=== PATIENT | female | born 1945 | race Caucasian/White ===

== ENCOUNTER 2020-06-09 00:17 | Emergency (ER) | payer MEDICARE, OTHER, SELFPAY ==
[2020-06-09 00:28] VITALS: BP 152/80; PULSE 68; RESP 18; TEMP 36.7; O2SAT 88; BMI 27.4
[2020-06-09 00:35] VITALS: BP 133/78; PULSE 74; RESP 18; O2SAT 99
--- NOTE | 2020-06-09 00:36 | XR_ITS ---
WS: [id number] XR shoulder LT min 2V* [id number] REASON FOR EXAM: fall with shoulder pain FINDINGS: Anterior dislocation of the left glenohumeral joint. No definite clinical labral fracture or humeral fracture. No Hill-Sachs deformity. XR/XR shoulder LT min 2V* [id number] IMPRESSION: Anterior dislocation of left shoulder as above.
--- NOTE | 2020-06-09 00:36 | W.ED.FALL ---
Documented by User: JAMES Ross 06/09/20 02:23 HPI - Fall General: Chief Complaint: Fall Stated Complaint: SHOULDER PAIN Time Seen by Provider: 06/09/20 00:35 History of Present Illness: HPI Narrative: Patient is a 74-year-old female comes to the ED via EMS after fall at home. Patient's says she was standing and fell landing on left shoulder. EMS came to the house and got patient up. She is complaining of having left shoulder pain. Denies any loss of consciousness or head trauma. EMS gave patient Zofran, 50 MCG's fentanyl and placed in shoulder immobilizer. Patient says pain after getting on all his currently 6 out of 10. Associated symptoms-after fall: Denies abdominal pain, chest pain, headache(s), hematuria or neck pain Review of Systems Const: Denies: fever(s), chills or fatigue Eyes: Denies: change in vision or eye discomfort ENMT: Denies: throat pain, odynophagia, nasal discharge or nasal congestion Card: Denies: chest pain, palpitations, edema, swelling of feet/ankles, dyspnea on exertion or orthopnea Resp: Denies: dyspnea, productive cough or non-productive cough GI: Denies: abdominal pain, nausea, vomiting, diarrhea, constipation or hematochezia : Denies: flank pain, dysuria or hematuria Musc: Reports: joint pain (left shoulder); Denies: neck pain, back pain or extremity swelling Skin/Breast: Denies: rash or new lesions Neuro: Denies: headache(s), numbness in extremities or weakness in extremities Physical Exam Const: COMMON NORMALS: no acute distress, patient oriented x3, healthy appearing and alert GENERAL APPEARANCE: cooperative and comfortable HENMT: COMMON NORMALS: normocephalic HEAD & SCALP: normocephalic MOUTH: Normal oral and palatal mucosa present THROAT: posterior oropharynx normal and uvula midline Neck/C-Spine: COMMON NORMALS: supple GENERAL: Yes normal visual inspection Resp: COMMON NORMALS: normal respiratory effort, No retractions, No use of accessory muscles and clear to auscultation bilaterally AUSCULTATION: clear to auscultation bilaterally Cardio: COMMON NORMALS: regular rate, regular rhythm, S1 normal heart sound present, S2 normal heart sound present, No gallops present (Cardio), No clicks present (Cardio), No murmurs present (Cardio) and Peripheral pulses 2+ throughout RATE: regular rate RHYTHM: regular rhythm HEART SOUNDS: S1 normal heart sound present and S2 normal heart sound present PERIPHERAL PULSES: Peripheral pulses 2+ throughout GI: COMMON NORMALS: Normal to inspection, nondistended, normoactive bowel sounds present, Soft to palpation, non-tender and no masses PALPATION: Yes Soft to palpation : COMMON NORMALS: Yes no CVA tenderness BLADDER/KIDNEY EXAM: Yes no CVA tenderness Back/Pelvis: COMMON NORMALS: no CVA tenderness Extremity: NARRATIVE EXTREMITY EXAM: Left arm?patient's left shoulder is currently in sling and swath. Radial pulse 2+, sensation intact. Left shoulder nontender to palpation. Neuro: COMMON NORMALS: patient oriented x3 and moves all extremities SENSORIUM/ORIENTATION: Yes alert Skin: GENERAL SKIN EXAM: dry skin Course ED course: Dr. Adams was informed about shoulder. He will be performing the reduction of the left shoulder and I will be assisting. Vital Signs: Vital signs: Vital Signs Temperature 98.1 F 06/09/20 00:28 Pulse Rate 65 06/09/20 02:18 Respiratory Rate 19 H 06/09/20 02:18 Blood Pressure 116/75 06/09/20 02:18 Pulse Oximetry 99 06/09/20 02:18 MDM - Fall MDM Narrative: Medical decision making narrative: Patient is a 74-year-old female comes to the ED with left shoulder injury after fall. X-ray showed dislocation of the left shoulder. Dr. Adams performed the reduction and I assisted. He will be heading to the no the reduction procedure details. Post reduction x-ray was performed and showed reduction was successful on shoulder was back in alignment. Patient's left arm put in a sling and I placed an order with case management to refer patient to Ortho. Patient discharged with hydrocodone prescription for pain and told to leave arm in sling and case management will be contacting them to set up an appoint with Ortho.Return to ED precautions given. Patient understood and agreed with plan. Imaging Data^: Xray Ortho: Attestation: I personally reviewed and interpreted this imaging study as follows: My impression: Left shoulder x-ray shows dislocation. Post reduction left shoulder Xray--shoulder was reduced and back in normal alignment. Discharge Plan Discharge Patient Disposition: Home Clinical Impression: Dislocated shoulder Qualifiers: Encounter type: initial encounter Laterality: left Qualified Code(s): S43.005A - Unspecified dislocation of left shoulder joint, initial encounter Condition: Stable Prescriptions: No Action aspirin 81 mg Tablet,Chewable 81 mg PO DAILY RF: 0 Discharge Orders: Discharge Order (Routine); Ordered 06/09/20 Ordered By: George Neville Discharge Diet: Regular Discharge Activity: Limit activity as instructed Patient Instructions: Shoulder Dislocation Exercises (GEN), Shoulder Dislocation (ED) Activity Restrictions/Additional Instructions: Follow-up with medical provider as directed. Case management should be contacting you in the next several days to set up an appointment with orthopedic doctor. Take medications as prescribed. Keep left arm in sling until cleared by Dr. Return to the ER or your medical provider if condition worsens. Please read and understand discharge instructions. If any questions, please ask. Coding Level of Care Code ED Director Of Patient Safety for Chg Fwd Exam Comprehensive Documented by User: Apolinar Adams DO 06/09/20 02:40 HPI - Fall General: Chief Complaint: Fall Stated Complaint: SHOULDER PAIN Time Seen by Provider: 06/09/20 00:35 Procedures Orthopedic Joint Reduction Joint #1: Time Out Performed: Yes Side: left Joint Reduction Location: shoulder Analgesia: procedural sedation Shoulder Technique Used (if applicable): scapula manipulation Post-reduction neuro exam: intact Post-reduction vascular: intact Post Reduction X-Ray Obtained: Yes Post Reduction X-Ray Results: reduced Splint Applied: Yes Patient Tolerated Procedure: well and no complications Procedural Sedation Indication: fracture/dislocation reduction ASA Class: I Preparation: recruiting consultant applied, pulse oximeter, supplemental O2 applied, suction/airway equipment at bedside and IV secured Midazolam: IV Midazolam dose (mg): 2 IV Etomidate dose (mg): 10 Patient Tolerated Procedure: well and no complications Complications: none Course Vital Signs: Vital signs: Vital Signs Temperature 98.1 F 06/09/20 00:28 Pulse Rate 65 06/09/20 02:18 Respiratory Rate 19 H 11/09/20 02:18 Blood Pressure 116/75 11/09/20 02:18 Pulse Oximetry 99 06/09/20 02:18 MDM - Fall MDM Narrative: Medical decision making narrative: This patient was originally seen by Mr. Kelin PA-C. I agree with his history, evaluation, and work-up. This patient has a left anterior shoulder dislocation. It was reduced by me under procedural sedation. She tolerated the procedure well, with no complication whatsoever. She is placed in a sling for Ortho follow-up as above. Discharge Plan Discharge Patient Disposition: Home Clinical Impression: Dislocated shoulder Qualifiers: Encounter type: initial encounter Laterality: left Qualified Code(s): S43.005A - Unspecified dislocation of left shoulder joint, initial encounter Condition: Stable Prescriptions: No Action aspirin 81 mg Tablet,Chewable 81 mg PO DAILY RF: 0 Discharge Orders: Discharge Order (Routine); Ordered 06/09/20 Ordered By: George Neville Discharge Diet: Regular Discharge Activity: Limit activity as instructed Patient Instructions: Shoulder Dislocation Exercises (GEN), Shoulder Dislocation (ED) Activity Restrictions/Additional Instructions: Follow-up with medical provider as directed. Case management should be contacting you in the next several days to set up an appointment with orthopedic doctor. Take medications as prescribed. Keep left arm in sling until cleared by Dr. Return to the ER or your medical provider if condition worsens. Please read and understand discharge instructions. If any questions, please ask. Coding Level of Care Code ED Director Of Patient Safety for Jean Fwd Exam Comprehensive
[2020-06-09 01:03] VITALS: BP 145/89; PULSE 88; RESP 18; O2SAT 97
--- NOTE | 2020-06-09 01:27 | XR_ITS ---
WS: [id number] XR shoulder LT min 2V* [id number] REASON FOR EXAM: post-red FINDINGS: The previously dislocated left glenohumeral joint has been restored to normal anatomic alignment. No fracture fragments are identified. There is slight deformity of the posterior lateral cortex of the h umeral head which may represent a minimal Hill-Sachs deformity. XR/XR shoulder LT min 2V* [id number] IMPRESSION: Anatomic relocation of previously identified left anterior glenohumeral disloca tion. Questionable Hill-Sachs deformity as above.
[2020-06-09] MEDS: ondansetron 2 mg/ML SDV 2 mL 4 MG IVP (01:42)
--- NOTE | 2020-06-09 01:45 | PC.NURSE ---
ambulated to BR with assistance then to room 11 for concsoius sedation and reduction of shoulder placed on monitor
[2020-06-09] MEDS: midazolam 1 mg/mL INJ 2 mL 2 MG IVP (01:46)
[2020-06-09 01:50] VITALS: BP 149/91; PULSE 80; RESP 21; O2SAT 97
[2020-06-09 02:18] VITALS: BP 116/75; PULSE 65; RESP 19; O2SAT 99
[2020-06-09] MEDS: HYDROcodone-acetaminophen 5-325 mg Tablet 2 TAB PO (02:31)
[2020-06-09 02:44] VITALS: BP 124/89; PULSE 83; RESP 17; O2SAT 98
--- NOTE | 2020-06-09 09:41 | DCPLANNER ---
assistant nurse manager had message to schedule a followup appointment for patient with ortho. assistant nurse manager called the ortho clinic, spoke with Pat, gave clinic patients information. assistant nurse manager was told that patients information would be printed and reviewed. Clinic will call patient with appointment information.
--- NOTE | 2020-06-12 15:43 | DCPLANNER ---
Patient has a follow up appointment scheduled for Tuesday, June 18, 2020 at 10:[address] Whaley. Clinic will call patient with appointment information.
--- NOTE | 2020-07-03 14:48 | DCPLANNER ---
Patient had a follow up appointment for patient with ortho on 06.18.20 - appointment was cancelled.
== END 2020-06-09 02:45 | disposition home or self-care (01) ==
PROVIDERS: Emergency Provider Physician Assistant
DX: S43.005A Unspecified dislocation of left shoulder joint, initial encounter (principal); Z79.82 Long term (current) use of aspirin; W19.XXXA Unspecified fall, initial encounter
CPT/HCPCS: 12345; 23650; 73030; 96374; 99283; J2250; J2405; J3490

== ENCOUNTER 2022-05-31 19:38 | Inpatient (IN) | payer MEDICARE, OTHER, SELFPAY ==
--- NOTE | 2022-05-31 19:39 | XRR_ITS ---
PROCEDURE INFORMATION: Exam: XR Left Hip Exam date and time: 05/31/2022 8:00 PM Age: 76 years old Clinical indication: Hip pain; Left hip; Additional info: Injury TECHNIQUE: Imaging protocol: Radiologic exam of the Left hip. Views: 2 or 3 views hip with pelvis when performed. COMPARISON: No relevant prior studies available. FINDINGS: Bones/joints: Severe left hip osteoarthritis. Soft tissues: Unremarkable. XR/XR hip LT 2-3V wo/w pel* [id number] IMPRESSION: 1. Severe left hip osteoarthritis. 2. Negative for fracture or dislocation seen, decreased bone mineral density and overlapping soft tissue densities somewhat limits evaluation, if concern for fracture remains clinically consider further evaluation with a CT scan.
[2022-05-31 19:41] VITALS: BP 130/70; PULSE 88; RESP 17; TEMP 36.4; O2SAT 95; BMI 30.2
--- NOTE | 2022-05-31 19:43 | XRR_ITS ---
PROCEDURE INFORMATION: Exam: XR Right Wrist Exam date and time: 05/31/2022 8:00 PM Age: 76 years old Clinical indication: Pain; Wrist; Right; Additional info: Injury TECHNIQUE: Imaging protocol: Radiologic exam of the Right wrist. Views: 3 or more views. COMPARISON: No relevant prior studies available. FINDINGS: Bones/joints: [id number] 1st carpometacarpal joint and STT joint osteoarthritis. Soft tissues: Normal. XR/XR wrist RT min 3V* [id number] IMPRESSION: [id number] 1st carpometacarpal joint and STT joint osteoarthritis.
--- NOTE | 2022-05-31 19:43 | W.ED.FALL ---
HPI - Fall General: Chief Complaint: Fall Stated Complaint: left hip pain/injury Time Seen by Provider: 05/31/22 19:41 Source: patient and EMS Mode of arrival: EMS Limitations: no limitations History of Present Illness: 76-year-old female who states that she had a fall on Tuesday. States she fell and injured her left hip and right wrist states she has not been able to walk since then she states her son and daughter in bed she has been laying in bed she states she decided she had to be seen today. Denies any new injuries denies any her head denies any loss conscious does have hip pain she rates a 6 out of 10 much worse with movement improved with rest. Associated symptoms-after fall: Denies abdominal pain, chest pain or headache(s) Review of Systems Const: Denies: fever(s), chills, body aches or change in appetite Eyes: Denies: blurry vision or eye discomfort ENMT: Denies: throat pain or dental pain Card: Denies: chest pain Resp: Denies: dyspnea GI: Denies: abdominal pain, nausea, vomiting or diarrhea : Denies: dysuria Musc: Reports: extremity pain Skin/Breast: Denies: rash Neuro: Denies: headache(s) Psych: Denies: depression Azael/Lymph: Denies: easy bruising All/Imm: Denies: urticaria PFSH ED PFSH: Medical History (Updated 05/31/22 @ 23:58 by Maria Fernanda Cabrera MD) No pertinent past medical history Social History (Updated 05/31/22 @ 19:45 by Maria Fernanda Cabrera MD) Substance/Drug Use: never Physical Exam Const: COMMON NORMALS: no acute distress, patient oriented x3 and healthy appearing HENMT: COMMON NORMALS: normocephalic and atraumatic HEAD & SCALP: normocephalic and atraumatic Eye: COMMON NORMALS: Equal, round and reactive pupils present and EOMs intact bilaterally PUPIL: Yes Equal, round and reactive pupils present Neck/C-Spine: COMMON NORMALS: full ROM and supple Chest: COMMONS NORMALS: normal inspection of the chest and normal palpation of entire chest wall Resp: COMMON NORMALS: normal respiratory effort, No retractions, No use of accessory muscles and clear to auscultation bilaterally AUSCULTATION: clear to auscultation bilaterally Cardio: COMMON NORMALS: regular rate, regular rhythm and No murmurs present (Cardio) RATE: regular rate RHYTHM: regular rhythm GI: COMMON NORMALS: Normal to inspection, nondistended, normoactive bowel sounds present, Soft to palpation, non-tender and no masses PALPATION: Yes Soft to palpation Extremity: NARRATIVE EXTREMITY EXAM: Slight tenderness to right wrist some tenderness over the left hip with pain with range of motion Neuro: COMMON NORMALS: patient oriented x3, moves all extremities and no focal motor deficits Psych: COMMON NORMALS: mental status grossly normal, Normal thought process present and cooperative THOUGHT PROCESS: Normal thought process present Skin: COMMON NORMALS: no rashes or lesions noted and no wounds GENERAL SKIN EXAM: no rashes or lesions noted Course Vital Signs: Vital signs: Vital Signs Temperature 97.6 F 05/31/22 19:41 Pulse Rate 83 05/31/22 22:00 Respiratory Rate 29 H 05/31/22 22:00 Blood Pressure 119/72 05/31/22 22:00 Pulse Oximetry 94 05/31/22 22:00 Oxygen Delivery Me thod 05/31/22 19:41 MDM - Fall Medical Decision Making Patient presents with left hip pain after a fall Tuesday. Patient CT shows a possible osteomyelitis she does not have much pain here no fever she also has acute kidney injury with elevated creatinine likely from dehydration patient is also hyponatremic her blood pressure here has been normal we will start on IV antibiotics along with IV fluids spoke to hospitalist will admit also spoke to Dr. Neville of orthopedics who is consulted. Lab Data : 05/31/22 22:07 05/31/22 22:36 Radiology Impressions Hip/Pelvis X-Ray 05/31/22 19:39 IMPRESSION: 1. Severe left hip osteoarthritis. 2. Negative for fracture or dislocation seen, decreased bone mineral density and overlapping soft tissue densities somewhat limits evaluation, if concern for fracture remains clinically consider further evaluation with a CT scan. Wrist X-Ray 05/31/22 19:43 IMPRESSION: [id number] 1st carpometacarpal joint and STT joint osteoarthritis. Hip CT 05/31/22 20:14 IMPRESSION: 1. Negative for fracture or dislocation. 2. Severe left hip osteoarthritis with bony remodeling of the femur and acetabulum. 3. Several pockets of air density seen in the left proximal femur medullary space measuring up to 13.8 mm with some poorly defined overlying edematous soft tissue with some punctate pockets of air and an apparent fluid collection in the soft tissue measuring up to 3.7 cm over the anterior aspect of the intertrochanteric region, concerning for an infectious process involving the soft tissues along with osteomyelitis. Laboratory Results WBC 19.4 10^3/uL (4.0-10.0) H 05/31/22 22:07 RBC 3.58 10^6/uL (4.1-5.3) L 05/31/22 22:07 Hgb 11.4 g/dL (11.5-15.3) L 05/31/22 22:07 Hct 31.7 % (37.0-47.0) L 05/31/22:07 MCV 88.5 fl (81-99) 05/31/22: MCH 31.8 pg (28.0-34.0) 05/31/22: MCHC 36.0 g/dL (30.0-36.0) 05/31/22: RDW 15.0 % (12.1-15.1) 05/31/22: Plt Count 134 10^3/cmm (130-400) 05/31/22 22:07 MPV 12.6 fL (7.4-10.4) H 05/31/22 22:07 Neut % (Auto) 89.5 % 05/31/22: Lymph % (Auto) 2.2 % 05/31/22: [place] % (Auto) 3.6 % 05/31/22: Eos % (Auto) 0.1 % 05/31/22: Baso % (Auto) 0.9 % 05/31/22: Neut # (Auto) 17.40 10^3/uL (1.8-7.7) H 05/31/22:07 Lymph # (Auto) 0.4 10^3/uL (0.8-4.8) L 05/31/22:07 [place] # (Auto) 0.7 10^3/uL (0.2-0.9) 05/31/22 22:07 Eos # (Auto) 0.0 10^3/uL (0.0-0.8) 05/31/22:07 Baso # (Auto) 0.2 10^3/uL (0.0-0.1) H 05/31/22 22:07 Nucleated RBC % (auto) 0 % 05/31/22 22:07 Nucleated RBCs # 0.0 /100WBC 05/31/22 22:07 ESR 92 mm/hr (0-15) H 05/31/22 22:07 Sodium 120 mmol/L (136-145) L 05/31/22 22:36 Potassium 5.2 mmol/L (3.5-5.1) H 05/31/22 22:36 Chloride 86 mmol/L (98-107) L 05/31/22 22:36 Carbon Dioxide 13 mmol/L (22-29) L 05/31/22 22:36 Anion Gap 26.2 (5-19) H 05/31/22 22:36 BUN 145 mg/dL (8-23) H* 05/31/22 22:36 Creatinine 5.1 mg/dL (0.5-0.9) H 05/31/22 22:36 GFR Calculation Not Reportable 05/31/22 22:36 Glucose 77 mg/dL (65-115) 05/31/22 22:36 Calculated Osmolality 296 mOsm/kg (285-295) H 05/31/22 22:36 Calcium 8.9 mg/dL (8.5-10.5) 05/31/22 22:36 Total Bilirubin 0.8 mg/dL (0.15-1.2) 05/31/22 22:36 AST 15 U/L (0-32) 05/31/22 22:36 ALT 13 U/L (0-33) 05/31/22 22:36 Alkaline Phosphatase 143 U/L (35-105) H 05/31/22 22:36 C-Reactive Protein 120.1 mg/L (0.0-4.9) H 05/31/22 22:36 Total Protein 5.5 g/dL (6.6-8.7) L 05/31/22 22:36 Albumin 2.1 g/dL (3.5-5.2) L 05/31/22 22:36 Globulin 3.4 g/dL (1.3-4.6) 05/31/22 22:36 Critical Care Time Critical Care Time: Critical Care Time: Yes Total Critical Care Time: 45 Attestation: The high probability of a clinically significant, sudden or life threatening deterioration of the patient's msk system(s) required my full and direct attention, intervention and personal management. The critical care time is as shown. This time is in addition to time spent performing any reported procedures but includes the following: [x] Data and vital sign review and interpretation [x] Patient assessment, examination and intervention [x] Documentation [x] Medication orders and management Discharge Plan Discharge Patient Disposition: Admitted As Inpatient Admit Provider: Ruth Orosco Clinical Impression: Fall, Hip pain, left, Acute kidney injury, Hyponatremia Condition: Stable Coding Level of Care Code ED Chemical Research Worker for Chg Fwd Exam Comprehensive
--- NOTE | 2022-05-31 20:14 | CTR_ITS ---
PROCEDURE INFORMATION: Exam: CT Left Lower Extremity Without Contrast, Hip Exam date and time: 05/31/2022 8:42 PM Age: 76 years old Clinical indication: Pain and injury or trauma; Fall; Blunt trauma; Hip; Left TECHNIQUE: Imaging protocol: CT of the Left lower extremity without contrast was performed. Exam focused on the hip. Radiation optimization: All CT scans at this facility use at least one of these dose optimization techniques: automated exposure control; mA and/or kV adjustment per patient size (includes targeted exams where dose is matched to clinical indication); or iterative reconstruction. COMPARISON: CR (PELVIS, ) 05/31/2022 8:00 PM RADIATION DOSE METRICS: Total DLP (mGy-cm): 418.38 FINDINGS: Bones/joints: Negative for fracture or dislocation. Severe left hip osteoarthritis with bony remodeling of the femur and acetabulum. Soft tissues: Several pockets of air density seen in the left proximal femur medullary space measuring up to 13.8 mm with some poorly defined overlying edematous soft tissue with some punctate pockets of air and an apparent fluid collection in the soft tissue measuring up to 3.7 cm over the anterior aspect of the intertrochanteric region, concerning for an infectious process involving the soft tissues along with osteomyelitis. CT/CT hip LT wo con* [id number] IMPRESSION: 1. Negative for fracture or dislocation. 2. Severe left hip osteoarthritis with bony remodeling of the femur and acetabulum. 3. Several pockets of air density seen in the left proximal femur medullary space measuring up to 13.8 mm with some poorly defined overlying edematous soft tissue with some punctate pockets of air and an apparent fluid collection in the soft tissue measuring up to 3.7 cm over the anterior aspect of the intertrochanteric region, concerning for an infectious process involving the soft tissues along with osteomyelitis.
[2022-05-31 20:32] VITALS: BP 125/88
[2022-05-31 22:00] VITALS: BP 119/72; PULSE 83; RESP 29; O2SAT 94
[2022-05-31 22:20] LABS: Basophils # 0.2 10^3/uL (0.0-0.1); Basophils % 0.9 %; Eosinophils % 0.1 %; Hematocrit 31.7 % (37.0-47.0); Hemoglobin 11.4 g/dL (11.5-15.3); Lymphocytes # 0.4 10^3/uL (0.8-4.8); Lymphocytes % 2.2 %; Mean Corpuscular Hemoglobin 31.8 pg (28.0-34.0); Mean Corpuscular Volume 88.5 fl (81-99); Mean Platelet Volume 12.6 fL (7.4-10.4); Monocytes # 0.7 10^3/uL (0.2-0.9); Monocytes % 3.6 %; Neutrophils % 89.5 %; Nucleated Red Blood Cells % 0 %; Platelet Count 134 10^3/cmm (130-400); Red Blood Count 3.58 10^6/uL (4.1-5.3); White Blood Count 19.4 10^3/uL (4.0-10.0)
[2022-05-31 22:25] LABS: Erythrocyte Sedimentation Rate 92 mm/hr (0-15)
[2022-05-31] MEDS: vancomycin 1,000 MG in sodium chloride 0.9% 250 ML 250 MG IV (22:58)
[2022-05-31 23:00] LABS: Alanine Aminotransferase 13 U/L (0-33); Albumin Level 2.1 g/dL (3.5-5.2); Alkaline Phosphatase 143 U/L (35-105); Anion Gap 26.2 (5-19); Aspartate Amino Transferase 15 U/L (0-32); C Reactive Protein 120.1 mg/L (0.0-4.9); Calcium 8.9 mg/dL (8.5-10.5); Carbon Dioxide 13 mmol/L (22-29); Chloride 86 mmol/L (98-107); Globulin 3.4 g/dL (1.3-4.6); Glucose 77 mg/dL (65-115); Potassium 5.2 mmol/L (3.5-5.1); Sodium 120 mmol/L (136-145); Total Bilirubin 0.8 mg/dL (0.15-1.2); Total Protein 5.5 g/dL (6.6-8.7)
[2022-05-31 23:05] LABS: Slide Review Slide Review Perform
[2022-05-31 23:10] LABS: Osmolality Calculated 296 mOsm/kg (285-295)
[2022-05-31 23:12] LABS: Blood Urea Nitrogen 145 mg/dL (8-23)
--- NOTE | 2022-05-31 23:21 | ECG_ITS ---
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 Measurements Intervals [place] Rate: 83 P: 4 AL: 159 QRS: 102 QRSD: 111 T: 7 QT: 365 QTc: 431 Interpretive Statements SINUS RHYTHM RIGHT AXIS DEVIATION [QRS AXIS > 100] Nonspecific T wave changes LOW QRS VOLTAGE IN PRECORDIAL LEADS [QRS DEFLECTION < 1.0 mV IN CHEST LEADS] POSSIBLE ANTERIOR MYOCARDIAL INFARCTION , OF INDETERMINATE AGE [30 ms Q WAVE IN V3/V4, OR R < 0.2 mV IN V4] No previous ECG available for comparison Electronically Signed On 06-01-2022 21:42:42 CDT by Pascual Murphy M.D. [email or web address]
[2022-05-31] MEDS: sodium chloride 0.9% 1,000 ML 999 ML IV (23:54)
[2022-06-01] VITALS (177 sets, daily range): BP systolic 83–149; BP diastolic 51–90; PULSE 73–133; RESP 5–28; TEMP 36.6; O2SAT 77–97; BMI 27.8
[2022-06-01 00:07] LABS: Creatine Phosphokinase 41 U/L (26-192)
--- NOTE | 2022-06-01 00:14 | P.HP_ITS ---
Providers/Chief Complaint Admitting Physician: Ruth Orosco MD Chief Complaint: left hip pain/injury History of Present Illness Limited history is available from the patient. At this time, she is lethargic, moaning in pain, answers few simple questions but does not describe any of her presenting symptoms. History is mainly by what was obtained by talking to the ER physician. Unable to reach family at this time. Breanna Andrew is a 76 year old female without known past medical comorbidities who reportedly sustained a mechanical fall at home on Tuesday following which she has been unable to get out of bed. She is unable to tell me how she came into the emergency room today, however reportedly neighbors called EMS which brought her to the emergency room. She had denied any specific complaints upon presentation to the ER except for left hip pain.. X-ray of her hip was performed due to concern for possible hip fracture, was ne gative for the same but showed severe left hip osteoarthritis. Negative for any fracture or dislocation. Follow-up hip CT was additionally negative for any fracture or dislocation, however showed several pockets of air density in the left proximal femur medullary space measuring up to 13.8 mm with poorly defined overlying edematous soft tissue and punctate pockets of air. There was also a soft tissue collection measuring 3.7 cm over the anterior aspect of the intertrochanteric region concerning for an infectious process involving the soft tissues along with osteomyelitis. Further lab evaluation has revealed acute kidney injury with creatinine of 5.1, patient unable to tell me her baseline or if she has a past history of CKD. She has had poor urine output, refused Martinez placement in the emergency room. Also noted to have elevated ESR CRP. Review of Systems General: Reports: ROS unobtainable due to medical condition Eyes: Denies: change in vision, blurry vision or photophobia ENMT: Reports: hoarseness; Denies: throat pain, enlarged tonsils, odynophagia or nasal congestion Card: Denies: chest pain, palpitations, irregular heart rhythm, edema, swelling of feet/ankles, lightheadedness, pre-syncope, dyspnea on exertion or orthopnea Resp: Denies: dyspnea, productive cough, non-productive cough, wheezing, stridor, pain on inspiration, change in phlegm color, hemoptysis or chest congestion GI: Denies: abdominal pain, nausea, vomiting, hematemesis, coffee ground emesis, dysphagia, heartburn, diarrhea, constipation, GI cramping, change in stool character, hematochezia or melena : Denies: flank pain, difficulty voiding, dysuria, urinary frequency, urinary urgency, urinary hesitancy or hematuria Musc: Denies: neck pain, back pain, extremity pain, joint swelling, joint warmth or deformity Neuro: Denies: headache(s), numbness in extremities, weakness in extremities, sensory changes, difficulty walking, frequent falls, dizziness, vertigo, behavioral changes, Slurred speech present or seizure-like activity Psych: Denies: anxiety, depression, suicidal ideation or homicidal ideation Endo: Denies: polyuria, polydipsia, tired all the time, cold intolerance or hot flashes Azael/Lymph: Denies: easy bruising or easy bleeding Medications/Allergies Home Medications Medication Instructions Recorded Confirmed Last Taken Type aspirin 81 mg chewable tablet 81 mg PO DAILY 06/09/20 05/31/22 06/08/20 10:00 History Allergies Allergy/AdvReac Type Severity Reaction Status Date / Time No Known Allergies Allergy Verified 05/31/22 19:47 PFSH Acute PFSH: Medical History No pertinent past medical history Social History Substance/Drug Use: never Vitals/I&O/Wt Last Vital Signs Temp 97.6 F 05/31/22 19:41 Pulse 83 05/31/22 22:00 Resp 29 H 05/31/22 22:00 BP 119/72 05/31/22 22:00 Pulse Ox 94 05/31/22 22:00 O2 Del Method 05/31/22 19:41 05/31/22 05/31/22 06/01/22 14:59 22:59 06:59 Intake Total 250 / 250 Balance 250 / 250 Weight last 48 hrs Weight 74.843 kg Physical Exam Narrative: General: Elderly Flarin appearing woman lying in bed, moans and groans, answers yes or no to directed questions but otherwise does not participate in prolonged conversation. HEENT: PERRLA, pupils bilaterally equal and reactive, pallors not present Chest: Normal vesicular breath sounds, no added sounds, equal good air entry bilaterally CVS: S1-S2 regular, no murmurs, no tachycardia, no gallops, no rubs Abdomen: Nondistended, no gross tenderness. Neuro : Moving all extremities in bed, no gross focal deficits, Data : 05/31/22 22:07 05/31/22 22:36 Other Labs: Radiology Impressions Hip/Pelvis X-Ray 05/31/22 19:39 IMPRESSION: 1. Severe left hip osteoarthritis. 2. Negative for fracture or dislocation seen, decreased bone mineral density and overlapping soft tissue densities somewhat limits evaluation, if concern for fracture remains clinically consider further evaluation with a CT scan. Wrist X-Ray 05/31/22 19:43 IMPRESSION: [id number] 1st carpometacarpal joint and STT joint osteoarthritis. Hip CT 05/31/22 20:14 IMPRESSION: 1. Negative for fracture or dislocation. 2. Severe left hip osteoarthritis with bony remodeling of the femur and acetabulum. 3. Several pockets of air density seen in the left proximal femur medullary space measuring up to 13.8 mm with some poorly defined overlying edematous soft tissue with some punctate pockets of air and an apparent fluid collection in the soft tissue measuring up to 3.7 cm over the anterior aspect of the intertrochanteric region, concerning for an infectious process involving the soft tissues along with osteomyelitis. Laboratory Results WBC 19.4 10^3/uL (4.0-10.0) H 05/31/22 22:07 RBC 3.58 10^6/uL (4.1-5.3) L 05/31/22 22:07 Hgb 11.4 g/dL (11.5-15.3) L 05/31/22 22:07 Hct 31.7 % (37.0-47.0) L 05/31/22 22:07 MCV 88.5 fl (81-99) 05/31/22 22:07 MCH 31.8 pg (28.0-34.0) 05/31/22 22:07 MCHC 36.0 g/dL (30.0-36.0) 05/31/22 22:07 RDW 15.0 % (12.1-15.1) 05/31/22 22:07 Plt Count 134 10^3/cmm (130-400) 05/31/22 22:07 MPV 12.6 fL (7.4-10.4) H 10/31/22 22:07 Neut % (Auto) 89.5 % 05/31/22 22:07 Lymph % (Auto) 2.2 % 05/31/22 22:07 [place] % (Auto) 3.6 % 05/31/22 22:07 Eos % (Auto) 0.1 % 05/31/22 22:07 Baso % (Auto) 0.9 % 05/31/22 22:07 Neut # (Auto) 17.40 10^3/uL (1.8-7.7) H 05/31/22 22:07 Lymph # (Auto) 0.4 10^3/uL (0.8-4.8) L 05/31/22 22:07 [place] # (Auto) 0.7 10^3/uL (0.2-0.9) 05/31/22 22:07 Eos # (Auto) 0.0 10^3/uL (0.0-0.8) 05/31/22 22:07 Baso # (Auto) 0.2 10^3/uL (0.0-0.1) H 05/31/22 22:07 Nucleated RBC % (auto) 0 % 05/31/22 22:07 Nucleated RBCs # 0.0 /100WBC 05/31/22 22:07 ESR 92 mm/hr (0-15) H 05/31/22 22:07 Sodium 120 mmol/L (136-145) L 05/31/22 22:36 Potassium 5.2 mmol/L (3.5-5.1) H 05/31/22 22:36 Chloride 86 mmol/L (98-107) L 05/31/22 22:36 Carbon Dioxide 13 mmol/L (22-29) L 05/31/22 22:36 Anion Gap 26.2 (5-19) H 05/31/22 22:36 BUN 145 mg/dL (8-23) H* 05/31/22 22:36 Creatinine 5.1 mg/dL (0.5-0.9) H 05/31/22 22:36 GFR Calculation Not Reportable 05/31/22 22:36 Glucose 77 mg/dL (65-115) 05/31/22 22:36 Estimat Average Glucose 94 05/31/22 22:07 Hemoglobin A1c 4.9 % (4.0-6.0) 05/31/22 22:07 Calculated Osmolality 296 mOsm/kg (285-295) H 05/31/22 22:36 Calcium 8.9 mg/dL (8.5-10.5) 05/31/22 22:36 Total Bilirubin 0.8 mg/dL (0.15-1.2) 05/31/22 22:36 AST 15 U/L (0-32) 05/31/22 22:36 ALT 13 U/L (0-33) 05/31/22 22:36 Alkaline Phosphatase 143 U/L (35-105) H 05/31/22 22:36 Creatine Kinase 41 U/L (26-192) 05/31/22 23:25 C-Reactive Protein 120.1 mg/L (0.0-4.9) H 05/31/22 22:36 Total Protein 5.5 g/dL (6.6-8.7) L 05/31/22 22:36 Albumin 2.1 g/dL (3.5-5.2) L 05/31/22 22:36 Globulin 3.4 g/dL (1.3-4.6) 05/31/22 22:36 Random Cortisol 22.07 ug/dL (2.47-19.5) H 05/31/22 23:25 Urine Color Yellow (Yellow) 06/01/22 01:58 Urine Appearance Turbid (CLEAR) A 06/01/22 01:58 Urine pH 5 (5-7) 06/01/22 01:58 Ur Specific Malcolm 1.015 (1.005-1.030) 06/01/22 01:58 Urine Protein 3+ (Negative) H 06/01/22 01:58 Urine Glucose (UA) Norm (Normal) 06/01/22 01:58 Urine Ketones Negative (Negative) 06/01/22 01:58 Urine Blood 3+ (Negative) H 06/01/22 01:58 Urine Nitrate Negative (Negative) 06/01/22 01:58 Urine Bilirubin Neg (Negative) 06/01/22 01:58 Urine Urobilinogen Norm mg/dL (Negative) 06/01/22 01:58 Ur Leukocyte Esterase 2+ (Negative) H 06/01/22 01:58 Urine RBC Too numerous to cnt /hpf (0-2) H 06/01/22 01:58 Urine WBC Too numerous to cnt /hpf (0-5) H 06/01/22 01:58 Ur Squamous Epith Cells 0-4 /hpf (0-5) H 06/01/22 01:58 Amorphous Sediment Not Reportable 06/01/22 01:58 Urine Bacteria 4+ /hpf (NONE) H 06/01/22 01:58 Ur Random Sodium 41 mmol/L 06/01/22 01:54 Ur Random Potassium 30 mmol/L 06/01/22 01:54 Ur Random Chloride 30 mmol/L 06/01/22 01:54 Blood Type O Positive 06/01/22 00:21 Rho(D) Type Positive 06/01/22 00:21 Antibody Screen Negative 06/01/22 00:21 Micro: Microbiology 05/31/22 23:49 Blood Culture - Preliminary Blood SPECIMEN COLLECTED 05/31/22 23:44 Blood Culture - Preliminary Blood SPECIMEN COLLECTED A&P Assessment and plan (1) Hip pain, left: (2) Acute kidney injury: (3) Sepsis: (4) Hyponatremia: (5) Dehydration: Plan 76-year-old lady without other known medical comorbidities, presented to the hospital with left hip pain after sustaining a fall on Tuesday. Very limited history is available from the patient, she may have some degree of encephalopathy which may be apparent to make her look like a poor historian. On evaluation she is found to have leukocytosis with predominant neutrophilia, acute kidney injury, hyponatremia, poor urine output, elevated inflammatory markers and CT of the hip showing possible soft tissue abscess and cellulitis. Sepsis is certainly a possibility. She has received sepsis bolus in the ER. Blood culture taken prior to initiation of antibiotics. We will additionally check UA and urine culture. Check lactate Patient is appearing to be grossly dehydrated, will continue IV fluids D5 normal saline at 100 cc an hour. She had refused a Martinez placement in the emergency room, however encouraged highly to consider this as we will need to monitor her urine output accurately while we are monitoring her creatinine. Mild hyperkalemia at 5.2, she is acidotic with bicarb at 13. Elevated anion gap likely secondary to dehydration. JESSICA may alternately be a result of ATN from sepsis. Check CK to evaluate for rhabdomyolysis given recent fall. Will recheck her creatinine and electrolytes after hydration with a.m. labs. Likely will need nephrology consult. Empiric antibiotic coverage with piperacillin tazobactam and vancomycin. Orthopedics has been consulted to a certain for I&D/surgical intervention. Possibly also with metabolic encephalopathy, will obtain CT head to rule out any injuries given her history of recent fall. Attestations Medical Necessity Statement*: Anticipate greater than 2 midnight admission for evaluation of possible sepsis, IV antibiotics, IV fluids, acute kidney injury requiring further interventions. Critical Care Time: The high probability of a clinically significant, sudden or life threatening deterioration of the patient's [ID, renal] system(s) required my full and direct attention, intervention and personal management. The critical care time is as shown. This time is in addition to time spent performing any reported procedures but includes the following: [x] Data and vital sign review and interpretation [x] Patient assessment, examination and intervention [x] Documentation [x] Medication orders and management Critical Care Time (min): 45 Coding Level of Care Code Acute Rn Admission for [facility] Diagnoses Hip pain, left M25.552 Acute kidney injury N17.9 Sepsis A41.9 Hyponatremia E87.1 Dehydration E86.0
[2022-06-01 01:17] LABS: Estmated Average Glucose 94; Hemoglobin A1C 4.9 % (4.0-6.0)
[2022-06-01] MEDS: piperacillin-tazobactam 3.375 GM in sodium chloride 0.9% (plus) 50 ML IV (01:39)
[2022-06-01] MEDS: sodium chloride 0.9% 1,000 ML 999 ML IV (01:51)
[2022-06-01 01:58] LABS: Cortisol Random 22.07 ug/dL (2.47-19.5)
[2022-06-01 02:44] LABS: Potassium, Radom Urine 30 mmol/L; Urine Random Chloride 30 mmol/L; Urine Random Sodium 41 mmol/L
[2022-06-01 02:45] LABS: Specific Gravity, Urine 1.015 (1.005-1.030); Urine Appearance Turbid (CLEAR); Urine Color Yellow (Yellow); pH Urine 5 (5-7)
[2022-06-01 02:46] LABS: Add Urine Culture? Yes; Add Urine Microscopic? YES; Bacteria Urine 4+ /hpf; Bilirubin Urine Neg (Negative); Blood Urine 3+ (Negative); Glucose Urine UA Norm (Normal); Ketones Urine Negative (Negative); Leukocyte Esterase Urine 2+ (Negative); Nitrate Urine Negative (Negative); Protein Urine 3+ (Negative); RBC Urine TOO NUMEROUS TO CNT /hpf (0-2); Squamous Epithelial Cell Urine 0-4 /hpf (0-5); Urobilinogen Urine Norm (Negative); WBC Urine TOO NUMEROUS TO CNT /hpf (0-5)
[2022-06-01] MEDS: dextrose 5%-sod chloride 0.9% 1,000 ML 75 ML IV (03:37)
--- NOTE | 2022-06-01 04:36 | PC.NURSE ---
Patient arrived on unit @0045. AO to person and situation only, unable to name town or year(1942). Martinez placed successfully with key/puss colored urine upon insertion approximately 100ml out on insertion. Patient complained of burning sensation. Patient complains of pain in Left hip and right wrist. Patient has been able to rest, however frequent reorientation has been necessary when awakened. Shift report from ED stated that tarry stool bowel movement tested positive for occult blood. This has not been observed in the ICU. Patient is on room with sinus rhythms and stable BP.
--- NOTE | 2022-06-01 06:45 | XRR_ITS ---
PROCEDURE INFORMATION: Exam: XR Chest Exam date and time: 06/01/2022 7:26 AM Age: 76 years old Clinical indication: Fever; Additional info: Sepsis source evaluation TECHNIQUE: Imaging protocol: Radiologic exam of the chest. Views: 1 view. Total images: 1 COMPARISON: CR XR shoulder LT min 2V* [id number] 06/09/2020 1:38 AM FINDINGS: Lungs: Trace atelectasis or scar noted in the left lung base. Pleural spaces: Unremarkable. No pleural effusion. No pneumothorax. Heart/Mediastinum: Unremarkable. No cardiomegaly. Bones/joints: Unremarkable. XR/XR chest 1V portable [id number] IMPRESSION: Trace atelectasis or scar noted in the left lung base.
--- NOTE | 2022-06-01 06:45 | CT_ITS ---
WS: [id number] CT HEAD TECHNIQUE: Noncontrast CT of the head obtained from the skullbase to the vertex. CLINICAL INFORMATION: h/o fal , evaluate for injuries COMPARISON: None. DLP: 1209.[address] scans at [facility] use at least one of these dose optimization techniques: automated e xposure control; mA and/or kV adjustment per patient size (includes targeted exams where dose is matc hed to clinical indication); or iterative reconstruction. FINDINGS: No evidence of intracranial hemorrhage or mass effect. Ventricular system and basal cisterns are russo nt. Moderate small vessel changes with moderate parenchymal volume loss. Tiny chronic lacunar infarct s in the RIGHT caudate and basal ganglia. Chronic lacunar infarcts RIGHT cerebellum. Intracranial vas cular calcifications. No extra-axial fluid collections. Paranasal sinuses and mastoid air cells are well aerated. .Normal visualized soft tissues. CT/CT head wo con* [id number] IMPRESSION: 1. No evidence of intracranial hemorrhage or mass effect. 2. Moderate small vessel changes. Moderate parenchymal volume loss. 3. Chronic lacunar infarcts in the RIGHT caudate and basal ganglia. Chronic la cunar infarcts in the RIGHT cerebellum. 4. Intracranial vascular calcification. 5. No acute intracranial findings.
--- NOTE | 2022-06-01 06:49 | PM.CONSULT ---
Providers/Reason For Consult Consulting Physician/Specialty*: Nikita Neville DO/orthopedic surgery Reason for Consult*: Left hip pain degenerative changes concerning findings for osteomyelitis and septic hip Requesting Physician: Maria Fernanda Cabrera, Attending Physician: Ruth Orosco MD History of Present Illness History of Present Illness Breanna Andrew is a 76 year old female who was seen and evaluated by myself in the ICU early this morning alongside ICU provider. Patient is a poor historian. States she did have a fall and had pain in her left hip and inability to bear weight since this past Tuesday. She was seen evaluated in the emergency department she was found on x-ray to have severe degenerative joint disease of the left hip no fracture is appreciated CT scan was then ordered to evaluate for any fracture and there was significant findings concerning for possible osteomyelitis as result orthopedic surgery team was consulted. On my evaluation of patient she is rather lethargic but she will arouse to follow some commands. She is complains of pain into her left hip. She states this is just been since Tuesday and denies is having any issues prior however unsure how reliable patient is as a historian. Once again history is limited secondary to patient being lethargic and moaning in pain and she only answers simple questions. Most of my history is from review of patient's chart as well as discussion with emergency department as well as primary team. Patient admitted in the ICU for empiric IV antibiotics. She is severely dehydrated with an acute kidney injury with a creatinine of 5.1. She has evidence of UTI. Patient's vital signs of been stable and afebrile not requiring pressors. History reveals patient is a alcoholic. Patient was able to state that she utilizes a cane or walker at home at baseline. Review of Systems General: Reports: ROS unobtainable due to medical condition Medications/Allergies Home Medications Medication Instructions Recorded Confirmed Last Taken Type aspirin 81 mg chewable tablet 81 mg PO DAILY 06/09/20 05/31/22 06/08/20 10:00 History Allergies Allergy/AdvReac Type Severity Reaction Status Date / Time No Known Allergies Allergy Verified 05/31/22 19:47 Current Medications Generic Name Dose Route Start Last Admin Trade Name Freq PRN Reason Stop Dose Admin Dextrose/Sodium Chloride 1,000 mls @ 75 mls/hr 06/01/22 00:15 06/01/22 03:37 Dextrose 5%-Sod Chloride 0.9% IV 75 mls/hr .[id number] ULYSSES Administration Piperacillin Sod/Tazobactam 50 mls @ 12.5 mls/hr 06/01/22 01:00 06/01/22 06:20 Sod 3.375 gm/ Sodium Chloride IV Infused Q8H ULYSSES Infusion Protocol PFSH Acute PFSH: Medical History (Updated 06/01/22 @ 17:07 by Nikita Neville DO) Hip osteomyelitis, left No pertinent past medical history Social History Substance/Drug Use: never Vitals/I&O/Wt Last Vital Signs Temp 97.9 F 06/01/22 01:00 Pulse 78 06/01/22 06:00 Resp 22 H 06/01/22 04:05 BP 136/63 06/01/22 04:05 Pulse Ox 95 06/01/22 04:05 O2 Del Method 06/01/22 01:00 05/31/22 05/31/22 06/01/22 14:59 22:59 06:59 Intake Total 2300 / 2300 Output Total 175 / 175 Balance 2125 / 2125 Weight last 48 hrs Weight 157 lb 6 oz Weight 165 lb Physical Exam Narrative: Examination is limited due to patient's poor historian and lethargy complaining of pain left hip: Patient rests leg and externally rotated positioning to the left lower extremity. She has positive pain with logroll she is unable to perform [place]inchfield secondary to pain and discomfort. Patient is able to wiggle her toes as well as plantarflex and dorsiflex ankle distal pulses palpable. She does not a sensation intact to light touch distally at the foot however unable to specify each dermatome or peripheral nerve distribution. Negative logroll to the right right hip pain and tenderness palpation of the left hip. No wound noted to the left hip. Patient is able to wiggle toes and plantarflex dorsiflex ankle to the right lower extremity. Patient does have some tenderness to palpation of the right wrist and some discomfort with range of motion mild swelling noted with no noticeable erythema. Urinary Catheter Management: Martinez: Cath Placed During This Visit: yes Reason for Continuing Indwelling Catheter: Accurate Measurement of Urinary Output in Critically Ill Patients Urinary Catheter Date of Insertion: 06/01/22 Urinary Catheter Time of Insertion: 01:15 Data : 06/01/22 06:50 06/01/22 06:50 Micro: Microbiology 05/31/22 23:49 Blood Culture - Preliminary Blood SPECIMEN COLLECTED 05/31/22 23:44 Blood Culture - Preliminary Blood SPECIMEN COLLECTED Xray Ortho: My impression: X-rays reviewed of the left hip demonstrates severe degenerative changes and erosion of the femoral head of the left hip. X-rays of the right wrist demonstrate no acute fracture dislocation normal soft tissue envelope and first CMC joint arthritis with STT arthritis. Radiologist's impression: IMPRESSION: 1. Severe left hip osteoarthritis. 2. Negative for fracture or dislocation seen, decreased bone mineral density and overlapping soft tissue densities somewhat limits evaluation, if concern for fracture remains clinically consider further evaluation with a CT scan. IMPRESSION: [id number] 1st carpometacarpal joint and STT joint osteoarthritis. Other CT: Radiologist's impression: IMPRESSION: 1. Negative for fracture or dislocation. 2. Severe left hip osteoarthritis with bony remodeling of the femur and acetabulum. 3. Several pockets of air density seen in the left proximal femur medullary space measuring up to 13.8 mm with some poorly defined overlying edematous soft tissue with some punctate pockets of air and an apparent fluid collection in the soft tissue measuring up to 3.7 cm over the anterior aspect of the intertrochanteric region, concerning for an infectious process involving the soft tissues along with osteomyelitis. MRI: Radiologist's impression: IMPRESSION: ? 1.? Nearly nondiagnostic evaluation of the LEFT hip. Patient was unable to remain still for this examination. 2.? Cannot exclude fracture or osteomyelitis. 3.? There is severe soft tissue edema and synovial thickening surrounding the LEFT hip and involving the muscles surrounding the LEFT hip. Infectious process likely. A&P Assessment and plan (1) Hip osteomyelitis, left: (2) Hip pain, left: (3) Acute kidney injury: (4) Sepsis: Plan MDM: Breanna is a 76-year-old female with complains of severe pain to the left hip apparently after a fall on Tuesday. She subsequently brought was brought to the emergency department found to have severe degenerative joint disease left hip and a CT scan of the left hip was ordered to rule out fracture and subsequently severe degenerative changes found to the left hip findings concerning for osteomyelitis and infection with multiple air densities throughout the hip as well as within the femoral canal. Orthopedics was consulted. On my evaluation of patient she is a poor historian and lethargic and complaining of pain in the left hip she does have findings concerning for acute process of the left hip with my main concern being of osteomyelitis. These changes do not appear to have been going on for longer than just this past Tuesday. Evaluation of patient's chart she has a white count that is 19.4 hemoglobin 11.4 ESR 92 sodium 120 BUN 145 with a creatinine of 5.1 CRP 120. She is a chronic alcoholic per discussion with internal medicine. I did detailed discussion with internal medicine as far as patient's health status and ability to proceed with anything surgical. At this point time she is being empirically covered on antibiotics and she is severely dehydrated with acute kidney injury. At this point time they feel would not be appropriate for proceeding with surgery as she needs to be better medically optimized to endure a surgical intervention. At this point time they would like to reevaluate to see how patient is responding within the next 24 to 48 hours before proceeding with surgical intervention just to better optimize her body. This point time she is not requiring pressors and she has been afebrile and her vital signs have remained stable. We will continue to monitor at this time. We did talk about further advanced imaging which an MRI was ordered this morning and stat fashion and unfortunately patient was sedated but did have noticeable movement but did show significant soft tissue edema and thickening around the left hip and findings concerning for likely infectious process. At this point time I feel no further work-up is needed I feel we do have a diagnosis of a left hip infection likely osteomyelitis and abscess about the left hip. This does appear to be quite extensive my plan from a surgical standpoint would be once patient stable to get source control. Plan would be for an anterior lateral approach with I&D of the left hip plan for a Girdlestone with antibiotic beads. We will obtain cultures at that time for antibiotics. When talking to patient this morning she is agreeable to what ever would need to be done from a surgical perspective pertaining to her left hip. This point time we will proceed with surgical intervention once patient is medically optimized and stabilized to proceed with surgical intervention. Thank you for allowing me to partake in the care of this patient. Orthopedics will continue to monitor patient. I will keep her n.p.o. at midnight in case she is able to proceed with surgery or decompensates requiring emergent intervention. MRI performed this morning?see results above May have a diet today?n.p.o. 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
[2022-06-01 07:04] LABS: Basophils # 0.2 10^3/uL (0.0-0.1); Basophils % 0.8 %; Eosinophils % 0.1 %; Hematocrit 30.1 % (37.0-47.0); Lymphocytes # 0.4 10^3/uL (0.8-4.8); Lymphocytes % 2.3 %; Mean Corpuscular HGB Conc 36.5 g/dL (30.0-36.0); Mean Corpuscular Volume 87.5 fl (81-99); Mean Platelet Volume 11.5 fL (7.4-10.4); Monocytes # 0.5 10^3/uL (0.2-0.9); Neutrophils # 15.99 10^3/uL (1.8-7.7); Neutrophils % 90.4 %; Nucleated Red Blood Cells % 0 %; Platelet Count 100 10^3/cmm (130-400); Red Blood Count 3.44 10^6/uL (4.1-5.3); White Blood Count 17.7 10^3/uL (4.0-10.0)
[2022-06-01 07:23] LABS: Lactate (Lactic Acid level) 0.9 mmol/L (0.5-2.2)
[2022-06-01 07:32] LABS: Alanine Aminotransferase 11 U/L (0-33); Albumin Level 1.9 g/dL (3.5-5.2); Alkaline Phosphatase 134 U/L (35-105); Anion Gap 23.9 (5-19); Aspartate Amino Transferase 11 U/L (0-32); Calcium 8.3 mg/dL (8.5-10.5); Carbon Dioxide 12 mmol/L (22-29); Chloride 93 mmol/L (98-107); Glucose 89 mg/dL (65-115); Magnesium 2.5 mg/dL (1.7-2.3); Potassium 4.9 mmol/L (3.5-5.1); Sodium 124 mmol/L (136-145); Thyroid Stimulating Hormone 3.41 uIU/mL (0.27-4.20); Total Bilirubin 0.6 mg/dL (0.15-1.2); Total Protein 4.9 g/dL (6.6-8.7)
[2022-06-01 07:43] LABS: Blood Urea Nitrogen 147 mg/dL (8-23); Osmolality Calculated 305 mOsm/kg (285-295)
[2022-06-01 07:50] LABS: Slide Review Slide Review Perform
--- NOTE | 2022-06-01 08:40 | MR_ITS ---
WS: [id number] MRI LEFT HIP without CONTRAST. COMPARISON: CT head 05/31/2022. Multiplanar, multisequence imaging is performed without contrast. Extremely limited, essentially nondiagnostic evaluation of the LEFT hip due to motion. Patient was un able to remain still despite sedatives. This study is not adequate to exclude fractures or osteomyelitis. There is a large amount of T2 incre ased signal surrounding the LEFT hip joint in the muscles surrounding the LEFT hip. There is marked s oft tissue thickening which may be synovial thickening related to a joint infection. Foci of air were noted within the soft tissue thickening on the recent CT. Marked bony hypertrophy with remodeling of the LEFT femoral head. MR/MR hip LT wo con* [id number] IMPRESSION: 1. Nearly nondiagnostic evaluation of the LEFT hip. Patient was unable to yumiko in still for this examination. 2. Cannot exclude fracture or osteomyelitis. 3. There is severe soft tissue edema and synovial thickening surrounding the L EFT hip and involving the muscles surrounding the LEFT hip. Infectious process likely.
[2022-06-01 09:13] LABS: Alcohol Level < 10 mg/dL (0-10)
--- NOTE | 2022-06-01 09:34 | PC.CHAP ---
Pastoral Care Encounter/Spiritual Assessment Type of Contact [] Declined designer writer visit [] Patient/Family/Request visit [] Outpatient visit [] Follow-up visit [] Physician referral [] Code/Alert [x] Routine visit [] Staff referral [] Actively dying [x] Patient sleeping [] Family support [] [] Out of room [] Palliative care [] [] Receiving care in room [] Pre-surgical visit [] Trauma [] Long length of stay [x] ICU visit [] Other: Relational/Emotional Strength [] Patient feels connected with others/family/visitors/staff [] Distress [] Loneliness/isolation [] Abandonment Spirituality of Patient [] Person of [place] [] Attends Sikhism of their [place] [] Believes in Prayer [] Reads Bible or Bahai materials [] There are Spiritual issues to be addressed Capacity Management Specialist Interventions [x] Prayer [] Active listening [] Non-anxious presence [] Spiritual/emotional support [] Crisis/trauma care [] Spiritual counseling [] Bereavement support [] Provided bereavement packet [] Provided Bible/devotional materials [] Provided toy/stuffed animal, coloring book to patient or family member [] Provided Communion [] Anointing/[place] [] Salvation [x] Completed spiritual assessment [] Other: Impact on Illness or Injury [] Angry [] Fearful [] Anxious [] Often cries [] Exhaustion [] Unable to work [] Unable to attend synagogue [] Unable to walk/stand [] Unable to read [] Unable to drive [] Unable to eat/drink [] Unable to sleep [] Unable to be with family [] Patient intubated [] Other: Summary Time spent with patient
[2022-06-01] MEDS: sodium chloride 0.9% 1,000 ML 100 ML IV (09:49)
[2022-06-01] MEDS: aspirin 81 mg Chew Tablet PO (09:50)
[2022-06-01] MEDS: cefepime 1,000 MG in sodium chloride 0.9% (plus) 50 ML 100 MG IV (10:00)
[2022-06-01] MEDS: LORazepam 2 mg/mL INJ 1 mL 0.5 MG IVP (10:12)
--- NOTE | 2022-06-01 10:24 | PM.MISC ---
Miscellaneous Note Note: Patient is stating that she drinks heavily, family member also called to endorse alcohol abuse Patient is endorsing fall and pain in her right hip Dr. Neville has recommended MRI She seems to have abnormal UA with UTI/pyelonephritis Considering JESSICA I have changed antibiotics Patient is awake and alert Clinically very dehydrated Abdomen soft S1, S2 Currently hemodynamically stable Martinez catheter draining turbid yellow urine Tender hip tuberosity bilaterally Lower extremity no signs of swelling or vascular compromise Assessment plan Obtain leg/hip MRI after getting Ativan, continued air around the hip area is concerning for possible osteomyelitis or abscess For alcohol withdrawal I will keep her on phenobarbital as needed usage Add thiamine high-dose Change fluids to normal saline LE today She will be kept n.p.o. after midnight for tomorrow in case she would require surgical intervention She is septic with UTI/pyelonephritis Acute kidney injury related to dehydration I will change her antibiotics to vancomycin cefepime and metronidazole Full code Further plan will be made after her MRI results
[2022-06-01] MEDS: LORazepam 2 mg/mL INJ 1 mL 1 MG IVP (11:32)
--- NOTE | 2022-06-01 11:33 | PC.NURSE ---
DPOA called in and advised patient is an alcoholic and drinks at least a bottle of wine per day. NUrse alerted Dr Cho.
--- NOTE | 2022-06-01 11:34 | PC.NURSE ---
Patient taken for MRI. Despite ativan administration, patient would not stay still. Was frequently yelling unintelligibly. Pulled off pulse ox, and was frequently itchint face and moving legs despite repeated directions to stay still.
--- NOTE | 2022-06-01 11:40 | PC.NURSE ---
nurse attempted to give morning PO meds, but patient is unable to take them. Patient is confused and is unable to understand the need to swallow the medications. Just lets them sit in her mouth and not swallow. Nurse removed pills from mouth.
--- NOTE | 2022-06-01 16:50 | PC.SLP ---
CASING FLUSHER attempted to assess, however, the pt is not able to maintain alertness to participate at this time. CASING FLUSHER will attempt to follow-up with tomorrow.
[2022-06-01 17:52] LABS: Glucose Point of Care 63 mg/dL (70-110)
[2022-06-01 18:00] LABS: ABG PCO2 29.9 mmHg (35-45); Alveolar-Arterial Oxygen Gradi 9.4 mmHg (5-10); Arterial Blood Gas Hematocrit 32.6 % (37-47); Base Excess ABG -15.1 mmol/L (-2.0-2.0); Blood Gas Operator Identificat GD; Blood Gas Sample Site Brachial, left; Blood Gas Sample Type Arterial; Carboxyhemoglobin 1.2 %THgb (0.4-20.1); HCO3 ABG 11.6 mmol/L (22-26); HGB O2 Sat 94.7 % (95-100); Ionized Calcium Level - ABG 1.2 mmol/L (1.1-1.4); Oxygen Device NC; Oxygen Saturation ABG 96.8; PO2 ABG 89.4 mmHg (80.0-100.0); Total Hemoglobin 10.6 g/dL (12-16)
--- NOTE | 2022-06-01 18:01 | PC.NURSE ---
Patient continues to be lethargic since MRI this morning and ativan administration. Nurse alerted Dr brooks and checked BG and had rspiratory check and ABG. BG is 63, abg showing metabilic acidosis. NUrse alerted Dr brooks, d5 and bicarb orders received. See mar.
[2022-06-01] MEDS: dextrose 50% syringe 50 mL 25 ML IVP (18:11)
[2022-06-01 18:17] LABS: Acinetobacter baumannii Not Detected (NOT DETECT); Bacteroides fragilis Not Detected (NOT DETECT); CTX-M Not Detected (NOT DETECT); Citrobacter Not Detected (NOT DETECT); Cronobacter sakazakii Not Detected (NOT DETECT); Enterobacter cloacae complex Not Detected (NOT DETECT); Enterobacter non cloacae Not Detected (NOT DETECT); Fusobacterium necrophorum Not Detected (NOT DETECT); Fusobacterium nucleatum Not Detected (NOT DETECT); Haemophilus influenzae Not Detected (NOT DETECT); IMP Resistance Gene Not Detected (NOT DETECT); KPC Resistance Gene Not Detected (NOT DETECT); Klebsiella pneumoniae group Not Detected (NOT DETECT); Morganella morganii Not Detected (NOT DETECT); NDM Resistance Gene Not Detected (NOT DETECT); Neisseria meningitidis Not Detected (NOT DETECT); OXA Resistance Gene Not Detected (NOT DETECT); Pan Candida Not Detected (NOT DETECT); Pan Gram-Positive Not Detected (NOT DETECT); Proteus mirabilis Not Detected (NOT DETECT); Pseudomonas aeruginosa Not Detected (NOT DETECT); Salmonella Not Detected (NOT DETECT); Serratia Not Detected (NOT DETECT); Serratia marcescens Not Detected (NOT DETECT); Stenotrophomonas maltophilia Not Detected (NOT DETECT); VIM Resistance Gene Not Detected (NOT DETECT)
[2022-06-01] MEDS: sodium bicarbonate 150 MEQ in dextrose 5% 1,000 ML 100 MEQ IV (19:03)
[2022-06-01 23:31] LABS: ABG PCO2 30.6 mmHg (35-45); ABG PH Result 7.26 (7.35-7.45); Arterial Blood Gas Hematocrit 30.9 % (37-47); Base Excess ABG -12.2 mmol/L (-2.0-2.0); Blood Gas Allen Test Pos; Blood Gas Sample Site Radial, left; Blood Gas Sample Type Arterial; HCO3 ABG 13.7 mmol/L (22-26); Oxygen Device ROOM AIR; PO2 ABG 81.8 mmHg (80.0-100.0)
[2022-06-02] VITALS (193 sets, daily range): BP systolic 82–126; BP diastolic 43–90; PULSE 65–90; RESP 11–27; TEMP 36.6; O2SAT 84–98
[2022-06-02 01:31] LABS: Glucose Point of Care 88 mg/dL (70-110)
[2022-06-02 04:06] LABS: Basophils # 0.1 10^3/uL (0.0-0.1); Basophils % 0.7 %; Eosinophils # 0.1 10^3/uL (0.0-0.8); Eosinophils % 0.3 %; Hematocrit 27.2 % (37.0-47.0); Hemoglobin 9.7 g/dL (11.5-15.3); Lymphocytes # 0.5 10^3/uL (0.8-4.8); Lymphocytes % 2.5 %; Mean Corpuscular HGB Conc 35.7 g/dL (30.0-36.0); Mean Corpuscular Hemoglobin 31.4 pg (28.0-34.0); Mean Platelet Volume 11.6 fL (7.4-10.4); Monocytes # 0.5 10^3/uL (0.2-0.9); Monocytes % 2.9 %; Neutrophils # 16.62 10^3/uL (1.8-7.7); Neutrophils % 88.9 %; Nucleated Red Blood Cells % 0 %; Platelet Count 103 10^3/cmm (130-400); Red Blood Count 3.09 10^6/uL (4.1-5.3); Red Cell Distribution Width 15.3 % (12.1-15.1); White Blood Count 18.7 10^3/uL (4.0-10.0)
[2022-06-02 04:33] LABS: Lactic Sepsis W/Reflex 0.9 mmol/L (0.5-2.2)
[2022-06-02 05:20] LABS: Alanine Aminotransferase 8 U/L (0-33); Albumin Level 1.8 g/dL (3.5-5.2); Alkaline Phosphatase 123 U/L (35-105); Anion Gap 24.8 (5-19); Aspartate Amino Transferase 8 U/L (0-32); Calcium 8.2 mg/dL (8.5-10.5); Carbon Dioxide 14 mmol/L (22-29); Chloride 94 mmol/L (98-107); Globulin 2.8 g/dL (1.3-4.6); Glucose 88 mg/dL (65-115); Magnesium 2.5 mg/dL (1.7-2.3); Potassium 4.8 mmol/L (3.5-5.1); Sodium 128 mmol/L (136-145); Thyroid Stimulating Hormone 5.15 uIU/mL (0.27-4.20); Total Bilirubin 0.5 mg/dL (0.15-1.2); Total Protein 4.6 g/dL (6.6-8.7)
[2022-06-02 05:27] LABS: Osmolality Calculated 316 mOsm/kg (285-295)
[2022-06-02 05:30] LABS: Blood Urea Nitrogen 155 mg/dL (8-23)
[2022-06-02 07:44] LABS: Glucose Point of Care 92 mg/dL (70-110)
--- NOTE | 2022-06-02 08:21 | CT_ITS ---
WS: [id number] CT ABDOMEN PELVIS TECHNIQUE: Noncontrast CT of the abdomen and pelvis with coronal and sagittal reformatted images. CLINICAL INFORMATION: Low urine output COMPARISON: None. DLP: 739.[address] scans at [facility] use at least one of these dose optimization techniques: automated e xposure control; mA and/or kV adjustment per patient size (includes targeted exams where dose is matc hed to clinical indication); or iterative reconstruction. FINDINGS: Tiny bilateral pleural effusions. Subsegmental atelectasis in the lung bases. Noncontrast liver is no rmal. Mild fluid distention of the gallbladder. Small esophageal hiatal hernia. Adrenal glands are no rmal. Martinez catheter in place. Small amount of air in the bladder likely due to Martinez catheter placem ent. Bladder is decompressed. No hydronephrosis in either kidney. No obstructing renal or ureteral ca lculi. Somewhat prominent appearing kidneys bilaterally with suggestion of parenchymal edema. Recomme nd correlation with renal function. Enhancement cannot be assessed without contrast. Noncontrast pancreas is normal. Normal caliber abdominal aorta. Mild aortic calcification. Sigmoid di verticulosis. No evidence of acute diverticulitis. No high-grade small or large bowel obstruction. No periaortic or pelvic lymphadenopathy. No inguinal lymphadenopathy. Advanced degenerative or posttr aumatic arthritis LEFT hip with avascular necrosis and flattening of the femoral head with subchondra l cystic change. Soft tissue edema about the LEFT hip with joint effusion. Recommend correlation for infection. CT/CT abdomen pelvis wo con [id number] IMPRESSION: 1. No hydronephrosis in either kidney. Martinez catheter in place. Suggestion of renal parenchymal edema however enhancement cannot be assessed without contrast . 2. No obstructing renal ureteral calculi. 3. Tiny bilateral pleural effusions with subsegmental atelectasis in the lung bases. 4. Small esophageal hiatal hernia. 5. Sigmoid diverticulosis. No evidence of acute diverticulitis. 6. Advanced degenerative or posttraumatic arthritis LEFT hip with avascular ne crosis and flattening of the femoral head and subchondral cystic change.Soft ti ssue edema about the LEFT hip with joint effusion. Recommend correlation for in fection.
[2022-06-02 08:44] LABS: Creatine Phosphokinase 17 U/L (26-192)
[2022-06-02] MEDS: sodium chloride 0.9% 1,000 ML 999 ML IV (09:12)
[2022-06-02] MEDS: folic acid 1 mg Tablet PO (09:13)
[2022-06-02] MEDS: metroNIDAZOLE 500 MG Tablet PO ×3 (09:13→20:09)
[2022-06-02] MEDS: pantoprazole DR 40 mg Tablet PO (09:13)
--- NOTE | 2022-06-02 09:15 | P.PN_ITS ---
Subjective Subjective: Patient was seen and examined this morning. Patient's labs reviewed with minimal improvement. Blood pressures become soft and currently getting a fluid bolus. Patient continues to complain of pain in the left hip once again she can still only answer simple questions and basically will request her hip hurts and she wants it to get better. Talked with the nursing staff in the ICU and they are reaching out to patient's family friends and POA. I had discussion with hospitalist who agrees patient's not improving at this point time agrees that surgical intervention would be the next step. Family was then contacted prior to proceeding with surgical intervention and my assessment and plan see conversation below. Vitals/I&O/Wt Last Vital Signs Temp 97.9 F 06/01/22 12:00 Pulse 74 06/02/22 06:00 Resp 22 H 06/02/22 04:25 BP 85/56 06/02/22 04:25 Pulse Ox 96 06/02/22 04:25 O2 Del Method 06/01/22 12:10 O2 Flow Rate 2 06/01/22 12:10 06/01/22 06/02/22 06/02/22 22:59 06:59 14:59 Intake Total 958.333 / 8041.549 1366 / 1150 Output Total 180 / 180 250 / 430 Balance 778.333 / 1367.083 -250 / 3509.783 3623 / 1150 Weight last 48 hrs Weight 157 lb 6 oz Weight 165 lb Physical Exam Narrative: Examination is limited due to patient's poor historian, lethargy, confused and complaining of pain left hip: Patient rests leg and externally r otated positioning to the left lower extremity.? She has positive pain with logroll she is unable to perform Stinchfield secondary to pain and discomfort.? Patient is able to wiggle her toes as well as plantarflex and dorsiflex ankle distal pulses palpable.? Patient nods yes to sensation to her left lower extremity but unable to specify specific dermatomes or peripheral nerve distributions. Negative logroll to the right right hip pain and tenderness palpation of the left hip.? No wound noted to the left hip.? Urinary Catheter Management: Martinez: Cath Placed During This Visit: yes Reason for Continuing Indwelling Catheter: Accurate Measurement of Urinary Output in Critically Ill Patients Urinary Catheter Date of Insertion: 06/01/22 Urinary Catheter Time of Insertion: 11:51 Data : 06/03/22 03:43 06/03/22 03:43 Micro: Microbiology 05/31/22 23:49 Blood Culture - Preliminary Blood Escherichia coli 05/31/22 23:44 Blood Culture - Preliminary Blood Escherichia coli MRI: My impression: MRI left hip Radiologist's impression: IMPRESSION: ? 1.? Nearly nondiagnostic evaluation of the LEFT hip. Patient was unable to remain still for this examination. 2.? Cannot exclude fracture or osteomyelitis. 3.? There is severe soft tissue edema and synovial thickening surrounding the LEFT hip and involving the muscles surrounding the LEFT hip. Infectious process likely. ? A&P Assessment and plan (1) Hip osteomyelitis, left: (2) Hip pain, left: (3) Acute kidney injury: (4) Sepsis: Plan MDM: Patient's been n.p.o. since midnight. She was seen evaluated by myself this morning she has had minimal to no improvement in her labs and her blood pressure has now been soft requiring a full fluid bolus this morning. She is able to have short small conversation but still generally appears confused and just complaining of left hip pain and wants it to go away. From my perspective neck step for patient would be a surgical intervention of a left hip I&D with Girdlestone procedure and antibiotic cement ball spacers. I contacted the hospitalist to verify that patient from his perspective would be okay to proceed or that no further optimization could occur as at this point time I feel she is not clinically improving. He agreed that surgical intervention would be the next step. On talking to ICU nurse about plan for procedure she had a contact for family as patient is confused and at this point would not be appropriate to proceed with surgical intervention from her signing a consent in a confused mental state. At this point family/friend/POA was contacted by nursing staff and ultimately they wish to speak with me prior to signing anything for surgical intervention. As result I contacted patient's POA Elen and had a long and d ifficult discussion about Breanna's situation. At this point time on my clinical recommendations she has osteomyelitis of the femur as well as the acetabulum. She has an extensive infection with abscess on the anterior aspect of the hip joint. We talked about at this point proceeding with an I&D of the left hip with Girdlestone procedure and antibiotic cement spacers with this not being the final surgery and only being a way for source control to isolate the bacteria and plan for a more definitive cement spacer with a Prostalac prosthesis several days later if patient is stabilizing. We talked about that this would be the most ideal implant for ambulation and unfortunately due to the extensive infection cannot place any metal implants until we have had a cleared of an infection. Ultimately this would require numerous surgeries my suspicion at least 3: 1 for initial source control 1 for a Prostalac implant placement and then 1 hopefully for a final metal implant that patient could have better ambulation or weightbearing on. She is significantly sick with a high creatinine at this point not improving. After sharing with this the family did express that her wishes that she expressed to them was that she wished to be fully functioning on her own and ambulating otherwise she would like to withhold from any interventions. As result we left the conversation that she would discuss with all the family and friends about our discussion as far as my recommendations here moving forward. She understands that this is not a guarantee or homerun of a case as far as knowing how well she will respond however at this point time this would be our only next option in order to help with source control as she does appear to have a pretty extensive infection in her left hip. She was given time to talk with family I then reach back out to Elen and she states her family wanted detailed discussion and ultimately unknowing patient as well as her wishes at this point time they would like to hold off from from any orthopedic surgical procedures and would like to have patient transferred to hospice. At this point time completely understand their wishes they were very appreciative for the assistance of our team here at [facility]. At this point time I will sign off patient and follow peripherally as no further orthopedic surgical intervention will be required thank you for allowing me to partake in the care of this patient. Attestations Medical Necessity Statement*: Patient has extensive infection of osteomyelitis since of the left hip requiring hospitalization Coding Level of Care Code Acute Director Of [facility] for [facility] Diagnoses Hip osteomyelitis, left M86.9 Hip pain, left M25.552 Acute kidney injury N17.9 Sepsis A41.9 Time Spent (min) 60
--- NOTE | 2022-06-02 09:40 | PM.PN ---
Subjective Subjective: He is awake and alert however lethargic She was not put on BiPAP last night Febrile I requested nurse to give her 1 L bolus and request CT abdomen pelvis without contrast It did show avascular necrosis of left hip Plan to take her to the OR for intervention Leukocytosis on most likely related to underlying avascular necrosis Continue antibiotics Urine output is 430 mL for now we will consult nephrology She is developing ATN from sepsis Vitals/I&O/Wt Last Vital Signs Temp 97.9 F 06/01/22 12:00 Pulse 74 06/02/22 06:00 Resp 22 H 06/02/22 04:25 BP 85/56 06/02/22 04:25 Pulse Ox 96 06/02/22 04:25 O2 Del Method 06/01/22 12:10 O2 Flow Rate 2 06/01/22 12:10 06/01/22 06/02/22 06/02/22 22:59 06:59 14:59 Intake Total 958.333 / 8130.989 3406 / 1150 Output Total 180 / 180 250 / 430 Balance 778.333 / 1367.083 -250 / 8394.168 6901 / 1150 Weight last 48 hrs Weight 71.384 kg Weight 74.843 kg Physical Exam Narrative: Patient is clinically looking dehydrated Awake and alert Lethargic Currently on 2 L Abdomen soft Extremity no edema Martinez catheter draining concentrated discolored urine Patient replies very sarcastically S1, S2 Signs of dehydration present Urinary Catheter Management: Martinez: Cath Placed During This Visit: yes Reason for Continuing Indwelling Catheter: Accurate Measurement of Urinary Output in Critically Ill Patients Urinary Catheter Date of Insertion: 06/01/22 Urinary Catheter Time of Insertion: 11:51 Data : 06/02/22 03:30 06/02/22 03:30 Micro: Microbiology 05/31/22 23:49 Blood Culture - Preliminary Blood Escherichia coli 05/31/22 23:44 Blood Culture - Preliminary Blood Escherichia coli A&P Assessment and plan (1) Hip osteomyelitis, left: (2) Avascular necrosis: (3) Dehydration: (4) Sepsis: (5) Hyponatremia: (6) Fall: (7) ATN (acute tubular necrosis): Plan Sepsis related to UTI Continue broad-spectrum antibiotics Her antibiotics were changed to cefepime, Flagyl and vancomycin renally dosed ATN related to sepsis Oliguric Check urine sodium, creatinine, will consult nephro I do not have previous creatinine to compare Metabolic acidosis related to uremia She was started on bicarb drip 06/01 Lactic acid is normal Avascular necrosis of left hip Plan for surgical intervention today Dr. Neville has kept her n.p.o. Alcohol abuse have started on high-dose thiamine along folic acid Would use phenobarbital orally for as needed use No active signs of withdrawal Dehydration continue IV fluids Completing her a bolus today Full code DVT prophylaxis we will start after surgical intervention Thrombocytopenia mostly related to alcohol abuse, SCDs for now Continue ICU management Attestations Medical Necessity Statement*: Continue ICU management Time Spent in Patient Care: 40 Coding Level of Care Code Acute Irrigation Technician for [facility] Fwd Diagnoses Hip osteomyelitis, left M86.9 Avascular necrosis M87.00 Dehydration E86.0 Sepsis A41.9 Hyponatremia E87.1 Fall W19.XXXA ATN (acute tubular necrosis) N17.0
[2022-06-02 10:14] LABS: Phosphorus 5.5 mg/dL (2.5-4.5)
[2022-06-02] MEDS: cefepime 1,000 MG in sodium chloride 0.9% (plus) 50 ML 100 MG IV (10:27)
--- NOTE | 2022-06-02 10:28 | PC.CHAP ---
Pastoral Care Encounter/Spiritual Assessment Type of Contact [] Declined hand cloth examiner visit [] Patient/Family/Request visit [] Outpatient visit [] Follow-up visit [] Physician referral [] Code/Alert [x] Routine visit [] Staff referral [] Actively dying [] Patient sleeping [] Family support [] [] Out of room [] Palliative care [] [x] Receiving care in room [] Pre-surgical visit [] Trauma [] Long length of stay [x] ICU visit [x] Other: PT very uncomfortable... Staff trying to assist Relational/Emotional Strength [] Patient feels connected with others/family/visitors/staff [] Distress [] Loneliness/isolation [] Abandonment Spirituality of Patient [] Person of [place] [] Attends Muslim of their [place] [] Believes in Prayer [] Reads Bible or Baptist materials [] There are Spiritual issues to be addressed Shellfish Manager Interventions [x] Prayer [] Active listening [] Non-anxious presence [] Spiritual/emotional support [] Crisis/trauma care [] Spiritual counseling [] Bereavement support [] Provided bereavement packet [] Provided Bible/devotional materials [] Provided toy/stuffed animal, coloring book to patient or family member [] Provided Communion [] Anointing/[place] [] Salvation [x] Completed spiritual assessment [] Other: Impact on Illness or Injury [] Angry [] Fearful [] Anxious [] Often cries [] Exhaustion [] Unable to work [] Unable to attend presybeterian [] Unable to walk/stand [] Unable to read [] Unable to drive [] Unable to eat/drink [] Unable to sleep [] Unable to be with family [] Patient intubated [] Other: Summary Time spent with patient
[2022-06-02] MEDS: sodium chloride 0.9% 500 ML IV (10:31)
--- NOTE | 2022-06-02 10:42 | PC.NURSE ---
Patient friend and KRISSY Myrick, updated this morning on patient condition and current plan. Dr. Cho spoke with Elen REY, about patients condition and decision for AND reached. At this time Elen would like to speak with Dr. Neville before consenting for surgery on left hip. Dr. Cho notified.
--- NOTE | 2022-06-02 11:08 | P.CONIM_ITS ---
Providers/Reason For Consult Consulting Physician/Specialty*: nabila mcadams nd/ telenephrology Reason for Consult*: hyponatremia, renal failure, and met acidosis Requesting Physician: DR Cho Attending Physician: Patrice Cho MD History of Present Illness History of Present Illness Breanna Andrew is a 76 year old female admitted after being found down and w/ AMS. She was diagnosed w/ left hip Osteomyelitis/ UTI. pt was started on abx and ivf. Pt became more lethargic. was put on bipap, bicarb drip. renal called as cr not improving, she remains acidotic and hyponatremic. She has been taking NSAIDs for hip pain. Her abx includes cefepime, flagyl, and vanco. Review of Systems Narrative: lethargic, weak, confused in bed, hip and arm pains. limited ROS by poor MS Medications/Allergies Home Medications Medication Instructions Recorded Confirmed Last Taken Type aspirin 81 mg chewable tablet 81 mg PO DAILY 06/09/20 05/31/22 06/08/20 10:00 History Allergies Allergy/AdvReac Type Severity Reaction Status Date / Time No Known Allergies Allergy Verified 05/31/22 19:47 Current Medications Generic Name Dose Route Start Last Admin Trade Name Freq PRN Reason Stop Dose Admin Folic Acid 1 mg 06/01/22 09:00 06/02/22 09:13 Folic Acid 1 Mg Tablet PO 1 mg DAILY ULYSSES Administration Cefepime HCl 1,000 mg/ Sodium 50 mls @ 100 mls/hr 06/01/22 10:00 06/02/22 10:27 Chloride IV 100 mls/hr Q24H ULYSSES Administration Protocol Sodium Bicarbonate 150 meq/ 1,150 mls @ 100 mls/hr 06/01/22 18:30 06/02/22 09:08 Dextrose IV Not Given .[id number] ULYSSES Metronidazole 500 mg 06/01/22 15:00 06/02/22 09:13 Metronidazole 500 Mg Tablet PO 500 mg TID ULYSSES Administration Pantoprazole Sodium 40 mg 06/01/22 09:00 06/02/22 09:[address] 40 Mg Tablet PO 40 mg DAILY ULYSSES Administration Thiamine HCl 500 mg 06/01/22 09:00 06/02/22 09:13 Thiamine 100 Mg/Ml Sdv IVP 500 mg DAILY ULYSSES Administration PFSH Acute PFSH: Medical History (Updated 06/02/22 @ 09:46 by Patrice Cho MD) Hip osteomyelitis, left No pertinent past medical history Social History Substance/Drug Use: never Vitals/I&O/Wt Last Vital Signs Temp 97.9 F 06/01/22 12:00 Pulse 79 06/02/22 09:50 Resp 24 H 06/02/22 09:50 BP 92/43 06/02/22 09:50 Pulse Ox 84 L 06/02/22 09:50 O2 Del Method 06/02/22 09:50 O2 Flow Rate 2 06/01/22 12:10 06/01/22 06/02/22 06/02/22 22:59 06:59 14:59 Intake Total 958.333 / 8304.419 1725 / 2150 Output Total 180 / 180 250 / 430 Balance 778.333 / 1367.083 -250 / 1870.382 7744 / 2150 Weight last 48 hrs Weight 71.384 kg Weight 74.843 kg Physical Exam Narrative: elderly in bed in NARD BP low Heent- nc/at, eomi, anicteric neck supple lungs crackles heart reg, +LEORA abd soft, nt, +BS, ND ext hip pain neuro- confused, weak Urinary Catheter Management: Martinez: Cath Placed During This Visit: yes Reason for Continuing Indwelling Catheter: Accurate Measurement of Urinary Output in Critically Ill Patients Urinary Catheter Date of Insertion: 06/01/22 Urinary Catheter Time of Insertion: 11:51 Data : 06/02/22 03:30 06/02/22 03:30 Micro: Microbiology 06/01/22 07:55 Urine Culture - Preliminary Urine Catheterized Gram Negative Rods 06/01/22 01:58 Urine Culture - Preliminary Urine,Clean Catch Gram Negative Rods 05/31/22 23:49 Blood Culture - Preliminary Blood Escherichia coli 05/31/22 23:44 Blood Culture - Preliminary Blood Escherichia coli A&P Assessment and plan (1) Acute kidney injury: 76 yr old female w/ left hip avascular necrosis and Q OM 1. 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 leukocytosis from OM- renal dose abx 3. anemia- check iron studies, b12, folate 4. inc AGmet acidosis- normal lactate -likely from MARCIAL -improving w/ ivf and abx 5. hyponatremia- improving nicely w/ ivf tsh 5.15- not causing hyponatremia -check AM cortisol level. was 23 at 10 pm seen and examined w/ RN -telehealth visit discussed w/ Dr Cho- pt is DNR/ DNI. she would not likely want dialysis. Dr Cho will discuss w/ her family/ friends in more detail. time spent 50 min Plan as above Consult Attestations Medical Necessity Statement: marcial, OM, AMS, met acidosis, hyponatremia Time Spent in Patient Care: Greater than 35 minutes (>than 50% of time spent in counselling and/or direct pt care on unit) . Coding Level of Care Code Acute Medical Biller/Coder for [facility] Diagnoses Acute kidney injury N17.9
[2022-06-02 11:29] LABS: Urine Creatinine 24 mg/dL (28-217); Urine Random Sodium 37 mmol/L
[2022-06-02 11:33] LABS: Creatinine Urine, Random 24 mg/dL (28-217)
[2022-06-02 11:45] LABS: Microalbum Creatinine Ratio Ur 2625 mg/dL (0-20); Microalbumin Random Urine 63 ug/dL (0-20)
[2022-06-02 12:17] LABS: Eosinophil Urine No Eosinophils Seen; Urine Eosinophil Count 0 (0-0)
[2022-06-02] MEDS: PHENobarbital 130 mg/mL SDV 1 mL 120 MG IV (12:18)
[2022-06-02 12:27] LABS: Complement C3 80 mg/dL (90-180)
[2022-06-02 12:44] LABS: Hepatitis C Virus Antibody Non-Reactive (Nonreactive)
[2022-06-02 12:53] LABS: Folate Level 4.6 ng/mL (4.8-37.3)
[2022-06-02 13:01] LABS: Vitamin B12 > 2000 pg/mL (232-1245)
--- NOTE | 2022-06-02 16:33 | PC.NURSE ---
KRISSY Myrick, called and this nurse discussed plan of care. Elen stated she, spoke with Dr. Neville twice today and decided not to continue with planned intervention for osteomelitis. Elen requested a conference call with Dr. Cho and Dr. Neville. Dr. Cho notified of this request via Voalte.
--- NOTE | 2022-06-02 16:52 | PC.NURSE ---
Patient continues to be confused and disoriented. When asked for month, date, and year patient states, December, 1945. When reoriented to date, patient states, what kind of government organization is this? What do you put in the water around here? Don't you get tired of all of this?
[2022-06-02 20:55] LABS: Glucose Point of Care 93 mg/dL (70-110)
--- NOTE | 2022-06-02 21:00 | PC.NURSE ---
Family Update KRISSY Myrick called and wished to speak to patient; mobile phone brought to patient's room for personal conversation. Following patient conversation, Elen posed several questions regarding care to which updates and information were given. Elen then stated no further questions and stated she would personally call Dr. Cho tomorrow to discuss rescheduling surgery.
[2022-06-02] MEDS: vancomycin 1,000 MG in sodium chloride 0.9% 250 ML 250 MG IV (21:24)
[2022-06-02] MEDS: acetaminophen 325 mg Tablet 650 MG PO (21:30)
[2022-06-02] MEDS: acetaminophen 1,000 MG/100 ML PIGGYBACK 400 MG IV (23:00)
--- NOTE | 2022-06-02 23:00 | PC.NURSE ---
Pain Patient complaining of pain in left hip, right arm, and head throughout evening. PRN acetaminophen administered per SEP with minimal effect. Dr. Orosco contacted and orders received for one time dose 1000 mg IV tylenol and 1 mg morphine IVP PRN Q6H for pain. Medications administered per SEP.
[2022-06-03] VITALS (80 sets, daily range): BP systolic 75–157; BP diastolic 43–89; PULSE 64–87; RESP 9–24; TEMP 36.3–36.7; O2SAT 89–98; BMI 28.9
[2022-06-03] MEDS: morphine 4 mg/mL SDV 1 mL 1 MG IVP ×2 (01:06→18:21)
--- NOTE | 2022-06-03 03:25 | PC.NURSE ---
Notified Dr. Orosco of decrease in blood pressure. Maps 54-60. Urine output decreased. Dr. Orosco gave order for Normal Saline bolus 500ml once and Normal Saline 75ml/hr.
[2022-06-03] MEDS: sodium chloride 0.9% 500 ML 999 ML IV (03:46)
[2022-06-03] MEDS: sodium chloride 0.9% 1,000 ML 75 ML IV (04:28)
--- NOTE | 2022-06-03 04:30 | PC.NURSE ---
Addendum entered by Anna Coburn RN 06/03/22 07:16: At 0415, following a fluid bolus and initiating maintenance fluids, patient's pressure remaining low. Order received to start levophed from Dr. Orosco. Original Note: Blood pressure At 0240, patient's blood pressure 77/43, remaining low for the past hour. Additionally, urine output concentrated and low at 100 ml out this shift. Dr. Orosco notified via voalte; no new orders received.
[2022-06-03 04:36] LABS: Basophils # 0.1 10^3/uL (0.0-0.1); Basophils % 0.7 %; Eosinophils # 0.1 10^3/uL (0.0-0.8); Eosinophils % 0.5 %; Hematocrit 27.6 % (37.0-47.0); Hemoglobin 9.2 g/dL (11.5-15.3); Lymphocytes # 0.6 10^3/uL (0.8-4.8); Lymphocytes % 3.4 %; Mean Corpuscular HGB Conc 33.3 g/dL (30.0-36.0); Mean Corpuscular Hemoglobin 30.4 pg (28.0-34.0); Mean Corpuscular Volume 91.1 fl (81-99); Mean Platelet Volume 11.9 fL (7.4-10.4); Monocytes # 0.6 10^3/uL (0.2-0.9); Neutrophils # 15.54 10^3/uL (1.8-7.7); Neutrophils % 85.3 %; Nucleated Red Blood Cells % 0 %; Platelet Count 103 10^3/cmm (130-400); Red Blood Count 3.03 10^6/uL (4.1-5.3); Red Cell Distribution Width 15.9 % (12.1-15.1); White Blood Count 18.2 10^3/uL (4.0-10.0)
[2022-06-03 05:02] LABS: Alanine Aminotransferase 6 U/L (0-33); Albumin Level 1.8 g/dL (3.5-5.2); Alkaline Phosphatase 121 U/L (35-105); Anion Gap 22.2 (5-19); Aspartate Amino Transferase 9 U/L (0-32); Calcium 8.2 mg/dL (8.5-10.5); Carbon Dioxide 12 mmol/L (22-29); Chloride 95 mmol/L (98-107); Globulin 2.9 g/dL (1.3-4.6); Glucose 67 mg/dL (65-115); Iron 46 ug/dL (37-145); Magnesium 2.4 mg/dL (1.7-2.3); Percent Saturation 35.1 % (20-50); Phosphorus 5.7 mg/dL (2.5-4.5); Potassium 5.2 mmol/L (3.5-5.1); Sodium 124 mmol/L (136-145); Total Bilirubin 0.5 mg/dL (0.15-1.2); Total Iron Binding Capacity 131 mcg/dl; Total Protein 4.7 g/dL (6.6-8.7); Unsaturated Iron Binding 85 ug/dL (112-347); Uric Acid 11.9 mg/dL (2.4-5.7)
[2022-06-03 05:03] LABS: Calcium 7.8 mg/dL (8.5-10.5)
[2022-06-03 05:11] LABS: Cortisol Random 13.13 ug/dL (2.47-19.5)
[2022-06-03 05:15] LABS: 25 Hydroxy Vitamin D 44 ng/mL (30-100)
[2022-06-03 06:07] LABS: Blood Urea Nitrogen 150 mg/dL (8-23); Osmolality Calculated 305 mOsm/kg (285-295)
[2022-06-03 06:08] LABS: Ferritin 1192 ng/mL (15-150)
--- NOTE | 2022-06-03 08:03 | P.PN_ITS ---
Subjective Subjective: weak, confused, disoriented Medications: Reviewed: Yes Medication Review Details: Current Medications Acetaminophen (Acetaminophen 325 Mg Tablet) 650 mg PO Q6H PRN PRN Reason: Mild/Mod Pain Or Temp >/= 101 Last Admin: 06/02/22 21:30 Dose: 650 mg Folic Acid (Folic Acid 1 Mg Tablet) 1 mg PO DAILY [facility] Last Admin: 06/02/22 09:13 Dose: 1 mg Vancomycin HCl 1,000 mg/ (Sodium Chloride) 250 mls @ 250 mls/hr IV Q48H [facility]; Protocol Last Infusion: 06/03/22 01:04 Dose: Infused Cefepime HCl 1,000 mg/ Sodium (Chloride) 50 mls @ 100 mls/hr IV Q24H [facility]; Protocol Last Infusion: 06/02/22 12:15 Dose: Infused Sodium Chloride (Sodium Chloride 0.9%) 1,000 mls @ 75 mls/hr IV .[id number] [facility] Last Admin: 06/03/22 04:28 Dose: 75 mls/hr Norepinephrine Bitartrate 4 mg (/ Dextrose) 254 mls @ 0 mls/hr IV .Q0M [facility]; Protocol Last Admin: 06/03/22 05:21 Dose: 4 mcg/min, 15.24 mls/hr Lanolin (Lanolin Oint 7 Gm) 1 applic TOPICAL PRN PRN PRN Reason: DRYNESS Metronidazole (Metronidazole 500 Mg Tablet) 500 mg PO TID [facility] Last Admin: 06/02/22 20:09 Dose: 500 mg Morphine Sulfate (Morphine 4 Mg/Ml Sdv 1 Ml) 1 mg IVP Q6H PRN PRN Reason: SEVERE PAIN Last Admin: 06/03/22 01:06 Dose: 1 mg Ondansetron HCl (Ondansetron 2 Mg/Ml Sdv 2 Ml) 4 mg IVP Q8H PRN PRN Reason: vomiting, or N/V if npo Pantoprazole Sodium (Pantoprazole Dr 40 Mg Tablet) 40 mg PO DAILY [facility] Last Admin: 06/02/22 09:13 Dose: 40 mg Phenobarbital Sodium (Phenobarbital 130 Mg/Ml Sdv 1 Ml) 120 mg IV Q2H PRN PRN Reason: ALCOHOL WITHDRAWAL Last Admin: 06/02/22 12:18 Dose: 120 mg Thiamine HCl (Thiamine 100 Mg/Ml Sdv) 500 mg IVP DAILY [facility] Last Admin: 06/02/22 09:13 Dose: 500 mg Vitals/I&O/Wt Last Vital Signs Temp 97.8 F 06/03/22 04:00 Pulse 65 06/03/22 06:00 Resp 12 06/03/22 04:45 BP 120/69 06/03/22 04:45 Pulse Ox 95 06/03/22 04:45 O2 Del Method 06/03/22 04:00 O2 Flow Rate 2 06/01/22 12:10 06/02/22 06/03/22 06/03/22 22:59 06:59 14:59 Intake Total 1330 / 4030 Output Total 250 / 250 175 / 425 Balance -250 / 2450 1155 / 3605 Weight last 48 hrs Weight 74.106 kg Physical Exam Narrative: elderly in bed in NARD vss-oliguric Heent- nc/at, eomi, anicteric neck supple lungs crackles b/l heart reg, +LEORA abd soft, nt, +BS, ND ext hip pain neuro- confused, weak Urinary Catheter Management: Martinez: Cath Placed During This Visit: yes Reason for Continuing Indwelling Catheter: Accurate Measurement of Urinary Output in Critically Ill Patients Urinary Catheter Date of Insertion: 06/01/22 Urinary Catheter Time of Insertion: 11:51 Data : 06/03/22 03:43 06/03/22 03:43 Micro: Microbiology 06/01/22 07:55 Urine Culture - Preliminary Urine Catheterized Gram Negative Rods 06/01/22 01:58 Urine Culture - Preliminary Urine,Clean Catch Gram Negative Rods 05/31/22 23:49 Blood Culture - Preliminary Blood Escherichia coli 05/31/22 23:44 Blood Culture - Preliminary Blood Escherichia coli A&P Assessment and plan (1) Acute kidney injury: 76 yr old female w/ left hip avascular necrosis and Q OM 1. JESSICA- pt has been on NSAID's for a while -no hydronephrosis on ct scan u/a turbid, 3+ blood, 3+ prot, 2+ leuk est, rbc and wbc too numerous to count- 4+ ur bact -ur na 41 -send serologues -concern for ATN, chronic interstial nephritis from chronic NSAID use -Q infection related GN- check complements -hold ivf -try to get old blood work and an accurate home med list 2. leukocytosis from OM- renal dose abx -for surgery today 3. anemia- check iron studies, b12, folate. high iron sat 4. inc AG met acidosis- normal lactate -likely from JESSICA -bicarb down to 12- will repeat abg -based on abg, and also w/ risk of surgery, she may need dialysis- discussed w/ her friend, Elen - Power of Photographic Specialist- and she and pt state she would want dialysis 5. hyponatremia- na dropped to 124 -likely from jessica tsh 5.15- not causing hyponatremia -check AM cortisol level. was 23 at 10 pm seen and examined w/ RN -telehealth visit time spent 30 min Plan as above Attestations Medical Necessity Statement*: jessica, OM, AMD Time Spent in Patient Care: 16 - 35 minutes (>than 50% of time spent in counselling and/or direct pt care on unit) . Coding Level of Care Code Acute Manager Contract for g [facility]in Diagnoses Acute kidney injury N17.9
--- NOTE | 2022-06-03 08:34 | PC.SOCIAL ---
IMM Update pg 2 of IMM updated and reviewed w/ patient. Copy provided and Copy dated, initialed and placed in chart.
--- NOTE | 2022-06-03 08:35 | PM.PN ---
Subjective Subjective: I had discussion with the patient and her DPOA, decision was made to proceed with surgery patient is stating that if temporary dialysis catheter is needed she will be agreeable and go for dialysis for short-term She also agreeable to go to care home Will touch base with Dr. Neville, I have tried to contact him this morning I will keep patient n.p.o. until I get a response with Dr. Neville Requested Free T4 Appreciate nephro recommendations Patient is making around 400 mL urine Hypokalemia, uremia noted Vitals/I&O/Wt Last Vital Signs Temp 97.8 F 06/03/22 04:00 Pulse 65 06/03/22 06:00 Resp 12 06/03/22 04:45 BP 120/69 06/03/22 04:45 Pulse Ox 95 06/03/22 04:45 O2 Del Method 06/03/22 04:00 O2 Flow Rate 2 06/01/22 12:10 06/02/22 06/03/22 06/03/22 22:59 06:59 14:59 Intake Total 1330 / 4030 Output Total 250 / 250 175 / 425 Balance -250 / 2450 1155 / 3605 Weight last 48 hrs Weight 74.106 kg Physical Exam Narrative: Patient is able to understand my questions and answer appropriately She is awake and alert oriented to time place and person She does have capacity to make decisions Clinically looks dehydrated abdomen soft complaining of pain She is able to lift her arm against gravity on her own however she does seem to have shoulder girdle weakness/frozen shoulder Lower extremity slight edema/trace Urine catheter draining cloudy urine S1, S2 Currently on room air Urinary Catheter Management: Martinez: Cath Placed During This Visit: yes Reason for Continuing Indwelling Catheter: Accurate Measurement of Urinary Output in Critically Ill Patients Urinary Catheter Date of Insertion: 06/01/22 Urinary Catheter Time of Insertion: 11:51 Data : 06/03/22 03:43 06/03/22 03:43 Micro: Microbiology 06/01/22 07:55 Urine Culture - Preliminary Urine Catheterized Gram Negative Rods 06/01/22 01:58 Urine Culture - Preliminary Urine,Clean Catch Gram Negative Rods 05/31/22 23:49 Blood Culture - Preliminary Blood Escherichia coli 05/31/22 23:44 Blood Culture - Preliminary Blood Escherichia coli A&P Assessment and plan (1) ATN (acute tubular necrosis): (2) Avascular necrosis: (3) Hip osteomyelitis, left: (4) Dehydration: (5) Hyponatremia: (6) Sepsis: (7) Fall: Plan Septic shock Afebrile, leukocytosis present Urine culture showing gram-negative julienne, blood culture positive for E. coli bacteremia, will repeat blood cultures today Sepsis related to UTI, possible source of infection left hip area, avascular necrosis on CT evidence of Patient is currently on Levophed After getting morphine her blood pressure dropped Patient is agreeable for surgery ATN with oliguria, appreciate nephro recommendations, patient is agreeable for dialysis catheter placement and temporary dialysis if needed Patient is also agreeable to go to care home Alcohol abuse continue thiamine and folic acid Hyperkalemia, uremia metabolic acidosis related to acute kidney failure Will give her Kayexalate calcium gluconate Thrombocytopenia related to alcohol abuse Will touch base with general surgeon if platelet transfusion is needed it is above 100,000 Her DPOA is in [place] next Tuesday I spoke with her twice yesterday Patient is malnourished albumin is 1.8 Mild malnourishment Secondary hyperparathyroidism Abnormal TSH check free T4 Patient is DNR/DNI Attestations Medical Necessity Statement*: Continue medical management Time Spent in Patient Care: 30 Coding Level of Care Code Acute Coordinator Of Rehabilitation Services for g Fwd Diagnoses ATN (acute tubular necrosis) N17.0 Avascular necrosis M87.00 Hip osteomyelitis, left M86.9 Dehydration E86.0 Hyponatremia E87.1 Sepsis A41.9 Fall W19.XXXA
[2022-06-03] MEDS: folic acid 1 mg Tablet PO (09:02)
[2022-06-03] MEDS: metroNIDAZOLE 500 MG Tablet PO ×3 (09:02→20:07)
[2022-06-03] MEDS: FUROsemide 10 mg/mL SDV 10mL 60 MG IVP (09:02)
[2022-06-03] MEDS: pantoprazole DR 40 mg Tablet PO (09:02)
[2022-06-03] MEDS: cefepime 1,000 MG in sodium chloride 0.9% (plus) 50 ML 100 MG IV (09:10)
[2022-06-03 09:11] LABS: Free T4 Free Thyroxine 0.17 ng/dL (0.82-1.77)
[2022-06-03 09:24] LABS: ABG PCO2 29.5 mmHg (35-45); ABG PH Result 7.25 (7.35-7.45); Alveolar-Arterial Oxygen Gradi 4.1 mmHg (5-10); Arterial Blood Gas Hematocrit 31.8 % (37-47); Blood Gas Allen Test Pos; Blood Gas Operator Identificat GD; Blood Gas Sample Site Radial, left; Blood Gas Sample Type Arterial; Carboxyhemoglobin 1.5 %THgb (0.4-20.1); HCO3 ABG 12.9 mmol/L (22-26); Ionized Calcium Level - ABG 1.1 mmol/L (1.1-1.4); Methemoglobin 0.9 % (0.4-1.5); Oxygen Device ROOM AIR; Oxygen Saturation ABG 96.3; PO2 ABG 81.3 mmHg (80.0-100.0); Potassium Level - ABG 4.6 mmol/L (3.5-5.0); Total Hemoglobin 10.4 g/dL (12-16)
--- NOTE | 2022-06-03 10:07 | PC.NURSE ---
Patient more oriented this shift. Able to hold conversation and is oriented to person, place and situation. Verbalizes wishes to continue with, all care needed to get better. Dr. Cho at bedside for neurological assessment questions and answers.
--- NOTE | 2022-06-03 10:12 | PM.DIACAT ---
Procedure Note: Procedure: Preoperative diagnosis: Acute renal failure requiring emergent dialysis Postoperative diagnosis: Same Procedure: Placement of Mahurkar catheter in the right femoral vein Surgeon: Dr. Omar Tucker, DO Anesthesia: Local Description of procedure: The patient's right groin was prepped and draped in a sterile manner.? The right femoral artery was palpated. 5 mL of 1% lidocaine was infiltrated at the site of planned entry, an introducer needle was used to access the right femoral vein using palpation.? Guidewire was passed through the introducer needle and the introducer needle was removed.? Serial dilators were passed over the guidewire after the skin incision was extended using 11 blade and Mahurkar catheter was then passed over the guidewire and the guidewire was removed.? The catheter was sutured to the skin using 2-0 Ethilon suture.? Sterile dressings were applied. Coding Level of Care Code Acute Motel Front Desk Attendant for Jean Denton
--- NOTE | 2022-06-03 10:13 | PM.CONSULT ---
Providers/Reason For Consult Consulting Physician/Specialty*: Dr. Omar Tucker, DO/General surgery Reason for Consult*: Temporary hemodialysis catheter placement Attending Physician: Patrice Cho MD History of Present Illness History of Present Illness Breanna Andrew is a 76 year old female who is currently in the hospital with osteomyelitis and renal failure. She fell at home 6 days ago and then was unable to get out of bed. She is confused right now and yelling out for water. She has presumed osteomyelitis of the left hip and may undergo surgery later today. Nephrology requested temporary hemodialysis catheter for hemodialysis. HPI and review of systems are limited secondary to patient's confusion. Review of Systems General: Reports: ROS unobtainable due to mental status Medications/Allergies Home Medications Medication Instructions Recorded Confirmed Last Taken Type aspirin 81 mg chewable tablet 81 mg PO DAILY 06/09/20 05/31/22 06/08/20 10:00 History Allergies Allergy/AdvReac Type Severity Reaction Status Date / Time No Known Allergies Allergy Verified 05/31/22 19:47 Current Medications Generic Name Dose Route Start Last Admin Trade Name Freq PRN Reason Stop Dose Admin Acetaminophen 650 mg 06/01/22 00:06 06/02/22 21:30 Acetaminophen 325 Mg Tablet PO 650 mg Q6H PRN Administration Mild/Mod Pain Or Temp >/= 101 Folic Acid 1 mg 06/01/22 09:00 06/03/22 09:02 Folic Acid 1 Mg Tablet PO 1 mg DAILY ULYSSES Administration Vancomycin HCl 1,000 mg/ 250 mls @ 250 mls/hr 06/02/22 22:00 06/03/22 01:04 Sodium Chloride IV Infused Q48H ULYSSES Infusion Protocol Cefepime HCl 1,000 mg/ Sodium 50 mls @ 100 mls/hr 06/01/22 10:00 06/03/22 09:10 Chloride IV 100 mls/hr Q24H ULYSSES Administration Protocol Norepinephrine Bitartrate 4 mg 254 mls @ 0 mls/hr 06/03/22 04:30 06/03/22 05:21 / Dextrose IV 4 mcg/min .Q0M ULYSSES 15.24 mls/hr Administration Protocol Per Protocol Metronidazole 500 mg 06/01/22 15:00 06/03/22 09:02 Metronidazole 500 Mg Tablet PO 500 mg TID ULYSSES Administration Morphine Sulfate 1 mg 06/02/22 22:25 06/03/22 01:06 Morphine 4 Mg/Ml Sdv 1 Ml IVP 1 mg Q6H PRN Administration SEVERE PAIN Pantoprazole Sodium 40 mg 06/01/22 09:00 06/03/22 09:[address] 40 Mg Tablet PO 40 mg DAILY ULYSSES Administration Phenobarbital Sodium 120 mg 06/01/22 08:19 06/02/22 12:18 Phenobarbital 130 Mg/Ml Sdv 1 Ml IV 120 mg Q2H PRN Administration ALCOHOL WITHDRAWAL Thiamine HCl 500 mg 06/01/22 09:00 06/03/22 09:02 Thiamine 100 Mg/Ml Sdv IVP 500 mg DAILY ULYSSES Administration PFSH Acute PFSH: Medical History Hip osteomyelitis, left No pertinent past medical history Social History Substance/Drug Use: never Vitals/I&O/Wt Last Vital Signs Temp 97.8 F 06/03/22 04:00 Pulse 69 06/03/22 08:30 Resp 11 L 06/03/22 08:30 BP 115/59 06/03/22 08:30 Pulse Ox 96 06/03/22 08:30 O2 Del Method 06/03/22 08:30 O2 Flow Rate 2 06/01/22 12:10 06/02/22 06/03/22 06/03/22 22:59 06:59 14:59 Intake Total 1330 / 4030 Output Total 250 / 250 175 / 425 Balance -250 / 2450 1155 / 3605 Weight last 48 hrs Weight 163 lb 6 oz Physical Exam Narrative: General : Patient is well developed Head : Normal cephalic, a-traumatic. Ears : Pinnae and external canal are normal. Hearing is normal. Eyes : PERRLA, Sclera and injection are normal. No conjunctival discharge. Nose : Mucous membranes are without erythema. Throat : buccal mucosa is normal, gums are without significant recession or hypertrophy. Lungs : Equal chest rise bilaterally, no use of accessory muscles, trachea is midline. Cor : Rate and rhythm are normal. Abdomen : Soft, ND, NT, no g/r/m Extremities : No edema, no cyanosis or clubbing, dorsalis pedis pulses are present bilaterally, non-tender to palpation of calves. Upper extremities are normal bilaterally. Neuro : Nonfocal Urinary Catheter Management: Martinez: Cath Placed During This Visit: yes Reason for Continuing Indwelling Catheter: Accurate Measurement of Urinary Output in Critically Ill Patients Urinary Catheter Date of Insertion: 06/01/22 Urinary Catheter Time of Insertion: 11:51 Data : 06/03/22 03:43 06/03/22 03:43 Micro: Microbiology 06/01/22 07:55 Urine Culture - Preliminary Urine Catheterized Gram Negative Rods 06/01/22 01:58 Urine Culture - Preliminary Urine,Clean Catch Gram Negative Rods 05/31/22 23:49 Blood Culture - Preliminary Blood Escherichia coli 05/31/22 23:44 Blood Culture - Preliminary Blood Escherichia coli A&P Assessment and plan (1) Acute kidney injury: Plan Temporary hemodialysis catheter placed in the right femoral vein Coding Level of Care Code Acute Java Golden Gate Developer for Jean Denton Diagnoses Acute kidney injury N17.9
--- NOTE | 2022-06-03 10:13 | PC.NURSE ---
Dr. Tucker at bedside, education provided for hemodilalysis catheter placement. Patient gave verbal consent, but stated she was too weak to sign the paper. Dr. Tucker, Shelley RN, and this nurse, as witness to consent. Paper in chart. Catheter placed with no complications.
--- NOTE | 2022-06-03 10:32 | PC.SLP ---
The patient is currently n.p.o. pending possible surgery. CNC MILLING MACHINE OPERATOR will follow up the patient when she is off n.p.o. status.
[2022-06-03 10:58] LABS: Hepatitis B Surface Antigen Non-Reactive (Nonreactive); Hepatitis C Virus Antibody Non-Reactive (Nonreactive)
[2022-06-03 11:23] LABS: PROTEIN, TOTAL 3.8 g/dL (6.1-8.1)
[2022-06-03 12:53] LABS: Anti-Double Strand DNA AB <1 IU/mL
--- NOTE | 2022-06-03 12:55 | PC.CHAP ---
Pastoral Care Encounter/Spiritual Assessment Type of Contact [] Declined engine specialist visit [] Patient/Family/Request visit [] Outpatient visit [] Follow-up visit [] Physician referral [] Code/Alert [x] Routine visit [] Staff referral [] Actively dying [] Patient sleeping [] Family support [] [] Out of room [] Palliative care [] [] xReceiving care in room [] Pre-surgical visit [] Trauma [] Long length of stay [x] ICU visit [] Other: Relational/Emotional Strength [] Patient feels connected with others/family/visitors/staff [] Distress [] Loneliness/isolation [] Abandonment Spirituality of Patient [] Person of [place] [] Attends Zoroastrianism of their [place] [] Believes in Prayer [] Reads Bible or Quaker materials [] There are Spiritual issues to be addressed Scheduler Interventions [] Prayer [] Active listening [] Non-anxious presence [] Spiritual/emotional support [] Crisis/trauma care [] Spiritual counseling [] Bereavement support [] Provided bereavement packet [] Provided Bible/devotional materials [] Provided toy/stuffed animal, coloring book to patient or family member [] Provided Communion [] Anointing/[place] [] Salvation [] Completed spiritual assessment [] Other: Impact on Illness or Injury [] Angry [] Fearful [] Anxious [] Often cries [] Exhaustion [] Unable to work [] Unable to attend yarsanism [] Unable to walk/stand [] Unable to read [] Unable to drive [] Unable to eat/drink [] Unable to sleep [] Unable to be with family [] Patient intubated [] Other: Summary Time spent with patient
[2022-06-03] MEDS: heparin, porcine 1,000 unit/mL INJ 10 mL HE (13:31)
--- NOTE | 2022-06-03 13:42 | PC.HD ---
Upon treatment initiation, this dialysis nurse was unable to draw from the arterial port of patient's new temporary right femoral HD catheter. Treatment was initiated with lines reversed. Machine AP and PASTE MAKER within normal parameters.
--- NOTE | 2022-06-03 15:22 | PC.NURSE ---
During dialysis levophed requirements increased for blood pressure support. See MAR for titration. This nurse placed patient in trendelenburg position. Dr. Ponce contacted by dialysis nurse, Alexa BOLDEN. Orders received for 500ml fluid bolus and 25 gm albumen followed. Blood pressure improving currently, with levophed at 16mcg/min. Patient alert and verbally responsive at this time.
--- NOTE | 2022-06-03 15:58 | PC.NURSE ---
Update on patient given to Elen approximately 1530. Patient currently receiving dialysis. Elen requests to call back at 1730 and speak with patient via portable telephone. Will attempt to accommodate at that time. Patient has no complaints at this time.
[2022-06-03 16:08] LABS: ALBUMIN 1.6 g/dL (3.8-4.8); ALPHA 1 GLOBULIN 0.6 g/dL (0.2-0.3); ALPHA 2 GLOBULIN 0.6 g/dL (0.5-0.9); BETA 1 GLOBULIN 0.3 g/dL (0.4-0.6); BETA 2 GLOBULIN 0.2 g/dL (0.2-0.5); GAMMA GLOBULIN 0.5 g/dL (0.8-1.7)
[2022-06-03 16:17] LABS: Anti-Nuclear Antibody Screen NEGATIVE (NEGATIVE)
--- NOTE | 2022-06-03 17:56 | PM.PN ---
Subjective Subjective: Orthopedics was contacted by ICU nurse that patient as well as family have agreed to proceed with all interventions in the way of dialysis as well as surgery. At this point I was asked to be reinvolved in patient's care. Patient was subsequently seen and evaluated this afternoon prior to her getting dialysis. She still lethargic but is able to respond and states she would like something done for her left hip. She understands this would be a big surgery at this point time she would like what ever can be done to be done. Vitals/I&O/Wt Last Vital Signs Temp 97.6 F 06/03/22 14:00 Pulse 82 06/03/22 16:00 Resp 17 06/03/22 16:00 BP 101/70 06/03/22 16:00 Pulse Ox 97 06/03/22 16:00 O2 Del Method 06/03/22 16:00 O2 Flow Rate 2 06/01/22 12:10 06/03/22 06/03/22 06/03/22 06:59 14:59 22:59 Intake Total 1330 / 4030 208.496 / 208.496 211.887 / 420.383 Output Total 175 / 425 Balance 1155 / 3605 208.496 / 208.496 211.887 / 420.383 Weight last 48 hrs Weight 163 lb 6 oz Physical Exam Narrative: Persistent left hip pain and tenderness to palpation. Positive logroll. Patient can wiggle toes plantarflex and dorsiflex ankle to the left lower extremity. Nods sensation intact light touch distally. Distal pulses are palpable. Brisk capillary refill less than 2 seconds. Urinary Catheter Management: Martinez: Cath Placed During This Visit: yes Reason for Continuing Indwelling Catheter: Accurate Measurement of Urinary Output in Critically Ill Patients Urinary Catheter Date of Insertion: 06/01/22 Urinary Catheter Time of Insertion: 11:51 Data : 06/03/22 03:43 06/03/22 03:43 Micro: Microbiology 05/31/22 23:44 Blood Culture - Preliminary Blood Escherichia coli 06/01/22 01:58 Urine Culture - Final Urine,Clean Catch Escherichia coli 06/03/22 10:15 Blood Culture - Preliminary Blood SPECIMEN COLLECTED 06/03/22 10:10 Blood Culture - Preliminary Blood SPECIMEN COLLECTED A&P Assessment and plan (1) Hip osteomyelitis, left: (2) ATN (acute tubular necrosis): (3) Sepsis: (4) Hip pain, left: (5) Acute kidney injury: Plan MDM: I was contacted today that patient as well as family have decided to pursue surgical intervention as well as dialysis. Patient was then subsequently seen evaluated today and she confirms she would like surgery to be done. I then did contact Elen who is patient's POA and family friend at this point time she states she had a good discussion with her last night and they ultimately are deciding to pursue surgical intervention. As result we talked with anesthesia as well as hospitalist. Patient will be optimized today while she is getting her dialysis catheter and will undergo dialysis. Spoke with anesthesia and to better optimize would like her to have dialysis and then plan for surgery tomorrow just to better optimize her medically for surgical intervention. Reviewing her labs she does have a slightly low starting hemoglobin at 9 and we will plan to have couple units of PRBC on hold for surgery. Her platelet count is 103 and as result we will make sure we have some platelets available as well. Patient may have a diet today and plan for n.p.o. at midnight with plan for surgical intervention tomorrow of the left hip irrigation and debridement with Girdlestone and antibiotic cement spacer placement. Suspect we will likely need to do a deep drain incorporated to an incisional VAC to help with any abscess reaccumulation as well as to close down some space. They understand that this will definitely not be hard last surgery however we talked with patient and family and at this point time would like to take it 1 surgery at a time and see how she is responding and will verify each time prior to each procedure that their wishes are to proceed. They understand and agree with current plan. All questions been answered at this time very appreciative we will plan to proceed with surgical intervention tomorrow. Patient will continue empiric antibiotics and undergo dialysis today. Attestations Medical Necessity Statement*: Patient has left hip osteomyelitis and sepsis requiring hospitalization IV antibiotics and surgical intervention Coding Level of Care Code Acute Door Tender for [facility] Diagnoses Hip osteomyelitis, left M86.9 ATN (acute tubular necrosis) N17.0 Sepsis A41.9 Hip pain, left M25.552 Acute kidney injury N17.9 Time Spent (min) 50
--- NOTE | 2022-06-03 19:19 | PC.NURSE ---
Code status: At approximately 1820, this nurse spoke with Elen at patient bedside via portable telephone. At that time patient verbalized desire to keep AND as code status during surgery.
[2022-06-03 23:57] LABS: Glucose Point of Care 67 mg/dL (70-110)
[2022-06-04] VITALS (86 sets, daily range): BP systolic 80–144; BP diastolic 39–88; PULSE 69–87; RESP 10–23; TEMP 35.8–36.8; O2SAT 88–100
[2022-06-04 03:21] LABS: Glucose Point of Care 148 mg/dL (70-110)
[2022-06-04 04:33] LABS: Alanine Aminotransferase < 5 U/L (0-33); Albumin Level 2.1 g/dL (3.5-5.2); Alkaline Phosphatase 128 U/L (35-105); Anion Gap 17.2 (5-19); Aspartate Amino Transferase 9 U/L (0-32); Carbon Dioxide 20 mmol/L (22-29); Chloride 97 mmol/L (98-107); Globulin 2.5 g/dL (1.3-4.6); Glucose 147 mg/dL (65-115); Magnesium 2.1 mg/dL (1.7-2.3); Osmolality Calculated 301 mOsm/kg (285-295); Potassium 4.2 mmol/L (3.5-5.1); Sodium 130 mmol/L (136-145); Total Bilirubin 0.5 mg/dL (0.15-1.2); Total Protein 4.6 g/dL (6.6-8.7)
[2022-06-04 05:19] LABS: Blood Urea Nitrogen 91 mg/dL (8-23)
--- NOTE | 2022-06-04 07:34 | P.PN_ITS ---
Subjective Subjective: Patient and examined this morning. She received dialysis yesterday stable overnight and weaning down on pressor support per nursing staff. Patient is with it this morning and able to discuss surgery in detail. She asked what the plans were for surgery. I expressed for surgery would be for I&D with Girdlestone procedure and antibiotic cement spacer. At this point time she understands the risks the complications and the benefits to surgical treatment as far as continued nonoperative intervention. Risks include make it better make it worse, blood loss, heart attack, stroke, on the table, worsening infection. Understanding these risks she agrees to proceed with surgical intervention. We will proceed with surgery today. Vitals/I&O/Wt Last Vital Signs Temp 98.0 F 06/04/22 05:45 Pulse 76 06/04/22 05:45 Resp 11 L 06/04/22 05:45 BP 112/62 06/04/22 05:45 Pulse Ox 94 06/04/22 05:45 O2 Del Method 06/03/22 16:00 O2 Flow Rate 2 06/01/22 12:10 06/03/22 06/04/22 06/04/22 22:59 06:59 14:59 Intake Total 2304.150 / 2512.646 329.964 / 2842.610 Output Total 1558 / 1558 225 / 1783 Balance 746.150 / 954.646 104.964 / 1059.610 Weight last 48 hrs Weight 171 lb 14.4 oz Weight 163 lb 6 oz Physical Exam Narrative: Patient more awake, this a.m, positive Logroll. Persistent tenderness to palpation anterior aspect of hip, left lower extremity resting in a flexed and externally rotated posture, able to wiggle toes plantarflex and dorsiflex ankle sensation tact light touch distally distal pulses palpable left lower extremity is warm and well-perfused. Urinary Catheter Management: Martinez: Cath Placed During This Visit: yes Reason for Continuing Indwelling Catheter: Accurate Measurement of Urinary Output in Critically Ill Patients Urinary Catheter Date of Insertion: 06/01/22 Urinary Catheter Time of Insertion: 11:51 Data : 06/04/22 07:38 06/04/22 03:40 Micro: Microbiology 05/31/22 23:44 Blood Culture - Preliminary Blood Escherichia coli 06/01/22 01:58 Urine Culture - Final Urine,Clean Catch Escherichia coli 06/03/22 10:15 Blood Culture - Preliminary Blood SPECIMEN COLLECTED 06/03/22 10:10 Blood Culture - Preliminary Blood SPECIMEN COLLECTED A&P Assessment and plan (1) Hip osteomyelitis, left: (2) Sepsis: (3) Hip pain, left: Plan N.p.o. since midnight Continue IV antibiotics Internal medicine is primary Spoke with patient this morning and is agreeable to proceed with surgical intervention for left hip irrigation and debridement Girdlestone and antibiotic cement spacer (beads). She understands risk benefits complication alternatives of surgical nonsurgical treatment options and agrees to proceed with surgical intervention. Coordinated with hospitalist as well as anesthesia and patient is as medically optimized and okay to proceed with surgical intervention. Attestations Medical Necessity Statement*: Patient has left hip osteomyelitis requiring hospitalization IV antibiotics and surgical intervention Coding Level of Care Code Acute Senior Clinical Data Manager for Jean Denton Diagnoses Hip osteomyelitis, left M86.9 Sepsis A41.9 Hip pain, left M25.552 Time Spent (min) 35
[2022-06-04 07:50] LABS: Basophils % 0.1 %; Eosinophils # 0.1 10^3/uL (0.0-0.8); Eosinophils % 0.5 %; Hematocrit 26.9 % (37.0-47.0); Lymphocytes # 0.8 10^3/uL (0.8-4.8); Lymphocytes % 3.4 %; Mean Corpuscular HGB Conc 33.5 g/dL (30.0-36.0); Mean Corpuscular Volume 92.8 fl (81-99); Mean Platelet Volume 12.1 fL (7.4-10.4); Monocytes # 1.2 10^3/uL (0.2-0.9); Monocytes % 5.3 %; Neutrophils # 18.36 10^3/uL (1.8-7.7); Nucleated Red Blood Cells % 0 %; Platelet Count 144 10^3/cmm (130-400); Red Cell Distribution Width 16.2 % (12.1-15.1); White Blood Count 21.8 10^3/uL (4.0-10.0)
[2022-06-04 08:37] LABS: Slide Review Slide Review Perform
[2022-06-04] MEDS: pantoprazole DR 40 mg Tablet PO (09:16)
[2022-06-04] MEDS: metroNIDAZOLE 500 MG Tablet PO ×2 (09:16→21:26)
[2022-06-04] MEDS: folic acid 1 mg Tablet PO (09:16)
[2022-06-04] MEDS: cefepime 1,000 MG in sodium chloride 0.9% (plus) 50 ML 100 MG IV (09:17)
--- NOTE | 2022-06-04 10:04 | ANES.PREANE2 ---
Pre-Anesthetic Assessment Height/Weight: Height 1.6 m Weight 77.973 kg Temp Pulse Resp BP Pulse Ox O2 Del Method O2 Flow Rate 98.2 F 82 18 103/58 94 2 06/04/22 08:35 06/04/22 08:35 06/04/22 08:35 06/04/22 08:35 06/04/22 08:35 06/04/22 08:35 06/01/22 12:10 Operation Date: 06/04/22 11:05 Proposed Procedures p prep for hemiarthroplasty, place antibiotic spacers(Left) - Nikita Kelin, DO Familial anesthetic complications: Unknown Was Beta Edi taken within 24 hours: N/A Was Clonidine taken within 24 hours: N/A Last intake: > 8hrs Social Alcohol and No tobacco Exam alert, clear to auscultation bilaterally and regular rate & rhythm Airway Dentition: other (unknown) JESSICA on dialysis Metabolic sepsis Musc/skel osteomyelitis Neuropsych Altered mental status Anesthetic Plan ASA status: 3 Anesthesia: General Risk of > 500 ml blood loss (7ml/kg in children): No Other Pertinent Information Hx ETOh abuse, history obtained from DPOA, unable to provide much history other than patient hasn't really had any health problems and doesn't take any medicines Medications/Allergies Home Medications Medication Instructions Recorded Confirmed Last Taken Type aspirin 81 mg chewable tablet 81 mg PO DAILY 06/09/20 05/31/22 06/08/20 10:00 History Allergies Allergy/AdvReac Type Severity Reaction Status Date / Time No Known Allergies Allergy Verified 05/31/22 19:47 Current Medications Generic Name Dose Route Start Last Admin Trade Name Alise PRN Reason Stop Dose Admin Acetaminophen 650 mg 06/01/22 00:06 06/02/22 21:30 Acetaminophen 325 Mg Tablet PO 650 mg Q6H PRN Administration Mild/Mod Pain Or Temp >/= 101 Folic Acid 1 mg 06/01/22 09:00 06/04/22 09:16 Folic Acid 1 Mg Tablet PO 1 mg DAILY [facility] Administration Vancomycin HCl 1,000 mg/ 250 mls @ 250 mls/hr 06/02/22 22:00 06/03/22 01:04 Sodium Chloride IV Infused Q48H [facility] Infusion Protocol Cefepime HCl 1,000 mg/ Sodium 50 mls @ 100 mls/hr 06/01/22 10:00 06/04/22 09:17 Chloride IV 100 mls/hr Q24H [facility] Administration Protocol Norepinephrine Bitartrate 4 mg 254 mls @ 0 mls/hr 06/03/22 04:30 06/04/22 08:30 / Dextrose IV 0 mcg/min .Q0M [facility] 0 mls/hr Titration Protocol Per Protocol Sodium Chloride 1,000 mls @ 100 mls/hr 06/03/22 16:58 06/03/22 23:43 Sodium Chloride 0.9% IV Not Given .Q10H [facility] Metronidazole 500 mg 06/01/22 15:00 06/04/22 09:16 Metronidazole 500 Mg Tablet PO 500 mg TID U[facility] Administration Morphine Sulfate 1 mg 06/02/22 22:25 06/03/22 18:21 Morphine 4 Mg/Ml Sdv 1 Ml IVP 1 mg Q6H PRN Administration SEVERE PAIN Pantoprazole Sodium 40 mg 06/01/22 09:00 06/04/22 09:[address] 40 Mg Tablet PO 40 mg DAILY [facility] Administration Phenobarbital Sodium 120 mg 06/01/22 08:19 06/02/22 12:18 Phenobarbital 130 Mg/Ml Sdv 1 Ml IV 120 mg Q2H PRN Administration ALCOHOL WITHDRAWAL Thiamine HCl 500 mg 06/01/22 09:00 06/04/22 09:16 Thiamine 100 Mg/Ml Sdv IVP 500 mg DAILY U[facility]ES Administration Additional Medication Information Current Medications Acetaminophen (Acetaminophen 325 Mg Tablet) 650 mg PO Q6H PRN PRN Reason: Mild/Mod Pain Or Temp >/= 101 Last Admin: 06/02/22 21:30 Dose: 650 mg Folic Acid (Folic Acid 1 Mg Tablet) 1 mg PO DAILY [facility] Last Admin: 06/02/22 09:13 Dose: 1 mg Vancomycin HCl 1,000 mg/ (Sodium Chloride) 250 mls @ 250 mls/hr IV Q48H [facility]; Protocol Last Infusion: 06/03/22 01:04 Dose: Infused Cefepime HCl 1,000 mg/ Sodium (Chloride) 50 mls @ 100 mls/hr IV Q24H [facility]; Protocol Last Infusion: 06/02/22 12:15 Dose: Infused Sodium Chloride (Sodium Chloride 0.9%) 1,000 mls @ 75 mls/hr IV .[id number] [facility] Last Admin: 06/03/22 04:28 Dose: 75 mls/hr Norepinephrine Bitartrate 4 mg (/ Dextrose) 254 mls @ 0 mls/hr IV .Q0M [facility]; Protocol Last Admin: 06/03/22 05:21 Dose: 4 mcg/min, 15.24 mls/hr Lanolin (Lanolin Oint 7 Gm) 1 applic TOPICAL PRN PRN PRN Reason: DRYNESS Metronidazole (Metronidazole 500 Mg Tablet) 500 mg PO TID [facility] Last Admin: 06/02/22 20:09 Dose: 500 mg Morphine Sulfate (Morphine 4 Mg/Ml Sdv 1 Ml) 1 mg IVP Q6H PRN PRN Reason: SEVERE PAIN Last Admin: 06/03/22 01:06 Dose: 1 mg Ondansetron HCl (Ondansetron 2 Mg/Ml Sdv 2 Ml) 4 mg IVP Q8H PRN PRN Reason: vomiting, or N/V if npo Pantoprazole Sodium (Pantoprazole Dr 40 Mg Tablet) 40 mg PO DAILY [facility] Last Admin: 06/02/22 09:13 Dose: 40 mg Phenobarbital Sodium (Phenobarbital 130 Mg/Ml Sdv 1 Ml) 120 mg IV Q2H PRN PRN Reason: ALCOHOL WITHDRAWAL Last Admin: 06/02/22 12:18 Dose: 120 mg Thiamine HCl (Thiamine 100 Mg/Ml Sdv) 500 mg IVP DAILY [facility] Last Admin: 06/02/22 09:13 Dose: 500 mg PFSH Anesthesia Medical History Hip osteomyelitis, left No pertinent past medical history Social History Substance/Drug Use: never Data Anesthesia : 06/04/22 07:38 06/04/22 03:40 Short CBC 06/03/22 06/04/22 Range/Units 03:43 07:38 WBC 18.2 H 21.8 H (4.0-10.0) 10^3/uL Hgb 9.2 L 9.0 L (11.5-15.3) g/dL Hct 27.6 L 26.9 L (37.0-47.0) % MCV 91.1 92.8 (81-99) fl Plt Count 103 L 144 D (130-400) 10^3/cmm Neut % (Auto) 85.3 84.0 % Neut # (Auto) 15.54 H 18.36 H (1.8-7.7) 10^3/uL BMP 06/03/22 06/04/22 03:43 03:40 Sodium 124 L 130 L Potassium 5.2 H 4.2 Chloride 95 L 97 L Carbon Dioxide 12 L 20 L BUN 150 H* 91 H* Creatinine 5.3 H 4.1 H Glucose 67 147 H Calcium 8.2 L 8.0 L Liver Function 06/02/22 06/03/22 06/04/22 Range/Units 12:00 03:43 03:40 Total Bilirubin 0.5 0.5 (0.15-1.2) mg/dL AST 9 9 (0-32) U/L ALT 6 < 5 (0-33) U/L Alkaline Phosphatase 121 H 128 H (35-105) U/L Albumin 1.6 L 1.8 L 2.1 L (3.8-4.8) g/dL Blood Bank 06/01/22 06/01/22 00:21 06:50 Blood Type O Positive O Positive Rho(D) Type Positive Positive Antibody Screen Negative ABG 06/03/22 09:05 Specimen Type Arterial Sample Site Radial, left ABG pH 7.25 L ABG pCO2 29.5 L ABG pO2 81.3 ABG HCO3 12.9 L ABG O2 Saturation 96.3 ABG Base Excess -13.0 L A-a O2 Gradient 4.1 L O2 Delivery Device Room air Microbiology 05/31/22 23:44 Blood Culture - Preliminary Blood Escherichia coli 06/01/22 01:58 Urine Culture - Final Urine,Clean Catch Escherichia coli 06/03/22 10:15 Blood Culture - Preliminary Blood SPECIMEN COLLECTED 06/03/22 10:10 Blood Culture - Preliminary Blood SPECIMEN COLLECTED Cardiac Studies: No Data to Display
--- NOTE | 2022-06-04 10:06 | P.PN_ITS ---
Subjective Subjective: First dialysis session on 06/03, second as a session today Patient is going to the OR as well, spoke with Dr. Neville This morning patient is frustrated that she is n.p.o. 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 [employer] [facility] [employer] her name is Elen [phone] She has been in touch with surgeon, roving teller and myself Vitals/I&O/Wt Last Vital Signs Temp 98.2 F 06/04/22 08:35 Pulse 80 06/04/22 10:00 Resp 15 06/04/22 10:00 BP 127/77 06/04/22 10:00 Pulse Ox 93 06/04/22 10:00 O2 Del Method 06/04/22 10:00 O2 Flow Rate 2 06/01/22 12:10 06/03/22 06/04/22 06/04/22 22:59 06:59 14:59 Intake Total 2304.150 / 2512.646 329.964 / 2842.610 54.102 / 54.102 Output Total 1558 / 1558 225 / 1783 Balance 746.150 / 954.646 104.964 / 1059.610 54.102 / 54.102 Weight last 48 hrs Weight 77.973 kg Weight 74.106 kg Physical Exam Narrative: Patient is awake and alert Right arm is more swollen as compared to left Fluid overloaded Awake and alert He does have excessive weakness of her extremities however I do not see typical signs of stroke she is able to lift her both arms against gravity Able to wiggle her toes Abdomen soft however distended S1, S2 variable Urinary Catheter Management: Martinez: Cath Placed During This Visit: yes Reason for Continuing Indwelling Catheter: Accurate Measurement of Urinary Output in Critically Ill Patients Urinary Catheter Date of Insertion: 06/01/22 Urinary Catheter Time of Insertion: 11:51 Data : 06/04/22 07:38 06/04/22 03:40 Micro: Microbiology 05/31/22 23:44 Blood Culture - Preliminary Blood Escherichia coli 06/01/22 01:58 Urine Culture - Final Urine,Clean Catch Escherichia coli 06/03/22 10:15 Blood Culture - Preliminary Blood SPECIMEN COLLECTED 11/03/22 10:10 Blood Culture - Preliminary Blood SPECIMEN COLLECTED A&P Assessment and plan (1) ATN (acute tubular necrosis): (2) Avascular necrosis: (3) Hip osteomyelitis, left: (4) Dehydration: (5) Hyponatremia: (6) Sepsis: (7) Fall: (8) Hip pain, left: (9) Acute kidney injury: (10) Hyponatremia: (11) Alcohol abuse: Plan Sepsis related to UTI Septic shock Trying to wean her off levo it was running at 2 mics today No signs of pyonephritis No signs of kidney stones Currently on IV antibiotics Cefepime, metronidazole and vancomycin ATN related to sepsis and possible nephrotoxic agents Patient most likely has taken large amount of improvement at home . Session conducted 06/03 Another session today to History of uremic Dr. Tucker placed temporary dialysis catheter Alcohol abuse continued high-dose thiamine along folic acid Left hip avascular necrosis concern for osteomyelitis MRI unremarkable patient could not lay flat currently She is going to the OR as per Dr. Neville She will also need a staged procedure for placement of antibiotic beads and cement spacer then afterwards she will need long-term, Social dynamics Patient is alcoholic, lives alone, recurrent falls at home, no other family, her friend is her DPOA who is in [place], she is a nurse her name is Elen Patient is DNR/DNI She is agreeable to go to long-term for now agreeable for surgery is on dialysis for now I have asked Dr. 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
--- NOTE | 2022-06-04 10:13 | USCV_ITS ---
Breanna Andrew Age: 76 Gender: F : 1945 Exam Date: 06/04/2022 10:26 Ordering Phys: Patrice Cho MD Technologist: SAMUEL Exam Location: [facility] Indication: SYNCOPE PROCEDURES: Venous duplex imaging was performed in only the right upper extremity. The following venous structures were evaluated: internal jugular vein, subclavian vein, axillary vein, and brachial veins. In addition, the basilic vein, cephalic vein, radial vein, and ulnar vein. Serial compression, augmentation maneuvers, and spectral Doppler flow evaluation were performed. FINDINGS: NO DVT SEEN IN RT UE AT THIS TIME. CONCLUSIONS No evidence of thrombus of the right upper extremity veins. Curt Ashby MD (Electronically Signed) Final Date: 04 June 2022 15:20 S
[2022-06-04 11:11] LABS: Anti-streptolysin O <50 IU/mL (<200)
--- NOTE | 2022-06-04 12:01 | W.PM.OPSUD ---
Surgery/Procedure H&P Update DATE OF PROCEDURE: June 04, 2022 DATE H&P PERFORMED: 06/01/22 CHANGES TO PREVIOUS DOCUMENTATION: None Plan for left hip irrigation and debridement with Girdlestone and antibiotic cement spacer placement. Patient signed consent and plan to proceed with surgical intervention. PREOP DIAGNOSIS: Left acetabulum and femur osteomyelitis with abscess PRIMARY INDICATION FOR PROCEDURE: Left hip osteomyelitis (acetabulum and femur, with abscess anteriorly) PLANNED PROCEDURE: Operation Date: 06/04/22 11:05 Proposed Procedures p prep for hemiarthroplasty, place antibiotic spacers(Left) - Nikita Neville DO
--- NOTE | 2022-06-04 12:52 | PM.PN ---
Subjective Subjective: c/o pain Vitals/I&O/Wt Last Vital Signs Temp 98.2 F 06/04/22 08:35 Pulse 80 06/04/22 10:00 Resp 15 06/04/22 10:00 BP 127/77 06/04/22 10:00 Pulse Ox 93 06/04/22 10:00 O2 Del Method 06/04/22 10:00 O2 Flow Rate 2 06/01/22 12:10 06/03/22 06/04/22 06/04/22 22:59 06:59 14:59 Intake Total 2304.150 / 2512.646 329.964 / 2842.610 104.102 / 104.102 Output Total 1558 / 1558 225 / 1783 Balance 746.150 / 954.646 104.964 / 1059.610 104.102 / 104.102 Weight last 48 hrs Weight 77.973 kg Weight 74.106 kg Physical Exam Narrative: Patient is awake and alert Right arm is more swollen as compared to left Fluid overloaded Awake and alert He does have excessive weakness of her extremities however I do not see typical signs of stroke she is able to lift her both arms against gravity Able to wiggle her toes Abdomen soft however distended S1, S2 variable Urinary Catheter Management: Martinez: Cath Placed During This Visit: yes Reason for Continuing Indwelling Catheter: Accurate Measurement of Urinary Output in Critically Ill Patients Urinary Catheter Date of Insertion: 06/01/22 Urinary Catheter Time of Insertion: 11:51 Data : 06/04/22 07:38 06/04/22 03:40 Micro: Microbiology 06/03/22 10:15 Blood Culture - Preliminary Blood NEGATIVE TO DATE 06/03/22 10:10 Blood Culture - Preliminary Blood NEGATIVE TO DATE 05/31/22 23:44 Blood Culture - Preliminary Blood Escherichia coli 06/01/22 01:58 Urine Culture - Final Urine,Clean Catch Escherichia coli A&P Assessment and plan (1) ATN (acute tubular necrosis): Plan [address] [address] Progress Note Signed with Addenda Patient: Breanna Andrew MR#: [id number] : 1945 Age/Sex: 76 / F ADM Date: 05/31/22 Loc: ICU? Room/Bed: ICU11-1 Encounter Date: 06/03/[address]: Patrice Cho MD Report Number: [id number] ADDENDUMpt is hypotensive on pressors on dialysis.? will give a ns 500 ml bolus and albumin.? if becomes? hypoxic- will need intubation.? Rx for sepsis per medicine.? may gt a iodine contrast ct scan if needed. Addendum Dictated By: Jeremi Ponce MD Addendum Signed By: <Electronically signed by Jeremi Ponce MD> Signed Date/Time: 06/03/22 1457 Addendum Cosigned By: ADDENDUMpt has k 5.2, bicarb 12- she is compensating nicely, bun 150- i was called by anesthesia-? they would like dialysis prior to hip surgery.? rt femoral shiley placed- ? will dialyze now and likely again in am Addendum Dictated By: Jeremi Ponce MD Addendum Signed By: <Electronically signed by Jeremi Ponce MD> Signed Date/Time: 06/03/22 1025 Addendum Cosigned By: Subjective Subjective:?? weak, confused, disoriented Medications:?? Reviewed: Yes? Medication Review Details: Current Medications Acetaminophen (Acetaminophen 325 Mg Tablet)? 650 mg PO Q6H PRN PRN Reason: Mild/Mod Pain Or Temp >/= 101 Last Admin: 06/02/22 21:30 Dose:? 650 mg Folic Acid (Folic Acid 1 Mg Tablet)? 1 mg PO DAILY [facility] Last Admin: 06/02/22 09:13 Dose:? 1 mg Vancomycin HCl 1,000 mg/ (Sodium Chloride)? 250 mls @ 250 mls/hr IV Q48H [facility]; Protocol Last Infusion: 06/03/22 01:04 Dose:? Infused Cefepime HCl 1,000 mg/ Sodium (Chloride)? 50 mls @ 100 mls/hr IV Q24H [facility]; Protocol Last Infusion: 06/02/22 12:15 Dose:? Infused Sodium Chloride (Sodium Chloride 0.9%)? 1,000 mls @ 75 mls/hr IV .[id number] U[facility]SSES Last Admin: 06/03/22 04:28 Dose:? 75 mls/hr Norepinephrine Bitartrate 4 mg (/ Dextrose)? 254 mls @ 0 mls/hr IV .Q0M [facility]; Protocol Last Admin: 06/03/22 05:21 Dose:? 4 mcg/min, 15.24 mls/hr Lanolin (Lanolin Oint 7 Gm)? 1 applic TOPICAL PRN PRN PRN Reason: DRYNESS Metronidazole (Metronidazole 500 Mg Tablet)? 500 mg PO TID [facility] Last Admin: 06/02/22 20:09 Dose:? 500 mg Morphine Sulfate (Morphine 4 Mg/Ml Sdv 1 Ml)? 1 mg IVP Q6H PRN PRN Reason: SEVERE PAIN Last Admin: 06/03/22 01:06 Dose:? 1 mg Ondansetron HCl (Ondansetron 2 Mg/Ml Sdv 2 Ml)? 4 mg IVP Q8H PRN PRN Reason: vomiting, or N/V if npo Pantoprazole Sodium (Pantoprazole Dr 40 Mg Tablet)? 40 mg PO DAILY [facility] Last Admin: 06/02/22 09:13 Dose:? 40 mg Phenobarbital Sodium (Phenobarbital 130 Mg/Ml Sdv 1 Ml)? 120 mg IV Q2H PRN PRN Reason: ALCOHOL WITHDRAWAL Last Admin: 06/02/22 12:18 Dose:? 120 mg Thiamine HCl (Thiamine 100 Mg/Ml Sdv)? 500 mg IVP DAILY [facility] Last Admin: 06/02/22 09:13 Dose:? 500 mg ? Vitals/I&O/Wt Last Vital Signs Temp ?97.8 F ?06/03/22 04:00 Pulse ?65 ?06/03/22 06:00 Resp ?12 ?06/03/22 04:45 BP ?120/69 ?06/03/22 04:45 Pulse Ox ?95 ?06/03/22 04:45 O2 Del Method ? ?06/03/22 04:00 O2 Flow Rate ?2 ?06/01/22 12:10 ? 06/02/22 06/03/22 06/03/22 ? 22:59 06:59 14:59 Intake Total ? 1330 / 4030 ? Output Total 250 / 250 175 / 425 ? Balance -250 / 2450 1155 / 3605 ? Weight last 48 hrs Weight? 74.106 kg ? Physical Exam Narrative:?? elderly in bed in NARD vss-oliguric Heent-? nc/at, eomi, anicteric neck supple lungs crackles b/l heart reg, +LEORA abd soft, nt, +BS, ND ext hip pain neuro- confused, weak Urinary Catheter Management:?? Martinez: Cath Placed During This Visit: yes Reason for Continuing Indwelling Catheter: Accurate Measurement of Urinary Output in Critically Ill Patients Urinary Catheter Date of Insertion: 06/01/22 Urinary Catheter Time of Insertion: 11:51 ? Data : 06/03/22 03:43? 06/03/22 03:43? Micro: Microbiology ?06/01/22 07:55 Urine Culture - Preliminary ?Urine Catheterized ?? Gram Negative Rods ?06/01/22 01:58 Urine Culture - Preliminary ?Urine,Clean Catch ?? Gram Negative Rods ?05/31/22 23:49 Blood Culture - Preliminary ?Blood ?? Escherichia coli ?05/31/22 23:44 Blood Culture - Preliminary ?Blood ?? Escherichia coli A&P Assessment and plan 76 yr old female w/ left hip avascular necrosis and OM 1. JESSICA-? pt has been on NSAID's for a while -no hydronephrosis on ct scan u/a turbid, 3+ blood, 3+ prot, 2+ leuk est, rbc and wbc too numerous to count- 4+ ur bact, serologies sent - HD today after surgery 2. leukocytosis from OM-? renal dose abx -for surgery today 3. anemia- check iron studies, b12, folate.? high iron sat 4.? inc AG met acidosis-? normal lactate -likely from JESSICA -bicarb 20 today -- discussed w/ her friend, Elen - Power of Journey Lineman- and she and pt state she would want dialysis 5.? hyponatremia-? Na 130 today tsh 5.15- not causing hyponatremia seen and examined w/ RN -telehealth visit time spent 30? min Plan Attestations Medical Necessity Statement*: Continue ICU management Time Spent in Patient Care: 30 Coding Level of Care Code Acute Mold Stamper for g Fwd Diagnoses ATN (acute tubular necrosis) N17.0
--- NOTE | 2022-06-04 13:37 | PM.MISC ---
Miscellaneous Note Note: Spoke with KRISSY Jaimes immediately prior to surgery. Informed her it is hospital policy that DNR is suspended during surgery and Ace Andrew would be full code while in the OR. Ms. Jaimes agreed to proceed with surgery with the DNR suspended during surgery. Therefore, will proceed.
[2022-06-04] MEDS: sodium chloride 0.9% 1,000 ML 100 ML IV (13:47)
[2022-06-04] MEDS: tranexamic acid 1,000 mg/10mL SDV 1000 MG IV (14:30)
[2022-06-04] MEDS: vancomycin 1,000 MG SDV 1000 MG XX (15:47)
--- NOTE | 2022-06-04 15:52 | PC.SLP ---
Patient not seen today since she was NPO for surgery. Will attempt to see patient 06/05.
--- NOTE | 2022-06-04 15:59 | PM.OP2 ---
Brief Operative Note Date of procedure: 06/04/22 Pre-op diagnosis: Left hip osteomyelitis femur and acetabulum, left hip abscess Post-op diagnosis: same Procedure Done: Left hip irrigation and debridement with cultures, Girdlestone left femoral neck, antibiotic cemented beads spacers, deep drain placement and incisional VAC placement Surgeon: Nikita Neville Estimated blood loss (mL): 125 Complications: None Post-op Plan: Patient tolerated procedure well per anesthesia. Patient to be extubated in the OR and taken to ICU. She is in stable condition. We will continue with IV antibiotics and follow her labs over the next several days. With plan for possible repeat I&D with placement of Prostalac prosthesis of his cemented spacer. Incisional VAC on and in place with good seal, deep drain incorporated into incisional VAC. Keep settings on 75 continuous. 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
--- NOTE | 2022-06-04 16:01 | PM.PACU ---
PACU note Narrative: Patient was taken straight from the OR to ICU. Patient was extubated. Still sedated from anesthesia and unable to follow commands for motor or sensory examination. Distal pulses are palpable. Incisional VAC on in place with good seal bloody output noted. Family contacted and updated on procedure. Exam: unarousable (Still lethargic from anesthesia, see narrative for detailed exam) Disposition: other (Back to ICU)
--- NOTE | 2022-06-04 16:01 | PM.OP ---
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 Post-op diagnosis: Same Procedure done: Left hip irrigation and debridement (wound size 24 cm x 18 cm x 12 cm) with cultures, Girdlestone left femoral neck, antibiotic cemented bead spacers, with deep drain placement and incisional VAC placement Implants: Yisel antibiotic Simplex bone cement Specimens removed/disposition: 1?left hip abscess aerobic and anaerobic cultures 2?left hip joint aerobic and anaerobic cultures 3-left femur intramedullary cultures aerobic and anaerobic 4?labrum and capsule specimen sent for pathology 5?femur intramedullary bone specimen sent for pathology 6?acetabular bone from acetabular reamings sent for aerobic and anaerobic cultures as well as pathology 7?femoral head sent for pathology Pathology: 1?left hip abscess aerobic and anaerobic cultures 2?left hip joint aerobic and anaerobic cultures 3-left femur intramedullary cultures aerobic and anaerobic 4?labrum and capsule specimen sent for pathology 5?femur intramedullary bone specimen sent for pathology 6?acetabular bone from acetabular reamings sent for aerobic and anaerobic cultures as well as pathology 7?femoral head sent for pathology Surgeon: Nikita Neville DO Estimated blood loss: 125 cc None IV fluids: See anesthesia record Urine output: See anesthesia record Complications: None Findings: See operative report narrative Condition: stable (Patient had slight soft pressures postoperatively but was stabilized with medications and taken to ICU in stable condition, patient extubated) Disposition: ICU Brief History: Breanna is a 76-year-old female with a complex medical condition. She initially presented to the emergency department on 05/31/2022 with concerns for left hip pain she had apparently sustained a fall the week prior and she states she has not been able to weight-bear since. X-rays show degenerative changes subsequently CT scan was ordered and showed intramedullary gas within the femur as well as fluid collection and destructive changes of the femoral head and acetabulum concerning for possible infectious process. She had a elevated white count as well as CRP and she was subsequently admitted to the ICU by the hospitalist team orthopedic surgery team was consulted. On my evaluation and work-up patient has findings consistent after an MRI as well as given her clinical picture and exam consistent with left acetabulum and femur osteomyelitis with severe degenerative changes as well as abscess of the left femur. We had detailed discussion with the patient as well as her POA after long debate about her wishes she did not do shared decision making elected proceed with surgical intervention pertaining to her left hip. Patient agreed to proceed with surgery for a left hip irrigation debridement with cultures with Girdlestone of the left femoral neck and antibiotic cement beads spacer. Plan will be for a staged approach given the extensiveness of her osteomyelitis. Expressed that this would be a way for source control to offer the patient the best chances for living and recovering from this. Once again through shared decision-making she understands her risks or benefits or complication alternatives of surgical nonsurgical treatment options and agrees to proceed with surgical intervention. Risks include but are not limited to make it better, make it worse, blood clot, heart attack, stroke, on the table, worsening infection, need for chronic suppression and inability to clear infection. Understanding these risks she agrees to proceed with surgery. Consent was obtained. Procedure: Patient was seen and evaluated in the ICU prior to being taken back to surgery. Consent was reviewed and the correct extremity was then marked. She was then seen evaluated by the anesthesia team and once cleared for surgery/optimize she was then taken back to the OR. She underwent anesthesia per the anesthesia department. She was then placed on the OR table in the lateral decubitus position with the left hip up and secured on a pegboard. All bony prominences were well-padded patient was appropriately secured to the bed. The left lower extremity was then prepped and draped in sterile orthopedic fashion. She received appropriate antibiotics that she has been receiving for empiric coverage on the floor around the perioperative setting. This point time a final timeout was performed. A standard modified [place] anterior lateral approach was made. This was due to patient having abscess on the anterior aspect of the joint capsule and femur. Sharp scalpel excision through skin and subcutaneous tissue. Utilize a Patterson diet identified the fascia over the greater trochanter. This was split longitudinally cheating slight anterior. I then placed my Charnley retractors. I then identified the interval of vastus lateralis and the abductors. Perform my release of part of the abductors in 1 thick sleeve and this was carried down into the gluteal medius and glue minimus directly onto capsule. Once identified the capsule I then utilized a Patterson to identify this and my bankruptcy legal assistant held retraction of the abductors and I performed my capsulotomy. At this point time I noted discolored and degenerative synovial fluid. This was cultured with aerobic and anaerobic cultures. I then utilized blunt dissection with my finger on the anterior aspect of the femur further distally and encountered a large abscess. This was then completely decompressed through blunt dissection care was made to not injure any neurovascular structures. This abscess was milked from distal to proximal as well as medial to lateral. Cultures of aerobic and anaerobic were obtained of the abscess. Once completely decompressed this was then left alone for later irrigation and debridement. At this point encountered the femoral head which was severely soft and degenerative in nature. Completed my capsulotomy creating full-thickness flaps both superiorly and inferiorly. This was taken all the way to the acetabulum and subsequently the hip was then dislocated with external rotation. Once this was done I then placed a Hohmann above and below the femoral head I then marked a fingerbreadth above the lesser and performed my femoral head resection with a femoral neck cut with an oscillating saw. Femoral head was then removed and measured to be roughly 44 mm - 45 mm. This was then sent for pathology. At this point time I noticed thick infectious biofilm along the acetabulum. At this point time I then utilized a reamer to obtain reamings of the acetabulum as well as to stimulate healing with healthy bleeding bone. Patient did have devitalized capsule and labrum which was excised and sent for pathology. I utilized a large curette to scrape off all the biofilm and necrotic tissue of bone as well as fat and fascia. Once the entire acetabulum was free of debris I then cultured the acetabular reamings as well as sent these for pathology. This point time I noted there was multiple cysts throughout the superior dome of the acetabulum however she did have a reasonable backwall integrity. Next my attention was then turned towards my femoral prep. Femoral elevator was then applied. I then utilized a rongeur and Bovie to clear the superior shoulder of the neck free of the brain and soft tissue. Next utilize a box osteotome to clear out the lateral aspect of the neck. Then I introduced the canal finder reamer by hand and noted significant black bone marrow and tarry appearing bone marrow tissue which was subsequently sent for pathology as well as aerobic and anaerobic cultures. Next I utilized a lateralizing rasp to lateralize as well as ream and scraped clean the intramedullary femoral canal. At this point time this completed my prep work and I subsequently irrigated the wound bed with pulse lavage with 9 L of normal saline. The total wound bed was 24 cm x 18 cm x 12 cm. I debrided this entire area of skin subcutaneous tissue fat fascia tendon muscle as well as bone this was all debrided of devitalized tissue. Next on the back table we mixed up [employer] [facility] antibiotic Simplex antibiotic bone cement this was then mixed and was added with Vanco powder. These were then rolled up into small balls and then attached to PDS suture through this. We had 4 large balls that were going to be placed as cement spacer into the acetabulum and 6 small balls into the anterior femur abscess. Once these were all cured and set these were then placed into the wound bed. I then cut a MIKA drain with 15 holes laid this deep within the incision and carried this out percutaneously at the distal aspect of the incision. I then sequentially repaired the capsule and abductors utilizing PDS suture to reapproximate my abductors. Next the IT band was closed with running PDS suture the deep layer of fat was closed with running PDS suture and the subcutaneous tissue was closed in layered fashion of Monocryl. Skin was then closed with sylvie. I then cut holes in my drain and then cut an incisional VAC out of a black foam sponge this was covered with Xeroform. The drain was then related to the VAC sponge and a large Ioban was placed over the incisional VAC to create a good seal. This was then hooked up to the hospital incisional VAC and had excellent seal. Patient was then awakened from anesthesia she was subsequently extubated she did have some soft pressures requiring medications however when she was taken to ICU in stable condition and was extubated. Disposition patient taken to ICU in stable condition. At this point time we will plan for a repeat irrigation and debridement with removal of cemented beads and placement of a articulating antibiotic cement spacer implants next week. This will be pending the patient does respond well and does agree to proceed with further surgical intervention at this time. We will keep patient as well as her POA up-to-date. Continue to monitor her cultures as well as empiric antibiotics per the hospitalist team.
--- NOTE | 2022-06-04 16:43 | XRR_ITS ---
PROCEDURE INFORMATION: Exam: XR Left Hip Exam date and time: 06/04/2022 7:03 PM Age: 76 years old Clinical indication: Screening exam; Post op pics; Prior surgery; Surgery date: Post-operative (0-2 days); Additional info: Postop left hip girdlestone, ap pelvis, crosstable lateral left hip TECHNIQUE: Imaging protocol: Radiologic exam of the Left hip. Views: 2 or 3 views hip with pelvis when performed. COMPARISON: CT abdomen pelvis wo con [id number] 06/02/2022 8:43 AM FINDINGS: Tubes, catheters and devices: Right groin approach dialysis catheter extends to proximal right common iliac vein area. Bones/joints: Resected proximal left femur. Antibiotic beads placed around proximal femur. Demineralized bones. Soft tissues: Lateral skin sylvie. XR/XR hip LT 2-3V wo/w pel* [id number] IMPRESSION: Left hip postoperative changes.
[2022-06-04] MEDS: morphine 4 mg/mL SDV 1 mL 2 MG IVP ×2 (17:01→22:38)
[2022-06-04] MEDS: vancomycin 1,000 MG in sodium chloride 0.9% 250 ML 250 MG IV (21:26)
[2022-06-04 22:11] LABS: Hepatitis B Surface AB 3.5 (11.5-1000)
[2022-06-05] VITALS (99 sets, daily range): BP systolic 76–132; BP diastolic 48–80; PULSE 67–92; RESP 8–21; TEMP 36.4–37.1; O2SAT 80–99
[2022-06-05 03:41] LABS: Glucose Point of Care 129 mg/dL (70-110)
[2022-06-05 03:57] LABS: Hematocrit 25.9 % (37.0-47.0); Hemoglobin 8.5 g/dL (11.5-15.3); Mean Corpuscular HGB Conc 32.8 g/dL (30.0-36.0); Mean Corpuscular Hemoglobin 31.1 pg (28.0-34.0); Mean Corpuscular Volume 94.9 fl (81-99); Mean Platelet Volume 12.4 fL (7.4-10.4); Platelet Count 215 10^3/cmm (130-400); Red Blood Count 2.73 10^6/uL (4.1-5.3); Red Cell Distribution Width 16.5 % (12.1-15.1)
[2022-06-05 04:37] LABS: White Blood Count 39.8 10^3/uL (4.0-10.0)
[2022-06-05 04:40] LABS: Absolute Neutrophil 35.4 10^3/cmm (1.4-6.5); Absolute Segmented Neutrophil 32.6 10/cmm (1.6-7.1); Band Neutrophils Absolute 2.8 10^3/cmm (0.0-1.2); Eosinophils 0 %; Lymphocytes 3 %; Lymphocytes Absolute 1.2 10^3/cmm (1.2-3.4); Monocytes Absolute 2.8 10^3/cmm (0.1-0.6); Platelet Estimate Normal (Normal); Segmented Neutrophils 82 %; Total Cells Counted 100 (0-100)
[2022-06-05 04:43] LABS: Toxic Granulation 1+
[2022-06-05 06:43] LABS: Alanine Aminotransferase 6 U/L (0-33); Alkaline Phosphatase 143 U/L (35-105); Anion Gap 19.7 (5-19); Aspartate Amino Transferase 17 U/L (0-32); Blood Urea Nitrogen 60 mg/dL (8-23); Calcium 8.1 mg/dL (8.5-10.5); Carbon Dioxide 21 mmol/L (22-29); Chloride 99 mmol/L (98-107); Globulin 2.9 g/dL (1.3-4.6); Glucose 123 mg/dL (65-115); Magnesium 2.1 mg/dL (1.7-2.3); Osmolality Calculated 298 mOsm/kg (285-295); Phosphorus 4.4 mg/dL (2.5-4.5); Potassium 4.7 mmol/L (3.5-5.1); Sodium 135 mmol/L (136-145); Total Bilirubin 0.5 mg/dL (0.15-1.2); Total Protein 4.9 g/dL (6.6-8.7)
--- NOTE | 2022-06-05 07:55 | P.PN_ITS ---
Subjective Subjective: Patient seen and examined this morning. She was updated on her surgery yesterday. At this point time we will continue to trend her labs and see how she responds. No planned intervention until next week. Incisional VAC on in place with deep drain incorporated into the VAC good seal with roughly 200 cc of bloody serous sanguinous output. Patient comfortable in bed, pain is controlled with medications. Vitals/I&O/Wt Last Vital Signs Temp 98.4 F 06/05/22 05:00 Pulse 74 06/05/22 06:15 Resp 12 06/05/22 06:15 BP 115/65 06/05/22 06:15 Pulse Ox 96 06/05/22 06:15 O2 Del Method 06/04/22 18:00 O2 Flow Rate 2 06/01/22 12:10 06/04/22 06/05/22 06/05/22 22:59 06:59 14:59 Intake Total 1588.009 / 1692.111 814.137 / 2506.248 Output Total 920 / 920 60 / 980 Balance 668.009 / 772.111 754.137 / 1526.248 Weight last 48 hrs Weight 176 lb 4.8 oz Weight 171 lb 14.4 oz Physical Exam Narrative: Incisional VAC on in place with good seal to the left hip. 200 cc out of bloody serosanguineous output. Still tenderness to palpation of the left hip. She can wiggle toes plantarflex dorsiflex ankle distal pulses are palpable. Urinary Catheter Management: Martinez: Cath Placed During This Visit: yes Reason for Continuing Indwelling Catheter: Accurate Measurement of Urinary Output in Critically Ill Patients Urinary Catheter Date of Insertion: 06/01/22 Urinary Catheter Time of Insertion: 11:51 Data : 06/05/22 03:00 06/05/22 06:05 Micro: Microbiology 06/04/22 22:50 Occult Blood (FIT) - Final Stool - Stool Aspirate 06/03/22 10:15 Blood Culture - Preliminary Blood NEGATIVE TO DATE 06/03/22 10:10 Blood Culture - Preliminary Blood NEGATIVE TO DATE A&P Assessment and plan (1) Hip osteomyelitis, left: (2) Sepsis: (3) ATN (acute tubular necrosis): (4) Acute kidney injury: Plan Nonweightbearing left lower extremity Continue IV antibiotics Follow-up on multiple interoperative cultures Internal medicine is primary May have a diet today Continue incisional VAC Plan for surgical intervention sometime next week depending on how patient trends and response to treatment after surgery. POA has been updated on plan. Attestations Medical Necessity Statement*: Patient has extensive infection of the left hip with left femur and acetabular osteomyelitis with abscess of the left femur requiring hospitalization and surgical intervention Coding Level of Care Code Acute Wash House Worker for [facility] Fwd Diagnoses Hip osteomyelitis, left M86.9 Sepsis A41.9 ATN (acute tubular necrosis) N17.0 Acute kidney injury N17.9 Time Spent (min) 20
--- NOTE | 2022-06-05 08:43 | P.PN_ITS ---
Subjective Subjective: Patient was seen and examined this morning, was complaining of generalized pain all over the body. Documented urine output in the last 24 hours: Around 980 cc . Currently requiring minimal dose of Levophed. Medications: Medication Review Details: Generic Name Dose Route Start Last Admin Trade Name Freq PRN Reason Stop Dose Admin Acetaminophen 650 mg 06/01/22 00:06 06/02/22 21:30 Acetaminophen 32 5 Mg Tablet PO 650 mg Q6H PRN Administration Mild/Mod Pain Or Temp >/= 101 Folic Acid 1 mg 06/01/22 09:00 06/04/22 09:16 Folic Acid 1 Mg Tablet PO 1 mg DAILY ULYSSES Administration Vancomycin HCl 1,0 00 mg/ 250 mls @ 250 mls /hr 06/02/22 22:00 06/04/22 22:36 Sodium Chloride IV Infused Q48H ULYSSES Infusion Protocol Cefepime HCl 1,000 mg/ Sodium 50 mls @ 100 mls/ hr 06/01/22 10:00 06/04/22 10:07 Chloride IV Infused Q24H ULYSSES Infusion Protocol Norepinephrine Bit artrate 4 mg 254 mls @ 0 mls/h r 06/03/22 04:30 06/05/22 06:47 / Dextrose IV 2 mcg/min .Q0M ULYSSES 7.62 mls/hr Titration Protocol Per Protocol Sodium Chloride 1,000 mls @ 100 m ls/hr 06/03/22 16:58 06/04/22 22:36 Sodium Chloride 0.9% IV Not Given .Q10H ULYSSES Metronidazole 500 mg 06/01/22 15:00 06/04/22 21:26 Metronidazole 50 0 Mg Tablet PO 500 mg TID ULYSSES Administration Morphine Sulfate 2 mg 06/04/22 16:53 06/04/22 22:38 Morphine 4 Mg/Ml Sdv 1 Ml IVP 2 mg Q4H PRN Administration SEVERE PAIN Pantoprazole Sodiu m 40 mg 06/01/22 09:00 06/04/22 09:[address] 40 Mg Tablet PO 40 mg DAILY ULYSSES Administration Thiamine HCl 500 mg 06/01/22 09:00 06/04/22 09:16 Thiamine 100 Mg/ Ml Sdv IVP 500 mg DAILY ULYSSES Administration Vitals/I&O/Wt Last Vital Signs Temp 97.5 F L 06/05/22 07:56 Pulse 77 06/05/22 07:56 Resp 12 06/05/22 07:56 BP 85/56 06/05/22 07:56 Pulse Ox 97 06/05/22 07:56 O2 Del Method 06/05/22 07:56 O2 Flow Rate 2 06/01/22 12:10 06/04/22 06/05/22 06/05/22 22:59 06:59 14:59 Intake Total 1588.009 / 1692.111 814.137 / 2506.248 Output Total 920 / 920 60 / 980 Balance 668.009 / 772.111 754.137 / 1526.248 Weight last 48 hrs Weight 79.968 kg Weight 77.973 kg Physical Exam Const: COMMON NORMALS: patient oriented x3 Resp: COMMON NORMALS: clear to auscultation bilaterally EFFORT & INSPECTION: Yes symmetric chest movement AUSCULTATION: clear to auscultation bilaterally Cardio: COMMON NORMALS: regular rate, regular rhythm, S1 normal heart sound present, S2 normal heart sound present, No gallops present (Cardio), No murmurs present (Cardio), No rub (Cardio) and Peripheral pulses 2+ throughout RATE: regular rate RHYTHM: regular rhythm HEART SOUNDS: S1 normal heart sound present and S2 normal heart sound present PERIPHERAL PULSES: Peripheral pulses 2+ throughout GI: COMMON NORMALS: Normal to inspection, nondistended, normoactive bowel sounds present, Soft to palpation, non-tender, No hepatosplenomegaly present and no masses AUSCULTATION: Yes normoactive bowel sounds PALPATION: Yes Soft to palpation and Yes No hepatosplenomegaly present RECTAL EXAM: deferred Extremity: COMMON NORMALS: no clubbing, cyanosis or edema and no pedal edema Neuro: COMMON NORMALS: patient oriented x3 Urinary Catheter Management: Martinez: Cath Placed During This Visit: yes Reason for Continuing Indwelling Catheter: Accurate Measurement of Urinary Output in Critically Ill Patients Urinary Catheter Date of Insertion: 06/01/22 Urinary Catheter Time of Insertion: 11:51 Data : 06/05/22 03:00 06/05/22 06:05 Micro: Microbiology 06/04/22 22:50 Occult Blood (FIT) - Final Stool - Stool Aspirate 06/03/22 10:15 Blood Culture - Preliminary Blood NEGATIVE TO DATE 06/03/22 10:10 Blood Culture - Preliminary Blood NEGATIVE TO DATE A&P Assessment and plan (1) ATN (acute tubular necrosis): (2) Avascular necrosis: (3) Hip osteomyelitis, left: (4) Dehydration: (5) Hyponatremia: (6) Sepsis: (7) Fall: (8) Hip pain, left: (9) Acute kidney injury: (10) Alcohol abuse: Plan Sepsis related to UTI Septic shock Trying to wean her off levo it was running at 2 mics today No signs of pyonephritis No signs of kidney stones Currently on IV antibiotics Cefepime, metronidazole and vancomycin ATN related to sepsis and possible nephrotoxic agents Patient most likely has taken large amount of improvement at home . Session conducted 06/03 Another session today to History of uremic Dr. Tucker placed temporary dialysis catheter Alcohol abuse continued high-dose thiamine along folic acid Left hip avascular necrosis concern for osteomyelitis MRI unremarkable patient could not lay flat currently She is going to the OR as per Dr. Neville She will also need a staged procedure for placement of antibiotic beads and cement spacer then afterwards she will need long-term, Social dynamics Patient is alcoholic, lives alone, recurrent falls at home, no other family, her friend is her DPOA who is in [place], she is a nurse her name is Elen Patient is DNR/DNI She is agreeable to go to long-term for now agreeable for surgery is on dialysis for now I have asked Dr. 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 Time Spent in Patient Care: Greater than 35 minutes (>than 50% of time spent in counselling and/or direct pt care on unit) . Critical Care Time: The high probability of a clinically significant, sudden or life threatening deterioration of the patient's [] system(s) required my full and direct attention, intervention and personal management. The critical care time is as shown. 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
[2022-06-05] MEDS: folic acid 1 mg Tablet PO (09:14)
[2022-06-05] MEDS: pantoprazole DR 40 mg Tablet PO (09:14)
[2022-06-05] MEDS: sennosides-docusate Tablet 1 TAB PO (09:14)
[2022-06-05] MEDS: metroNIDAZOLE 500 MG Tablet PO ×3 (09:14→20:04)
[2022-06-05] MEDS: cefepime 1,000 MG in sodium chloride 0.9% (plus) 50 ML 100 MG IV (09:15)
--- NOTE | 2022-06-05 10:26 | PC.SOCIAL ---
IMM Updated Updated pt on IMM. No questions voiced. Provided pt a copy. Initialed, dated, & timed copy in chart.
--- NOTE | 2022-06-05 13:27 | P.PN_ITS ---
Subjective Subjective: Status postdebridement yesterday Patient had dialysis yesterday but was not able to do much ultrafiltration due to low blood pressures. Denies any complaints currently, on room air Medications: Reviewed: Yes Vitals/I&O/Wt Last Vital Signs Temp 97.5 F L 06/05/22 07:56 Pulse 77 06/05/22 10:00 Resp 11 L 06/05/22 10:00 BP 98/54 06/05/22 10:00 Pulse Ox 95 06/05/22 10:00 O2 Del Method 06/05/22 10:00 O2 Flow Rate 2 06/01/22 12:10 06/04/22 06/05/22 06/05/22 22:59 06:59 14:59 Intake Total 1588.009 / 1692.111 814.137 / 2506.248 100 / 100 Output Total 920 / 920 60 / 980 Balance 668.009 / 772.111 754.137 / 1526.248 100 / 100 Weight last 48 hrs Weight 79.968 kg Weight 77.973 kg Physical Exam Narrative: Patient is allergic, alert, no acute distress No citrus, neck supple S1-S2 and elevated rhythm per report Clear to auscultation per report Mental status grossly normal. Urinary Catheter Management: Martinez: Cath Placed During This Visit: yes Reason for Continuing Indwelling Catheter: Accurate Measurement of Urinary Output in Critically Ill Patients Urinary Catheter Date of Insertion: 06/01/22 Urinary Catheter Time of Insertion: 11:51 Data : 06/05/22 03:00 06/05/22 06:05 Micro: Microbiology 06/04/22 22:58 C.difficile Toxin B Gene (PCR) - Final Stool - Stool Aspirate 06/04/22 22:50 Occult Blood (FIT) - Final Stool - Stool Aspirate 06/03/22 10:15 Blood Culture - Preliminary Blood NEGATIVE TO DATE 06/03/22 10:10 Blood Culture - Preliminary Blood NEGATIVE TO DATE A&P Assessment and plan (1) ATN (acute tubular necrosis): [address] [address] Progress Note Signed Patient: Breanna Andrew MR#: [id number] : 1945 Age/Sex: 76 / F ADM Date: 05/31/22 Loc: ICU? Room/Bed: ICU-1 Encounter Date: 06/04/[address]: Patrice Cho MD Report Number: [id number] Subjective Subjective:?? c/o pain Vitals/I&O/Wt Last Vital Signs Temp ?98.2 F ?06/04/22 08:35 Pulse ?80 ?06/04/22 10:00 Resp ?15 ?06/04/22 10:00 BP ?127/77 ?06/04/22 10:00 Pulse Ox ?93 ?06/04/22 10:00 O2 Del Method ? ?06/04/22 10:00 O2 Flow Rate ?2 ?06/01/22 12:10 ? 06/03/22 06/04/22 06/04/22 ? 22:59 06:59 14:59 Intake Total 2304.150 / 2512.646 329.964 / 2842.610 104.102 / 104.102 Output Total 1558 / 1558 225 / 1783 ? Balance 746.150 / 954.646 104.964 / 1059.610 104.102 / 104.102 Weight last 48 hrs Weight? 77.973 kg ? Weight? 74.106 kg ? Physical Exam Narrative:?? Patient is awake and alert Right arm is more swollen as compared to left Fluid overloaded Awake and alert He does have excessive weakness of her extremities however I do not see typical signs of stroke she is able to lift her both arms against gravity Able to wiggle her toes Abdomen soft however distended S1, S2 variable ? Urinary Catheter Management:?? Martinez: Cath Placed During This Visit: yes Reason for Continuing Indwelling Catheter: Accurate Measurement of Urinary Output in Critically Ill Patients Urinary Catheter Date of Insertion: 06/01/22 Urinary Catheter Time of Insertion: 11:51 ? Data : 06/04/22 07:38? 06/04/22 03:40? Micro: Microbiology ?06/03/22 10:15 Blood Culture - Preliminary ?Blood ?? NEGATIVE TO DATE ?06/03/22 10:10 Blood Culture - Preliminary ?Blood ?? NEGATIVE TO DATE ?05/31/22 23:44 Blood Culture - Preliminary ?Blood ?? Escherichia coli ?06/01/22 01:58 Urine Culture - Final ?Urine,Clean Catch ?? Escherichia coli A&P Assessment and plan (1) ATN (acute tubular necrosis): Plan [address] [address] Progress Note Signed with AddendaPatient: Breanna Andrew MR#: [id number] : 1945 Age/Sex: 76 / F ADM Date: 05/31/22 Loc: ICU? Room/Bed: ICU11-1 Encounter Date: 06/03/[address]: Patrice Cho MD Report Number: [id number] ADDENDUMpt is hypotensive on pressors on dialysis.? will give a ns 500 ml bolus and albumin.? if becomes? hypoxic- will need intubation.? Rx for sepsis per medicine.? may gt a iodine contrast ct scan if needed. Addendum Dictated By: Jeremi Ponce MD Addendum Signed By: <Electronically signed by Jeremi Ponce MD> Signed Date/Time: 06/03/22 1457 Addendum Cosigned By: ADDENDUMpt has k 5.2, bicarb 12- she is compensating nicely, bun 150- i was called by anesthesia-? they would like dialysis prior to hip surgery.? rt femoral shiley placed- ? will dialyze now and likely again in am Addendum Dictated By: Jeremi Ponce MD Addendum Signed By: <Electronically signed by Jeremi Ponce MD> Signed Date/Time: 06/03/22 1025 Addendum Cosigned By: Subjective Subjective:??? weak, confused, disoriented Medications:??? Reviewed: Yes? Medication Review Details: Current MedicationsAcetaminophen (Acetaminophen 325 Mg Tablet)? 650 mg PO Q6H PRN PRN Reason: Mild/Mod Pain Or Temp >/= 101 Last Admin: 06/02/22 21:30 Dose:? 650 mg Folic Acid (Folic Acid 1 Mg Tablet)? 1 mg PO DAILY [facility] Last Admin: 06/02/22 09:13 Dose:? 1 mg Vancomycin HCl 1,000 mg/ (Sodium Chloride)? 250 mls @ 250 mls/hr IV Q48H [facility]; Protocol Last Infusion: 06/03/22 01:04 Dose:? Infused Cefepime HCl 1,000 mg/ Sodium (Chloride)? 50 mls @ 100 mls/hr IV Q24H [facility]; Protocol Last Infusion: 06/02/22 12:15 Dose:? Infused Sodium Chloride (Sodium Chloride 0.9%)? 1,000 mls @ 75 mls/hr IV .[id number] [facility] Last Admin: 06/03/22 04:28 Dose:? 75 mls/hr Norepinephrine Bitartrate 4 mg (/ Dextrose)? 254 mls @ 0 mls/hr IV .Q0M [facility]; Protocol Last Admin: 06/03/22 05:21 Dose:? 4 mcg/min, 15.24 mls/hr Lanolin (Lanolin Oint 7 Gm)? 1 applic TOPICAL PRN PRN PRN Reason: DRYNESS Metronidazole (Metronidazole 500 Mg Tablet)? 500 mg PO TID [facility] Last Admin: 06/02/22 20:09 Dose:? 500 mg Morphine Sulfate (Morphine 4 Mg/Ml Sdv 1 Ml)? 1 mg IVP Q6H PRN PRN Reason: SEVERE PAIN Last Admin: 06/03/22 01:06 Dose:? 1 mg Ondansetron HCl (Ondansetron 2 Mg/Ml Sdv 2 Ml)? 4 mg IVP Q8H PRN PRN Reason: vomiting, or N/V if npo Pantoprazole Sodium (Pantoprazole Dr 40 Mg Tablet)? 40 mg PO DAILY [facility] Last Admin: 06/02/22 09:13 Dose:? 40 mg Phenobarbital Sodium (Phenobarbital 130 Mg/Ml Sdv 1 Ml)? 120 mg IV Q2H PRN PRN Reason: ALCOHOL WITHDRAWAL Last Admin: 06/02/22 12:18 Dose:? 120 mg Thiamine HCl (Thiamine 100 Mg/Ml Sdv)? 500 mg IVP DAILY [facility] Last Admin: 06/02/22 09:13 Dose:? 500 mg ? Vitals/I&O/Wt Last Vital Signs Temp? ?97.8 F? ?06/03/22 04:00 Pulse? ?65? ?06/03/22 06:00 Resp? ?12? ?06/03/22 04:45 BP? ?120/69? ?06/03/22 04:45 Pulse Ox? ?95? ?06/03/22 04:45 O2 Del Method?06/03/22 04:00 O2 Flow Rate?B ?2? ?06/01/22 12:10 ?? 06/02/22? 06/03/22? 06/03/22 ?? 22:59? 06:59? 14:59 Intake Total? ?? 1330 / 4030? ? Output Total? 250 / 250? 175 / 425? ? Balance? -250 / 2450? 1155 / 3605? ? Weight last 48 hrs Weight? 74.106 kg ? Physical Exam Narrative:??? elderly in bed in [facility] vss-oliguric Heent-? nc/at, eomi, anicteric neck supple lungs crackles b/l heart reg, +LEORA abd soft, nt, +BS, ND ext hip pain neuro- confused, weak Urinary Catheter Management:??? Martinez: Cath Placed During This Visit: yes Reason for Continuing Indwelling Catheter: Accurate Measurement of Urinary Output in Critically Ill Patients Urinary Catheter Date of Insertion: 06/01/22 Urinary Catheter Time of Insertion: 11:51 ? Data : 06/03/22 03:43? 06/03/22 03:43? Micro: Microbiology ?06/01/22 07:55? Urine Culture - Preliminary ?Urine Catheterized? ?? Gram Negative Rods ?06/01/22 01:58? Urine Culture - Preliminary ?Urine,Clean Catch? ?? Gram Negative Rods ?05/31/22 23:49? Blood Culture - Preliminary ?Blood? ?? Escherichia coli ?05/31/22 23:44? Blood Culture - Preliminary ?Blood? ?? Escherichia coli A&P Assessment and plan 76 yr old female w/ left hip avascular necrosis and? OM 1. JESSICA-? pt has been on NSAID's for a while -no hydronephrosis on ct scan u/a turbid, 3+ blood, 3+ prot, 2+ leuk est, rbc and wbc too numerous to count- 4+ ur bact, serologies sent -Status post HD at yesterday but not much UF due to hypotension, hold off on hemodialysis today, continue to monitor daily for HD needs -We will give IV albumin today 2. leukocytosis from OM-? renal dose abx 3. anemia- check iron studies, b12, folate.? high iron sat 4.? inc AG met acidosis-? normal lactate -likely from JESSICA -bicarb? 20 today -- discussed w/ her friend, Elen - Power of Puller Out- and she and pt state she would want dialysis 5.? hyponatremia-? Na 135 today tsh 5.15- not causing hyponatremia seen and examined w/ RN -telehealth visit time spent 30? 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
[2022-06-05 15:17] LABS: ANCA Screen NEGATIVE (NEGATIVE)
[2022-06-05] MEDS: morphine IR 15 mg Tablet PO (20:04)
[2022-06-06] VITALS (99 sets, daily range): BP systolic 69–149; BP diastolic 46–97; PULSE 64–86; RESP 7–21; TEMP 36.5–37.2; O2SAT 85–100; BMI 31.2
[2022-06-06] MEDS: metroNIDAZOLE 500 MG Tablet PO ×3 (08:47→20:47)
[2022-06-06] MEDS: pantoprazole DR 40 mg Tablet PO (08:47)
[2022-06-06] MEDS: folic acid 1 mg Tablet PO (08:47)
[2022-06-06] MEDS: sennosides-docusate Tablet 1 TAB PO (08:47)
[2022-06-06] MEDS: acetaminophen 325 mg Tablet 650 MG PO (08:47)
--- NOTE | 2022-06-06 08:52 | PM.PN ---
Subjective Subjective: Patient seen and examined this morning. No new issues overnight. A.m. labs are pending. Patient states her hip feels better. Deep drain and incisional VAC on in place with good seal and only 25 cc of output of bloody output. At this point time we will continue to monitor with plan for repeat left hip I&D with removal of antibiotic beads and placement of Prostalac cement spacer component. Continue to follow her intraoperative cultures Vitals/I&O/Wt Last Vital Signs Temp 99.0 F 06/06/22 08:00 Pulse 67 06/06/22 08:00 Resp 10 L 06/06/22 08:00 BP 95/56 06/06/22 08:00 Pulse Ox 98 06/06/22 08:00 O2 Del Method 06/06/22 08:00 O2 Flow Rate 2 06/06/22 08:00 06/05/22 06/06/22 06/06/22 23:59 06:59 14:59 Intake Total 342.87 / 342.87 Output Total Balance 342.87 / 342.87 Weight last 48 hrs Weight 176 lb 4.8 oz Weight 176 lb 4.8 oz Physical Exam Narrative: Dressings clean dry and intact with incisional VAC and deep drain with good seal. 25 cc bloody output overnight. Still some pain to palpation to the left hip. She is able to wiggle toes plantarflex and dorsiflex ankle. Distal pulses palpable sensation tact light touch distally. Urinary Catheter Management: Martinez: Cath Placed During This Visit: yes Reason for Continuing Indwelling Catheter: Accurate Measurement of Urinary Output in Critically Ill Patients Urinary Catheter Date of Insertion: 06/01/22 Urinary Catheter Time of Insertion: 11:51 Data : 06/06/22 10:08 06/05/22 06:05 Micro: Microbiology 06/04/22 15:02 Tissue Culture - Preliminary Hip - Wound Gram Negative Rods 06/04/22 14:51 Anaerobic Culture - Preliminary Other Source Abscess Culture - Preliminary Gram Negative Rods 06/04/22 14:45 Abscess Culture - Preliminary Hip - #4 Gram Negative Rods 06/04/22 14:42 Anaerobic Culture - Preliminary Incision Abscess Culture - Preliminary Gram Negative Rods 06/04/22 22:58 C.difficile Toxin B Gene (PCR) - Final Stool - Stool Aspirate A&P Assessment and plan (1) Hip osteomyelitis, left: (2) Hip pain, left: (3) Sepsis: (4) Acute kidney injury: Plan Continue to maintain drain and output and incisional VAC Nonweightbearing left lower extremity Continue with IV antibiotics per primary team Continue to monitor labs. Patient may require transfusion and will defer to primary team for management DVT prophylaxis Continue to monitor intraoperative cultures currently showing gram-negative rods Internal medicine is primary and appreciate their medical management This point time we will plan for a staged approach with plan for left hip repeat irrigation and debridement with plan for possible removal of antibiotic beads and placement of antibiotic cement spacer Prostalac implant. Plan for this next week pending how patient improves. We will continue to keep patient n.p.o. a updated on plan and timing. Attestations Medical Necessity Statement*: Patient requiring hospitalization for left hip osteomyelitis of femur and acetabulum as well as left hip abscess she does have a UTI as well. She is required IV antibiotics and surgical intervention for her left hip. Coding Level of Care Code Acute Pump Mechanic for [place] Diagnoses Hip osteomyelitis, left M86.9 Hip pain, left M25.552 Sepsis A41.9 Acute kidney injury N17.9 Time Spent (min) 30
[2022-06-06 10:19] LABS: Basophils # 0.1 10^3/uL (0.0-0.1); Basophils % 0.2 %; Eosinophils # 0.3 10^3/uL (0.0-0.8); Eosinophils % 0.7 %; Lymphocytes # 1.3 10^3/uL (0.8-4.8); Lymphocytes % 3.6 %; Mean Corpuscular HGB Conc 32.7 g/dL (30.0-36.0); Mean Corpuscular Hemoglobin 30.9 pg (28.0-34.0); Mean Corpuscular Volume 94.7 fl (81-99); Mean Platelet Volume 11.6 fL (7.4-10.4); Monocytes # 1.6 10^3/uL (0.2-0.9); Monocytes % 4.5 %; Nucleated Red Blood Cells % 0 %; Platelet Count 271 10^3/cmm (130-400); Red Blood Count 2.07 10^6/uL (4.1-5.3); Red Cell Distribution Width 15.9 % (12.1-15.1)
[2022-06-06 10:24] LABS: Slide Review Slide Review Perform
[2022-06-06 10:26] LABS: White Blood Count 35.8 10^3/uL (4.0-10.0)
[2022-06-06 10:27] LABS: Hematocrit 19.6 % (37.0-47.0); Hemoglobin 6.4 g/dL (11.5-15.3)
[2022-06-06 10:38] LABS: Alanine Aminotransferase 12 U/L (0-33); Albumin Level 1.8 g/dL (3.5-5.2); Alkaline Phosphatase 535 U/L (35-105); Anion Gap 16.9 (5-19); Aspartate Amino Transferase 47 U/L (0-32); Blood Urea Nitrogen 69 mg/dL (8-23); Calcium 7.8 mg/dL (8.5-10.5); Carbon Dioxide 20 mmol/L (22-29); Chloride 95 mmol/L (98-107); Globulin 2.6 g/dL (1.3-4.6); Glucose 91 mg/dL (65-115); Osmolality Calculated 284 mOsm/kg (285-295); Potassium 4.9 mmol/L (3.5-5.1); Sodium 127 mmol/L (136-145); Total Bilirubin 0.6 mg/dL (0.15-1.2); Total Protein 4.4 g/dL (6.6-8.7)
[2022-06-06] MEDS: cefepime 1,000 MG in sodium chloride 0.9% (plus) 50 ML 100 MG IV (10:49)
--- NOTE | 2022-06-06 11:38 | P.PN_ITS ---
Subjective Subjective: Hb low on 2L NC Vitals/I&O/Wt Last Vital Signs Temp 99.0 F 06/06/22 08:00 Pulse 67 06/06/22 08:00 Resp 10 L 06/06/22 08:00 BP 95/56 06/06/22 08:00 Pulse Ox 98 06/06/22 08:00 O2 Del Method 06/06/22 08:00 O2 Flow Rate 2 06/06/22 08:00 06/05/22 06/06/22 06/06/22 23:59 06:59 14:59 Intake Total 392.87 / 392.87 Output Total Balance 392.87 / 392.87 Weight last 48 hrs Weight 79.968 kg Weight 79.968 kg Physical Exam Const: COMMON NORMALS: no acute distress HENMT: HEAD & SCALP: normal to inspection Eye: COMMON NORMALS: Equal, round and reactive pupils present PUPIL: Yes Equal, round and reactive pupils present Neck/C-Spine: COMMON NORMALS: supple Extremity: COMMON NORMALS: no pedal edema Urinary Catheter Management: Martinez: Cath Placed During This Visit: yes Reason for Continuing Indwelling Catheter: Accurate Measurement of Urinary Output in Critically Ill Patients Urinary Catheter Date of Insertion: 06/01/22 Urinary Catheter Time of Insertion: 11:51 Data : 06/06/22 10:08 06/06/22 10:08 Micro: Microbiology 06/04/22 14:57 Tissue Culture - Preliminary Hip - #1 Gram Negative Rods 06/04/22 15:02 Tissue Culture - Preliminary Hip - Wound Gram Negative Rods 06/04/22 14:51 Anaerobic Culture - Preliminary Other Source Abscess Culture - Preliminary Gram Negative Rods 06/04/22 14:45 Abscess Culture - Preliminary Hip - #4 Gram Negative Rods 06/04/22 14:42 Anaerobic Culture - Preliminary Incision Abscess Culture - Preliminary Gram Negative Rods 06/04/22 22:58 C.difficile Toxin B Gene (PCR) - Final Stool - Stool Aspirate A&P Assessment and plan (1) ATN (acute tubular necrosis): Plan [address] [address] Progress Note Signed Patient: Breanna Andrew MR#: [id number] : 1945 Age/Sex: 76 / F ADM Date: 05/31/22 Loc: ICU? Room/Bed: [place] [address] Encounter Date: 06/05/[address]: Reyes David MD Report Number: [id number] Subjective Subjective:?? Status postdebridement yesterday Patient had dialysis yesterday but was not able to do much ultrafiltration due to low blood pressures. Denies any complaints currently, on room air Medications:?? Reviewed: Yes Vitals/I&O/Wt Last Vital Signs Temp ?97.5 F L ?06/05/22 07:56 Pulse ?77 ?06/05/22 10:00 Resp ?11 L ?06/05/22 10:00 BP ?98/54 ?06/05/22 10:00 Pulse Ox ?95 ?06/05/22 10:00 O2 Del Method ? ?06/05/22 10:00 O2 Flow Rate ?2 ?06/01/22 12:10 ? 06/04/22 06/05/22 06/05/22 ? 22:59 06:59 14:59 Intake Total 1588.009 / 1692.111 814.137 / 2506.248 100 / 100 Output Total 920 / 920 60 / 980 ? Balance 668.009 / 772.111 754.137 / 1526.248 100 / 100 Weight last 48 hrs Weight? 79.968 kg ? E Weight? 77.973 kg ? Physical Exam Narrative:?? Patient is allergic, alert, no acute distress No citrus, neck supple S1-S2 and elevated rhythm per report Clear to auscultation per report Mental status grossly normal. Urinary Catheter Management:?? Martinez: Cath Placed During This Visit: yes Reason for Continuing Indwelling Catheter: Accurate Measurement of Urinary Output in Critically Ill Patients Urinary Catheter Date of Insertion: 06/01/22 Urinary Catheter Time of Insertion: 11:51 ? Data : 06/05/22 03:00? 06/05/22 06:05? Micro: Microbiology ?06/04/22 22:58 C.difficile Toxin B Gene (PCR) - Final ?Stool - Stool Aspirate ? ?06/04/22 22:50 Occult Blood (FIT) - Final ?Stool - Stool Aspirate ? ?06/03/22 10:15 Blood Culture - Preliminary ?Blood ?? NEGATIVE TO DATE ?06/03/22 10:10 Blood Culture - Preliminary ?Blood ?? NEGATIVE TO DATE A&P Assessment and plan (1) ATN (acute tubular necrosis): [place] [address] Progress Note SignedPatient: Breanna Andrew MR#: [id number] : 1945 Age/Sex: 76 / F ADM Date: 05/31/22 [facility] Date: 06/04/[address]: Patrice Cho MD Report Number: [id number] Subjective Subjective:??? c/o pain Vitals/I&O/Wt Last Vital Signs Temp? ?98.2 F? ?06/04/22 08:35 Pulse? ?80? ?06/04/22 10:00 Resp? ?15? ?06/04/22 10:00 BP? ?127/77? ?06/04/22 10:00 Pulse Ox? ?93? ?06/04/22 10:00 O2 Del Method?06/04/22 10:00 O2 Flow Rate? ?2? ?06/01/22 12:10 ?? 06/03/22? 06/04/22? 06/04/22 ?? 22:59? 06:59? 14:59 Intake Total? 2304.150 / 2512.646? 329.964 / 2842.610? 104.102 / 104.102 Output Total? 1558 / 1558? 225 / 1783? ? Balance? 746.150 / 954.646? 104.964 / 1059.610? 104.102 / 104.102 Weight last 48 hrs Weight? 77.973 kg ? Weight? 74.106 kg ? Physical Exam Narrative:??? Patient is awake and alert Right arm is more swollen as compared to left Fluid overloaded Awake and alert He does have excessive weakness of her extremities however I do not see typical signs of stroke she is able to lift her both arms against gravity Able to wiggle her toes Abdomen soft however distended S1, S2 variable ? Urinary Catheter Management:??? Martinez: Cath Placed During This Visit: yes Reason for Continuing Indwelling Catheter: Accurate Measurement of Urinary Output in Critically Ill Patients Urinary Catheter Date of Insertion: 06/01/22 Urinary Catheter Time of Insertion: 11:51 ? Data : 06/04/22 07:38? 06/04/22 03:40? Micro: Microbiology ?06/03/22 10:15? Blood Culture - Preliminary ?Blood? ?? NEGATIVE TO DATE ?06/03/22 10:10? Blood Culture - Preliminary ?Blood? ?? NEGATIVE TO DATE ?05/31/22 23:44? Blood Culture - Preliminary ?Blood? ?? Escherichia coli ?06/01/22 01:58? Urine Culture - Final ?Urine,Clean Catch? ?? Escherichia coli A&P Assessment and plan (1) ATN (acute tubular necrosis): [place] [address] Progress Note Signed with AddendaPatient: Breanna Andrew MR#: [id number] : 1945 Age/Sex: 76 / F ADM Date: 05/31/22 Loc: ICU? Room/Bed: ICU11-1 Encounter Date: 06/03/[address]: Patrice Cho MD Report Number: [id number] ADDENDUMpt is hypotensive on pressors on dialysis.? will give a ns 500 ml bolus and albumin.? if becomes? hypoxic- will need intubation.? Rx for sepsis per medicine.? may gt a iodine contrast ct scan if needed. Addendum Dictated By: Jeremi Ponce MD Addendum Signed By: <Electronically signed by Jeremi Ponce MD> Signed Date/Time: 06/03/22 1457 Addendum Cosigned By: ADDENDUMpt has k 5.2, bicarb 12- she is compensating nicely, bun 150- i was called by anesthesia-? they would like dialysis prior to hip surgery.? rt fem oral shiley placed- ? will dialyze now and likely again in am Addendum Dictated By: Jeremi Ponce MD Addendum Signed By: <Electronically signed by Jeremi Ponce MD> Signed Date/Time: 06/03/22 1025 Addendum Cosigned By: Subjective Subjective:? weak, confused, disoriented Medications:? Reviewed: Yes? Medication Review Details: Current MedicationsAcetaminophen (Acetaminophen 325 Mg Tablet)? 650 mg PO Q6H PRN PRN Reason: Mild/Mod Pain Or Temp >/= 101 Last Admin: 06/02/22 21:30 Dose:? 650 mg Folic Acid (Folic Acid 1 Mg Tablet)? 1 mg PO DAILY [facility] Last Admin: 06/02/22 0 9:13 Dose:? 1 mg Vancomycin HCl 1,000 mg/ (Sodium Chloride)? 250 mls @ 250 mls/hr IV Q48H [facility]; Protocol Last Infusion: 06/03/22 01:04 Dose:? Infused Cefepime HCl 1,000 mg/ Sodium (Chloride)? 50 mls @ 100 mls/hr IV Q24H [facility]; Protocol Last Infusion: 06/02/22 12:15 Dose:? Infused Sodium Chloride (Sodium Chloride 0.9%)? 1,000 mls @ 75 mls/hr IV .[id number] [facility] Last Admin: 06/03/22 04:28 Dose:? 75 mls/hr Norepinephrine Bitartrate 4 mg (/ Dextrose)? 254 mls @ 0 mls/hr IV .Q0M [facility]; Protocol Last Admin: 06/03/22 05:21 Dose:? 4 mcg/min, 15.24 mls/hr Lanolin (Lanolin Oint 7 Gm)? 1 applic TOPICAL PRN PRN PRN Reason: DRYNESSMetronidazole (Metronidazole 500 Mg Tablet)? 500 mg PO TID [facility] Last Admin: 06/02/22 20:09 Dose:? 500 mg Morphine Sulfate (Morphine 4 Mg/Ml Sdv 1 Ml)? 1 mg IVP Q6H PRN PRN Reason: SEVERE PAIN Last Admin: 06/03/22 01:06 Dose:? 1 mg Ondansetron HCl (Ondansetron 2 Mg/Ml Sdv 2 Ml)? 4 mg IVP Q8H PRN PRN Reason: vomiting, or N/V if npoPantoprazole Sodium (Pantoprazole Dr 40 Mg Tablet)? 40 mg PO DAILY [facility] Last Admin: 06/02/22 09:13 Dose:? 40 mg Phenobarbital Sodium (Phenobarbital 130 Mg/Ml Sdv 1 Ml)? 120 mg IV Q2H PRN PRN Reason: ALCOHOL WITHDRAWAL Last Admin: 06/02/22 12:18 Dose:? 120 mg Thiamine HCl (Thiamine 100 Mg/Ml Sdv)? 500 mg IVP DAILY [facility] Last Admin: 06/02/22 09:13 Dose:? 500 mg ? Vitals/I&O/Wt Last Vital Signs Temp?? ?97.8 F?? ?06/03/22 04:00 Pulse??B ?65?? ?06/03/22 06:00 Resp?? ?12?? ?06/03/22 04:45 BP?? ?120/69?? ?06/03/22 04:45 Pulse Ox?? ?95?? ?06/03/22 04:45 O2 Del Method?06/03/22 04:00 O2 Flow Rate?? ?2?? ?06/01/22 12:10 ??? 06/02/22?? 06/03/22?? 06/03/22 ??? 22:59?? 06:59?? 14:59 Intake Total? 1330 / 4030?? ? Output Total?? 250 / 250?? 175 / 425?? ? Balance?? -250 / 2450?? 1155 / 3605?? ? Weight last 48 hrs Weight? 74.106 kg ? Physical Exam Narrative:? elderly in bed in [facility] vss-oliguric Heent-? nc/at, eomi, anicteric neck supple lungs crackles b/l heart reg, +LEORA abd soft, nt, +BS, ND ext hip pain neuro- confused, weak Urinary Catheter Management:? Martinez: Cath Placed During This Visit: yes Reason for Continuing Indwelling Catheter: Accurate Measurement of Urinary Output in Critically Ill Patients Urinary Catheter Date of Insertion: 06/01/22 Urinary Catheter Time of Insertion: 11:51 ? Data : 06/03/22 03:43? 06/03/22 03:43? Micro: Microbiology ?06/01/22 07:55?? Urine Culture - Preliminary ?Urine Catheterized? Gram Negative Rods ?06/01/22 01:58?? Urine Culture - Preliminary ?Urine,Clean Catch? Gram Negative Rods ?05/31/22 23:49?? Blood Culture - Preliminary ?Blood? Escherichia coli ?05/31/22 23:44?? Blood Culture - Preliminary ?Blood? Escherichia coli A&P Assessment and plan 76 yr old female w/ left hip avascular necrosis and? OM 1. JESSICA-? pt has been on NSAID's for a while -no hydronephrosis on ct scan u/a turbid, 3+ blood, 3+ prot, 2+ leuk est, rbc and wbc too numerous to count- 4+ ur bact, serologies sent -Status post HD on Tuesday , plan for HD today -Continue IV albumin 2. leukocytosis from OM-? renal dose abx 3. anemia- hb - 6.4 , plan for transfusion today 4.? AG met acidosis-? normal lactate -likely from JESSICA -bicarb? 20 today -- discussed w/ her friend, Elen - Power of Title Closer- and she and pt state she would want dialysis seen and examined w/ RN -telehealth visit time spent 30? min Attestations Medical Necessity Statement*: Patient requiring hospitalization for left hip osteomyelitis of femur and acetabulum as well as left hip abscess she does have a UTI as well. She is required IV antibiotics and surgical intervention for her left hip. Coding Level of Care Code Acute Admission Liaison for Chg Fwd Diagnoses ATN (acute tubular necrosis) N17.0
[2022-06-06] MEDS: sodium chloride 0.9% 1,000 ML 100 ML IV (15:11)
[2022-06-06] MEDS: sodium chloride 0.9% (100 ml) 100 ML 50 ML (15:44)
--- NOTE | 2022-06-06 16:21 | PM.PN ---
Subjective Subjective: Patient was seen and examined this morning, documented urine output in the last 24 hours 410 mL, hemoglobin has dropped this morning to 6.4, WBC is trending down as compared to yesterday. Currently on minimum off Levophed. Current plan is to transfuse her 1 unit PRBC today and dialyze. Medications: Reviewed: Yes Medication Review Details: Generic Name Dose Route Start Last Admin Trade Name Alise PRN Reason Stop Dose Admin Acetaminophen 650 mg 06/01/22 00:06 06/06/22 08:47 Acetaminophen 32 5 Mg Tablet PO 650 mg Q6H PRN Administration Mild/Mod Pain Or Temp >/= 101 Folic Acid 1 mg 06/01/22 09:00 06/06/22 08:47 Folic Acid 1 Mg Tablet PO 1 mg DAILY ULYSSES Administration Vancomycin HCl 1,0 00 mg/ 250 mls @ 250 mls /hr 06/02/22 22:00 06/04/22 22:36 Sodium Chloride IV Infused Q48H U[facility]SSES Infusion Protocol Cefepime HCl 1,000 mg/ Sodium 50 mls @ 100 mls/ hr 06/01/22 10:00 06/06/22 11:37 Chloride IV Infused Q24H [facility] Infusion Protocol Norepinephrine Bit artrate 4 mg 254 mls @ 0 mls/h r 06/03/22 04:30 06/06/22 07:16 / Dextrose IV Infused .Q0M ULYSSES Titration Protocol Per Protocol Sodium Chloride 1,000 mls @ 100 m ls/hr 06/03/22 16:58 06/06/22 15:11 Sodium Chloride 0.9% IV 100 mls/hr .Q10H ULYSSES Administration Metronidazole 500 mg 06/01/22 15:00 06/06/22 15:09 Metronidazole 50 0 Mg Tablet PO 500 mg TID ULYSSES Administration Morphine Sulfate 15 mg 06/04/22 10:13 06/05/22 20:04 Morphine Ir 15 M g Tablet PO 15 mg Q4H PRN Administration SEVERE PAIN Morphine Sulfate 2 mg 06/04/22 16:53 06/04/22 22:38 Morphine 4 Mg/Ml Sdv 1 Ml IVP 2 mg Q4H PRN Administration SEVERE PAIN Pantoprazole Sodiu m 40 mg 06/01/22 09:00 06/06/22 08:[address] 40 Mg Tablet PO 40 mg DAILY ULYSSES Administration Senna/Docusate Sod ium 1 tab 06/05/22 09:00 06/06/22 08:47 Sennosides-Docus ate Tablet PO 1 tab DAILY U[facility]SSES Administration Thiamine HCl 500 mg 06/01/22 09:00 06/06/22 08:47 Thiamine 100 Mg/ Ml Sdv IVP 500 mg DAILY ULYSSES Administration Vitals/I&O/Wt Last Vital Signs Temp 98.0 F 06/06/22 15:56 Pulse 68 06/06/22 15:56 Resp 14 06/06/22 15:56 BP 106/60 06/06/22 15:56 Pulse Ox 98 06/06/22 15:56 O2 Del Method 06/06/22 13:00 O2 Flow Rate 2 06/06/22 08:00 06/06/22 06/06/22 06/06/22 06:59 14:59 22:59 Intake Total 632.87 / 632.87 0 / 632.87 Output Total Balance 632.87 / 632.87 0 / 632.87 Weight last 48 hrs Weight 79.968 kg Weight 79.968 kg Physical Exam Const: COMMON NORMALS: patient oriented x3 Resp: COMMON NORMALS: clear to auscultation bilaterally EFFORT & INSPECTION: Yes symmetric chest movement AUSCULTATION: clear to auscultation bilaterally Cardio: COMMON NORMALS: regular rate, regular rhythm, S1 normal heart sound present, S2 normal heart sound present, No gallops present (Cardio), No murmurs present (Cardio), No rub (Cardio) and Peripheral pulses 2+ throughout RATE: regular rate RHYTHM: regular rhythm HEART SOUNDS: S1 normal heart sound present and S2 normal heart sound present PERIPHERAL PULSES: Peripheral pulses 2+ throughout GI: COMMON NORMALS: Normal to inspection, nondistended, normoactive bowel sounds present, Soft to palpation, non-tender, No hepatosplenomegaly present and no masses AUSCULTATION: Yes normoactive bowel sounds PALPATION: Yes Soft to palpation and Yes No hepatosplenomegaly present RECTAL EXAM: deferred Extremity: COMMON NORMALS: no clubbing, cyanosis or edema and no pedal edema Neuro: COMMON NORMALS: patient oriented x3 Urinary Catheter Management: Martinez: Cath Placed During This Visit: yes Reason for Continuing Indwelling Catheter: Accurate Measurement of Urinary Output in Critically Ill Patients Urinary Catheter Date of Insertion: 06/01/22 Urinary Catheter Time of Insertion: 11:51 Data : 06/06/22 10:08 06/06/22 10:08 Micro: Microbiology 06/04/22 14:57 Tissue Culture - Preliminary Hip - #1 Gram Negative Rods 06/04/22 15:02 Tissue Culture - Preliminary Hip - Wound Gram Negative Rods 06/04/22 14:51 Anaerobic Culture - Preliminary Other Source Abscess Culture - Preliminary Gram Negative Rods 06/04/22 14:45 Abscess Culture - Preliminary Hip - #4 Gram Negative Rods 06/04/22 14:42 Anaerobic Culture - Preliminary Incision Abscess Culture - Preliminary Gram Negative Rods A&P Assessment and plan (1) ATN (acute tubular necrosis): (2) Avascular necrosis: (3) Hip osteomyelitis, left: (4) Dehydration: (5) Hyponatremia: (6) Sepsis: (7) Fall: (8) Hip pain, left: (9) Acute kidney injury: (10) Alcohol abuse: Plan Sepsis related to UTI Septic shock Trying to wean her off levo it was running at 2 mics today No signs of pyonephritis No signs of kidney stones Currently on IV antibiotics Cefepime, metronidazole and vancomycin ATN related to sepsis and possible nephrotoxic agents Patient most likely has taken large amount of improvement at home . Session conducted 06/03 Another session today to History of uremic Dr. Tucker placed temporary dialysis catheter Alcohol abuse continued high-dose thiamine along folic acid Left hip avascular necrosis concern for osteomyelitis MRI unremarkable patient could not lay flat currently She is going to the OR as per Dr. Neville She will also need a staged procedure for placement of antibiotic beads and cement spacer then afterwards she will need intermediate, Social dynamics Patient is alcoholic, lives alone, recurrent falls at home, no other family, her friend is her DPOA who is in [place], she is a nurse her name is Elen Patient is DNR/DNI She is agreeable to go to intermediate for now agreeable for surgery is on dialysis for now I have asked Dr. 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 The critical care time is as shown. This time is in addition to time spent performing any reported procedures but includes the following: [x] Data and vital sign review and interpretation [x] Patient assessment, examination and intervention [x] Documentation [x] Medication orders and management Critical Care Time (min): 30 Coding Level of Care Code Acute Relay Mechanic for [facility] Fwd Diagnoses ATN (acute tubular necrosis) N17.0 Avascular necrosis M87.00 Hip osteomyelitis, left M86.9 Dehydration E86.0 Hyponatremia E87.1 Sepsis A41.9 Fall W19.XXXA Hip pain, left M25.552 Acute kidney injury N17.9 Alcohol abuse F10.10
--- NOTE | 2022-06-06 19:56 | PC.NURSE ---
PT HAS HAD A FAIRLY UNEVENTFUL SHIFT. PTS PRESSURE/MAP HAS BEEN SOFT. LEVOPHED HAS HAD TO BE TURNED UP DOCUMENTED. WAS ABLE TO GET LEVO OFF FOR A SHORT WHILE BUT PRESSURES ENDED UP DROPPING AGAIN SO LEVO WAS TURNED BACK ON THIS EVENING. PT RECEIVED BED BATH TODAY BY THIS NURSE AND TOLERATED THAT WELL. SHE HAS NOT REALLY HAD ANY COMPLAINTS OF PAIN. SHE HAS BEEN REFUSING MEALS. THIS NURSE DISCUSSED THE IMPORTANCE OF PT NEEDING TO EAT. PT REQUESTED TO HAVE WATER. ENSURE WAS ALSO ENCOURAGED AND SHE WAS WILLING TO TRY THIS. SHE DID LIKE THE ENSURE AND TOLERATED IT WELL. PT RECEIVED A UNIT OF BLOOD AND TOLERATED THAT WELL. THE DIALYSIS NURSE IS CURRENTLY IN WITH PT TRYING TO GIVE HER A DIALYSIS TREATMENT. BEDSIDE REPORT GIVEN TO YUAN WOMCAK. ALL QUESTIONS ANSWERED. PT HAS NO REQUESTS AT THIS TIME. SHE DOES APPEAR TO BE RESTING COMFORTABLY IN BED. CARE TURNED OVER TO YUAN WOMACK.
[2022-06-06 21:45] LABS: Vancomycin Trough 11.9 ug/mL (10-15)
[2022-06-07] VITALS (85 sets, daily range): BP systolic 93–148; BP diastolic 48–95; PULSE 65–87; RESP 10–22; TEMP 36.5–37.2; O2SAT 89–96
[2022-06-07] MEDS: vancomycin 1,000 MG in sodium chloride 0.9% 250 ML 250 MG IV (00:53)
[2022-06-07 03:16] LABS: Hematocrit 24.9 % (37.0-47.0); Hemoglobin 8.2 g/dL (11.5-15.3); Mean Corpuscular HGB Conc 32.9 g/dL (30.0-36.0); Mean Corpuscular Hemoglobin 30.8 pg (28.0-34.0); Mean Corpuscular Volume 93.6 fl (81-99); Mean Platelet Volume 11.5 fL (7.4-10.4); Platelet Count 362 10^3/cmm (130-400); Red Blood Count 2.66 10^6/uL (4.1-5.3); Red Cell Distribution Width 15.2 % (12.1-15.1)
[2022-06-07 03:41] LABS: Alanine Aminotransferase 11 U/L (0-33); Albumin Level 1.8 g/dL (3.5-5.2); Alkaline Phosphatase 502 U/L (35-105); Anion Gap 17.3 (5-19); Aspartate Amino Transferase 32 U/L (0-32); Blood Urea Nitrogen 40 mg/dL (8-23); Calcium 8.1 mg/dL (8.5-10.5); Carbon Dioxide 20 mmol/L (22-29); Chloride 97 mmol/L (98-107); Glucose 75 mg/dL (65-115); Osmolality Calculated 278 mOsm/kg (285-295); Potassium 4.3 mmol/L (3.5-5.1); Sodium 130 mmol/L (136-145); Total Bilirubin 0.5 mg/dL (0.15-1.2); Total Protein 4.8 g/dL (6.6-8.7)
[2022-06-07 03:48] LABS: White Blood Count 42.2 10^3/uL (4.0-10.0)
[2022-06-07 03:49] LABS: Absolute Neutrophil 36.3 10^3/cmm (1.4-6.5); Absolute Segmented Neutrophil 32.9 10/cmm (1.6-7.1); Band Neutrophils Absolute 3.4 10^3/cmm (0.0-1.2); Eosinophils 0 %; Lymphocytes 3 %; Lymphocytes Absolute 1.3 10^3/cmm (1.2-3.4); Monocytes Absolute 2.1 10^3/cmm (0.1-0.6); Platelet Estimate Normal (Normal); Segmented Neutrophils 78 %; Total Cells Counted 100 (0-100)
[2022-06-07 03:50] LABS: Anisocytosis 1+; Burr Cells 2+; Dohle Bodies 2+; Poikilocytosis 1+; Toxic Granulation 2+; Toxic Vacuolation 1+
--- NOTE | 2022-06-07 07:02 | PM.PN ---
Subjective Subjective: Patient seen and examined this morning. She expresses she is continued to be thirsty. She states her hip still has some pain but does feel better since surgery. Incisional VAC with deep drain on in place with only roughly 50 cc of bloody output overnight. Patient continues to complain of aching all over. Patient did receive a unit of PRBC cells due to low a.m. labs hemoglobin was 6.4 yesterday. This morning hemoglobin 8.2 Vitals/I&O/Wt Last Vital Signs Temp 98.3 F 06/06/22 20:00 Pulse 75 06/07/22 04:00 Resp 13 06/07/22 04:00 BP 119/52 06/07/22 04:00 Pulse Ox 93 06/07/22 04:00 O2 Del Method 06/06/22 20:00 O2 Flow Rate 2 06/06/22 08:00 06/06/22 06/07/22 06/07/22 22:59 06:59 14:59 Intake Total 1726.873 / 2402.923 733.947 / 3136.870 Output Total 2043 / 2043 600 / 2643 Balance -316.127 / 359.923 133.947 / 493.870 Weight last 48 hrs Weight 176 lb 4.8 oz Physical Exam Narrative: Dressings clean d ry and intact with incisional VAC an d deep drain with good seal.? 50 cc bloody output over night.? Still some pain to palpation to the left hip.? She is able to wi ggle toes plantarf doug and dorsiflex ankle.? Distal pul ses palpable sensa tion tact light to uch distally. Urinary Catheter Management: Martinez: Cath Placed During This Visit: yes Reason for Continuing Indwelling Catheter: Accurate Measurement of Urinary Output in Critically Ill Patients Urinary Catheter Date of Insertion: 06/01/22 Urinary Catheter Time of Insertion: 11:51 Data : 06/07/22 02:45 06/07/22 02:45 Micro: Microbiology 06/04/22 14:51 Gram Stain - Final Other Source Anaerobic Culture - Preliminary Abscess Culture - Preliminary Gram Negative Rods 06/04/22 14:42 Gram Stain - Final Incision Anaerobic Culture - Preliminary Abscess Culture - Preliminary Gram Negative Rods 06/04/22 14:45 Gram Stain - Final Hip - #4 Abscess Culture - Preliminary Gram Negative Rods 06/04/22 15:02 Gram Stain - Final Hip - Wound Tissue Culture - Preliminary Gram Negative Rods 06/04/22 14:57 Gram Stain - Final Hip - #1 Tissue Culture - Preliminary Gram Negative Rods 06/04/22 14:45 Anaerobic Culture - Preliminary Hip - #3 A&P Assessment and plan (1) Hip osteomyelitis, left: (2) ATN (acute tubular necrosis): (3) Sepsis: (4) Hip pain, left: (5) Acute kidney injury: Plan Continue to maintain drain and output and incisional VAC Nonweightbearing left lower extremity Continue with IV antibiotics per primary team Continue to monitor labs.? Hemoglobin improved after PRBC transfusion per primary. DVT prophylaxis Continue to monitor intraoperative cultures currently showing gram-negative rods Internal medicine is primary and appreciate their medical management This point time we will plan for a staged approach with plan for left hip repeat irrigation and debridement with plan for possible removal of antibiotic beads and placement of antibiotic cement spacer Prostalac implant.? Plan for this next week pending how patient improves.? We will continue to keep patient POA on an updated on plan and timing. Patient does have increasing WBC count from yesterday now up to 42.2. BMP creatinine and kidney numbers have steadily improved. Attestations Medical Necessity Statement*: Patient requiring hospitalization for left hip osteomyelitis of femur and acetabulum as well as left hip abscess she does have a UTI as well.? She is required IV antibiotics and surgical intervention for her left hip. Coding Level of Care Code Acute Chief Digital Media Officer for [facility] Bertin Diagnoses Hip osteomyelitis, left M86.9 ATN (acute tubular necrosis) N17.0 Sepsis A41.9 Hip pain, left M25.552 Acute kidney injury N17.9 Time Spent (min) 25
[2022-06-07] MEDS: sennosides-docusate Tablet 1 TAB PO (08:27)
[2022-06-07] MEDS: folic acid 1 mg Tablet PO (08:27)
--- NOTE | 2022-06-07 08:27 | P.PN_ITS ---
Subjective Subjective: more alert. still w/ edema. some sob. no n/v/f/c/antonio/d. still w/ wbc over 40. Medications: Reviewed: Yes Medication Review Details: Current Medications Acetaminophen (Acetaminophen 325 Mg Tablet) 650 mg PO Q6H PRN PRN Reason: Mild/Mod Pain Or Temp >/= 101 Last Admin: 06/06/22 08:47 Dose: 650 mg Folic Acid (Folic Acid 1 Mg Tablet) 1 mg PO DAILY [facility] Last Admin: 06/06/22 08:47 Dose: 1 mg Vancomycin HCl 1,000 mg/ (Sodium Chloride) 250 mls @ 250 mls/hr IV Q48H [facility]; Protocol Last Infusion: 06/07/22 05:51 Dose: Infused Cefepime HCl 1,000 mg/ Sodium (Chloride) 50 mls @ 100 mls/hr IV Q24H [facility]; Protocol Last Infusion: 06/06/22 11:37 Dose: Infused Norepinephrine Bitartrate 4 mg (/ Dextrose) 254 mls @ 0 mls/hr IV .Q0M [facility]; Protocol Last Admin: 06/07/22 03:34 Dose: 2 mcg/min, 7.62 mls/hr Albumin Human (Albumin) 12.5 gm in 50 mls @ 60 mls/hr IV PRN PRN PRN Reason: Hypotension and/or symptomatic Sodium Chloride (Sodium Chloride 0.9%) 1,000 mls @ 100 mls/hr IV .Q10H [facility] Last Admin: 06/06/22 15:11 Dose: 100 mls/hr Lanolin (Lanolin Oint 7 Gm) 1 applic TOPICAL PRN PRN PRN Reason: DRYNESS Metronidazole (Metronidazole 500 Mg Tablet) 500 mg PO TID [facility] Last Admin: 06/06/22 20:47 Dose: 500 mg Morphine Sulfate (Morphine Ir 15 Mg Tablet) 15 mg PO Q4H PRN PRN Reason: SEVERE PAIN Last Admin: 06/05/22 20:04 Dose: 15 mg Morphine Sulfate (Morphine 4 Mg/Ml Sdv 1 Ml) 2 mg IVP Q4H PRN PRN Reason: SEVERE PAIN Last Admin: 06/04/22 22:38 Dose: 2 mg Ondansetron HCl (Ondansetron 2 Mg/Ml Sdv 2 Ml) 4 mg IVP Q8H PRN PRN Reason: vomiting, or N/V if npo Pantoprazole Sodium (Pantoprazole Dr 40 Mg Tablet) 40 mg PO DAILY [facility] Last Admin: 06/06/22 08:47 Dose: 40 mg Senna/Docusate Sodium (Sennosides-Docusate Tablet) 1 tab PO DAILY [facility] Last Admin: 06/06/22 08:47 Dose: 1 tab Thiamine HCl (Thiamine 100 Mg/Ml Sdv) 500 mg IVP DAILY [facility] Last Admin: 06/06/22 08:47 Dose: 500 mg Vitals/I&O/Wt Last Vital Signs Temp 98.3 F 06/06/22 20:00 Pulse 72 06/07/22 07:15 Resp 16 06/07/22 07:15 BP 124/71 06/07/22 07:15 Pulse Ox 94 06/07/22 07:15 O2 Del Method 06/06/22 20:00 O2 Flow Rate 2 06/06/22 08:00 06/06/22 06/07/22 06/07/22 22:59 06:59 14:59 Intake Total 1726.873 / 2402.923 733.947 / 3136.870 Output Total 2043 / 2043 600 / 2643 Balance -316.127 / 359.923 133.947 / 493.870 Weight last 48 hrs Weight 79.968 kg Physical Exam Narrative: elderly in bed in [facility] - is urinating vss Heent- nc/at, eomi, anicteric neck supple lungs crackles b/l heart reg, +LEORA abd soft, nt, +BS, ND ext- arms > leg edema rt femoral dialysis catheter neuro- awake, appropriate, interactive, moving Urinary Catheter Management: Martinez: Cath Placed During This Visit: yes Reason for Continuing Indwelling Catheter: Accurate Measurement of Urinary Output in Critically Ill Patients Urinary Catheter Date of Insertion: 06/01/22 Urinary Catheter Time of Insertion: 11:51 Data : 06/07/22 02:45 06/07/22 02:45 Micro: Microbiology 06/04/22 14:51 Gram Stain - Final Other Source Anaerobic Culture - Preliminary Abscess Culture - Preliminary Gram Negative Rods 06/04/22 14:42 Gram Stain - Final Incision Anaerobic Culture - Preliminary Abscess Culture - Preliminary Gram Negative Rods 06/04/22 14:45 Gram Stain - Final Hip - #4 Abscess Culture - Preliminary Gram Negative Rods 06/04/22 15:02 Gram Stain - Final Hip - Wound Tissue Culture - Preliminary Gram Negative Rods 06/04/22 14:57 Gram Stain - Final Hip - #1 Tissue Culture - Preliminary Gram Negative Rods 06/04/22 14:45 Anaerobic Culture - Preliminary Hip - #3 A&P Assessment and plan (1) Acute kidney injury: 76 yr old female w/ left hip avascular necrosis and Q OM 1. JESSICA- pt has been on NSAID's for a while -no hydronephrosis on ct scan u/a turbid, 3+ blood, 3+ prot, 2+ leuk est, rbc and wbc too numerous to count- 4+ ur bact -ur na 41 -concern for ATN, chronic interstial nephritis from chronic NSAID use, or iinfection related GN- check complements - c3 a little low at 80 -try to get old blood work and an accurate home med list -pth 94 -monitor renal fxn -if not imprved in am- would place a permacath 2. leukocytosis from OM- renal dose abx -worsening wbc- -ortho is planning a staged approach with plan for left hip repeat irrigation and debridement with plan for possible removal of antibiotic beads and placement of antibiotic cement spacer Prostalac implant. 3. anemia- check iron studies, b12, folate. high iron sat -s/p prbc tx -use TRIXIE 4. inc AG met acidosis- normal lactate -likely from JESSICA -bicarb down to 12- will repeat abg -based on abg, and also w/ risk of surgery, she may need dialysis- discussed w/ her friend, Elen - Power of Unit[employer]- and she and pt state she would want dialysis 5. hyponatremia- na dropped to 124 -likely from jessica tsh 5.15- not causing hyponatremia -improved to 130 -check AM cortisol level. was 23 at 10 pm 6. hypoalbuminemia- from illness - needs nutrition seen and examined w/ RN -telehealth visit discussed w/ Dr David time spent 30 min Plan as above Attestations Medical Necessity Statement*: jessica, hip infection, AMS Time Spent in Patient Care: 16 - 35 minutes (>than 50% of time spent in counselling and/or direct pt care on unit) . Coding Level of Care Code Acute Recovery Specialist for g Fwd Diagnoses Acute kidney injury N17.9
[2022-06-07] MEDS: metroNIDAZOLE 500 MG Tablet PO (08:28)
[2022-06-07] MEDS: pantoprazole DR 40 mg Tablet PO (08:28)
--- NOTE | 2022-06-07 09:15 | PC.SOCIAL ---
IMM updated Imm updated with patient at bedside. Copy of page 2 provided. Patient verbalized understanding. Copy in chart initialed, dated and timed.
[2022-06-07] MEDS: cefepime 1,000 MG in sodium chloride 0.9% (plus) 50 ML 100 MG IV (09:34)
--- NOTE | 2022-06-07 11:26 | PC.NURSE ---
Upon morning assessment, patient answered all orientation questions appropriately, but throughout the morning it became apparent that she is confused. She has made odd statements such as the soiled linens cart is her favorite, then being unable to explain what she means when asked to explain further. While nursing staff was turning her to be left side lying, she was upset because she wants to be left side lying. When we explained that we were arranging her the way she wanted us to, she got upset that her leg was not straight. Moving the blankets reveal that her legs were straight.
--- NOTE | 2022-06-07 14:30 | PM.PN ---
Subjective Subjective: Patient was seen and examined this morning, has some shortness of breath, post 1 unit PRBC transfusion H&H is stable, WBC around 42,000, will switch antibiotic to meropenem today, will continue with Vanco, Will DC metronidazole, most recent C. difficile PCR is negative. If renal function does not improve, patient will need PermCath placement. ID has been consulted, for long-term antibiotic planning. Patient will likely need 8 to 10 weeks of IV antibiotics, pending multiple culture reports, currently broadly covered with Vanco and meropenem. Medications: Reviewed: Yes Medication Review Details: Generic Name Dose Route Start Last Admin Trade Name Freq PRN Reason Stop Dose Admin Acetaminophen 650 mg 06/01/22 00:06 06/06/22 08:47 Acetaminophen 32 5 Mg Tablet PO 650 mg Q6H PRN Administration Mild/Mod Pain Or Temp >/= 101 Folic Acid 1 mg 06/01/22 09:00 06/07/22 08:27 Folic Acid 1 Mg Tablet PO 1 mg DAILY ULYSSES Administration Vancomycin HCl 1,0 00 mg/ 250 mls @ 250 mls /hr 06/02/22 22:00 06/07/22 05:51 Sodium Chloride IV Infused Q48H ULYSSES Infusion Protocol Norepinephrine Bit artrate 4 mg 254 mls @ 0 mls/h r 06/03/22 04:30 06/07/22 08:00 / Dextrose IV 0 mcg/min .Q0M ULYSSES 0 mls/hr Titration Protocol Per Protocol Morphine Sulfate 15 mg 06/04/22 10:13 06/05/22 20:04 Morphine Ir 15 M g Tablet PO 15 mg Q4H PRN Administration SEVERE PAIN Morphine Sulfate 2 mg 06/04/22 16:53 06/04/22 22:38 Morphine 4 Mg/Ml Sdv 1 Ml IVP 2 mg Q4H PRN Administration SEVERE PAIN Pantoprazole Sodiu m 40 mg 06/01/22 09:00 06/07/22 08:[address] 40 Mg Tablet PO 40 mg DAILY U[facility]SSES Administration Senna/Docusate Sod ium 1 tab 06/05/22 09:00 06/07/22 08:27 Sennosides-Docus ate Tablet PO 1 tab DAILY U[facility]SSES Administration Thiamine HCl 500 mg 06/01/22 09:00 06/07/22 08:28 Thiamine 100 Mg/ Ml Sdv IVP 500 mg DAILY ULYSSES Administration Vitals/I&O/Wt Last Vital Signs Temp 98.8 F 06/07/22 09:45 Pulse 78 06/07/22 10:15 Resp 13 06/07/22 10:15 BP 95/69 06/07/22 10:15 Pulse Ox 90 06/07/22 10:15 O2 Del Method 06/07/22 09:45 O2 Flow Rate 2 06/06/22 08:00 06/06/22 06/07/22 06/07/22 22:59 06:59 14:59 Intake Total 1726.873 / 2402.923 733.947 / 3136.870 1153.782 / 1153.782 Output Total 2043 / 2043 600 / 2643 50 / 50 Balance -316.127 / 359.923 133.947 / 118.492 0843.782 / 1103.782 Weight last 48 hrs Weight 79.968 kg Physical Exam Const: COMMON NORMALS: patient oriented x3 Resp: COMMON NORMALS: clear to auscultation bilaterally EFFORT & INSPECTION: Yes symmetric chest movement AUSCULTATION: clear to auscultation bilaterally Cardio: COMMON NORMALS: regular rate, regular rhythm, S1 normal heart sound present, S2 normal heart sound present, No gallops present (Cardio), No murmurs present (Cardio), No rub (Cardio) and Peripheral pulses 2+ throughout RATE: regular rate RHYTHM: regular rhythm HEART SOUNDS: S1 normal heart sound present and S2 normal heart sound present PERIPHERAL PULSES: Peripheral pulses 2+ throughout GI: COMMON NORMALS: Normal to inspection, nondistended, normoactive bowel sounds present, Soft to palpation, non-tender, No hepatosplenomegaly present and no masses AUSCULTATION: Yes normoactive bowel sounds PALPATION: Yes Soft to palpation and Yes No hepatosplenomegaly present RECTAL EXAM: deferred Extremity: COMMON NORMALS: no clubbing, cyanosis or edema and no pedal edema Neuro: COMMON NORMALS: patient oriented x3 Urinary Catheter Management: Martinez: Cath Placed During This Visit: yes Reason for Continuing Indwelling Catheter: Accurate Measurement of Urinary Output in Critically Ill Patients Urinary Catheter Date of Insertion: 06/01/22 Urinary Catheter Time of Insertion: 11:51 Data : 06/07/22 02:45 06/07/22 02:45 Micro: Microbiology 10/31/22 23:49 Blood Culture - Final Blood Escherichia coli 05/31/22 23:44 Blood Culture - Final Blood Escherichia coli 06/04/22 14:51 Gram Stain - Final Other Source Anaerobic Culture - Preliminary Abscess Culture - Preliminary Gram Negative Rods 06/04/22 14:42 Gram Stain - Final Incision Anaerobic Culture - Preliminary Abscess Culture - Preliminary Gram Negative Rods 06/04/22 14:45 Gram Stain - Final Hip - #4 Abscess Culture - Preliminary Gram Negative Rods 06/04/22 15:02 Gram Stain - Final Hip - Wound Tissue Culture - Preliminary Gram Negative Rods 06/04/22 14:57 Gram Stain - Final Hip - #1 Tissue Culture - Preliminary Gram Negative Rods 06/04/22 14:45 Anaerobic Culture - Preliminary Hip - #3 A&P Assessment and plan (1) ATN (acute tubular necrosis): (2) Avascular necrosis: (3) Hip osteomyelitis, left: (4) Dehydration: (5) Hyponatremia: (6) Sepsis: (7) Fall: (8) Hip pain, left: (9) Acute kidney injury: (10) Alcohol abuse: Plan Sepsis related to UTI Septic shock Trying to wean her off levo it was running at 2 mics today No signs of pyonephritis No signs of kidney stones Currently on IV antibiotics Cefepime, metronidazole and vancomycin ATN related to sepsis and possible nephrotoxic agents Patient most likely has taken large amount of improvement at home . Session conducted 06/03 Another session today to History of uremic Dr. Tucker placed temporary dialysis catheter Alcohol abuse continued high-dose thiamine along folic acid Left hip avascular necrosis concern for osteomyelitis MRI unremarkable patient could not lay flat currently She is going to the OR as per Dr. Neville She will also need a staged procedure for placement of antibiotic beads and cement spacer then afterwards she will need intermediate, Social dynamics Patient is alcoholic, lives alone, recurrent falls at home, no other family, her friend is her DPOA who is in [place], she is a nurse her name is Elen Patient is DNR/DNI She is agreeable to go to intermediate for now agreeable for surgery is on dialysis for now I have asked Dr. 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 Coding Level of Care Code Acute Test Fixture Designer for [place] Fwd Exam Detailed Diagnoses ATN (acute tubular necrosis) N17.0 Avascular necrosis M87.00 Hip osteomyelitis, left M86.9 Dehydration E86.0 Hyponatremia E87.1 Sepsis A41.9 Fall W19.XXXA Hip pain, left M25.552 Acute kidney injury N17.9 Alcohol abuse F10.10
[2022-06-07] MEDS: meropenem 500 MG in sodium chloride 0.9% (plus) 50 ML 100 MG IV (14:40)
[2022-06-07] MEDS: epoetin alfa 10,000 unit/mL INJ 10000 UNIT SUBCUT (14:52)
[2022-06-07] MEDS: acetaminophen 325 mg Tablet 650 MG PO ×2 (16:45→23:34)
--- NOTE | 2022-06-07 18:06 | PC.NURSE ---
SHift SUmmary: Uneventful shift. Patient rested in bed throuhgout the day. Patient can answer all orientation questions, but does have some underlying confusion which appears to be improving. At beginning of shift she was on 2mcg of levophed, but was able to be taken off at 0800 and remained off all day. PT attempted to work with patient today, but she was too tired. PT will come by tomorrow morning. 575 mL of urine output, 1 small bowel movement.
[2022-06-07] MEDS: morphine 4 mg/mL SDV 1 mL 2 MG IVP (22:04)
[2022-06-08] VITALS (50 sets, daily range): BP systolic 99–183; BP diastolic 44–117; PULSE 61–91; RESP 9–19; TEMP 36.4–36.9; O2SAT 93–97
--- NOTE | 2022-06-08 07:29 | P.PN_ITS ---
Subjective Subjective: more awake, thirsty. MS improving. Medications: Reviewed: Yes Medication Review Details: Current Medications Acetaminophen (Acetaminophen 325 Mg Tablet) 650 mg PO Q6H PRN PRN Reason: Mild/Mod Pain Or Temp >/= 101 Last Admin: 06/07/22 23:34 Dose: 650 mg Epoetin Gunnar (Epoetin Gunnar 10,000 Unit/Ml Inj) 10,000 unit SUBCUT QMWF [facility] Last Admin: 06/07/22 14:52 Dose: 10,000 unit Folic Acid (Folic Acid 1 Mg Tablet) 1 mg PO DAILY [facility] Last Admin: 06/07/22 08:27 Dose: 1 mg Vancomycin HCl 1,000 mg/ (Sodium Chloride) 250 mls @ 250 mls/hr IV Q48H [facility]; Protocol Last Infusion: 06/07/22 05:51 Dose: Infused Norepinephrine Bitartrate 4 mg (/ Dextrose) 254 mls @ 0 mls/hr IV .Q0M [facility]; Protocol Last Titration: 06/07/22 08:00 Dose: 0 mcg/min, 0 mls/hr Albumin Human (Albumin) 12.5 gm in 50 mls @ 60 mls/hr IV PRN PRN PRN Reason: Hypotension and/or symptomatic Meropenem 500 mg/ Sodium (Chloride) 50 mls @ 100 mls/hr IV Q24H [facility] Last Infusion: 06/07/22 17:30 Dose: Infused Lanolin (Lanolin Oint 7 Gm) 1 applic TOPICAL PRN PRN PRN Reason: DRYNESS Morphine Sulfate (Morphine Ir 15 Mg Tablet) 15 mg PO Q4H PRN PRN Reason: SEVERE PAIN Last Admin: 06/05/22 20:04 Dose: 15 mg Morphine Sulfate (Morphine 4 Mg/Ml Sdv 1 Ml) 2 mg IVP Q4H PRN PRN Reason: SEVERE PAIN Last Admin: 06/07/22 22:04 Dose: 2 mg Ondansetron HCl (Ondansetron 2 Mg/Ml Sdv 2 Ml) 4 mg IVP Q8H PRN PRN Reason: vomiting, or N/V if npo Pantoprazole Sodium (Pantoprazole Dr 40 Mg Tablet) 40 mg PO DAILY [facility] Last Admin: 06/07/22 08:28 Dose: 40 mg Senna/Docusate Sodium (Sennosides-Docusate Tablet) 1 tab PO DAILY [facility] Last Admin: 06/07/22 08:27 Dose: 1 tab Thiamine HCl (Thiamine 100 Mg/Ml Sdv) 500 mg IVP DAILY [facility] Last Admin: 06/07/22 08:28 Dose: 500 mg Vitals/I&O/Wt Last Vital Signs Temp 98.1 F 06/08/22 03:30 Pulse 67 06/08/22 06:00 Resp 13 06/08/22 06:00 BP 126/91 06/08/22 06:00 Pulse Ox 94 06/08/22 06:00 O2 Del Method 06/08/22 06:00 O2 Flow Rate 2 06/06/22 08:00 06/07/22 06/08/22 06/08/22 22:59 06:59 14:59 Intake Total 250 / 1683.782 Output Total 225 / 575 615 / 1190 Balance 25 / 1108.782 -615 / 493.782 Weight last 48 hrs Weight 79.469 kg Weight 80.059 kg Physical Exam Narrative: elderly in bed in NARD - good uop vss Heent- nc/at, eomi, anicteric neck supple lungs crackles b/l heart reg, +LEORA abd soft, nt, +BS, ND ext- arms > leg edema rt femoral dialysis catheter neuro- awake, appropriate, interactive, moving Urinary Catheter Management: Martinez: Cath Placed During This Visit: yes Reason for Continuing Indwelling Catheter: Accurate Measurement of Urinary Output in Critically Ill Patients Urinary Catheter Date of Insertion: 06/01/22 Urinary Catheter Time of Insertion: 11:51 Data : 06/07/22 02:45 06/07/22 02:45 Micro: Microbiology 06/04/22 14:51 Gram Stain - Final Other Source Anaerobic Culture - Preliminary Abscess Culture - Final Escherichia coli 06/04/22 14:45 Anaerobic Culture - Preliminary Hip - #3 06/04/22 14:42 Gram Stain - Final Incision Anaerobic Culture - Preliminary Abscess Culture - Final Escherichia coli 06/04/22 15:02 Gram Stain - Final Hip - Wound Tissue Culture - Final Escherichia coli 06/04/22 14:57 Gram Stain - Final Hip - #1 Tissue Culture - Final Escherichia coli 06/04/22 14:45 Gram Stain - Final Hip - #4 Abscess Culture - Final Escherichia coli 05/31/22 23:49 Blood Culture - Final Blood Escherichia coli 05/31/22 23:44 Blood Culture - Final Blood Escherichia coli A&P Assessment and plan (1) Acute kidney injury: 76 yr old female w/ left hip avascular necrosis and Q OM 1. JESSICA- pt has been on NSAID's for a while -no hydronephrosis on ct scan u/a turbid, 3+ blood, 3+ prot, 2+ leuk est, rbc and wbc too numerous to count- 4+ ur bact -ur na 41 -concern for ATN, chronic interstial nephritis from chronic NSAID use, or iinfection related GN- check complements - c3 a little low at 80 -try to get old blood work and an accurate home med list -pth 94 -monitor renal fxn -attempt to hold dialysis and monitor for renal recovery -based on lab results- decide on permacath needs 2. leukocytosis from OM- renal dose abx -worsening wbc- -ortho is planning a staged approach with plan for left hip repeat irrigation and debridement with plan for possible removal of antibiotic beads and placement of antibiotic cement spacer Prostalac implant. 3. anemia- check iron studies, b12, folate. high iron sat -s/p prbc tx -use TRIXIE 4. inc AG met acidosis- normal lactate -likely from JESSICA -bicarb down to 12- will repeat abg -based on abg, and also w/ risk of surgery, she may need dialysis- discussed w/ her friend, Elen - Power of Tool Crib Attendant- and she and pt state she would want dialysis 5. hyponatremia- na dropped to 124 -likely from jessica tsh 5.15- not causing hyponatremia -improved to 130 -check AM cortisol level. was 23 at 10 pm 6. hypoalbuminemia- from illness - needs nutrition seen and examined w/ RN -telehealth visit discussed w/ Dr David time spent 30 min Plan as above Attestations Medical Necessity Statement*: jessica, Confusion, weakness Time Spent in Patient Care: 16 - 35 minutes (>than 50% of time spent in counselling and/or direct pt care on unit) . Coding Level of Care Code Acute Photographic Enlarger Operator for [place] Diagnoses Acute kidney injury N17.9
[2022-06-08] MEDS: pantoprazole DR 40 mg Tablet PO (08:17)
[2022-06-08] MEDS: folic acid 1 mg Tablet PO (08:17)
[2022-06-08] MEDS: sennosides-docusate Tablet 1 TAB PO (08:18)
--- NOTE | 2022-06-08 10:43 | PC.NURSE ---
Bed Bath provided to patient. Patient is very resistant to care. REfused bed bath yesterday but allowed today. Refuses oral care. Patient gets upset when you try to turn her and sometimes refuses, but then will be upset a short time later due to us not turning her.
--- NOTE | 2022-06-08 10:45 | SUR.PREOP ---
TIME OUT FOR PICC LINE INSERTION COMPLETE.
--- NOTE | 2022-06-08 12:00 | PC.CHAP ---
Pastoral Care Encounter/Spiritual Assessment Type of Contact [] Declined flight deck officer visit [] Patient/Family/Request visit [] Outpatient visit [] Follow-up visit [] Physician referral [] Code/Alert [x] Routine visit [] Staff referral [] Actively dying [] Patient sleeping [] Family support [] [] Out of room [] Palliative care [] [x] Receiving care in room [] Pre-surgical visit [] Trauma [] Long length of stay [] ICU visit [] Other: Relational/Emotional Strength [] Patient feels connected with others/family/visitors/staff [] Distress [] Loneliness/isolation [] Abandonment Spirituality of Patient [] Person of [place] [] Attends Holiness of their [place] [] Believes in Prayer [] Reads Bible or Mu-Ism materials [] There are Spiritual issues to be addressed Spot Worker Interventions [x] Prayer [] Active listening [] Non-anxious presence [] Spiritual/emotional support [] Crisis/trauma care [] Spiritual counseling [] Bereavement support [] Provided bereavement packet [] Provided Bible/devotional materials [] Provided toy/stuffed animal, coloring book to patient or family member [] Provided Communion [] Anointing/[place] [] Salvation [x] Completed spiritual assessment [] Other: Impact on Illness or Injury [] Angry [] Fearful [] Anxious [] Often cries [] Exhaustion [] Unable to work [] Unable to attend anabaptism [] Unable to walk/stand [] Unable to read [] Unable to drive [] Unable to eat/drink [] Unable to sleep [] Unable to be with family [] Patient intubated [] Other: Summary Time spent with patient
[2022-06-08 12:17] LABS: Basophils # 0.2 10^3/uL (0.0-0.1); Basophils % 0.5 %; Eosinophils # 0.1 10^3/uL (0.0-0.8); Eosinophils % 0.2 %; Hemoglobin 8.1 g/dL (11.5-15.3); Lymphocytes # 0.8 10^3/uL (0.8-4.8); Lymphocytes % 1.9 %; Mean Corpuscular HGB Conc 33.8 g/dL (30.0-36.0); Monocytes # 1.2 10^3/uL (0.2-0.9); Neutrophils # 34.08 10^3/uL (1.8-7.7); Nucleated Red Blood Cells % 0 %; Platelet Count 474 10^3/cmm (130-400); Red Blood Count 2.61 10^6/uL (4.1-5.3); Red Cell Distribution Width 15.6 % (12.1-15.1)
--- NOTE | 2022-06-08 12:19 | XR_ITS ---
WS: [id number] Portable AP upright chest, 06/08/2022 Clinical Data: PICC line placement Comparison: Portable chest, 06/01/2022 Findings: The left PICC line ends at the caval atrial junction. No pneumothorax is seen. No nodules o r masses are seen. The heart is normal. The pulmonary vascularity is not increased. No pneumonia is s een. There is left basilar atelectasis and/or effusion. There are monitor leads on the chest wall. XR/XR chest 1V portable [id number] Impression: Satisfactory insertion of left PICC line.
[2022-06-08 12:29] LABS: Alanine Aminotransferase 9 U/L (0-33); Albumin Level 2.1 g/dL (3.5-5.2); Alkaline Phosphatase 467 U/L (35-105); Anion Gap 16.3 (5-19); Aspartate Amino Transferase 23 U/L (0-32); Blood Urea Nitrogen 49 mg/dL (8-23); Calcium 8.2 mg/dL (8.5-10.5); Carbon Dioxide 21 mmol/L (22-29); Chloride 94 mmol/L (98-107); Globulin 2.8 g/dL (1.3-4.6); Glucose 84 mg/dL (65-115); Magnesium 2.1 mg/dL (1.7-2.3); Osmolality Calculated 276 mOsm/kg (285-295); Phosphorus 4.4 mg/dL (2.5-4.5); Potassium 4.3 mmol/L (3.5-5.1); Sodium 127 mmol/L (136-145); Total Bilirubin 0.3 mg/dL (0.15-1.2); Total Protein 4.9 g/dL (6.6-8.7)
[2022-06-08 12:34] LABS: Slide Review Slide Review Perform
[2022-06-08 12:37] LABS: White Blood Count 39.6 10^3/uL (4.0-10.0)
[2022-06-08] MEDS: meropenem 500 MG in sodium chloride 0.9% (plus) 50 ML 100 MG IV (13:33)
--- NOTE | 2022-06-08 14:12 | P.PN_ITS ---
Subjective Subjective: Patient was seen and examined this morning, was feeling thirsty, lt PICC line was placed today. She has been off Levophed since yesterday morning. So far she has maintained a decent MAP after being off pressors. Medications: Reviewed: Yes Medication Review Details: Generic Name Dose Route Start Last Admin Trade Name Cristhianq PRN Reason Stop Dose Admin Acetaminophen 650 mg 06/01/22 00:06 06/07/22 23:34 Acetaminophen 32 5 Mg Tablet PO 650 mg Q6H PRN Administration Mild/Mod Pain Or Temp >/= 101 Epoetin Gunnar 10,000 unit 06/07/22 14:00 06/07/22 14:52 Epoetin Gunnar 10, 000 Unit/Ml Inj SUBCUT 10,000 unit QMWF U[facility] Administration Folic Acid 1 mg 06/01/22 09:00 06/08/22 08:17 Folic Acid 1 Mg Tablet PO 1 mg DAILY U[facility]SSES Administration Vancomycin HCl 1,0 00 mg/ 250 mls @ 250 mls /hr 06/02/22 22:00 06/07/22 05:51 Sodium Chloride IV Infused Q48H [facility] Infusion Protocol Norepinephrine Bit artrate 4 mg 254 mls @ 0 mls/h r 06/03/22 04:30 06/07/22 08:00 / Dextrose IV 0 mcg/min .Q0M ULYSSES 0 mls/hr Titration Protocol Per Protocol Meropenem 500 mg/ Sodium 50 mls @ 100 mls/ hr 06/07/22 14:30 06/08/22 13:33 Chloride IV 100 mls/hr Q24H ULYSSES Administration Morphine Sulfate 15 mg 06/04/22 10:13 06/05/22 20:04 Morphine Ir 15 M g Tablet PO 15 mg Q4H PRN Administration SEVERE PAIN Morphine Sulfate 2 mg 06/04/22 16:53 06/07/22 22:04 Morphine 4 Mg/Ml Sdv 1 Ml IVP 2 mg Q4H PRN Administration SEVERE PAIN Pantoprazole Sodiu m 40 mg 06/01/22 09:00 06/08/22 08:[address] 40 Mg Tablet PO 40 mg DAILY ULYSSES Administration Senna/Docusate Sod ium 1 tab 06/05/22 09:00 06/08/22 08:18 Sennosides-Docus ate Tablet PO 1 tab DAILY [facility]SS[facility] Administration Thiamine HCl 500 mg 06/01/22 09:00 06/08/22 08:18 Thiamine 100 Mg/ Ml Sdv IVP 500 mg DAILY ULYSSES Administration Vitals/I&O/Wt Last Vital Signs Temp 98.1 F 06/08/22 03:30 Pulse 74 06/08/22 10:00 Resp 10 L 06/08/22 10:00 BP 160/109 06/08/22 10:30 Pulse Ox 94 06/08/22 10:00 O2 Del Method 06/08/22 07:42 O2 Flow Rate 2 06/06/22 08:00 06/07/22 06/08/22 06/08/22 22:59 06:59 14:59 Intake Total 250 / 1683.782 600 / 600 Output Total 225 / 575 615 / 1190 40 / 40 Balance 25 / 1108.782 -615 / 493.782 560 / 560 Weight last 48 hrs Weight 79.469 kg Weight 80.059 kg Physical Exam Const: COMMON NORMALS: patient oriented x3 Resp: COMMON NORMALS: clear to auscultation bilaterally EFFORT & INSPECTION: Yes symmetric chest movement AUSCULTATION: clear to auscultation bilaterally Cardio: COMMON NORMALS: regular rate, regular rhythm, S1 normal heart sound present, S2 normal heart sound present, No gallops present (Cardio), No murmurs present (Cardio), No rub (Cardio) and Peripheral pulses 2+ throughout RATE: regular rate RHYTHM: regular rhythm HEART SOUNDS: S1 normal heart sound present and S2 normal heart sound present PERIPHERAL PULSES: Peripheral pulses 2+ throughout GI: COMMON NORMALS: Normal to inspection, nondistended, normoactive bowel sounds present, Soft to palpation, non-tender, No hepatosplenomegaly present and no masses AUSCULTATION: Yes normoactive bowel sounds PALPATION: Yes Soft to palpation and Yes No hepatosplenomegaly present RECTAL EXAM: deferred Extremity: COMMON NORMALS: no clubbing, cyanosis or edema and no pedal edema Neuro: COMMON NORMALS: patient oriented x3 Urinary Catheter Management: Martinez: Cath Placed During This Visit: yes Reason for Continuing Indwelling Catheter: Accurate Measurement of Urinary Output in Critically Ill Patients Urinary Catheter Date of Insertion: 06/01/22 Urinary Catheter Time of Insertion: 11:51 Data : 06/08/22 12:05 06/08/22 12:05 Micro: Microbiology 06/03/22 10:15 Blood Culture - Final Blood NO GROWTH AFTER 5 DAYS 06/03/22 10:10 Blood Culture - Final Blood NO GROWTH AFTER 5 DAYS 06/04/22 14:45 Anaerobic Culture - Preliminary Hip - #3 06/04/22 14:51 Gram Stain - Final Other Source Anaerobic Culture - Preliminary Abscess Culture - Final Escherichia coli 06/04/22 14:42 Gram Stain - Final Incision Anaerobic Culture - Preliminary Abscess Culture - Final Escherichia coli 06/04/22 15:02 Gram Stain - Final Hip - Wound Tissue Culture - Final Escherichia coli 06/04/22 14:57 Gram Stain - Final Hip - #1 Tissue Culture - Final Escherichia coli 06/04/22 14:45 Gram Stain - Final Hip - #4 Abscess Culture - Final Escherichia coli 05/31/22 23:49 Blood Culture - Final Blood Escherichia coli 05/31/22 23:44 Blood Culture - Final Blood Escherichia coli A&P Assessment and plan (1) ATN (acute tubular necrosis): (2) Avascular necrosis: (3) Hip osteomyelitis, left: (4) Dehydration: (5) Hyponatremia: (6) Sepsis: (7) Fall: (8) Hip pain, left: (9) Acute kidney injury: (10) Alcohol abuse: Plan Assessment: Septic shock: Secondary to UTI, left hip abscess osteomyelitis Renal failure: On hemodialysis Chronic alcohol abuse Anemia 76-year-old female with past medical history of alcohol abuse was initially admitted with for the management of left hip pain, JESSICA versus JESSICA on CKD , h yponatremia sepsis secondary to UTI had a complicated hospital course, she went into septic shock secondary to UTI as well as left hip osteomyelitis, during the hospital stay she also ended into renal failure, secondary to sepsis triggered ATN, currently on hemodialysis, after placement on right femoral dialysis catheter. For her left hip AVN/osteomyelitis/abscess: She underwent Left hip irrigation and debridement with cultures, [place] left femoral neck, antibiotic cemented beads spacers, deep drain placement and incisional VAC placement. Orthopedic on board. Wound cultures so far has grown: E. coli, urine culture E. coli, blood culture no growth, C. difficile toxin PCR negative, MRI of left hip: Nondiagnostic as the patient was not able to lie still. CT abdomen pelvis wo con: No hydronephrosis no pyelonephritis. No nephrolithiasis. Patient has been on broad-spectrum antibiotics so far. She will need long-term antibiotic for her hip pathology, possibly 8 to 10 weeks.ID has been consulted. Multiple intraoperative cultures to be followed.For patient's septic shock initially she was on vasopressor support, currently she is off vasopressor support. For history of alcohol abuse she has been on high-dose thiamine IV initially as well as p.o. folic acid. During the hospital stay patient had also required 1 unit PRBC transfusion for anemia, FOBT is negative. Posttransfusion H&H has remained stable.Possible explanation of chronic anemia could be alcohol-related. Regarding her renal failure: Patient will need PermCath placement, prior to discharge. Social dynamics Patient is alcoholic, lives alone, recurrent falls at home, no other family, her friend is her DPOA who is in [place], she is a nurse her name is Elen. DVT prophylaxis: On SCD Code status:DNR/DNI Attestations Medical Necessity Statement*: Still in hospital for management of sepsis and r enal failure. Time Spent in Patient Care: Greater than 35 minutes (>than 50% of time spent in counselling and/or direct pt care on unit) . Coding Level of Care Code Acute Survey Analyst for [facility] Fwd Diagnoses ATN (acute tubular necrosis) N17.0 Avascular necrosis M87.00 Hip osteomyelitis, left M86.9 Dehydration E86.0 Hyponatremia E87.1 Sepsis A41.9 Fall W19.XXXA Hip pain, left M25.552 Acute kidney injury N17.9 Alcohol abuse F10.10
[2022-06-08 14:51] LABS: Leukemia Profile (BBPL) See Report; Lymphoma Profile (BBPL) See Report
--- NOTE | 2022-06-08 17:30 | USCV_ITS ---
Breanna Andrew Age: 76 Gender: F : 1945 Exam Date: 06/08/2022 18:09 Ordering Phys: Reyes David MD Technologist: LYNSEY Exam Location: [facility] [place] Indication: Sepsis. No history of cardiac intervention per patient. BP: 144 / 82 HR: 77 Rhythm: Sinus Technical Quality: Adequate MEASUREMENTS (Male / Female) Normal Values 2D ECHO LV Diastolic Diameter PLAX 4.4 cm 4.2 - 5.9 / 3.9 - 5.3 cm LV Systolic Diameter PLAX 2.6 cm IVS Diastolic Thickness 1.3 cm 0.6 - 1.0 / 0.6 - 0.9 cm IVS Systolic Thickness 2.1 cm LVPW Diastolic Thickness 1.3 cm 0.6 - 1.0 / 0.6 - 0.9 cm LVPW Systolic Thickness 1.6 cm LVOT Diameter 1.8 cm LV Ejection Fraction 2D Teich 73.5 % LV Ejection Fraction MOD 2C 79.0 % LV Ejection Fraction 2C AL 82.9 % LA Diameter 3.1 cm LA Width 3.9 cm LA Height 5.5 cm RA Width 3.0 cm RA Height 4.6 cm Aorta at Sinotubular Diameter 3.6 cm IVC Diameter 1.5 cm M-MODE Aortic Annulus Diameter 3.8 cm LA Ao Ratio MM 0.9 MV E Point Septal Separation 0.4 cm DOPPLER AV Peak Velocity 140.0 cm/s LVOT Peak Velocity 101.0 cm/s AV Area Cont Eq vti 1.7 cm squared AV Area Cont Eq pk 1.9 cm squared MV Peak Velocity 111.0 cm/s MV Area PHT 5.0 cm squared Mitral E to A Ratio 0.8 MV E' Velocity 39.5 cm/s Mitral E to MV E' Ratio 11.4 Mitral E to LV E' Lateral Ratio 14.3 Mitral E to LV E' Septal Ratio 9.5 TR Peak Velocity 263.3 cm/s TR Peak Gradient 27.7 mmHg TV Peak E Velocity 70.0 cm/s Right Atrial Pressure 5.0 mmHg Pulmonary Artery Systolic Pressu 32.7 mmHg PV Peak Velocity 114.0 cm/s RV Acceleration Time 0.1 s RV Ejection Time 0.3 s RV AcT/ET 0.2 FINDINGS Left Ventricle Normal left ventricular size, systolic function and upper normal wall thickness, with no regional wall motion abnormalities. Left ventricular ejection fraction is estimated at 70 %. Grade I diastolic dysfunction (abnormal relaxation filling pattern), normal to mildly elevated filling pressures. Right Ventricle Normal right ventricular size and systolic function. Right ventricular systolic pressure 32 mmHg. Right Atrium Normal right atrial size. Left Atrium Upper normal left atrial size. Mitral Valve Mild mitral annular calcification. Structurally normal mitral valve. No mitral valve stenosis. Trace mitral valve regurgitation. Aortic Valve Structurally normal trileaflet aortic valve. No aortic valve stenosis. No aortic valve regurgitation. Tricuspid Valve Structurally normal tricuspid valve. Trace tricuspid valve regurgitation. Pulmonic Valve Structurally normal pulmonic valve. No pulmonary valve stenosis. No pulmonary valve regurgitation. Pericardium No pericardial effusion. Left pleural effusion. Aorta Normal aorta size at the level of the sinus of valsalva. Mildly dilated ascending aorta measured anteroposteriorly at 43 mm. IVC Normal IVC dimension with >50% respiratory change of the inferior vena cava. CONCLUSIONS 1. Normal left ventricular size, systolic function and upper normal wall thickness, with no regional wall motion abnormalities. Left ventricular ejection fraction is estimated at 70 %. Grade I diastolic dysfunction (abnormal relaxation filling pattern), normal to mildly elevated filling pressures. 2. Normal right ventricular size and systolic function. 3. Pulmonary artery pressure estimated at 32 mmHg. 4. No evidence of valvular vegetation based on the study. 5. No prior similar studies to compare. Trina Morfin MD (Electronically Signed) Final Date: 09 June 2022 08:20 S
--- NOTE | 2022-06-08 18:01 | PM.CONSULT ---
Providers/Reason For Consult Consulting Physician/Specialty*: Ruth Orosco MD/ Infectious Disease Reason for Consult*: Gram negative sepsis Requesting Physician: Reyes David MD Attending Physician: Reyes David MD History of Present Illness History of Present Illness Breanna Andrew is a 76 year old female admitted on June 01, 2022 with chief complaints of sustaining a fall of 2 to 3 days prior to admission. Very limited history was available from the patient, in part due to encephalopathy and sepsis upon admission and in part as she is a poor historian, does not really wish to contribute to her history, likely has underlying personality disorder however has no formal diagnosis of the same. Upon evaluation during the course of admission she was found to have gram-negative sepsis. Blood culture showed E. coli. Additionally she had complained of pain to the left hip, CT of the pelvis was initially performed to evaluate for underlying fractures. While the study was negative for the same it did show Several pockets of air density seen in the left proximal femur medullary space measuring up to 13.8 mm with some poorly defined overlying edematous soft tissue with some punctate pockets of air and an apparent fluid collection in the soft tissue measuring up to 3.7 cm over the anterior aspect of the intertrochanteric region, concerning for an infectious process involving the soft tissues along with osteomyelitis. There is no reported history of drug use. No recent history of diarrhea. No other injuries apart from the fall she sustained on Tuesday, however once again history is extremely limited from her. Other issues during current admission have included acute kidney injury with a creatinine of 5 for which patient is currently on hemodialysis. Unknown if she has a history of CKD. She was taken to the operating room on June 04, 2022 where she underwent left hip irrigation and debridement with placement of antibiotic impregnated spacers, deep drain placement and VAC placement. Multiple cultures were taken which revealed E. coli. she has been on empiric antibiotic treatment with piperacillin tazobactam which was quickly escalated to meropenem shortly after admission. She is additionally also been on vancomycin. Since undergoing the debridement, she has had persistent leukocytosis. Leukocytosis has been trending up from 17 upon admission to 21.82 most recently 39.6. She has been afebrile. She has needed pressor support with Levophed. Review of systems is limited, however negative for cough chest pain dyspnea palpitations abdominal pain nausea vomiting or diarrhea. Review of Systems General: Reports: 10 or more systems reviewed and unremarkable except in HPI and below Const: Denies: fever(s), chills or body aches Eyes: Denies: change in vision, blurry vision or photophobia ENMT: Reports: hoarseness; Denies: throat pain, enlarged tonsils, odynophagia or nasal congestion Card: Denies: chest pain, palpitations, irregular heart rhythm, edema, swelling of feet/ankles, lightheadedness, pre-syncope, dyspnea on exertion or orthopnea Resp: Denies: dyspnea, productive cough, non-productive cough, wheezing, stridor, pain on inspiration, change in phlegm color, hemoptysis or chest congestion GI: Denies: abdominal pain, nausea, vomiting, hematemesis, coffee ground emesis, dysphagia, heartburn, diarrhea, constipation, GI cramping, change in stool character, hematochezia or melena : Denies: flank pain, difficulty voiding, dysuria, urinary frequency, urinary urgency, urinary hesitancy or hematuria Musc: Denies: neck pain, back pain, extremity pain, joint swelling, joint warmth or deformity Neuro: Denies: headache(s), numbness in extremities, weakness in extremities, sensory changes, difficulty walking, frequent falls, dizziness, vertigo, behavioral changes, Slurred speech present or seizure-like activity Psych: Denies: anxiety, depression, suicidal ideation or homicidal ideation Endo: Denies: polyuria, polydipsia, tired all the time, cold intolerance or hot flashes Azael/Lymph: Denies: easy bruising or easy bleeding Medications/Allergies Home Medications Medication Instructions Recorded Confirmed Last Taken Type aspirin 81 mg chewable tablet 81 mg PO DAILY 06/09/20 05/31/22 06/08/20 10:00 History Allergies Allergy/AdvReac Type Severity Reaction Status Date / Time No Known Allergies Allergy Verified 05/31/22 19:47 Current Medications Generic Name Dose Route Start Last Admin Trade Name Freq PRN Reason Stop Dose Admin Acetaminophen 650 mg 06/01/22 00:06 06/07/22 23:34 Acetaminophen 325 Mg Tablet PO 650 mg Q6H PRN Administration Mild/Mod Pain Or Temp >/= 101 Epoetin Gunnar 10,000 unit 06/07/22 14:00 06/10/22 03:10 Epoetin Gunnar 10,000 Unit/Ml Inj SUBCUT 10,000 unit QMWF ULYSSES Administration Folic Acid 1 mg 06/01/22 09:00 06/10/22 09:10 Folic Acid 1 Mg Tablet PO 1 mg DAILY ULYSSES Administration Norepinephrine Bitartrate 4 mg 254 mls @ 0 mls/hr 06/03/22 04:30 06/07/22 08:00 / Dextrose IV 0 mcg/min .Q0M ULYSSES 0 mls/hr Titration Protocol Per Protocol Morphine Sulfate 15 mg 06/04/22 10:13 06/05/22 20:04 Morphine Ir 15 Mg Tablet PO 15 mg Q4H PRN Administration SEVERE PAIN Morphine Sulfate 2 mg 06/04/22 16:53 06/10/22 02:25 Morphine 4 Mg/Ml Sdv 1 Ml IVP 2 mg Q4H PRN Administration SEVERE PAIN Pantoprazole Sodium 40 mg 06/01/22 09:00 06/10/22 09:[address] 40 Mg Tablet PO 40 mg DAILY ULYSSES Administration Senna/Docusate Sodium 1 tab 06/05/22 09:00 06/10/22 09:10 Sennosides-Docusate Tablet PO 1 tab DAILY ULYSSES Administration Thiamine HCl 100 mg 06/09/22 09:00 06/10/22 09:11 Thiamine 100 Mg/Ml Sdv IVP 100 mg DAILY ULYSSES Administration PFSH Acute PFSH: Medical History Hip osteomyelitis, left No pertinent past medical history Vitals/I&O/Wt Last Vital Signs Temp 98.7 F 06/10/22 07:45 Pulse 96 06/10/22 17:45 Resp 17 06/10/22 17:45 BP 132/105 06/10/22 17:45 Pulse Ox 96 06/10/22 17:45 O2 Del Method 06/10/22 09:17 O2 Flow Rate 2 06/06/22 08:00 06/10/22 06/10/22 06/10/22 06:59 14:59 22:59 Intake Total 0 / 0 170 / 170 Output Total 575 / 1275 575 / 575 1250 / 1825 Balance -575 / -745 -575 / -575 -1080 / -1655 Weight last 48 hrs Weight 79.152 kg Weight 79.152 kg Physical Exam Narrative: General: No acute distress, AO x3 HEENT: PERRLA, pupils bilaterally equal and reactive, pallors not present Chest: Normal vesicular breath sounds, no added sounds, equal good air entry bilaterally CVS: S1-S2 regular, no murmurs, no tachycardia, no gallops, no rubs Abdomen: Soft, nontender, no organomegaly, bowel sounds present Neuro: No focal deficits, no facial deformity, AO x3, power 5/5 in all limbs Lines: HD catheter (placed 06/03), PICC line (placed 06/08) Urinary Catheter Management: Martinez: Cath Placed During This Visit: yes Reason for Continuing Indwelling Catheter: Accurate Measurement of Urinary Output in Critically Ill Patients Urinary Catheter Date of Insertion: 06/01/22 Urinary Catheter Time of Insertion: 11:51 Data : 06/15/22 03:24 06/15/22 03:24 Micro: Microbiology 06/01/22 07:55 Urine Culture - Final Urine Catheterized Gram Negative Rods- E. coli --------- ------ * Amikacin <=16 S * Amoxicillin/Clavulanate <=8/4 S * Ampicillin <=8 S * Ampicillin/Sulbactam <=8/4 S * Aztreonam <=4 S * Cefepime <=8 S * Ceftriaxone <=1 S * Cefuroxime <=4 S * Ciprofloxacin <=1 S * Gentamicin <=2 S * Imipenem <=1 S * Levofloxacin <=2 S * Nitrofurantoin <=32 S * Tetracycline <=4 S * Trimethoprim/Sulfamethoxazole >2/38 R * Piperacillin/Tazobactam <=16 S 06/04/22 14:51 Gram Stain - Final Other Source Anaerobic Culture - Preliminary Abscess Culture left hip - Final Escherichia coli E coli M.I.C. RX --------- ------ * Amikacin <=16 S * Amoxicillin/Clavulanate <=8/4 S * Ampicillin <=8 S * Ampicillin/Sulbactam <=8/4 S * Aztreonam <=4 S * Cefepime <=8 S * Ceftriaxone <=1 S * Cefuroxime <=4 S * Ciprofloxacin <=1 S * Gentamicin <=2 S * Imipenem <=1 S * Levofloxacin <=2 S * Tetracycline <=4 S * Trimethoprim/Sulfamethoxazole >2/38 R * Piperacillin/Tazobactam <=16 S 06/04/22 14:45 Anaerobic Culture - Preliminary Hip - #3 06/04/22 Gram Stain - Final Anaerobic Culture - Preliminary left hip joint cx Intramedullary cx Labrum capsule culture acetabulum culture - Final Escherichia coli M.I.C. RX --------- ------ * Amikacin <=16 S * Amoxicillin/Clavulanate <=8/4 S * Ampicillin <=8 S * Ampicillin/Sulbactam <=8/4 S * Aztreonam <=4 S * Cefepime <=8 S * Ceftriaxone <=1 S * Cefuroxime <=4 S * Ciprofloxacin <=1 S * Gentamicin <=2 S * Imipenem <=1 S * Levofloxacin <=2 S * Tetracycline <=4 S * Trimethoprim/Sulfamethoxazole >2/38 R * Piperacillin/Tazobactam <=16 S PBCX: 06/03: negative PBCX: 05/31: E. coli E coli M.I.C. RX --------- ------ * Amikacin <=16 S * Amoxicillin/Clavulanate <=8/4 S * Ampicillin <=8 S * Ampicillin/Sulbactam <=8/4 S * Aztreonam <=4 S * Cefepime <=8 S * Ceftriaxone <=1 S * Cefuroxime <=4 S * Ciprofloxacin <=1 S * Gentamicin <=2 S * Imipenem <=1 S * Levofloxacin <=2 S * Tetracycline <=4 S * Trimethoprim/Sulfamethoxazole >2/38 R * Piperacillin/Tazobactam <=16 S 08/04: C diff PCR negative Other data: 05/31 : CT/CT hip LT wo con* [id number] IMPRESSION: 1. Negative for fracture or dislocation. 2. Severe left hip osteoarthritis with bony remodeling of the femur and acetabulum. 3. Several pockets of air density seen in the left proximal femur medullary space measuring up to 13.8 mm with some poorly defined overlying edematous soft tissue with some punctate pockets of air and an apparent fluid collection in the soft tissue measuring up to 3.7 cm over the anterior aspect of the intertrochanteric region, concerning for an infectious process involving the soft tissues along with osteomyelitis. 06/01 XR/XR chest 1V portable [id number] IMPRESSION: Trace atelectasis or scar noted in the left lung base. 06/01 CT/CT head wo con* [id number] IMPRESSION: ? 1.? No evidence of intracranial hemorrhage or mass effect. 2.? Moderate small vessel changes. Moderate parenchymal volume loss. 3.? Chronic lacunar infarcts in the RIGHT caudate and basal ganglia. Chronic lacunar infarcts in the RIGHT cerebellum. 4.? Intracranial vascular calcification. 5.? No acute intracranial findings. 06/01 MR/MR hip LT wo con* [id number] IMPRESSION: ? 1.? Nearly nondiagnostic evaluation of the LEFT hip. Patient was unable to remain still for this examination. 2.? Cannot exclude fracture or osteomyelitis. 3.? There is severe soft tissue edema and synovial thickening surrounding the LEFT hip and involving the muscles surrounding the LEFT hip. Infectious process likely. 06/02 CT/CT abdomen pelvis wo con [id number] IMPRESSION: ? 1.? No hydronephrosis in either kidney. Martinez catheter in place. Suggestion of renal parenchymal edema however enhancement cannot be assessed without contrast. 2.? No obstructing renal ureteral calculi. 3.? Tiny bilateral pleural effusions with subsegmental atelectasis in the lung bases. 4.? Small esophageal hiatal hernia. 5.? Sigmoid diverticulosis. No evidence of acute diverticulitis. 6.? Advanced degenerative or posttraumatic arthritis LEFT hip with avascular necrosis and flattening of the femoral head and subchondral cystic change.Soft tissue edema about the LEFT hip with joint effusion. Recommend correlation for infection. A&P Assessment and plan (1) Hip osteomyelitis, left: (2) Gram negative sepsis: (3) Acute kidney injury: Plan 76-year-old lady with no reported past medical history presenting with gram-negative sepsis, primarily source appears to be a septic left hip joint and osteomyelitis of the femur. Blood cultures and multiple OR cultures from I&D of the left hip have thus far revealed E. coli. Patient reports no trauma to the site, however history is pretty limited from her. She is status post I&D of the left hip on June 04, 2022. In spite of undergoing I&D patient continues to have persisting leukocytosis, trending up from 21-42 postoperatively. She is currently afebrile. However is needing pressor support with Levophed. Given the persisting leukocytosis and need for pressor support, will go ahead and evaluate for additional sources of infection.. Recommend to obtain CT of the chest abdomen and pelvis, CT of lumbosacral and thoracic spine to evaluate for any epidural abscess or osteomyelitis and an echocardiogram to evaluate for underlying endocarditis. Can continue treatment with meropenem for now, will plan to de-escalate antibiotics after further source evaluation has been performed. Agree with discontinuing vancomycin as no current evidence of resistant gram-positive infection thus far. Will follow Consult Attestations Medical Necessity Statement: Per admitting Coding Level of Care Code Acute Hard Metals Hand Engraver for [facility] Diagnoses Hip osteomyelitis, left M86.9 Gram negative sepsis A41.50 Acute kidney injury N17.9
--- NOTE | 2022-06-08 19:19 | PC.NURSE ---
Shift SUmmary: PICC line placed today to left arm. No dialysis today, likely dialysis tommorow. Patient has CT with contrast orders currently in place, Dr riggs wants to wait to do the CTs tomorrow morning, before dialysis due to the contrast. PT had patient sitting up on the side of the bed today. TOtal urine output has been 800mL for shift. Patient is trying to be very dependent on nursing staff for activities she is capable of, and is resistant to receiving care. SHe has refused oral care, had refused a bed bath for 2 days, is resistant to receiving scheduled turns, refused PT initially, and on Pt's second attempt it was reported that she made little effort. SHe often times yells for the nurse to come in and lift her water cup to her mouth so she can sip from the straw, when this nurse tells her that he has witnessed her doing it herself and that she is capable, she reaches out and and grabs the cup herself and takes a sip. This nurse has explained the importance of Doing everything she is capable of doing, participating in PT to regain strength and prevent pneumonia, and allowing us to provide care. Patients continues to be resistant.
--- NOTE | 2022-06-08 21:32 | PM.PN ---
Subjective Subjective: Patient seen and examined this morning. Patient alert and oriented. Incisional vacs had roughly 25 cc out bloody output overnight. Patient currently set to get a PICC line today. Plan to have dialysis later today. This point time would plan for second stage of patient's surgery tomorrow. Plan will be for a repeat left hip irrigation debridement with antibiotic bead removal and placement of articulating antibiotic cement spacer. This was discussed with patient today and she understands her risks or benefits or complication alternatives of surgical nonsurgical treatment option. At this point time would recommend repeat I&D due to the benefit of maintaining her length with an articulating antibiotic cement spacer prosthesis as well as long-term dilution of antibiotics to the osteomyelitis area. At this point time she understands her risks which include but not limited to make it better make it worse, blood clot, heart attack, stroke, on the table worsening infection, dislocation but understanding these risks she does agree to proceed with surgical intervention all questions been answered at this time. POA was updated and agreeable to proceed with current plan as well. Vitals/I&O/Wt Last Vital Signs Temp 98.3 F 06/08/22 16:00 Pulse 81 06/08/22 18:00 Resp 17 06/08/22 18:00 BP 125/66 06/08/22 18:00 Pulse Ox 93 06/08/22 18:00 O2 Del Method 06/08/22 07:42 O2 Flow Rate 2 06/06/22 08:00 06/08/22 06/08/22 06/08/22 06:59 14:59 22:59 Intake Total 600 / 600 400 / 1000 Output Total 615 / 1190 500 / 500 300 / 800 Balance -615 / 493.782 100 / 100 100 / 200 Weight last 48 hrs Weight 175 lb 3.2 oz Weight 176 lb 8 oz Physical Exam Narrative: Examination of patient's left hip demonstrates deep drain incisional VAC on in place with good seal roughly 25 cc bloody output overnight. Patient is able to wiggle toes plantarflex dorsiflex ankle. Sensation intact to light touch distally. Distal pulses are palpable. Urinary Catheter Management: Martinez: Cath Placed During This Visit: yes Reason for Continuing Indwelling Catheter: Accurate Measurement of Urinary Output in Critically Ill Patients Urinary Catheter Date of Insertion: 06/01/22 Urinary Catheter Time of Insertion: 11:51 Data : 06/08/22 12:05 06/08/22 12:05 Micro: Microbiology 06/03/22 10:15 Blood Culture - Final Blood NO GROWTH AFTER 5 DAYS 06/03/22 10:10 Blood Culture - Final Blood NO GROWTH AFTER 5 DAYS 06/04/22 14:45 Anaerobic Culture - Preliminary Hip - #3 06/04/22 14:51 Gram Stain - Final Other Source Anaerobic Culture - Preliminary Abscess Culture - Final Escherichia coli 06/04/22 14:42 Gram Stain - Final Incision Anaerobic Culture - Preliminary Abscess Culture - Final Escherichia coli A&P Assessment and plan (1) Hip osteomyelitis, left: (2) Sepsis: (3) Hip pain, left: (4) Acute kidney injury: Plan Continue to maintain drain and output and incisional VAC Nonweightbearing left lower extremity Continue with IV antibiotics per primary team Continue to monitor labs.? Hemoglobin stable this morning. DVT prophylaxis Continue to monitor intraoperative cultures currently showing E. coli Internal medicine is primary and appreciate their medical management This point time we will plan for a staged approach with plan for left hip repeat irrigation and debridement with plan for possible removal of antibiotic beads and placement of articulating antibiotic cement spacer implant.? Plan for this tomorrow as long as patient is cleared by internal medicine and okay to proceed with surgery. Spoke with patient as well as POA who is agreeable to proceed with surgery tomorrow. We will have patient be n.p.o. at midnight tonight.? Attestations Medical Necessity Statement*: Patient has osteomyelitis of the acetabulum as well as femur requiring hospitalization IV antibiotics and surgical intervention. Patient also has UTI and an acute kidney injury requiring dialysis Coding Level of Care Code Acute Field Support Technician for [facility] Diagnoses Hip osteomyelitis, left M86.9 Sepsis A41.9 Hip pain, left M25.552 Acute kidney injury N17.9 Time Spent (min) 40
[2022-06-09] VITALS (59 sets, daily range): BP systolic 82–134; BP diastolic 54–80; PULSE 71–94; RESP 9–18; TEMP 37; O2SAT 91–100
[2022-06-09 03:30] LABS: Basophils # 0.1 10^3/uL (0.0-0.1); Basophils % 0.2 %; Eosinophils # 0.1 10^3/uL (0.0-0.8); Eosinophils % 0.2 %; Hematocrit 23.5 % (37.0-47.0); Hemoglobin 7.9 g/dL (11.5-15.3); Lymphocytes % 2.6 %; Mean Corpuscular HGB Conc 33.6 g/dL (30.0-36.0); Mean Corpuscular Volume 92.2 fl (81-99); Mean Platelet Volume 11.1 fL (7.4-10.4); Monocytes # 1.3 10^3/uL (0.2-0.9); Monocytes % 3.2 %; Neutrophils # 34.27 10^3/uL (1.8-7.7); Neutrophils % 86.5 %; Nucleated Red Blood Cells % 0 %; Platelet Count 460 10^3/cmm (130-400); Red Blood Count 2.55 10^6/uL (4.1-5.3); Red Cell Distribution Width 15.8 % (12.1-15.1)
[2022-06-09 03:53] LABS: Alanine Aminotransferase 8 U/L (0-33); Albumin Level 1.9 g/dL (3.5-5.2); Alkaline Phosphatase 373 U/L (35-105); Aspartate Amino Transferase 18 U/L (0-32); Blood Urea Nitrogen 51 mg/dL (8-23); Calcium 8.1 mg/dL (8.5-10.5); Carbon Dioxide 19 mmol/L (22-29); Chloride 96 mmol/L (98-107); Globulin 2.9 g/dL (1.3-4.6); Glucose 66 mg/dL (65-115); Osmolality Calculated 284 mOsm/kg (285-295); Sodium 131 mmol/L (136-145); Total Bilirubin 0.3 mg/dL (0.15-1.2); Total Protein 4.8 g/dL (6.6-8.7)
[2022-06-09 04:21] LABS: Anion Gap 20.7 (5-19); Potassium 4.7 mmol/L (3.5-5.1)
[2022-06-09 04:47] LABS: White Blood Count 39.6 10^3/uL (4.0-10.0)
--- NOTE | 2022-06-09 07:41 | PM.PN ---
Subjective Subjective: more awake. has edema. is itching. no n/v/f/c/antonio/d/sob. she is NPO for OR Medications: Reviewed: Yes Medication Review Details: Current Medications Acetaminophen (Acetaminophen 325 Mg Tablet) 650 mg PO Q6H PRN PRN Reason: Mild/Mod Pain Or Temp >/= 101 Last Admin: 06/07/22 23:34 Dose: 650 mg Epoetin Gunnar (Epoetin Gunnar 10,000 Unit/Ml Inj) 10,000 unit SUBCUT QMWF [facility] Last Admin: 06/07/22 14:52 Dose: 10,000 unit Folic Acid (Folic Acid 1 Mg Tablet) 1 mg PO DAILY [facility] Last Admin: 06/08/22 08:17 Dose: 1 mg Norepinephrine Bitartrate 4 mg (/ Dextrose) 254 mls @ 0 mls/hr IV .Q0M [facility]; Protocol Last Titration: 06/07/22 08:00 Dose: 0 mcg/min, 0 mls/hr Albumin Human (Albumin) 12.5 gm in 50 mls @ 60 mls/hr IV PRN PRN PRN Reason: Hypotension and/or symptomatic Meropenem 500 mg/ Sodium (Chloride) 50 mls @ 100 mls/hr IV Q24H [facility] Last Infusion: 06/08/22 19:00 Dose: Infused Lanolin (Lanolin Oint 7 Gm) 1 applic TOPICAL PRN PRN PRN Reason: DRYNESS Morphine Sulfate (Morphine Ir 15 Mg Tablet) 15 mg PO Q4H PRN PRN Reason: SEVERE PAIN Last Admin: 06/05/22 20:04 Dose: 15 mg Morphine Sulfate (Morphine 4 Mg/Ml Sdv 1 Ml) 2 mg IVP Q4H PRN PRN Reason: SEVERE PAIN Last Admin: 06/07/22 22:04 Dose: 2 mg Ondansetron HCl (Ondansetron 2 Mg/Ml Sdv 2 Ml) 4 mg IVP Q8H PRN PRN Reason: vomiting, or N/V if npo Pantoprazole Sodium (Pantoprazole Dr 40 Mg Tablet) 40 mg PO DAILY [facility] Last Admin: 06/08/22 08:17 Dose: 40 mg Senna/Docusate Sodium (Sennosides-Docusate Tablet) 1 tab PO DAILY [facility] Last Admin: 06/08/22 08:18 Dose: 1 tab Thiamine HCl (Thiamine 100 Mg/Ml Sdv) 100 mg IVP DAILY [facility] Vitals/I&O/Wt Last Vital Signs Temp 98.6 F 06/09/22 03:00 Pulse 88 06/09/22 06:00 Resp 12 06/09/22 06:00 BP 121/71 06/09/22 06:00 Pulse Ox 95 06/09/22 06:00 O2 Del Method 06/09/22 06:00 O2 Flow Rate 2 06/06/22 08:00 06/08/22 06/09/22 06/09/22 22:59 06:59 14:59 Intake Total 450 / 1050 Output Total 300 / 800 1125 / 1925 Balance 150 / 250 -1125 / -875 Weight last 48 hrs Weight 79.152 kg Weight 79.469 kg Physical Exam Narrative: obese female comfortable in bed in NARD - good uop vss Heent- nc/at, eomi, anicteric neck supple lungs clear b/l heart reg, +LEORA abd soft, nt, +BS, ND ext- arms > leg edema rt femoral dialysis catheter neuro- awake, appropriate, interactive, moving Urinary Catheter Management: Martinez: Cath Placed During This Visit: yes Reason for Continuing Indwelling Catheter: Accurate Measurement of Urinary Output in Critically Ill Patients Urinary Catheter Date of Insertion: 06/01/22 Urinary Catheter Time of Insertion: 11:51 Data : 06/09/22 02:47 06/09/22 02:47 Micro: Microbiology 06/09/22 03:39 Blood Culture - Preliminary Blood SPECIMEN COLLECTED 06/09/22 02:47 Blood Culture - Preliminary Blood SPECIMEN COLLECTED 06/03/22 10:15 Blood Culture - Final Blood NO GROWTH AFTER 5 DAYS 06/03/22 10:10 Blood Culture - Final Blood NO GROWTH AFTER 5 DAYS 06/04/22 14:45 Anaerobic Culture - Preliminary Hip - #3 06/04/22 14:51 Gram Stain - Final Other Source Anaerobic Culture - Preliminary Abscess Culture - Final Escherichia coli 06/04/22 14:42 Gram Stain - Final Incision Anaerobic Culture - Preliminary Abscess Culture - Final Escherichia coli A&P Assessment and plan (1) Acute kidney injury: 76 yr old female w/ left hip avascular necrosis and Q OM 1. JESSICA- pt has been on NSAID's for a while -no hydronephrosis on ct scan u/a turbid, 3+ blood, 3+ prot, 2+ leuk est, rbc and wbc too numerous to count- 4+ ur bact -ur na 41 -concern for ATN, chronic interstial nephritis from chronic NSAID use, or iinfection related GN- check complements - c3 a little low at 80 -try to get old blood work and an accurate home med list -pth 94 -monitor renal fxn -cr stable. good uop -attempt to hold dialysis and monitor for renal recovery pth 94- repeat in 3-4 weeks 2. leukocytosis from OM- renal dose abx -worsening wbc- -Wound cultures so far has grown: E. coli, urine culture E. coli, blood culture no growth, -ortho is planning a staged approach with plan for left hip - OR today for ?repeat left hip irrigation debridement with antibiotic bead removal and placement of articulating antibiotic cement spacer.?? 3. anemia- high b12, replace folate. high iron sat -s/p prbc tx. may need more -use TRIXIE 4. inc AG met acidosis- normal lactate -likely from JESSICA -consider oral sodium bicarb 5. hyponatremia- na improved to 131 tsh 5.15- not causing hyponatremia -improved to 130 -check AM cortisol level. was 23 at 10 pm 6. hypoalbuminemia- from illness - needs nutrition seen and examined w/ RN -telehealth visit discussed w/ Dr Neville time spent 30 min Plan as above Attestations Medical Necessity Statement*: hip OM, JESSICA Time Spent in Patient Care: 16 - 35 minutes (>than 50% of time spent in counselling and/or direct pt care on unit). 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
--- NOTE | 2022-06-09 09:02 | PM.PN ---
Subjective Subjective: Patient seen and examined this morning. No issues overnight. Patient agreeable to proceed with second stage surgical intervention for repeat irrigation debridement of left hip with removal of antibiotic beads with placement of articulating antibiotic cement spacer. Patient understands risk benefits complication alternatives of surgical nonsurgical treatment options. Risks with surgery include but not limited to make it better, make it worse, blood clot, heart attack, stroke, on the table, persistent infection and further surgery. Understanding these risks he agrees to proceed with surgical intervention. POA was updated last night and agreeable for surgery. Vitals/I&O/Wt Last Vital Signs Temp 98.6 F 06/09/22 03:00 Pulse 88 06/09/22 06:00 Resp 12 06/09/22 06:00 BP 121/71 06/09/22 06:00 Pulse Ox 95 06/09/22 06:00 O2 Del Method 06/09/22 06:00 O2 Flow Rate 2 06/06/22 08:00 06/08/22 06/09/22 06/09/22 22:59 06:59 14:59 Intake Total 450 / 1050 Output Total 300 / 800 1125 / 1925 Balance 150 / 250 -1125 / -875 Weight last 48 hrs Weight 174 lb 8 oz Weight 175 lb 3.2 oz Physical Exam Narrative: Left hip incisional VAC on in place with good seal minimal output overnight. Bloody output noted in canister. Compartments soft and compressible. She does have all 4 extremities have noticeable peripheral edema. She is able to wiggle toes plantarflex and dorsiflex ankle. Sensations intact to light touch distally distal pulses palpable Urinary Catheter Management: Martinez: Cath Placed During This Visit: yes Reason for Continuing Indwelling Catheter: Accurate Measurement of Urinary Output in Critically Ill Patients Urinary Catheter Date of Insertion: 06/01/22 Urinary Catheter Time of Insertion: 11:51 Data : 06/09/22 02:47 06/09/22 02:47 Micro: Microbiology 06/09/22 03:39 Blood Culture - Preliminary Blood SPECIMEN COLLECTED 06/09/22 02:47 Blood Culture - Preliminary Blood SPECIMEN COLLECTED 06/03/22 10:15 Blood Culture - Final Blood NO GROWTH AFTER 5 DAYS 06/03/22 10:10 Blood Culture - Final Blood NO GROWTH AFTER 5 DAYS 06/04/22 14:45 Anaerobic Culture - Preliminary Hip - #3 06/04/22 14:51 Gram Stain - Final Other Source Anaerobic Culture - Preliminary Abscess Culture - Final Escherichia coli 06/04/22 14:42 Gram Stain - Final Incision Anaerobic Culture - Preliminary Abscess Culture - Final Escherichia coli A&P Assessment and plan (1) Hip osteomyelitis, left: (2) Sepsis: (3) Hip pain, left: (4) Acute kidney injury: Plan Plan for OR today for left hip irrigation and debridement with removal of antibiotic beads and placement of articulating antibiotic cemented spacer. Patient cleared by nephrology with plan to dialyze after surgery today. Continue IV antibiotics Appreciate internal medicine is primary and medical management Nonweightbearing left lower extremity Continue incisional VAC with deep drain N.p.o. 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
--- NOTE | 2022-06-09 09:07 | W.PM.OPSUD ---
Surgery/Procedure H&P Update DATE OF PROCEDURE: June 09, 2022 DATE H&P PERFORMED: 06/01/22 CHANGES TO PREVIOUS DOCUMENTATION: None PREOP DIAGNOSIS: Left acetabulum and femur osteomyelitis with abscess PRIMARY INDICATION FOR PROCEDURE: Left hip osteomyelitis of acetabulum and femur with abscess PLANNED PROCEDURE: Operation Date: 06/04/22 11:05 Proposed Procedures p prep for hemiarthroplasty, place antibiotic spacers(Left) - Nikita Neville DO Operation Date: 06/09/22 13:30 Proposed Procedures p Antibiotic Spacer Placement left hip(Left) - Nikita Neville DO s Irrigation and debridementleft hip(Left) - Nikita Neville DO
[2022-06-09] MEDS: meropenem 500 MG in sodium chloride 0.9% (plus) 50 ML 100 MG IV (15:23)
--- NOTE | 2022-06-09 17:01 | ANES.PREANE2 ---
Pre-Anesthetic Assessment Height/Weight: Height 1.6 m Weight 79.152 kg Temp Pulse Resp BP Pulse Ox O2 Del Method O2 Flow Rate 98.6 F 85 17 121/71 95 2 06/09/22 14:00 06/09/22 14:00 06/09/22 14:00 06/09/22 14:00 06/09/22 14:00 06/09/22 14:00 06/06/22 08:00 Preop Diagnosis: Left acetabulum and femur osteomyelitis with abscess Operation Date: 06/04/22 11:05 Proposed Procedures p prep for hemiarthroplasty, place antibiotic spacers(Left) - Nikita Neville DO Operation Date: 06/09/22 13:30 Proposed Procedures p Antibiotic Spacer Placement left hip(Left) - Nikita Neville DO s Irrigation and debridementleft hip(Left) - Nikita Neville DO Familial anesthetic complications: none Was Beta Edi taken within 24 hours: N/A Was Clonidine taken within 24 hours: N/A Social Alcohol and No tobacco Exam alert, oriented x 3 and regular rate & rhythm rhonchi Airway Submandibular: within normal limits Cervical ROM: within normal limits Mallampati: Class II Dentition: chipped Comments: Comments: poor dentition CV/HEM Anemia and Murmur Sepsis Acute renal failure, hyponatremia Neuropsych AMS Anesthetic Plan ASA status: 3 Anesthesia: General Medications/Allergies Home Medications Medication Instructions Recorded Confirmed Last Taken Type aspirin 81 mg chewable tablet 81 mg PO DAILY 06/09/20 05/31/22 06/08/20 10:00 History Allergies Allergy/AdvReac Type Severity Reaction Status Date / Time No Known Allergies Allergy Verified 05/31/22 19:47 Current Medications Generic Name Dose Route Start Last Admin Trade Name Alise PRN Reason Stop Dose Admin Acetaminophen 650 mg 06/01/22 00:06 06/07/22 23:34 Acetaminophen 325 Mg Tablet PO 650 mg Q6H PRN Administration Mild/Mod Pain Or Temp >/= 101 Epoetin Gunnar 10,000 unit 06/07/22 14:00 06/07/22 14:52 Epoetin Gunnar 10,000 Unit/Ml Inj SUBCUT 10,000 unit QMWF [facility] Administration Folic Acid 1 mg 06/01/22 09:00 06/08/22 08:17 Folic Acid 1 Mg Tablet PO 1 mg DAILY [facility] Administration Norepinephrine Bitartrate 4 mg 254 mls @ 0 mls/hr 06/03/22 04:30 06/07/22 08:00 / Dextrose IV 0 mcg/min .Q0M [facility] 0 mls/hr Titration Protocol Per Protocol Meropenem 500 mg/ Sodium 50 mls @ 100 mls/hr 06/07/22 14:30 06/09/22 15:23 Chloride IV 100 mls/hr Q24H [facility] Administration Morphine Sulfate 15 mg 06/04/22 10:13 06/05/22 20:04 Morphine Ir 15 Mg Tablet PO 15 mg Q4H PRN Administration SEVERE PAIN Morphine Sulfate 2 mg 06/04/22 16:53 06/07/22 22:04 Morphine 4 Mg/Ml Sdv 1 Ml IVP 2 mg Q4H PRN Administration SEVERE PAIN Pantoprazole Sodium 40 mg 06/01/22 09:00 06/08/22 08:[address] 40 Mg Tablet PO 40 mg DAILY [facility] Administration Senna/Docusate Sodium 1 tab 06/05/22 09:00 06/08/22 08:18 Sennosides-Docusate Tablet PO 1 tab DAILY [facility] Administration [facility] Anesthesia Medical History Hip osteomyelitis, left No pertinent past medical history Data Anesthesia : 06/09/22 02:47 06/09/22 02:47 Short CBC 06/08/22 06/09/22 Range/Units 12:05 02:47 WBC 39.6 H* 39.6 H* (4.0-10.0) 10^3/uL Hgb 8.1 L 7.9 L (11.5-15.3) g/dL Hct 24.0 L 23.5 L (37.0-47.0) % MCV 92.0 92.2 (81-99) fl Plt Count 474 H 460 H (130-400) 10^3/cmm Neut % (Auto) 86.0 86.5 % Neut # (Auto) 34.08 H 34.27 H (1.8-7.7) 10^3/uL BMP 06/08/22 06/09/22 12:05 02:47 Sodium 127 L 131 L Potassium 4.3 4.7 Chloride 94 L 96 L Carbon Dioxide 21 L 19 L BUN 49 H 51 H Creatinine 4.0 H 4.0 H Glucose 84 66 Calcium 8.2 L 8.1 L Liver Function 06/08/22 06/09/22 Range/Units 12:05 02:47 Total Bilirubin 0.3 0.3 (0.15-1.2) mg/dL AST 23 18 (0-32) U/L ALT 9 8 (0-33) U/L Alkaline Phosphatase 467 H 373 H (35-105) U/L Albumin 2.1 L 1.9 L (3.5-5.2) g/dL Microbiology 06/09/22 03:39 Blood Culture - Preliminary Blood SPECIMEN COLLECTED 06/09/22 02:47 Blood Culture - Preliminary Blood SPECIMEN COLLECTED Cardiac Studies: Echocardiogram 06/08/22
--- NOTE | 2022-06-09 17:04 | PC.NURSE ---
1548 To Surgery via bed with surgery personnel.
[2022-06-09] MEDS: vancomycin 1,000 MG SDV 1000 MG XX (17:12)
[2022-06-09] MEDS: tobramycin 40 mg/mL SDV 2mL 240 MG XX (17:12)
--- NOTE | 2022-06-09 18:04 | PM.PN ---
Subjective Subjective: Patient was seen and examined this morning, she is scheduled for left hip irrigation and debridement. Medications: Reviewed: Yes Medication Review Details: Generic Name Dose Route Start Last Admin Trade Name Alise PRN Reason Stop Dose Admin Acetaminophen 650 mg 06/01/22 00:06 06/07/22 23:34 Acetaminophen 32 5 Mg Tablet PO 650 mg Q6H PRN Administration Mild/Mod Pain Or Temp >/= 101 Epoetin Gunnar 10,000 unit 06/07/22 14:00 06/07/22 14:52 Epoetin Gunnar 10, 000 Unit/Ml Inj SUBCUT 10,000 unit QMWF [facility] Administration Folic Acid 1 mg 06/01/22 09:00 06/08/22 08:17 Folic Acid 1 Mg Tablet PO 1 mg DAILY [facility] Administration Norepinephrine Bit artrate 4 mg 254 mls @ 0 mls/h r 06/03/22 04:30 06/07/22 08:00 / Dextrose IV 0 mcg/min .Q0M [facility] 0 mls/hr Titration Protocol Per Protocol Meropenem 500 mg/ Sodium 50 mls @ 100 mls/ hr 06/07/22 14:30 06/09/22 15:53 Chloride IV Infused Q24H [facility] Infusion Morphine Sulfate 15 mg 06/04/22 10:13 06/05/22 20:04 Morphine Ir 15 M g Tablet PO 15 mg Q4H PRN Administration SEVERE PAIN Morphine Sulfate 2 mg 06/04/22 16:53 06/07/22 22:04 Morphine 4 Mg/Ml Sdv 1 Ml IVP 2 mg Q4H PRN Administration SEVERE PAIN Pantoprazole Sodiu m 40 mg 06/01/22 09:00 06/08/22 08:[address] 40 Mg Tablet PO 40 mg DAILY [facility] Administration Senna/Docusate Sod ium 1 tab 06/05/22 09:00 06/08/22 08:18 Sennosides-Docus ate Tablet PO 1 tab DAILY [facility] Administration Vitals/I&O/Wt Last Vital Signs Temp 98.6 F 06/09/22 14:00 Pulse 85 06/09/22 14:00 Resp 17 06/09/22 14:00 BP 121/71 06/09/22 14:00 Pulse Ox 95 06/09/22 14:00 O2 Del Method 06/09/22 14:00 O2 Flow Rate 2 06/06/22 08:00 06/09/22 06/09/22 06/09/22 06:59 14:59 22:59 Intake Total 50 / 50 Output Total 1125 / 1925 700 / 700 Balance -1125 / -875 -650 / -650 Weight last 48 hrs Weight 79.152 kg Weight 79.469 kg Physical Exam Const: COMMON NORMALS: patient oriented x3 Resp: COMMON NORMALS: clear to auscultation bilaterally EFFORT & INSPECTION: Yes symmetric chest movement AUSCULTATION: clear to auscultation bilaterally Cardio: COMMON NORMALS: regular rate, regular rhythm, S1 normal heart sound present, S2 normal heart sound present, No gallops present (Cardio), No murmurs present (Cardio), No rub (Cardio) and Peripheral pulses 2+ throughout RATE: regular rate RHYTHM: regular rhythm HEART SOUNDS: S1 normal heart sound present and S2 normal heart sound present PERIPHERAL PULSES: Peripheral pulses 2+ throughout GI: COMMON NORMALS: Normal to inspection, nondistended, normoactive bowel sounds present, Soft to palpation, non-tender, No hepatosplenomegaly present and no masses AUSCULTATION: Yes normoactive bowel sounds PALPATION: Yes Soft to palpation and Yes No hepatosplenomegaly present RECTAL EXAM: deferred Extremity: COMMON NORMALS: no clubbing, cyanosis or edema and no pedal edema Neuro: COMMON NORMALS: patient oriented x3 Urinary Catheter Management: Martinez: Cath Placed During This Visit: yes Reason for Continuing Indwelling Catheter: Accurate Measurement of Urinary Output in Critically Ill Patients Urinary Catheter Date of Insertion: 06/01/22 Urinary Catheter Time of Insertion: 11:51 Data : 06/09/22 02:47 06/09/22 02:47 Micro: Microbiology 06/04/22 14:51 Gram Stain - Final Other Source Anaerobic Culture - Preliminary Abscess Culture - Final Escherichia coli 06/04/22 14:45 Anaerobic Culture - Preliminary Hip - #3 06/04/22 14:42 Gram Stain - Final Incision Anaerobic Culture - Preliminary Abscess Culture - Final Escherichia coli 06/09/22 03:39 Blood Culture - Preliminary Blood SPECIMEN COLLECTED 06/09/22 02:47 Blood Culture - Preliminary Blood SPECIMEN COLLECTED A&P Assessment and plan (1) ATN (acute tubular necrosis): (2) Avascular necrosis: (3) Hip osteomyelitis, left: (4) Dehydration: (5) Hyponatremia: (6) Sepsis: (7) Fall: (8) Hip pain, left: (9) Acute kidney injury: (10) Alcohol abuse: Plan Assessment: Septic shock: Secondary to UTI, left hip abscess osteomyelitis Renal failure: On hemodialysis Chronic alcohol abuse Anemia Significant leukocytosis with left shift 76-year-old female with past medical history of alcohol abuse was initially admitted with for the management of left hip pain, JESSICA versus JESSICA on CKD , hyponatremia sepsis secondary to UTI had a complicated hospital course, she went into septic shock secondary to UTI as well as left hip osteomyelitis, during the hospital stay she also ended into renal failure, secondary to sepsis triggered ATN, currently on hemodialysis, after placement on right femoral dialysis catheter. For her left hip AVN/osteomyelitis/abscess: She underwent Left hip irrigation and debridement with cultures, [place] left femoral neck, antibiotic cemented beads spacers, deep drain placement and incisional VAC placement. Orthopedic on board. Wound cultures so far has grown: E. coli, urine culture E. coli, blood culture on admission E. coli, repeat blood culture no growth, most recent blood culture drawn on 10/07: Pending:, C. difficile toxin PCR negative, MRI of left hip: Nondiagnostic as the patient was not able to lie still. CT abdomen pelvis wo con: No hydronephrosis no pyelonephritis. No nephrolithiasis. 2D echo: Normal LV Size and Systolic Function, no RWMA, LVEF 70%, grade 1 diastolic dysfunction, no valvular vegetation. Patient has been on broad-spectrum antibiotics so far. She will need long-term antibiotic for her hip pathology, possibly 8 to 10 weeks.ID has been consulted. Multiple intraoperative cultures to be followed.For patient's septic shock initially she was on vasopressor support, currently she is off vasopressor support. For history of alcohol abuse she has been on high-dose thiamine IV initially as well as p.o. folic acid. During the hospital stay patient had also required 1 unit PRBC transfusion for anemia, FOBT is negative. Posttransfusion H&H has remained stable.Possible explanation of chronic anemia could be alcohol-related. Regarding her renal failure: Patient will need PermCath placement, prior to discharge. Leukemia lymphoma panel has been sent: No lymphoma seen on flow cytometry. Social dynamics Patient is alcoholic, lives alone, recurrent falls at home, no other family, her friend is her DPOA who is in [place], she is a nurse her name is Elen. DVT prophylaxis: On SCD Code status:DNR/DNI Attestations Medical Necessity Statement*: Patient is to be in hospital for management of sepsis. 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
--- NOTE | 2022-06-09 18:46 | PM.OP2 ---
Brief Operative Note Date of procedure: 06/09/22 Pre-op diagnosis: Left hip osteomyelitis with abscess Post-op diagnosis: same Procedure Done: Left hip irrigation and debridement with antibiotic bead removal, placement of articulating antibiotic cemented total hip arthroplasty spacer Surgeon: Nikita Neville Estimated blood loss (mL): 125 Complications: None Post-op Plan: Patient taken to ICU directly from the OR in stable condition. Patient will continue to be managed by internal medicine team. Appreciate their medical management. Patient has incisional VAC on and in place will remain on in place for 7 days. Deep drain to Hemovac placed and will be pulled once output slows down. Continue with IV antibiotics. Condition: stable Disposition: ICU Coding Level of Care Code Acute Reservations Specialist for [facility]
--- NOTE | 2022-06-09 18:51 | PM.PACU ---
PACU note Narrative: Patient taken to ICU in stable condition. LMA still in place unable to assess motor or sensory secondary to patient still lethargic from anesthesia. We will reassess motor and sensory in the morning. Patient to have postoperative x-rays performed. Incisional VAC on in place with good seal. Deep Hemovac drain in place. Exam: unarousable (LMA still in place) Disposition: back to floor (ICU)
--- NOTE | 2022-06-09 18:53 | PM.OP ---
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 Implants: [employer]ies acetabular cup 40 mm inner diameter 48 mm outer diameter [employer] modular small femoral stem [employer] extra small 40 mm modular femoral head Rapid cure antibiotic stimulant beads Surgeon: Nikita Neville DO Estimated blood loss: 125 mL IV fluids: See anesthesia record Urine output: See anesthesia record Complications: None Findings: See operative report narrative Condition: stable Disposition: ICU Brief History: Patient is a 76-year-old female with extensive left hip osteomyelitis including the acetabulum as well as femur. She has an anterior abscess of the thigh as well. She has been in the ICU. She initially underwent a initial surgery for left hip irrigation debridement with Girdlestone procedure and placement of antibiotic beads in order to obtain source control. Cultures showed gram-negative rods consistent with E. coli of both the femur and acetabulum and abscess. Patient steadily responded to treatment at this point time she is 5 days out from her initial surgery and in order to continue to maintain length and appropriate tension her next procedure would be removal of the antibiotic beads and repeat left hip irrigation and debridement and placement of a Prostalac total hip arthroplasty implants. She has been optimized by the primary care team as well as nephrology team. They have cleared patient to proceed with the the next stage procedure. I did confirm this with the POA as well as patient and she is agreeable to proceeding with the next staged procedure as stated above. Consent was obtained. When she was cleared by anesthesia she was taken directly from the ICU to the operative suite. Procedure: Patient was seen preoperatively in the ICU. Consent was reviewed and signed. Correct extremity marked. Patient seen evaluate anesthesia once ready for surgery she was taken directly back to the OR. She underwent anesthesia per the anesthesia department with safely transported onto the operative table placed in lateral decubitus position on a pegboard. Left hip was up. Incisional VAC and drain was on and in place. All bony prominences well-padded. Patient was appropriately secured to the bed. Patient's incisional VAC was then subsequently taken down. Deep drain was subsequently pulled. The left lower extremity was then prepped and draped in standard orthopedic fashion. Final timeout performed. Patient and receiving appropriate antibiotics empirically in ICU. With started with removal of patient's sylvie incision. Once this was done sharp scalpel excision through skin and subcutaneous tissue. I then utilized a rongeur to debride out all excess suture that was previously used. Next identified the fascial layer and fascial repair. This longitudinal split was then excised with sharp scalpel excision I removed excess suture. Charnley retractors were then placed and then identified by abductor repair with PDS suture. I then subsequently utilized sharp scalpel excision as well as electrocautery to perform by release of the abductors for a standard anterior lateral approach. At this point time I then subsequently encountered by antibiotic beads within the acetabulum which were removed for being in total and then the small 6 beads were placed at the abscess anteriorly were then removed. No fluid or abscess reaccumulation was noted. Overall the wound bed appeared to be stable with no worsening signs of any infection. At this point time completed by irrigation and debridement of the wound bed this again was 24 x 18 x 12 cm in size that I debrided skin subcutaneous fat fascia muscle as well as bone this was all debrided of devitalized tissue to healthy bleeding tissue utilizing rongeur and scalpel excision. Unfortunately I did have to debride some of the abductors as this was had some necrotic muscle tissue. I then once my debridement was adequate I then proceeded with thorough irrigation of 9 L of normal saline utilizing pulse lavage. I utilized a curette to again scrape off the fibrinous tissue of the acetabulum I then placed sequentially reamers starting with a 46 reamer up to a 48 reamer the next jump of the system would be too large and would not accommodate this patient's acetabulum as a result I elected to utilize the acetabular cup with a 48 mm outer diameter. I placed retractors of the anterior and posterior aspect of the acetabulum. I then had the rep open up the appropriate implant of 48 mm inner diameter and 48 mm outer diameter acetabular osteoremedies cup. My agency sales management assistant on the back table and subsequently mix the antibiotic cement we dyed this with methylene blue for later visualization this was then placed onto the back of the acetabular cup and then the cup was then placed in by hand with appropriate abduction and version matching patient's anatomy. There was some deficient posterior and superior wall this was then backed and filled with cement. Pressure was then placed and the cement was allowed to cure. All excess cement was removed. I then placed a femoral elevator and proceeded with my femoral preparation. I introduced the canal finder. I then introduced a lateralizing rattail rasp to lateralize. I then was able to place the femoral stem trial into an appropriate place in the version and then reduced the hip and at this point time had excellent stability and leg lengths. The hip was then dislocated trial was removed. Appropriate version was then marked. I had an open up to the final femoral stem size small and femoral head 40mm. Cement was then mixed with antibiotics on the back table and placed with methylene blue once appropriate thickness the final stem was then covered around the proximal portion of the stem this was gently placed into place my hand with appropriate version. I removed all excess cement. This was allowed to cure with secured the hip was then reduced and had excellent stability. It had good range of motion. Appropriate leg lengths. I then thoroughly irrigated the wound bed and then placed stimulant beads with antibiotics placed throughout the wound bed and the abscess cavity as well as throughout the deep and subcutaneous tissue of the left hip. I then placed a 15 Spanish Hemovac drain placed deep within the wound bed and out through the IT band distally. This was then hooked up to a Hemovac drain. The abductors were once again then repaired with #1 PDS suture through bone tunnels and soft tissue repair. I then reapproximated the IT band with a running PDS 1 loop suture. And then closed the skin in layered fashion with sylvie for the skin. I then used a black foam sponge to create a incisional VAC which was then placed and had good seal this was left free of the deep drain so the deep drain can be pulled earlier. Patient was then awakened from anesthesia and subsequently placed into an abduction pillow and taken to the ICU in stable condition. Disposition: Patient tolerated procedure without complication taken to ICU in stable condition. Continue with antibiotics per infectious disease team. Patient may be toe-touch weightbearing with prosthesis to the left hip. Deep Hemovac drain will be pulled once output slows postoperatively. Incisional VAC remain on in place for 7 days postoperatively. Patient will work with PT/OT, pain control DVT prophylaxis.
--- NOTE | 2022-06-09 18:54 | PC.NURSE ---
Pt arrived from surgery @0654 in a hospital bed, oral airway in place w/ nonrebreather @10L overtop. RR 9, SpO2 93%, BP MAP 64, HR 80. Pt later spit out their oral airway and RR improved. Pt could not answer all orientation questions. Pt was reoriented to situation. Pt stated that they had no pain and that they must not have went to surgery because they were not in pain. Dr. Neville at bedside to check on pt, this RN imformed that the hemovac would stay in place for several days.
--- NOTE | 2022-06-09 19:18 | ANE.PACU2 ---
Inpatient post-anesthesia follow up: Airway intact: Yes Vital signs: Temperature 98.6 F Pulse Rate 85 Respiratory Rate 17 Blood Pressure 121/71 Pulse Oximetry 95 Oxygen Delivery Me thod Room Air Oxygen Flow Rate 2 Fraction of Inspir ed Oxygen Hydration adequate: Yes Nausea and vomiting: No Pain level: 2 Mental status: Baseline
--- NOTE | 2022-06-09 23:04 | XRR_ITS ---
PROCEDURE INFORMATION: Exam: XR Left Hip Exam date and time: 06/10/2022 1:52 AM Age: 76 years old Clinical indication: Other: Post op brittanie; Prior surgery; Surgery date: Post-operative (0-2 days); Surgery type: Left cemented brittanie; Patient HX: Check S/P left hip cemented brittanie. Wound evac with pump in place. ; Additional info: Left hip brittanie cemented spacer TECHNIQUE: Imaging protocol: Radiologic exam of the Left hip. Views: 2 or 3 views hip with pelvis when performed. AP 1 view pelvis with 2 views hip COMPARISON: CR (PELVIS, ) 06/04/2022 7:03 PM FINDINGS: Bones/joints: Interval postsurgical changes status post cemented left hip arthroplasty. Left acetabular region cemented spacer is seen. Multiple radiopaque densities are seen in the region of the left hip. Recommend correlation with operative report. There are no fracture deformities seen. There is osteopenia. Soft tissues: Superficial skin sylvie are seen in the left hip region, related to the recent surgery. Some soft tissue gas is seen. Surgical wound VAC is seen in the left proximal femoral region. Notes: The exam is limited. Followup radiographs may be obtained for complete assessment. XR/XR hip LT 2-3V wo/w pel* [id number] IMPRESSION: Postsurgical changes of the left hip, as noted above.
[2022-06-10] VITALS (94 sets, daily range): BP systolic 84–132; BP diastolic 55–105; PULSE 73–110; RESP 10–20; TEMP 36.6–37.2; O2SAT 90–100
[2022-06-10] MEDS: morphine 4 mg/mL SDV 1 mL 2 MG IVP (02:25)
--- NOTE | 2022-06-10 03:04 | PC.NURSE ---
Dr. Pak made aware that thiamine 100mg IVP and epoetin alon 10,000 units were given late.
[2022-06-10] MEDS: epoetin alfa 10,000 unit/mL INJ 10000 UNIT SUBCUT (03:10)
[2022-06-10 04:12] LABS: Basophils # 0.1 10^3/uL (0.0-0.1); Basophils % 0.1 %; Hemoglobin 7.6 g/dL (11.5-15.3); Lymphocytes # 0.7 10^3/uL (0.8-4.8); Lymphocytes % 1.4 %; Mean Corpuscular Hemoglobin 31.9 pg (28.0-34.0); Mean Corpuscular Volume 96.6 fl (81-99); Mean Platelet Volume 11.3 fL (7.4-10.4); Monocytes # 1.4 10^3/uL (0.2-0.9); Monocytes % 2.9 %; Neutrophils # 44.13 10^3/uL (1.8-7.7); Neutrophils % 90.1 %; Nucleated Red Blood Cells % 0 %; Platelet Count 525 10^3/cmm (130-400); Red Blood Count 2.38 10^6/uL (4.1-5.3); Red Cell Distribution Width 16.1 % (12.1-15.1)
[2022-06-10 04:35] LABS: Alanine Aminotransferase 8 U/L (0-33); Alkaline Phosphatase 303 U/L (35-105); Anion Gap 21.3 (5-19); Aspartate Amino Transferase 20 U/L (0-32); Blood Urea Nitrogen 55 mg/dL (8-23); Calcium 8.2 mg/dL (8.5-10.5); Carbon Dioxide 18 mmol/L (22-29); Chloride 98 mmol/L (98-107); Globulin 2.8 g/dL (1.3-4.6); Glucose 81 mg/dL (65-115); Magnesium 2.2 mg/dL (1.7-2.3); Osmolality Calculated 288 mOsm/kg (285-295); Phosphorus 6.8 mg/dL (2.5-4.5); Potassium 5.3 mmol/L (3.5-5.1); Sodium 132 mmol/L (136-145); Total Bilirubin 0.2 mg/dL (0.15-1.2); Total Protein 4.8 g/dL (6.6-8.7)
--- NOTE | 2022-06-10 07:19 | P.PN_ITS ---
Subjective Subjective: good uop. edema starting to decrease. eating. + hip pain Medications: Reviewed: Yes Medication Review Details: Current Medications Acetaminophen (Acetaminophen 325 Mg Tablet) 650 mg PO Q6H PRN PRN Reason: Mild/Mod Pain Or Temp >/= 101 Last Admin: 06/07/22 23:34 Dose: 650 mg Epoetin Gunnar (Epoetin Gunnar 10,000 Unit/Ml Inj) 10,000 unit SUBCUT QMWF [facility] Last Admin: 06/10/22 03:10 Dose: 10,000 unit Folic Acid (Folic Acid 1 Mg Tablet) 1 mg PO DAILY [facility] Last Admin: 06/09/22 19:55 Dose: Not Given Folic Acid (Folic Acid 1 Mg Tablet) 1 mg PO DAILY [facility] Last Admin: 06/09/22 19:54 Dose: Not Given Norepinephrine Bitartrate 4 mg (/ Dextrose) 254 mls @ 0 mls/hr IV .Q0M [facility]; Pr otocol Last Titration: 06/07/22 08:00 Dose: 0 mcg/min, 0 mls/hr Albumin Human (Albumin) 12.5 gm in 50 mls @ 60 mls/hr IV PRN PRN PRN Reason: Hypotension and/or symptomatic Meropenem 500 mg/ Sodium (Chloride) 50 mls @ 100 mls/hr IV Q24H [facility] Last Infusion: 06/09/22 15:53 Dose: Infused Lanolin (Lanolin Oint 7 Gm) 1 applic TOPICAL PRN PRN PRN Reason: DRYNESS Morphine Sulfate (Morphine Ir 15 Mg Tablet) 15 mg PO Q4H PRN PRN Reason: SEVERE PAIN Last Admin: 06/05/22 20:04 Dose: 15 mg Morphine Sulfate (Morphine 4 Mg/Ml Sdv 1 Ml) 2 mg IVP Q4H PRN PRN Reason: SEVERE PAIN Last Admin: 06/10/22 02:25 Dose: 2 mg Ondansetron HCl (Ondansetron 2 Mg/Ml Sdv 2 Ml) 4 mg IVP Q8H PRN PRN Reason: vomiting, or N/V if npo Pantoprazole Sodium (Pantoprazole Dr 40 Mg Tablet) 40 mg PO DAILY [facility] Last Admin: 06/09/22 19:55 Dose: Not Given Senna/Docusate Sodium (Sennosides-Docusate Tablet) 1 tab PO DAILY [facility] Last Admin: 06/09/22 19:53 Dose: Not Given Thiamine HCl (Thiamine 100 Mg/Ml Sdv) 100 mg IVP DAILY [facility] Last Admin: 06/10/22 02:24 Dose: 100 mg Vitals/I&O/Wt Last Vital Signs Temp 98.6 F 06/09/22 14:00 Pulse 85 06/10/22 06:15 Resp 14 06/10/22 06:15 BP 103/59 06/10/22 06:15 Pulse Ox 97 06/10/22 06:15 O2 Del Method 06/10/22 06:15 O2 Flow Rate 2 06/06/22 08:00 06/09/22 06/10/22 06/10/22 22:59 06:59 14:59 Intake Total 530 / 530 Output Total 700 / 700 575 / 1275 Balance -170 / -170 -575 / -745 Weight last 48 hrs Weight 79.152 kg Weight 79.152 kg Physical Exam Narrative: obese female comfortable in bed in NARD - good uop vss Heent- nc/at, eomi, anicteric neck supple lungs - diminished bases b/l heart reg, +LEORA abd soft, nt, +BS, ND ext- arms > leg edema- all improving rt femoral dialysis catheter neuro- awake, appropriate, interactive, moving Urinary Catheter Management: Martinez: Cath Placed During This Visit: yes Reason for Continuing Indwelling Catheter: Accurate Measurement of Urinary Output in Critically Ill Patients Urinary Catheter Date of Insertion: 06/01/22 Urinary Catheter Time of Insertion: 11:51 Data : 06/10/22 03:43 06/10/22 03:43 Micro: Microbiology 06/09/22 03:39 Blood Culture - Preliminary Blood NEGATIVE TO DATE 06/09/22 02:47 Blood Culture - Preliminary Blood NEGATIVE TO DATE 06/04/22 14:51 Gram Stain - Final Other Source Anaerobic Culture - Preliminary Abscess Culture - Final Escherichia coli 06/04/22 14:45 Anaerobic Culture - Preliminary Hip - #3 06/04/22 14:42 Gram Stain - Final Incision Anaerobic Culture - Preliminary Abscess Culture - Final Escherichia coli A&P Assessment and plan (1) Acute kidney injury: 76 yr old female w/ left hip avascular necrosis and Q OM 1. JESSICA- pt has been on NSAID's for a while -no hydronephrosis on ct scan u/a turbid, 3+ blood, 3+ prot, 2+ leuk est, rbc and wbc too numerous to count- 4+ ur bact -ur na 41 -concern for ATN, chronic interstial nephritis from chronic NSAID use, or iinfection related GN- check complements - c3 a little low at 80 -pth 94 -monitor renal fxn -cr stable. good uop -attempt to hold dialysis and monitor for renal recovery- repeat labs in afternoon pth 94- repeat in 3-4 weeks 2. leukocytosis from OM- renal dose abx -worsening wbc- -monitor tobramycin and vanco levels -Wound cultures so far has grown: E. coli, urine culture E. coli, blood culture no growth, -ortho is planning a staged approach with plan for left hip - POD #1 Left hip irrigation and debridement with antibiotic bead removal, placement of articulating antibiotic cemented total hip arthroplasty spacer.?? 3. anemia- high b12, replace folate. high iron sat -s/p prbc tx. may need more -use TRIXIE 4. inc AG met acidosis- normal lactate -likely from JESSICA -consider oral sodium bicarb 5. hyponatremia- na improved to 132 tsh 5.15- not causing hyponatremia - AM cortisol level = 13 6. hypoalbuminemia- from illness - needs nutrition seen and examined w/ RN -telehealth visit discussed w/ Dr Neville time spent 30 min Plan as above Attestations Medical Necessity Statement*: hip OM and JESSICA Time Spent in Patient Care: 16 - 35 minutes (>than 50% of time spent in counselling and/or direct pt care on unit) . Coding Level of Care Code Acute Stock Replenisher for [facility] Diagnoses Acute kidney injury N17.9
--- NOTE | 2022-06-10 08:00 | CT_ITS ---
WS: [id number] CT CHEST, ABDOMEN AND PELVIS WITH CONTRAST HISTORY: persistent leukocytosis TECHNIQUE: Contiguous 5 mm axial imaging performed through the chest, abdomen and pelvis with IV cont rast, oral contrast has not been provided. Coronal and sagittal reformats chest. Coronal and sagittal reformats through the abdomen and pelvis. All CT scans at [place] use at least one of the se dose optimization techniques: automated exposure control; mA and/or kV adjustment per patient size (includes targeted exams where dose is matched to clinical indication); or iterative reconstruction. CONTRAST: Omnipaque 350; 75 mL IV. DLP: 2270.86 mGy.cm COMPARISON: Prior CT abdomen and pelvis 06/02/[address]: Very small LEFT pleural effusion with LEFT subsegmental basilar atelectasis. No pneumothora x or pneumonia. 5 mm nodule, noncalcified RIGHT upper lobe, image 18 of series 4. Mild atherosclerosi s aorta. Normal size pulmonary artery. Mild ectasia thoracic aorta. Heart size is normal with a very small pericardial effusion. Abdomen CT: Normal size liver and spleen. Normal enhancement of each kidney. Less perinephric edema. There is no obstruction or hydronephrosis. Mild atherosclerosis aorta. Normal gallbladder. No adjacen t inflammation. Atrophied pancreas without inflammation. No bile duct dilatation. Mild wall thickening involving the antrum of the stomach. Low-attenuation 8 mm nodule within the antr um of the stomach is suspicious for small ulcer. There is adjacent inflammation. No small bowel obstr uction. Numerous diverticula throughout the distal colon. No evidence for acute diverticulitis. No ev idence for appendicitis. Pelvic CT: Martinez catheter present in a nondistended bladder. No free fluid in the pelvis. There is ex tensive artifact through the pelvis from the patient's hip prosthesis. There is a large amount of sof t tissue edema bilaterally within the soft tissues of the pelvis. Postoperative changes surrounding t he LEFT hip hardware. No focal collection. Foci of air from the recent surgery appear appropriate. Sm all amount of fluid along the endometrial canal. Degenerative changes throughout the thoracic and lumbar spines. CT/CT chest abd pel w con* IMPRESSION: 1. Very small LEFT pleural effusion with LEFT basilar atelectasis. 2. Mild mucosal edema involving the antrum of the stomach and a small ulcer in the antrum measuring 8 mm. 3. Numerous diverticula throughout the colon with no evidence for acute divert iculitis. 4. Soft tissue edema in the pelvis. Additional more focal postoperative change s at the LEFT hip from the recent arthroplasty. No focal collection. These more ges are probably appropriate. 5. Martinez catheter. 6. No renal obstruction. No pneumonia.
--- NOTE | 2022-06-10 08:00 | CT_ITS ---
WS: [id number] CT THORACIC spine with contrast. HISTORY: evaluate for epidural abscess TECHNIQUE: Contiguous 2.0 mm axial images are reviewed to thoracic spine. Images are reformatted in s agittal and coronal planes. All CT scans at [facility] use at least one of these dose optimiz ation techniques: automated exposure control; mA and/or kV adjustment per patient size (includes targ eted exams where dose is matched to clinical indication); or iterative reconstruction. DLP: 2270.86 mGy.cm Contrast: Omnipaque 350; 75 mL IV. COMPARISON: None available. Normal thoracic alignment. No enhancing masses or mass effect upon the thoracic cord. No high-grade c entral or foraminal stenosis or acute disc protrusions. There is mild diffuse spondylitic changes. Ne xt a very small LEFT pleural effusion and LEFT basilar atelectasis. Mild atherosclerosis aorta. CT/CT thoracic spine w con [id number] IMPRESSION: 1. No epidural abscess or mass effect upon the thoracic cord identified. This study lacks sensitivity for small abscesses. 2. Small LEFT pleural effusion.
--- NOTE | 2022-06-10 08:00 | CT_ITS ---
WS: [id number] CT LUMBAR SPINE WITH CONTRAST. HISTORY: evaluate for epidural abscess TECHNIQUE: 2.0 mm axial imaging performed of the lumbar spine. Images reformatted in sagittal and cor onal planes. Soft tissue and bone windows reviewed. Contrast: Omnipaque 350; 75 mL IV. DLP: 2270.[address] scans at [facility] use at least one of these dose optimization techniques: automated e xposure control; mA and/or kV adjustment per patient size (includes targeted exams where dose is matc hed to clinical indication); or iterative reconstruction. COMPARISON: None available. Posterior lumbar alignment is normal. Moderate disc space narrowing at L1-2 and L5-S1. No fractures. There are no enhancing masses along the epidural space. Mild asymmetric disc bulging at L1-2 with mild foraminal narrowing. Annular disc bulging and osteophytic ridging at L2-3 with mild central and foraminal and subarticular recess stenosis. Diffuse annular disc bulging and osteophytic ridging at L3-4 and L4-5 with mild foraminal narrowing. L5-S1: Osteophytic ridging greatest to the LEFT. Moderate LEFT subarticular recess and foraminal sten osis. Focal area of enhancement within the RIGHT pelvis is probably an atrophic uterus with a small amount of fluid along the endometrial canal. No history of prior hysterectomy. CT/CT lumbar spine w con [id number] IMPRESSION: 1. No epidural abscess identified. No enhancing mass encroaching upon the thec al sac. This study lacks sensitivity for small abscesses. 2. Multilevel areas of foraminal and central stenosis as above.
[2022-06-10] MEDS: iohexol 350 mg/mL 500 mL Btl (per mL) IV (09:03)
[2022-06-10] MEDS: sodium polystyrene sulfonate 15 gm/60 mL Btl PO (09:09)
[2022-06-10] MEDS: sennosides-docusate Tablet 1 TAB PO (09:10)
[2022-06-10] MEDS: folic acid 1 mg Tablet PO (09:10)
[2022-06-10] MEDS: pantoprazole DR 40 mg Tablet PO (09:11)
[2022-06-10] MEDS: meropenem 500 MG in sodium chloride 0.9% (plus) 50 ML 100 MG IV (13:59)
--- NOTE | 2022-06-10 14:42 | PM.PN ---
Subjective Subjective: Patient seen and examined this morning as well as in the afternoon. Patient's POA present. Updated on surgery. Surgeries went well. At this point time her articulating cemented total hip spacer is in place x-rays show stable implant. She has a Hemovac drain. But had minimal bloody output. Her incisional vacs had no output. No issues overnight not requiring pressure support. Working with OT/PT today. Vitals/I&O/Wt Last Vital Signs Temp 98.7 F 06/10/22 07:45 Pulse 78 06/10/22 12:30 Resp 11 L 06/10/22 12:30 BP 103/64 06/10/22 12:30 Pulse Ox 95 06/10/22 12:00 O2 Del Method 06/10/22 09:17 O2 Flow Rate 2 06/06/22 08:00 06/09/22 06/10/22 06/10/22 22:59 06:59 14:59 Intake Total 530 / 530 0 / 0 Output Total 700 / 700 575 / 1275 575 / 575 Balance -170 / -170 -575 / -745 -575 / -575 Weight last 48 hrs Weight 174 lb 8 oz Weight 174 lb 8 oz Physical Exam Narrative: Left hip: Patient has improvement her ability to tolerate range of motion of the left hip. Dressings clean dry and intact. She is able to wiggle her toes plantarflex and dorsiflex ankle. Sensation intact light touch distally. Distal pulses are palpable. She has peripheral edema noted. She does have some slight dusky and sluggish cap refill to her bilateral lower extremity toes likely due to her peripheral edema and requiring a pressure support. Urinary Catheter Management: Martinez: Cath Placed During This Visit: yes Reason for Continuing Indwelling Catheter: Accurate Measurement of Urinary Output in Critically Ill Patients Urinary Catheter Date of Insertion: 06/01/22 Urinary Catheter Time of Insertion: 11:51 Data : 06/10/22 03:43 06/10/22 14:54 Micro: Microbiology 06/09/22 03:39 Blood Culture - Preliminary Blood NEGATIVE TO DATE 06/09/22 02:47 Blood Culture - Preliminary Blood NEGATIVE TO DATE 06/04/22 14:51 Gram Stain - Final Other Source Anaerobic Culture - Preliminary Abscess Culture - Final Escherichia coli 06/04/22 14:45 Anaerobic Culture - Preliminary Hip - #3 06/04/22 14:42 Gram Stain - Final Incision Anaerobic Culture - Preliminary Abscess Culture - Final Escherichia coli Xray Ortho: My impression: X-rays of the AP pelvis AP lateral of the hip demonstrate a stable articulating antibiotic cement spacer total hip in place. Appropriate implant position. Stable fixation. No periprosthetic fracture or dislocation noted. Stimulant beads noted within the soft tissue envelope. A&P Assessment and plan (1) Hip osteomyelitis, left: (2) Sepsis: (3) Hip pain, left: (4) Acute kidney injury: Plan Patient may have diet Internal medicine is primary Infectious disease on board Nephrology on board Review of labs demonstrate patient does have persistent elevated creatinine currently being managed with dialysis Intraoperative cultures demonstrating E. coli patient already on IV antibiotics per primary team and infectious disease consulted for recommendations Patient not requiring pressure support Incisional VAC should remain on in place for 7 days Hemovac drain will be pulled once less than 40 cc per nursing shift. Postoperative x-rays reviewed Patient may be toe-touch weightbearing to the left lower extremity PT/OT Pain control DVT prophylaxis Patient seen evaluated postoperative day 1 of left hip I&D with antibiotic bead removal and placement of a articulating total hip antibiotic spacer. At this point time she is continue to remain stable postoperatively. She has incisional VAC on in place to stay on for 7 days. Continue with IV antibiotics. May be toe-touch weightbearing to the left lower extremity. Work with PT/OT. Attestations Medical Necessity Statement*: Patient has left hip osteomyelitis of acetabulum and femur with abscess. She is underwent 2 I&D's as well as requiring IV antibiotics and dialysis. 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
--- NOTE | 2022-06-10 16:37 | P.PN_ITS ---
Subjective Subjective: Patient was seen and examined this morning, good urine output in the last 24 hours, says she feels thirsty. POD #1 : Medications: Reviewed: Yes Medication Review Details: Generic Name Dose Route Start Last Admin Trade Name Alise PRN Reason Stop Dose Admin Acetaminophen 650 mg 06/01/22 00:06 06/07/22 23:34 Acetaminophen 32 5 Mg Tablet PO 650 mg Q6H PRN Administration Mild/Mod Pain Or Temp >/= 101 Epoetin Gunnar 10,000 unit 06/07/22 14:00 06/10/22 03:10 Epoetin Gunnar 10, 000 Unit/Ml Inj SUBCUT 10,000 unit QMWF ULYSSES Administration Folic Acid 1 mg 06/01/22 09:00 06/10/22 09:10 Folic Acid 1 Mg Tablet PO 1 mg DAILY ULYSSES Administration Norepinephrine Bit artrate 4 mg 254 mls @ 0 mls/h r 06/03/22 04:30 06/07/22 08:00 / Dextrose IV 0 mcg/min .Q0M ULYSSES 0 mls/hr Titration Protocol Per Protocol Meropenem 500 mg/ Sodium 50 mls @ 100 mls/ hr 06/07/22 14:30 06/10/22 16:16 Chloride IV Infused Q24H ULYSSES Infusion Morphine Sulfate 15 mg 06/04/22 10:13 06/05/22 20:04 Morphine Ir 15 M g Tablet PO 15 mg Q4H PRN Administration SEVERE PAIN Morphine Sulfate 2 mg 06/04/22 16:53 06/10/22 02:25 Morphine 4 Mg/Ml Sdv 1 Ml IVP 2 mg Q4H PRN Administration SEVERE PAIN Pantoprazole Sodiu m 40 mg 06/01/22 09:00 06/10/22 09:[address] 40 Mg Tablet PO 40 mg DAILY ULYSSES Administration Senna/Docusate Sod ium 1 tab 06/05/22 09:00 06/10/22 09:10 Sennosides-Docus ate Tablet PO 1 tab DAILY ULYSSES Administration Thiamine HCl 100 mg 06/09/22 09:00 06/10/22 09:11 Thiamine 100 Mg/ Ml Sdv IVP 100 mg DAILY ULYSSES Administration Vitals/I&O/Wt Last Vital Signs Temp 98.7 F 06/10/22 07:45 Pulse 78 06/10/22 12:30 Resp 11 L 06/10/22 12:30 BP 103/64 06/10/22 12:30 Pulse Ox 95 06/10/22 12:00 O2 Del Method 06/10/22 09:17 O2 Flow Rate 2 06/06/22 08:00 06/10/22 06/10/22 06/10/22 06:59 14:59 22:59 Intake Total 0 / 0 50 / 50 Output Total 575 / 1275 575 / 575 Balance -575 / -745 -575 / -575 50 / -525 Weight last 48 hrs Weight 79.152 kg Weight 79.152 kg Physical Exam Const: COMMON NORMALS: patient oriented x3 Resp: COMMON NORMALS: clear to auscultation bilaterally EFFORT & INSPECTION: Yes symmetric chest movement AUSCULTATION: clear to auscultation bilaterally Cardio: COMMON NORMALS: regular rate, regular rhythm, S1 normal heart sound present, S2 normal heart sound present, No gallops present (Cardio), No murmurs present (Cardio), No rub (Cardio) and Peripheral pulses 2+ throughout RATE: regular rate RHYTHM: regular rhythm HEART SOUNDS: S1 normal heart sound present and S2 normal heart sound present PERIPHERAL PULSES: Peripheral pulses 2+ throughout GI: COMMON NORMALS: Normal to inspection, nondistended, normoactive bowel sounds present, Soft to palpation, non-tender, No hepatosplenomegaly present and no masses AUSCULTATION: Yes normoactive bowel sounds PALPATION: Yes Soft to palpation and Yes No hepatosplenomegaly present RECTAL EXAM: deferred Extremity: COMMON NORMALS: no clubbing, cyanosis or edema and no pedal edema Neuro: COMMON NORMALS: patient oriented x3 Urinary Catheter Management: Martinez: Cath Placed During This Visit: yes Reason for Continuing Indwelling Catheter: Accurate Measurement of Urinary Output in Critically Ill Patients Urinary Catheter Date of Insertion: 06/01/22 Urinary Catheter Time of Insertion: 11:51 Data : 06/10/22 03:43 06/10/22 03:43 Micro: Microbiology 06/09/22 03:39 Blood Culture - Preliminary Blood NEGATIVE TO DATE 06/09/22 02:47 Blood Culture - Preliminary Blood NEGATIVE TO DATE 06/04/22 14:51 Gram Stain - Final Other Source Anaerobic Culture - Preliminary Abscess Culture - Final Escherichia coli 06/04/22 14:45 Anaerobic Culture - Preliminary Hip - #3 06/04/22 14:42 Gram Stain - Final Incision Anaerobic Culture - Preliminary Abscess Culture - Final Escherichia coli A&P Assessment and plan (1) ATN (acute tubular necrosis): (2) Avascular necrosis: (3) Hip osteomyelitis, left: (4) Dehydration: (5) Hyponatremia: (6) Sepsis: (7) Fall: (8) Hip pain, left: (9) Acute kidney injury: (10) Alcohol abuse: Plan Assessment: Septic shock: Secondary to UTI, left hip abscess osteomyelitis Renal failure: On hemodialysis Chronic alcohol abuse Anemia Significant leukocytosis with left shift 76-year-old female with past medical history of alcohol abuse was initially admitted with for the management of left hip pain, JESSICA versus JESSICA on CKD , hyponatremia sepsis secondary to UTI had a complicated hospital course, she went into septic shock secondary to UTI as well as left hip osteomyelitis, during the hospital stay she also ended into renal failure, secondary to sepsis triggered ATN, currently on hemodialysis, after placement on right femoral dialysis catheter. For her left hip AVN/osteomyelitis/abscess: She underwent Left hip irrigation and debridement with cultures, [place] left femoral neck, antibiotic cemented beads spacers, deep drain placement and incisional VAC placement. Orthopedic on board. Wound cultures so far has grown: E. coli, urine culture E. coli, blood culture on admission E. coli, repeat blood culture no growth, most recent blood culture drawn on 10/07: Pending:, C. difficile toxin PCR negative, MRI of left hip: N ondiagnostic as the patient was not able to lie still. CT abdomen pelvis wo con: No hydronephrosis no pyelonephritis. No nephrolithiasis. Repeat CT chest abdomen and pelvis with contrast: Very small LEFT pleural effusion with LEFT basilar atelectasis. Mild mucosal edema involving the antrum of the stomach and a small ulcer in the antrum measuring 8 mm.Numerous diverticula throughout the colon with no evidence for acute diverticulitis. Soft tissue edema in the pelvis. Additional more focal postoperative changes at the LEFT hip from the recent arthroplasty. No focal collection. These changes are probably appropriate.CT lumbar spine w con: No epidural abscess. CT thoracic spine w con: No epidural abscess 2D echo: Normal LV Size and Systolic Function, no RWMA, LVEF 70%, grade 1 diastolic dysfunction, no valvular vegetation. Patient has been on broad-spectrum antibiotics so far. She will need long-term antibiotic for her hip pathology, possibly 8 to 10 weeks.ID has been consulted. Multiple intraoperative cultures to be followed.For patient's septic shock initially she was on vasopressor support, currently she is off vasopressor iglesias pport. For history of alcohol abuse she has been on high-dose thiamine IV initially as well as p.o. folic acid. During the hospital stay patient had also required 1 unit PRBC transfusion for anemia, FOBT is negative. Posttransfusion H&H has remained stable.Possible explanation of chronic anemia could be alcohol-related. Regarding her renal failure: Patient will need PermCath placement, prior to discharge. Leukemia lymphoma panel has been sent: No lymphoma/leukemia seen on flow cyto metry. Social dynamics Patient is alcoholic, lives alone, recurrent falls at home, no other family, her friend is her DPOA who is in [place], she is a nurse her name is Elen. 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
[2022-06-10 16:45] LABS: Blood Urea Nitrogen 56 mg/dL (8-23); Calcium 8.1 mg/dL (8.5-10.5); Carbon Dioxide 17 mmol/L (22-29); Chloride 95 mmol/L (98-107); Glucose 77 mg/dL (65-115); Osmolality Calculated 282 mOsm/kg (285-295); Sodium 129 mmol/L (136-145)
--- NOTE | 2022-06-10 17:59 | PC.NURSE ---
Patient has family bedside, very reluctant to work with therapies. Very weak. Patient able to feed self, needs encouragement. Plans to dialysis tomorrow.
[2022-06-11] VITALS (101 sets, daily range): BP systolic 67–144; BP diastolic 50–82; PULSE 70–104; RESP 11–23; TEMP 36.9–37.7; O2SAT 90–98
[2022-06-11] MEDS: meropenem 500 MG in sodium chloride 0.9% (plus) 50 ML 100 MG IV ×2 (03:17→15:00)
[2022-06-11 04:33] LABS: Basophils # 0.1 10^3/uL (0.0-0.1); Basophils % 0.4 %; Eosinophils # 0.1 10^3/uL (0.0-0.8); Eosinophils % 0.3 %; Hematocrit 21.1 % (37.0-47.0); Hemoglobin 6.8 g/dL (11.5-15.3); Lymphocytes % 3.2 %; Mean Corpuscular HGB Conc 32.2 g/dL (30.0-36.0); Mean Corpuscular Hemoglobin 30.8 pg (28.0-34.0); Mean Corpuscular Volume 95.5 fl (81-99); Mean Platelet Volume 10.8 fL (7.4-10.4); Monocytes # 1.4 10^3/uL (0.2-0.9); Monocytes % 4.8 %; Neutrophils # 25.66 10^3/uL (1.8-7.7); Nucleated Red Blood Cells % 0 %; Platelet Count 513 10^3/cmm (130-400); Red Blood Count 2.21 10^6/uL (4.1-5.3); Red Cell Distribution Width 15.9 % (12.1-15.1); White Blood Count 29.5 10^3/uL (4.0-10.0)
[2022-06-11 05:02] LABS: Vancomycin Random 15.2 ug/mL (20.0-40.0)
[2022-06-11 05:13] LABS: Alanine Aminotransferase 7 U/L (0-33); Albumin Level 1.8 g/dL (3.5-5.2); Alkaline Phosphatase 229 U/L (35-105); Anion Gap 18.8 (5-19); Aspartate Amino Transferase 21 U/L (0-32); Blood Urea Nitrogen 52 mg/dL (8-23); Calcium 8.2 mg/dL (8.5-10.5); Carbon Dioxide 20 mmol/L (22-29); Chloride 97 mmol/L (98-107); Globulin 2.7 g/dL (1.3-4.6); Glucose 86 mg/dL (65-115); Magnesium 2.1 mg/dL (1.7-2.3); Osmolality Calculated 285 mOsm/kg (285-295); Phosphorus 5.7 mg/dL (2.5-4.5); Potassium 4.8 mmol/L (3.5-5.1); Sodium 131 mmol/L (136-145); Total Bilirubin 0.2 mg/dL (0.15-1.2); Total Protein 4.5 g/dL (6.6-8.7)
[2022-06-11] MEDS: albumin 12.5 GM/50 ML VIAL IV (06:36)
[2022-06-11] MEDS: folic acid 1 mg Tablet PO (08:15)
[2022-06-11] MEDS: sennosides-docusate Tablet 1 TAB PO (08:15)
[2022-06-11] MEDS: pantoprazole DR 40 mg Tablet PO (08:15)
[2022-06-11] MEDS: morphine 4 mg/mL SDV 1 mL 2 MG IVP (09:36)
--- NOTE | 2022-06-11 09:56 | PC.SOCIAL ---
IMM updated Imm updated with patient at bedside. Copy of page 2 provided. Patient verbalized understanding. Copy in chart initialed, dated and timed.
--- NOTE | 2022-06-11 10:13 | PM.PN ---
Subjective Subjective: s/p IV contrast yesterday and fetting hD today Vitals/I&O/Wt Last Vital Signs Temp 98.8 F 06/11/22 05:35 Pulse 85 06/11/22 08:15 Resp 14 06/11/22 08:15 BP 115/63 06/11/22 08:15 Pulse Ox 92 06/11/22 08:00 O2 Del Method 06/11/22 05:35 O2 Flow Rate 2 06/06/22 08:00 06/10/22 06/11/22 06/11/22 22:59 06:59 14:59 Intake Total 170 / 170 250 / 420 170 / 170 Output Total 1600 / 2175 550 / 2725 Balance -1430 / -2005 -300 / -2305 170 / 170 Weight last 48 hrs Weight 79.016 kg Weight 79.152 kg Physical Exam Urinary Catheter Management: Martinez: Cath Placed During This Visit: yes Reason for Continuing Indwelling Catheter: Accurate Measurement of Urinary Output in Critically Ill Patients Urinary Catheter Date of Insertion: 06/01/22 Urinary Catheter Time of Insertion: 11:51 Data : 06/11/22 04:04 06/11/22 04:04 Micro: Microbiology 06/04/22 14:51 Gram Stain - Final Other Source Anaerobic Culture - Preliminary Abscess Culture - Final Escherichia coli 06/04/22 14:45 Anaerobic Culture - Preliminary Hip - #3 06/04/22 14:42 Gram Stain - Final Incision Anaerobic Culture - Preliminary Abscess Culture - Final Escherichia coli 06/01/22 07:55 Urine Culture - Final Urine Catheterized Gram Negative Rods 06/09/22 03:39 Blood Culture - Preliminary Blood NEGATIVE TO DATE A&P Assessment and plan (1) ATN (acute tubular necrosis): Plan [address] [address] Progress Note Signed with Addenda Patient: Breanna Andrew MR#: [id number] : 1945 Age/Sex: 76 / F ADM Date: 05/31/22 Loc: ICU? Room/Bed: ICU11-1 Encounter Date: 06/10/[address]: Ryees David MD Report Number: [id number] w/ contrats-? will dialyze tonight or in am. Addendum Dictated By: Jeremi Ponce MD Addendum Signed By: <Electronically signed by Jeremi Ponce MD> Signed Date/Time: 06/10/221740 Addendum Cosigned By: Subjective Subjective:?? good uop.? edema starting to decrease.? eating. + hip pain Medications:?? Reviewed: Yes? Medication Review Details: Current Medications Acetaminophen (Acetaminophen 325 Mg Tablet)? 650 mg PO Q6H PRN PRN Reason: Mild/Mod Pain Or Temp >/= 101 Last Admin: 06/07/22 23:34 Dose:? 650 mg Epoetin Gunnar (Epoetin Gunnar 10,000 Unit/Ml Inj)? 10,000 unit SUBCUT QMWF [facility] Last Admin: 06/10/22 03:10 Dose:? 10,000 unit Folic Acid (Folic Acid 1 Mg Tablet)? 1 mg PO DAILY [facility] Last Admin: 06/09/22 19:55 Dose:? Not Given Folic Acid (Folic Acid 1 Mg Tablet)? 1 mg PO DAILY [facility] Last Admin: 06/09/22 19:54 Dose:? Not Given Norepinephrine Bitartrate 4 mg (/ Dextrose)? 254 mls @ 0 mls/hr IV .Q0M [facility]; Protocol Last Titration: 06/07/22 08:00 Dose:? 0 mcg/min, 0 mls/hr Albumin Human (Albumin)? 12.5 gm in 50 mls @ 60 mls/hr IV PRN PRN PRN Reason: Hypotension and/or symptomatic Meropenem 500 mg/ Sodium (Chloride)? 50 mls @ 100 mls/hr IV Q24H [facility] Last Infusion: 06/09/22 15:53 Dose:? Infused Lanolin (Lanolin Oint 7 Gm)? 1 applic TOPICAL PRN PRN PRN Reason: DRYNESS Morphine Sulfate (Morphine Ir 15 Mg Tablet)? 15 mg PO Q4H PRN PRN Reason: SEVERE PAIN Last Admin: 06/05/22 20:04 Dose:? 15 mg Morphine Sulfate (Morphine 4 Mg/Ml Sdv 1 Ml)? 2 mg IVP Q4H PRN PRN Reason: SEVERE PAIN Last Admin: 06/10/22 02:25 Dose:? 2 mg Ondansetron HCl (Ondansetron 2 Mg/Ml Sdv 2 Ml)? 4 mg IVP Q8H PRN PRN Reason: vomiting, or N/V if npo Pantoprazole Sodium (Pantoprazole Dr 40 Mg Tablet)? 40 mg PO DAILY [facility] Last Admin: 06/09/22 19:55 Dose:? Not Given Senna/Docusate Sodium (Sennosides-Docusate Tablet)? 1 tab PO DAILY [facility] Last Admin: 06/09/22 19:53 Dose:? Not Given Thiamine HCl (Thiamine 100 Mg/Ml Sdv)? 100 mg IVP DAILY [facility] Last Admin: 06/10/22 02:24 Dose:? 100 mg ? Vitals/I&O/Wt Last Vital Signs Temp ?98.6 F ?06/09/22 14:00 Pulse ?85 ?06/10/22 06:15 Resp ?14 ?06/10/22 06:15 BP ?103/59 ?06/10/22 06:15 Pulse Ox ?97 ?06/10/22 06:15 O2 Del Method ? ?06/10/22 06:15 O2 Flow Rate ?2 ?06/06/22 08:00 ? 06/09/22 06/10/22 06/10/22 ? 22:59 06:59 14:59 Intake Total 530 / 530 ? ? Output Total 700 / 700 575 / 1275 ? Balance -170 / -170 -575 / -745 ? Weight last 48 hrs Weight? 79.152 kg ? Weight? 79.152 kg ? Physical Exam Narrative:?? obese female comfortable in bed in NARD - good uop vss Heent-? nc/at, eomi, anicteric neck supple lungs - diminished bases b/l heart reg, +LEORA abd soft, nt, +BS, ND ext- arms > leg edema- all improving rt femoral dialysis catheter neuro- awake, appropriate, interactive, moving Urinary Catheter Management:?? Martinez: Cath Placed During This Visit: yes Reason for Continuing Indwelling Catheter: Accurate Measurement of Urinary Output in Critically Ill Patients Urinary Catheter Date of Insertion: 06/01/22 Urinary Catheter Time of Insertion: 11:51 ? Data : 06/10/22 03:43? 06/10/22 03:43? Micro: Microbiology ?06/09/22 03:39 Blood Culture - Preliminary ?Blood ?? NEGATIVE TO DATE ?06/09/22 02:47 Blood Culture - Preliminary ?Blood ?? NEGATIVE TO DATE ?06/04/22 14:51 Gram Stain - Final ?Other Source Anaerobic Culture - Preliminary ? Abscess Culture - Final ? ?? Escherichia coli ?06/04/22 14:45 Anaerobic Culture - Preliminary ?Hip - #3 ? ?06/04/22 14:42 Gram Stain - Final ?Incision Anaerobic Culture - Preliminary ? Abscess Culture - Final ? ?? Escherichia coli A&P Assessment and plan (1) Acute kidney injury: 76 yr old female w/ left hip avascular necrosis and Q OM 1. JESSICA-? pt has been on NSAID's for a while -no hydronephrosis on ct scan u/a turbid, 3+ blood, 3+ prot, 2+ leuk est, rbc and wbc too numerous to count- 4+ ur bact -ur na 41 -concern for ATN, chronic interstial nephritis from chronic NSAID use, or iinfection related GN-? check complements - c3 a little low at 80 -pth 94 -Pt recieved IV contrast - HD today 2. leukocytosis from OM-? renal dose abx -worsening wbc- -monitor tobramycin and vanco levels -Wound cultures so far has grown: E. coli, urine culture E. coli, blood culture no growth, -ortho is planning a staged approach with plan for left hip - POD #1 Left hip irrigation and debridement with antibiotic bead removal, placement of articulating antibiotic cemented total hip arthroplasty spacer.?? 3. anemia- high b12, replace folate.? high iron sat -s/p prbc tx.? may need more -use TRIXIE 4.? inc AG met acidosis-? normal lactate -likely from JESSICA -consider oral sodium bicarb 5.? hyponatremia-? na improved to 132 tsh 5.15- not causing hyponatremia - AM cortisol level = 13 6.? hypoalbuminemia- from illness - needs nutrition seen and examined w/ RN -telehealth visit time spent 30? min Plan Attestations Medical Necessity Statement*: Patient is to be in hospital for management of sepsis Coding Level of Care Code Acute Phys Therapist for g Fwd Diagnoses ATN (acute tubular necrosis) N17.0
--- NOTE | 2022-06-11 10:45 | PC.HD ---
Patient required albumin and levophed during treatment for low blood pressures. 500 mL NSS bolus was given during trx. Also, dialysate temperature was reduced from 36.0 to 35.0C, and UF was turned off. Investment Sales Assistant was made aware of this and requested the trx run for3.0 hours rather than the prescribed 3.5 hours
[2022-06-11] MEDS: heparin, porcine 1,000 unit/mL INJ 10 mL HE (12:04)
--- NOTE | 2022-06-11 13:52 | PM.PN ---
Subjective Subjective: Patient was seen and examined this morning, leukocyte count is trending down, she will receive hemodialysis today, as she received contrast during CT studies. Current plan is also to transfuse her 1 unit PRBC, as hemoglobin is 6.8 Medications: Reviewed: Yes Medication Review Details: Generic Name Dose Route Start Last Admin Trade Name Cristhianq PRN Reason Stop Dose Admin Acetaminophen 650 mg 06/01/22 00:06 06/07/22 23:34 Acetaminophen 32 5 Mg Tablet PO 650 mg Q6H PRN Administration Mild/Mod Pain Or Temp >/= 101 Epoetin Gunnar 10,000 unit 06/07/22 14:00 06/10/22 03:10 Epoetin Gunnar 10, 000 Unit/Ml Inj SUBCUT 10,000 unit QMWF ULYSSES Administration Folic Acid 1 mg 06/01/22 09:00 06/11/22 08:15 Folic Acid 1 Mg Tablet PO 1 mg DAILY ULYSSES Administration Norepinephrine Bit artrate 4 mg 254 mls @ 0 mls/h r 06/03/22 04:30 06/11/22 07:21 / Dextrose IV 2 mcg/min .Q0M ULYSSES 7.62 mls/hr Titration Protocol Per Protocol Albumin Human 12.5 gm in 50 mls @ 60 mls/hr 06/03/22 08:12 06/11/22 07:46 Albumin IV Infused PRN PRN Infusion Hypotension and/o r symptomatic Meropenem 500 mg/ Sodium 50 mls @ 100 mls/ hr 06/11/22 04:00 06/11/22 03:47 Chloride IV Infused Q12H ULYSSES Infusion Pantoprazole Sodiu m 40 mg 06/01/22 09:00 06/11/22 08:[address] 40 Mg Tablet PO 40 mg DAILY ULYSSES Administration Senna/Docusate Sod ium 1 tab 06/05/22 09:00 06/11/22 08:15 Sennosides-Docus ate Tablet PO 1 tab DAILY ULYSSES Administration Thiamine HCl 100 mg 06/09/22 09:00 06/11/22 08:16 Thiamine 100 Mg/ Ml Sdv IVP 100 mg DAILY ULYSSES Administration Vitals/I&O/Wt Last Vital Signs Temp 98.8 F 06/11/22 13:44 Pulse 82 06/11/22 13:44 Resp 13 06/11/22 13:44 BP 109/57 06/11/22 13:44 Pulse Ox 93 06/11/22 13:44 O2 Del Method 06/11/22 05:35 O2 Flow Rate 2 06/06/22 08:00 06/10/22 06/11/22 06/11/22 22:59 06:59 14:59 Intake Total 170 / 170 250 / 420 1560 / 1560 Output Total 1600 / 2175 550 / 2725 143 / 143 Balance -1430 / -2005 -300 / -2305 1417 / 1417 Weight last 48 hrs Weight 79.016 kg Weight 79.152 kg Physical Exam Const: COMMON NORMALS: patient oriented x3 Resp: COMMON NORMALS: clear to auscultation bilaterally EFFORT & INSPECTION: Yes symmetric chest movement AUSCULTATION: clear to auscultation bilaterally Cardio: COMMON NORMALS: regular rate, regular rhythm, S1 normal heart sound present, S2 normal heart sound present, No gallops present (Cardio), No murmurs present (Cardio), No rub (Cardio) and Peripheral pulses 2+ throughout RATE: regular rate RHYTHM: regular rhythm HEART SOUNDS: S1 normal heart sound present and S2 normal heart sound present PERIPHERAL PULSES: Peripheral pulses 2+ throughout GI: COMMON NORMALS: Normal to inspection, nondistended, normoactive bowel sounds present, Soft to palpation, non-tender, No hepatosplenomegaly present and no masses AUSCULTATION: Yes normoactive bowel sounds PALPATION: Yes Soft to palpation and Yes No hepatosplenomegaly present RECTAL EXAM: deferred Extremity: COMMON NORMALS: no clubbing, cyanosis or edema and no pedal edema Neuro: COMMON NORMALS: patient oriented x3 Urinary Catheter Management: Martinez: Cath Placed During This Visit: yes Reason for Continuing Indwelling Catheter: Accurate Measurement of Urinary Output in Critically Ill Patients Urinary Catheter Date of Insertion: 06/01/22 Urinary Catheter Time of Insertion: 11:51 Data : 06/11/22 04:04 06/11/22 04:04 Micro: Microbiology 06/04/22 14:51 Gram Stain - Final Other Source Anaerobic Culture - Preliminary Abscess Culture - Final Escherichia coli 06/04/22 14:45 Anaerobic Culture - Preliminary Hip - #3 06/04/22 14:42 Gram Stain - Final Incision Anaerobic Culture - Preliminary Abscess Culture - Final Escherichia coli 06/01/22 07:55 Urine Culture - Final Urine Catheterized Gram Negative Rods A&P Assessment and plan (1) ATN (acute tubular necrosis): (2) Avascular necrosis: (3) Hip osteomyelitis, left: (4) Dehydration: (5) Hyponatremia: (6) Sepsis: (7) Fall: (8) Hip pain, left: (9) Acute kidney injury: (10) Alcohol abuse: Plan Assessment: Septic shock: Secondary to UTI, left hip abscess osteomyelitis Renal failure: On hemodialysis Chronic alcohol abuse Anemia Significant leukocytosis with left shift 76-year-old female with past medical history of alcohol abuse was initially admitted with for the management of left hip pain, JESSICA versus JESSICA on CKD , hyponatremia sepsis secondary to UTI had a complicated hospital course, she went into septic shock secondary to UTI as well as left hip osteomyelitis, during the hospital stay she also ended into renal failure, secondary to sepsis triggered ATN, currently on hemodialysis, after placement on right femoral dialysis catheter. For her left hip AVN/osteomyelitis/abscess: She underwent Left hip irrigation and debridement with cultures, [place] left femoral neck, antibiotic cemented beads spacers, deep drain placement and incisional VAC placement. Orthopedic on board. Wound cultures so far has grown: E. coli, urine culture E. coli, blood culture on admission E. coli, repeat blood culture no growth, most recent blood culture drawn on 10/07: Pending:, C. difficile toxin PCR negative, MRI of left hip: Nondiagnostic as the patient was not able to lie still. CT abdomen pelvis wo con: No hydronephrosis no pyelonephritis. No nephrolithiasis. Repeat CT chest abdomen and pelvis with contrast: Very small LEFT pleural effusion with LEFT basilar atelectasis. Mild mucosal edema involving the antrum of the stomach and a small ulcer in the antrum measuring 8 mm.Numerous diverticula throughout the colon with no evidence for acute diverticulitis. Soft tissue edema in the pelvis. Additional more focal postoperative changes at the LEFT hip from the recent arthroplasty. No focal collection. These changes are probably appropriate.CT lumbar spine w con: No epidural abscess. CT thoracic spine w con: No epidural abscess 2D echo: Normal LV Size and Systolic Function, no RWMA, LVEF 70%, grade 1 diastolic dysfunction, no valvular vegetation. Patient has been on broad-spectrum antibiotics so far. She will need long-term antibiotic for her hip pathology, possibly 8 to 10 weeks.ID has been consulted. Multiple intraoperative cultures to be followed.For patient's septic shock initially she was on vasopressor support, currently she is off vasopressor support. For history of alcohol abuse she has been on high-dose thiamine IV initially as well as p.o. folic acid. During the hospital stay patient had also required 1 unit PRBC transfusion for anemia, FOBT is negative. Posttransfusion H&H has remained stable.Possible explanation of chronic anemia could be alcohol-related. Regarding her renal failure: Patient will need PermCath placement, prior to discharge. Leukemia lymphoma panel has been sent: No lymphoma/leukemia seen on flow cytometry. 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 Lines and tubes: Right femoral dialysis catheter, left PICC line. DVT prophylaxis: On SCD Code status:DNR/DNI Attestations Medical Necessity Statement*: Patient is still in hospital management of septic shock. 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
--- NOTE | 2022-06-11 14:21 | PM.PN ---
Subjective Subjective: Patient seen and examined this morning. No issues overnight. She did get some dialysis today. Patient states left hip feels better. Incisional VAC on in place with good seal. Her Hemovac drain is on in place per nursing staff is had roughly 100 cc out over the past 24 hours. This is a bloody output. She is gotten up with therapy and she can be toe-touch weightbearing. Vitals/I&O/Wt Last Vital Signs Temp 98.8 F 06/11/22 13:44 Pulse 82 06/11/22 13:44 Resp 13 06/11/22 13:44 BP 109/57 06/11/22 13:44 Pulse Ox 93 06/11/22 13:44 O2 Del Method 06/11/22 05:35 O2 Flow Rate 2 06/06/22 08:00 06/10/22 06/11/22 06/11/22 22:59 06:59 14:59 Intake Total 170 / 170 250 / 420 1560 / 1560 Output Total 1600 / 2175 550 / 2725 143 / 143 Balance -1430 / -2005 -300 / -2305 1417 / 1417 Weight last 48 hrs Weight 174 lb 3.2 oz Weight 174 lb 8 oz Physical Exam Narrative: Examination left hip demonstrates incisional VAC on in place with good seal no output Hemovac drain on in place has had roughly 100 cc of bloody output over the past 24 hours. Patient is able to wiggle toes plantarflex dorsiflex ankle continues to have slight bluish discoloration of her bilateral toes. She not sensation tact light touch distally. Continued peripheral edema noted. Urinary Catheter Management: Martinez: Cath Placed During This Visit: yes Reason for Continuing Indwelling Catheter: Accurate Measurement of Urinary Output in Critically Ill Patients Urinary Catheter Date of Insertion: 06/01/22 Urinary Catheter Time of Insertion: 11:51 Data : 06/11/22 04:04 06/11/22 04:04 Micro: Microbiology 06/04/22 14:51 Gram Stain - Final Other Source Anaerobic Culture - Preliminary Abscess Culture - Final Escherichia coli 06/04/22 14:45 Anaerobic Culture - Preliminary Hip - #3 06/04/22 14:42 Gram Stain - Final Incision Anaerobic Culture - Preliminary Abscess Culture - Final Escherichia coli 06/01/22 07:55 Urine Culture - Final Urine Catheterized Gram Negative Rods A&P Assessment and plan (1) Hip osteomyelitis, left: (2) ATN (acute tubular necrosis): (3) Dehydration: (4) Fall: (5) Hip pain, left: (6) Acute kidney injury: Plan Toe-touch weightbearing left lower extremity PT/OT IV antibiotics per primary and infectious disease Plan will be for possible Hemovac drain removal tomorrow if output continues to decrease. Internal medicine is primary. No further surgical orthopedic intervention at this time during this hospitalization. We will plan on rounding on patient tomorrow for evaluation in hopes to remove Hemovac drain. Incisional VAC will remain on in place for 7 days postoperatively. Attestations Medical Necessity Statement*: Patient has osteomyelitis of the left hip requiring surgical intervention as well as IV antibiotics patient also has UTI, JESSICA and requiring dialysis. 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
[2022-06-11] MEDS: epoetin alfa 10,000 unit/mL INJ 10000 UNIT SUBCUT (14:54)
--- NOTE | 2022-06-11 15:04 | PM.PN ---
Subjective Subjective: Infectious disease progress note. Since last being seen, patient returned to the operating room on June 09, 2022 for a second I&D, removal of antibiotic beads and conversion to Prostalac spacers, placement of deep drain and incisional VAC. CT of her chest abdomen and pelvis and back has failed to show any other untreated source of infection. Transthoracic echocardiogram is additionally normal. Leukocytosis has trended up to 49. T-max noted to be 100 Fahrenheit. Blood culture from 06/09 thus far negative to date. Medications: Reviewed: Yes Vitals/I&O/Wt Last Vital Signs Temp 99.8 F H 06/11/22 14:44 Pulse 91 06/11/22 14:44 Resp 17 06/11/22 14:44 BP 108/65 06/11/22 14:44 Pulse Ox 95 06/11/22 14:44 O2 Del Method 06/11/22 05:35 O2 Flow Rate 2 06/06/22 08:00 06/11/22 06/11/22 06/11/22 06:59 14:59 22:59 Intake Total 250 / 420 1926.383 / 1926.383 Output Total 550 / 2725 143 / 143 Balance -300 / -2305 1783.383 / 1783.383 Weight last 48 hrs Weight 79.016 kg Weight 79.152 kg Physical Exam Narrative: General: No acute distress, AO x3 HEENT: PERRLA, pupils bilaterally equal and reactive, pallors not present Chest: Normal vesicular breath sounds, no added sounds, equal good air entry bilaterally CVS: S1-S2 regular, no murmurs, no tachycardia, no gallops, no rubs Abdomen: Soft, nontender, no organomegaly, bowel sounds present Neuro: No focal deficits, no facial deformity, AO x3, power 5/5 in all limbs Extremities: Healthy surgical dressing present on the left hip, mild tenderness, soft no erythema. Urinary Catheter Management: Martinez: Cath Placed During This Visit: yes Reason for Continuing Indwelling Catheter: Accurate Measurement of Urinary Output in Critically Ill Patients Urinary Catheter Date of Insertion: 06/01/22 Urinary Catheter Time of Insertion: 11:51 Data : 06/15/22 03:24 06/15/22 03:24 Micro: Microbiology ?06/01/22 07:55 Urine Culture - Final ?Urine Catheterized ?? Gram Negative Rods- E. coli ? --------- ------ ?? ? * Amikacin? <=16? ? ? S ?? ? * Amoxicillin/Clavulanate? <=8/4? ? ? S ?? ? * Ampicillin ? <=8? ? ? S ?? ? * Ampicillin/Sulbactam ? <=8/4? ? ? S ?? ? * Aztreonam? <=4? ? ? S ?? ? * Cefepime ? <=8? ? ? S ?? ? * Ceftriaxone? <=1? ? ? S ?? ? * Cefuroxime ? <=4? ? ? S ?? ? * Ciprofloxacin? <=1? ? ? S ?? ? * Gentamicin ? <=2? ? ? S ?? ? * Imipenem ? <=1? ? ? S ?? ? * Levofloxacin ? <=2? ? ? S ?? ? * Nitrofurantoin? <=32? ? ? S ?? ? * Tetracycline ? <=4? ? ? S ?? ? * Trimethoprim/Sulfamethoxazole? ? ? >2/38? ? ? R ?? ? * Piperacillin/Tazobactam ? <=16? ? ? S ?06/04/22 14:51 Gram Stain - Final ?Other Source Anaerobic Culture - Preliminary ? Abscess Culture left hip - Final ? ?? Escherichia coli ? E coli ? M.I.C. ? ? RX ? --------- ------ ?? ? * Amikacin? <=16? ? ? S ?? ? * Amoxicillin/Clavulanate? <=8/4? ? ? S ?? ? * Ampicillin ? <=8? ? ? S ?? ? * Ampicillin/Sulbactam ? <=8/4? ? ? S ?? ? * Aztreonam? <=4? ? ? S ?? ? * Cefepime ? <=8? ? ? S ?? ? * Ceftriaxone? <=1? ? ? S ?? ? * Cefuroxime ? <=4? ? ? S ?? ? * Ciprofloxacin? <=1? ? ? S ?? ? * Gentamicin ? <=2? ? ? S ?? ? * Imipenem ? <=1? ? ? S ?? ? * Levofloxacin ? <=2? ? ? S ?? ? * Tetracycline ? <=4? ? ? S ?? ? * Trimethoprim/Sulfamethoxazole? ? ? >2/38? ? ? R ?? ? * Piperacillin/Tazobactam ? <=16? ? ? S ?06/04/22 14:45 Anaerobic Culture - Preliminary ?Hip - #3 ? ?06/04/22 Gram Stain - Final ? Anaerobic Culture - Preliminary left hip joint cx Intramedullary cx Labrum capsule culture acetabulum culture ? ?- Final ? Escherichia coli ? [facility].I[facility]. ? ? RX ? --------- ------ ?? ? * Amikacin? <=16? ? ? S ?? ? * Amoxicillin/Clavulanate? <=8/4? ? ? S ?? ? * Ampicillin ? <=8? ? ? S ?? ? * Ampicillin/Sulbactam ? <=8/4? ? ? S ?? ? * Aztreonam? <=4? ? ? S ?? ? * Cefepime ? <=8? ? ? S ?? ? * Ceftriaxone? <=1? ? ? S ?? ? * Cefuroxime ? <=4? ? ? S ?? ? * Ciprofloxacin? <=1? ? ? S ?? ? * Gentamicin ? <=2? ? ? S ?? ? * Imipenem ? <=1? ? ? S ?? ? * Levofloxacin ? <=2? ? ? S ?? ? * Tetracycline ? <=4? ? ? S ?? ? * Trimethoprim/Sulfamethoxazole? ? ? >2/38? ? ? R ?? ? * Piperacillin/Tazobactam ? <=16? ? ? S ? PBCX: 06/09: negative to date PBCX: 06/03: negative PBCX: 05/31: E. coli ? E coli ? M.I.C. ? ? RX ? --------- ------ ?? ? * Amikacin? <=16? ? ? S ?? ? * Amoxicillin/Clavulanate? <=8/4? ? ? S ?? ? * Ampicillin ? <=8? ? ? S ?? ? * Ampicillin/Sulbactam ? <=8/4? ? ? S ?? ? * Aztreonam? <=4? ? ? S ?? ? * Cefepime ? <=8? ? ? S ?? ? * Ceftriaxone? <=1? ? ? S ?? ? * Cefuroxime ? <=4? ? ? S ?? ? * Ciprofloxacin? <=1? ? ? S ?? ? * Gentamicin ? <=2? ? ? S ?? ? * Imipenem ? <=1? ? ? S ?? ? * Levofloxacin ? <=2? ? ? S ?? ? * Tetracycline ? <=4? ? ? S ?? ? * Trimethoprim/Sulfamethoxazole? ? ? >2/38? ? ? R ?? ? * Piperacillin/Tazobactam ? <=16? ? ? S 06/04: C diff PCR negative 06/10 CT/CT chest abd pel w con* IMPRESSION: ? 1.? Very small LEFT pleural effusion with LEFT basilar atelectasis. 2.? Mild mucosal edema involving the antrum of the stomach and a small ulcer in the antrum measuring 8 mm. 3.? Numerous diverticula throughout the colon with no evidence for acute diverticulitis. 4.? Soft tissue edema in the pelvis. Additional more focal postoperative changes at the LEFT hip from the recent arthroplasty. No focal collection. These changes are probably appropriate. 5.? Martinez catheter. 6.? No renal obstruction. No pneumonia. 06/10 CT/CT lumbar spine w con [id number] IMPRESSION: ? 1.? No epidural abscess identified. No enhancing mass encroaching upon the thecal sac. This study lacks sensitivity for small abscesses. 2.? Multilevel areas of foraminal and central stenosis as above. 06/10 CT/CT thoracic spine w con [id number] IMPRESSION: ? 1.? No epidural abscess or mass effect upon the thoracic cord identified. This study lacks sensitivity for small abscesses. 2.? Small LEFT pleural effusion 05/31 : CT/CT hip LT wo con* [id number] IMPRESSION: 1. Negative for fracture or dislocation. 2. Severe left hip osteoarthritis with bony remodeling of the femur and acetabulum. 3. Several pockets of air density seen in the left proximal femur medullary space measuring up to 13.8 mm with some poorly defined overlying edematous soft tissue with some punctate pockets of air and an apparent fluid collection in the soft tissue measuring up to 3.7 cm over the anterior aspect of the intertrochanteric region, concerning for an infectious process involving the soft tissues along with osteomyelitis. 06/01 XR/XR chest 1V portable [id number] IMPRESSION: Trace atelectasis or scar noted in the left lung base. 06/01 CT/CT head wo con* [id number] IMPRESSION: ? 1.? No evidence of intracranial hemorrhage or mass effect. 2.? Moderate small vessel changes. Moderate parenchymal volume loss. 3.? Chronic lacunar infarcts in the RIGHT caudate and basal ganglia. Chronic lacunar infarcts in the RIGHT cerebellum. 4.? Intracranial vascular calcification. 5.? No acute intracranial findings. 06/01 MR/MR hip LT wo con* [id number] IMPRESSION: ? 1.? Nearly nondiagnostic evaluation of the LEFT hip. Patient was unable to remain still for this examination. 2.? Cannot exclude fracture or osteomyelitis. 3.? There is severe soft tissue edema and synovial thickening surrounding the LEFT hip and involving the muscles surrounding the LEFT hip. Infectious process likely. 06/02 CT/CT abdomen pelvis wo con [id number] IMPRESSION: ? 1.? No hydronephrosis in either kidney. Martinez catheter in place. Suggestion of renal parenchymal edema however enhancement cannot be assessed without contrast. 2.? No obstructing renal ureteral calculi. 3.? Tiny bilateral pleural effusions with subsegmental atelectasis in the lung bases. 4.? Small esophageal hiatal hernia. 5.? Sigmoid diverticulosis. No evidence of acute diverticulitis. 6.? Advanced degenerative or posttraumatic arthritis LEFT hip with avascular necrosis and flattening of the femoral head and subchondral cystic change.Soft tissue edema about the LEFT hip with joint effusion. Recommend correlation for infection. A&P Assessment and plan (1) Hip osteomyelitis, left: (2) Gram negative sepsis: (3) Acute kidney injury: Plan 76-year-old lady with no reported past medical history presenting with gram-negative sepsis, primarily source appears to be a septic left hip joint and osteomyelitis of the femur. Blood cultures and multiple OR cultures from I&D of the left hip have revealed E. coli, susceptible to ceftriaxone. Patient reports no trauma to the site, however history is pretty limited from her. She is status post I&D of the left hip on June 04, 2022 and again on 06/09. On 06/09 converted to abx impregnated articulating spacers. Planned for definitive joint replacement few weeks to months down the line. Current issues are persisting leukocytosis, and intermittent low grade fever. She is off pressors. Recommend to obtain CT of the chest abdomen and pelvis, Ct thoracolumar spine, without any evident untreated sources such as abscess, septic emboli, osteomyeltis at other site, etc. TTE on 06/09 without gross vegetations. Repeat blood cx from 06/04 and 06/09 thus far negative to date. Plan: D/c meropenem, transition to Ceftriaxone 2g iv q24h in keeping with susceptibility results Deferred FARHANA for now as unlikely to change clinical management. Thus far she is clinically improving off pressors, Joseph resolving, Blood cx cleared quickly. though has persisting leukocytosis which will be trended over time. 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
[2022-06-11] MEDS: cefTRIAXone 2,000 MG in sodium chloride 0.9% (plus) 50 ML 100 MG IV (15:27)
[2022-06-11 22:13] LABS: SARS Covid-2 Antigen negative (Negative)
[2022-06-11] MEDS: oxyCODONE-APAP 5-325 mg Tablet 1 TAB PO (23:06)
[2022-06-11 23:41] LABS: Adenovirus Not Detected (NOT DETECT); Chlamydia Pneumoniae Not Detected (NOT DETECT); Coronavirus 229E,HKU1,NL63,OC4 Not Detected (NOT DETECT); Human Metapneumovirus Not Detected (NOT DETECT); Human Rhinovirus/Enterovirus Not Detected (NOT DETECT); Influenza A Not Detected (NOT DETECT); Influenza A H1 Not Detected (NOT DETECT); Influenza A H1-2009 Not Detected (NOT DETECT); Influenza A H3 Not Detected (NOT DETECT); Influenza B Not Detected (NOT DETECT); Mycoplasma Pneumoniae Not Detected (NOT DETECT); Parainfluenza Virus Type 1 Not Detected (NOT DETECT); Parainfluenza Virus Type 2 Not Detected (NOT DETECT); Parainfluenza Virus Type 3 Not Detected (NOT DETECT); Parainfluenza Virus Type 4 Not Detected (NOT DETECT); Respiratory Syncytial Virus A Not Detected (NOT DETECT); Respiratory Syncytial Virus B Not Detected (NOT DETECT); SARS-COV-2 Not Detected (NOT DETECT)
[2022-06-12] VITALS (77 sets, daily range): BP systolic 84–159; BP diastolic 60–85; PULSE 67–110; RESP 11–22; TEMP 36.8–38; O2SAT 84–99; BMI 30.6
[2022-06-12 04:02] LABS: Magnesium 1.8 mg/dL (1.7-2.3); Phosphorus 3.2 mg/dL (2.5-4.5)
[2022-06-12] MEDS: sennosides-docusate Tablet 1 TAB PO (08:23)
[2022-06-12] MEDS: pantoprazole DR 40 mg Tablet PO (08:23)
[2022-06-12] MEDS: folic acid 1 mg Tablet PO (08:23)
--- NOTE | 2022-06-12 08:59 | PC.NURSE ---
Drain was removed from left hip area by surgeon with this nurse at bedside. Dressing dry and intact.
[2022-06-12 09:14] LABS: Basophils # 0.1 10^3/uL (0.0-0.1); Basophils % 0.5 %; Eosinophils # 0.1 10^3/uL (0.0-0.8); Eosinophils % 0.2 %; Hematocrit 25.1 % (37.0-47.0); Hemoglobin 8.4 g/dL (11.5-15.3); Lymphocytes # 0.9 10^3/uL (0.8-4.8); Lymphocytes % 3.1 %; Mean Corpuscular HGB Conc 33.5 g/dL (30.0-36.0); Mean Corpuscular Hemoglobin 31.2 pg (28.0-34.0); Mean Corpuscular Volume 93.3 fl (81-99); Mean Platelet Volume 10.6 fL (7.4-10.4); Monocytes # 1.1 10^3/uL (0.2-0.9); Monocytes % 4.1 %; Neutrophils # 23.96 10^3/uL (1.8-7.7); Neutrophils % 88.2 %; Nucleated Red Blood Cells % 0 %; Platelet Count 391 10^3/cmm (130-400); Red Blood Count 2.69 10^6/uL (4.1-5.3); Red Cell Distribution Width 15.5 % (12.1-15.1); White Blood Count 27.2 10^3/uL (4.0-10.0)
[2022-06-12 09:33] LABS: Blood Urea Nitrogen 26 mg/dL (8-23); Calcium 8.3 mg/dL (8.5-10.5); Carbon Dioxide 24 mmol/L (22-29); Chloride 96 mmol/L (98-107); Glucose 97 mg/dL (65-115); Osmolality Calculated 275 mOsm/kg (285-295); Sodium 130 mmol/L (136-145)
[2022-06-12] MEDS: oxyCODONE-APAP 5-325 mg Tablet 1 TAB PO (09:57)
[2022-06-12] MEDS: cefTRIAXone 2,000 MG in sodium chloride 0.9% (plus) 50 ML 100 MG IV (16:25)
--- NOTE | 2022-06-12 16:42 | P.PN_ITS ---
Subjective Subjective: Patient seen and examined this morning.No acute events overnight, doing better, WBC is trending down, afebrile, documented u/o: 1.3ls. Medications: Reviewed: Yes Medication Review Details: 3Generic Name Dose Route Start Last Admin Trade Name Freq PRN Reason Stop Dose Admin Acetaminophen 650 mg 06/01/22 00:06 06/07/22 23:34 Acetaminophen 32 5 Mg Tablet PO 650 mg Q6H PRN Administration Mild/Mod Pain Or Temp >/= 101 Epoetin Gunnar 10,000 unit 06/07/22 14:00 06/11/22 14:54 Epoetin Gunnar 10, 000 Unit/Ml Inj SUBCUT 10,000 unit QMWF ULYSSES Administration Folic Acid 1 mg 06/01/22 09:00 06/12/22 08:23 Folic Acid 1 Mg Tablet PO 1 mg DAILY ULYSSES Administration Norepinephrine Bit artrate 4 mg 254 mls @ 0 mls/h r 06/03/22 04:30 06/11/22 09:30 / Dextrose IV 0 mcg/min .Q0M ULYSSES 0 mls/hr Titration Protocol Per Protocol Albumin Human 12.5 gm in 50 mls @ 60 mls/hr 06/03/22 08:12 06/11/22 07:46 Albumin IV Infused PRN PRN Infusion Hypotension and/o r symptomatic Ceftriaxone Sodium 2,000 mg/ 50 mls @ 100 mls/ hr 06/12/22 15:30 06/12/22 16:25 Sodium Chloride IV 100 mls/hr Q24H ULYSSES Administration Protocol Oxycodone/Acetamin ophen 1 tab 06/11/22 17:07 06/12/22 09:57 Oxycodone-Apap 5 -325 Mg Tablet PO 1 tab Q6H PRN Administration MODERATE PAIN Pantoprazole Sodiu m 40 mg 06/01/22 09:00 06/12/22 08:[address] 40 Mg Tablet PO 40 mg DAILY ULYSSES Administration Senna/Docusate Sod ium 1 tab 06/05/22 09:00 06/12/22 08:23 Sennosides-Docus ate Tablet PO 1 tab DAILY ULYSSES Administration Thiamine HCl 100 mg 06/09/22 09:00 06/12/22 08:23 Thiamine 100 Mg/ Ml Sdv IVP 100 mg DAILY ULYSSES Administration Vitals/I&O/Wt Last Vital Signs Temp 99.0 F 06/12/22 07:00 Pulse 79 06/12/22 16:00 Resp 14 06/12/22 16:00 BP 112/64 06/12/22 16:00 Pulse Ox 92 06/12/22 16:00 O2 Del Method 06/12/22 05:45 O2 Flow Rate 2 06/12/22 05:45 06/12/22 06/12/22 06/12/22 06:59 14:59 22:59 Output Total 800 / 1493 Balance -800 / 1021.383 Weight last 48 hrs Weight 78.471 kg Weight 79.016 kg Physical Exam Const: COMMON NORMALS: patient oriented x3 Resp: COMMON NORMALS: clear to auscultation bilaterally EFFORT & INSPECTION: Yes symmetric chest movement AUSCULTATION: clear to auscultation bilaterally Cardio: COMMON NORMALS: regular rate, regular rhythm, S1 normal heart sound present, S2 normal heart sound present, No gallops present (Cardio), No murmurs present (Cardio), No rub (Cardio) and Peripheral pulses 2+ throughout RATE: regular rate RHYTHM: regular rhythm HEART SOUNDS: S1 normal heart sound present and S2 normal heart sound present PERIPHERAL PULSES: Peripheral pulses 2+ throughout GI: COMMON NORMALS: Normal to inspection, nondistended, normoactive bowel so unds present, Soft to palpation, non-tender, No hepatosplenomegaly present and no masses AUSCULTATION: Yes normoactive bowel sounds PALPATION: Yes Soft to palpation and Yes No hepatosplenomegaly present RECTAL EXAM: deferred Extremity: COMMON NORMALS: no clubbing, cyanosis or edema and no pedal edema Neuro: COMMON NORMALS: patient oriented x3 Urinary Catheter Management: Martinez: Cath Placed During This Visit: yes Reason for Continuing Indwelling Catheter: Accurate Measurement of Urinary Output in Critically Ill Patients Urinary Catheter Date of Insertion: 06/01/22 Urinary Catheter Time of Insertion: 11:51 Data : 06/12/22 08:56 06/12/22 08:56 Micro: Microbiology 06/04/22 14:45 Anaerobic Culture - Final Hip - #3 06/04/22 14:42 Gram Stain - Final Incision Anaerobic Culture - Final Abscess Culture - Final Escherichia coli 06/04/22 14:51 Gram Stain - Final Other Source Anaerobic Culture - Final Abscess Culture - Final Escherichia coli A&P Assessment and plan (1) ATN (acute tubular necrosis): (2) Avascular necrosis: (3) Hip osteomyelitis, left: (4) Dehydration: (5) Hyponatremia: (6) Sepsis: (7) Fall: (8) Hip pain, left: (9) Acute kidney injury: (10) Alcohol abuse: Plan Assessment: Septic shock: Secondary to UTI, left hip abscess osteomyelitis Renal failure: On hemodialysis Chronic alcohol abuse Anemia Significant leukocytosis with left shift 76-year-old female with past medical history of alcohol abuse was initially admitted with for the management of left hip pain, JESSICA versus JESSICA on CKD , hyponatremia sepsis secondary to UTI had a complicated hospital course, she went into septic shock secondary to UTI as well as left hip osteomyelitis, during the hospital stay she also ended into renal failure, secondary to sepsis triggered ATN, currently on hemodialysis, after placement on right femoral dialysis catheter. For her left hip AVN/osteomyelitis/abscess: She underwent Left hip irrigation and debridement with cultures, [place] left femoral neck, antibiotic cemented beads spacers, deep drain placement and incisional VAC placement. Orthopedic on board. Wound cultures so far has grown: E. coli, urine culture E. coli, blood culture on admission E. coli, repeat blood culture no growth, most recent blood culture drawn on 10/07: No growth :, C. difficile toxin PCR negative, MRI of left hip: Nondiagnostic as the patient was not able to lie still. CT abdomen pelvis wo con: No hydronephrosis no pyelonephritis. No nephrolithiasis. Repeat CT chest abdomen and pelvis with contrast: Very small LEFT pleural effusion with LEFT basilar atelectasis. Mild mucosal edema involving the antrum of the stomach and a small ulcer in the antrum measuring 8 mm.Numerous diverticula throughout the colon with no evidence for acute diverticulitis. Soft tissue edema in the pelvis. Additional more focal postoperative changes at the LEFT hip from the recent arthroplasty. No focal collection. These changes are probably appropriate.CT lumbar spine w con: No epidural abscess. CT thoracic spine w con: No epidural abscess 2D echo: Normal LV Size and Systolic Function, no RWMA, LVEF 70%, grade 1 diastolic dysfunction, no valvular vegetation. Patient has been on broad-spectrum antibiotics so far. She will need long-term antibiotic for her hip pathology, possibly 8 to 10 weeks.ID has been consulted. Multiple intraoperative cultures to be followed.For patient's septic shock initially she was on vasopressor support, currently she is off vasopressor support. She has been on broad spectrum abxs so far ( van, cepepime, meropenam,) currently abxs has been narrowed to ceftriaxone 2 gm daily she will need I.V Abxs for 6-8 weeks, I/D on board. For history of alcohol abuse she has been on high-dose thiamine IV initially as well as p.o. folic acid. During the hospital stay patient had also required 1 unit PRBC transfusion for anemia, FOBT is negative. Posttransfusion H&H has remained stable.Possible explanation of chronic anemia could be alcohol-related. Regarding her renal failure: Patient is currently making good urine, plan for now is to monitor kidney function for recovery. Leukemia lymphoma panel has been sent: No lymphoma/leukemia seen on flow cytometry. Social dynamics Patient is alcoholic, lives alone, recurrent falls at home, no other family, her friend is her DPOA who is in [place], she is a nurse her name is Elen. Lines and tubes: Right femoral dialysis catheter, left PICC line. DVT prophylaxis: On SCD Code status:DNR/DNI Attestations Medical Necessity Statement*: Patient needs to be in hospital for the management of sepsis. Coding Level of Care Code Acute Drawing Checker for [facility] Fwd Exam Detailed Diagnoses ATN (acute tubular necrosis) N17.0 Avascular necrosis M87.00 Hip osteomyelitis, left M86.9 Dehydration E86.0 Hyponatremia E87.1 Sepsis A41.9 Fall W19.XXXA Hip pain, left M25.552 Acute kidney injury N17.9 Alcohol abuse F10.10
--- NOTE | 2022-06-12 17:49 | PM.PN ---
Subjective Subjective: denies any complaints family @ bedside Vitals/I&O/Wt Last Vital Signs Temp 99.0 F 06/12/22 07:00 Pulse 79 06/12/22 16:00 Resp 14 06/12/22 16:00 BP 112/64 06/12/22 16:00 Pulse Ox 92 06/12/22 16:00 O2 Del Method 06/12/22 05:45 O2 Flow Rate 2 06/12/22 05:45 06/12/22 06/12/22 06/12/22 06:59 14:59 22:59 Output Total 800 / 1493 Balance -800 / 1021.383 Weight last 48 hrs Weight 78.471 kg Weight 79.016 kg Physical Exam Narrative: pt awake , alert , No distress , PEERLA Neck supple + edema Urinary Catheter Management: Martinez: Cath Placed During This Visit: yes Reason for Continuing Indwelling Catheter: Accurate Measurement of Urinary Output in Critically Ill Patients Urinary Catheter Date of Insertion: 06/01/22 Urinary Catheter Time of Insertion: 11:51 Data : 06/12/22 08:56 06/12/22 08:56 Micro: Microbiology 06/04/22 14:45 Anaerobic Culture - Final Hip - #3 06/04/22 14:42 Gram Stain - Final Incision Anaerobic Culture - Final Abscess Culture - Final Escherichia coli 06/04/22 14:51 Gram Stain - Final Other Source Anaerobic Culture - Final Abscess Culture - Final Escherichia coli A&P Assessment and plan (1) ATN (acute tubular necrosis): [place] [address] Progress Note Signed Patient: Breanna Andrew MR#: [id number] : 1945 Age/Sex: 76 / F ADM Date: 05/31/22 Loc: ICU? Room/Bed: ICU11-1 Encounter Date: 06/11/[address]: Reyes David MD Report Number: [id number] Subjective Subjective:?? s/p IV contrast yesterday and fetting hD today Vitals/I&O/Wt Last Vital Signs Temp ?98.8 F ?06/11/22 05:35 Pulse ?85 ?06/11/22 08:15 Resp ?14 ?06/11/22 08:15 BP ?115/63 ?06/11/22 08:15 Pulse Ox ?92 ?06/11/22 08:00 O2 Del Method ? ?06/11/22 05:35 O2 Flow Rate ?2 ?06/06/22 08:00 ? 06/10/22 06/11/22 06/11/22 ? 22:59 06:59 14:59 Intake Total 170 / 170 250 / 420 170 / 170 Output Total 1600 / 2175 550 / 2725 ? Balance -1430 / -2004 -300 / -2305 170 / 170 Weight last 48 hrs Weight? 79.016 kg ? Weight? 79.152 kg ? Physical Exam Urinary Catheter Management:?? Martinez: Cath Placed During This Visit: yes Reason for Continuing Indwelling Catheter: Accurate Measurement of Urinary Output in Critically Ill Patients Urinary Catheter Date of Insertion: 06/01/22 Urinary Catheter Time of Insertion: 11:51 ? Data : 06/11/22 04:04? 06/11/22 04:04? Micro: Microbiology ?06/04/22 14:51 Gram Stain - Final ?Other Source Anaerobic Culture - Preliminary ? Abscess Culture - Final ? ?? Escherichia coli ?06/04/22 14:45 Anaerobic Culture - Preliminary ?Hip - #3 ? ?06/04/22 14:42 Gram Stain - Final ?Incision Anaerobic Culture - Preliminary ? Abscess Culture - Final ? ?? Escherichia coli ?06/01/22 07:55 Urine Culture - Final ?Urine Catheterized ?? Gram Negative Rods ?06/09/22 03:39 Blood Culture - Preliminary ?Blood ?? NEGATIVE TO DATE A&P Assessment and plan (1) ATN (acute tubular necrosis): Plan [address] [address] Progress Note Signed with AddendaPatient: Breanna Andrew MR#: [id number] : 1945 Age/Sex: 76 / F ADM Date: 05/31/22 Loc: ICU? Room/Bed: ICU11-1 Encounter Date: 06/10/[address]: Reyes David MD Report Number: [id number] w/ contrats-? will dialyze tonight or in am. Addendum Dictated By: Jeremi Ponce MD Addendum Signed By: <Electronically signed by Jeremi Ponce MD> Signed Date/Time: 06/10/22 8921 Addendum Cosigned By: Subjective Subjective:??? good uop.? edema starting to decrease.? eating. + hip pain Medications:??? Reviewed: Yes? Medication Review Details: Current MedicationsAcetaminophen (Acetaminophen 325 Mg Tablet)? 650 mg PO Q6H PRN PRN Reason: Mild/Mod Pain Or Temp >/= 101 Last Admin: 06/07/22 23:34 Dose:? 650 mg Epoetin Gunnar (Epoetin Gunnar 10,000 Unit/Ml Inj)? 10,000 unit SUBCUT QMWF [facility] Last Admin: 06/10/22 03:10 Dose:? 10,000 unit Folic Acid (Folic Acid 1 Mg Tablet)? 1 mg PO DAILY [facility] Last Admin: 06/09/22 19:55 Dose:? Not Given Folic Acid (Folic Acid 1 Mg Tablet)? 1 mg PO DAILY [facility] Last Admin: 06/09/22 19:54 Dose:? Not Given Norepinephrine Bitartrate 4 mg (/ Dextrose)? 254 mls @ 0 mls/hr IV .Q0M [facility]; Protocol Last Titration: 06/07/22 08:00 Dose:? 0 mcg/min, 0 mls/hr Albumin Human (Albumin)? 12.5 gm in 50 mls @ 60 mls/hr IV PRN PRN PRN Reason: Hypotension and/or symptomatic Meropenem 500 mg/ Sodium (Chloride)? 50 mls @ 100 mls/hr IV Q24H [facility] Last Infusion: 06/09/22 15:53 Dose:? Infused Lanolin (Lanolin Oint 7 Gm)? 1 applic TOPICAL PRN PRN PRN Reason: DRYNESS Morphine Sulfate (Morphine Ir 15 Mg Tablet)? 15 mg PO Q4H PRN PRN Reason: SEVERE PAIN Last Admin: 06/05/22 20:04 Dose:? 15 mg Morphine Sulfate (Morphine 4 Mg/Ml Sdv 1 Ml)? 2 mg IVP Q4H PRN PRN Reason: SEVERE PAIN Last Admin: 06/10/22 02:25 Dose:? 2 mg Ondansetron HCl (Ondansetron 2 Mg/Ml Sdv 2 Ml)? 4 mg IVP Q8H PRN PRN Reason: vomiting, or N/V if npo Pantoprazole Sodium (Pantoprazole Dr 40 Mg Tablet)? 40 mg PO DAILY ULYSSES Last Admin: 06/09/22 19:55 Dose:? Not Given Senna/Docusate Sodium (Sennosides-Docusate Tablet)? 1 tab PO DAILY ULYSSES Last Admin: 06/09/22 19:53 Dose:? Not Given Thiamine HCl (Thiamine 100 Mg/Ml Sdv)? 100 mg IVP DAILY [facility] Last Admin: 06/10/22 02:24 Dose:? 100 mg ? Vitals/I&O/Wt Last Vital Signs Temp? ?98.6 F? ?06/09/22 14:00 Pulse? ?85? ?06/10/22 06:15 Resp? ?14? ?06/10/22 06:15 BP? ?103/59? ?06/10/22 06:15 Pulse Ox? ?97? ?06/10/22 06:15 O2 Del Method?06/10/22 06:15 O2 Flow Rate? ?2? ?06/06/22 08:00 ?? 06/09/22? 06/10/22? 06/10/22 ?? 22:59? 06:59? 14:59 Intake Total? 530 / 530? Output Total? 700 / 700? 575 / 1275? ? Balance? -170 / -170? -575 / -745? ? Weight last 48 hrs Weight? 79.152 kg ? Weight? 79.152 kg ? Physical Exam Narrative:??? obese female comfortable in bed in [place] - good uop vss Heent-? nc/at, eomi, anicteric neck supple lungs - diminished bases b/l rt femoral dialysis catheter neuro- awake, appropriate, interactive, moving Urinary Catheter Management:??? Martinez: Cath Placed During This Visit: yes Reason for Continuing Indwelling Catheter: Accurate Measurement of Urinary Output in Critically Ill Patients Urinary Catheter Date of Insertion: 06/01/22 Urinary Catheter Time of Insertion: 11:51 ? Data : 06/10/22 03:43? 06/10/22 03:43? Micro: Microbiology ?06/09/22 03:39? Blood Culture - Preliminary ?Blood? ?? NEGATIVE TO DATE ?06/09/22 02:47? Blood Culture - Preliminary ?Blood? ?? NEGATIVE TO DATE ?06/04/22 14:51? Gram Stain - Final ?Other Source? Anaerobic Culture - Preliminary ?? Abscess Culture - Final ? Escherichia coli ?06/04/22 14:45? Anaerobic Culture - Preliminary ?Hip - #3? ? ?06/04/22 14:42? Gram Stain - Final ?Incision? Anaerobic Culture - Preliminary ?? Abscess Culture - Final ? Escherichia coli A&P Assessment and plan (1) Acute kidney injury: 76 yr old female w/ left hip avascular necrosis and Q OM 1. JESSICA-? pt has been on NSAID's for a while -no hydronephrosis on ct scan u/a turbid, 3+ blood, 3+ prot, 2+ leuk est, rbc and wbc too numerous to count- 4+ ur bact -concern for ATN, chronic interstial nephritis from chronic NSAID use, or iinfection related GN-? check complements - c3 a little low at 80 - Hold off on HD today , re asess in AM 2. Leukocytosis from OM-? renal dose abx -Wound cultures so far has grown: E. coli, urine culture E. coli, blood culture no growth, 3. anemia- high b12, replace folate.? high iron sat -s/p prbc tx.? -use TRIXIE 4.? inc AG met acidosis-? normal lactate -likely from JESSICA 5.? Hyponatremia-? tsh 5.15- not causing hyponatremia - AM cortisol level = 13 6.? hypoalbuminemia- from illness - needs nutrition seen and examined w/ RN -telehealth visit Attestations Medical Necessity Statement*: Patient needs to be in hospital for the management of sepsis. Coding Level of Care Code Established Pt Acute Magazine Hand for [facility] Fwd Patient Type Established History Problem Focused Exam Problem Focused Medical Decision Making Straight Forward Diagnoses ATN (acute tubular necrosis) N17.0
--- NOTE | 2022-06-12 20:54 | PM.PN ---
Subjective Subjective: Patient seen evaluated this morning. Her Hemovac drains had minimal output overnight. Hemovac drain pulled and 4 x 4's ABD dressing applied. Anticipate drainage and recommend continual dressing changes if it becomes saturated. Patient states her hip does feel somewhat better. Incisional VAC to remain on in place for 7 days. Steady improvement of WBC count. Vitals/I&O/Wt Last Vital Signs Temp 100.4 F H 06/12/22 19:30 Pulse 84 06/12/22 20:00 Resp 14 06/12/22 20:00 BP 130/75 06/12/22 20:00 Pulse Ox 92 06/12/22 20:00 O2 Del Method 06/12/22 19:30 O2 Flow Rate 2 06/12/22 05:45 06/12/22 06/12/22 06/12/22 06:59 14:59 22:59 Intake Total 410 / 410 Output Total 800 / 1493 1300 / 1300 Balance -800 / 1021.383 -890 / -890 Weight last 48 hrs Weight 173 lb Weight 174 lb 3.2 oz Physical Exam Narrative: Examination left hip demonstrates incisional VAC on in place with good seal no output Hemovac drain on in place with no output, drain pulled in site dressed with 4 x 4's and ABDs and tape..? Patient is able to wiggle toes plantarflex dorsiflex ankle continues to have slight bluish discoloration of her bilateral toes.? She has sensation tact light touch distally.? Continued peripheral edema noted. Urinary Catheter Management: Martinez: Cath Placed During This Visit: yes Reason for Continuing Indwelling Catheter: Accurate Measurement of Urinary Output in Critically Ill Patients Urinary Catheter Date of Insertion: 06/01/22 Urinary Catheter Time of Insertion: 11:51 Data : 06/12/22 08:56 06/12/22 08:56 Micro: Microbiology 06/04/22 14:45 Anaerobic Culture - Final Hip - #3 06/04/22 14:42 Gram Stain - Final Incision Anaerobic Culture - Final Abscess Culture - Final Escherichia coli 06/04/22 14:51 Gram Stain - Final Other Source Anaerobic Culture - Final Abscess Culture - Final Escherichia coli A&P Assessment and plan (1) Hip osteomyelitis, left: (2) Hip pain, left: (3) Acute kidney injury: (4) Sepsis: Plan Toe-touch weightbearing left lower extremity PT/OT IV antibiotics per primary and infectious disease Hemovac drain removed today. Redressed with 4 x 4's ABD and tape. This may be changed as needed if becomes saturated which is anticipated should continually be redressed. Incisional VAC will be taken off 7 days postoperatively. Internal medicine is primary. No further surgical orthopedic intervention at this time during this hospitalization. Orthopedics will sign off patient at this time and follow peripherally. Appreciate allow me to partake in the care of this patient. Will defer to antibiotics at discharge per primary infectious disease team. We will peripherally follow patient hospital if still here after 7 days postoperatively we will takedown incisional VAC dressing and replaced with a new dry dressing. Patient can follow-up with me in office in 2 weeks postoperatively. All questions of been answered at this time. No further surgical orthopedic intervention at this time. Attestations Medical Necessity Statement*: Patient has osteomyelitis of the left hip requiring surgical intervention as well as IV antibiotics patient also has UTI, JESSICA and requiring dialysis. Coding Level of Care Code Acute Windows Server Engineer for [facility] Diagnoses Hip osteomyelitis, left M86.9 Hip pain, left M25.552 Acute kidney injury N17.9 Sepsis A41.9 Time Spent (min) 35
[2022-06-13] VITALS (50 sets, daily range): BP systolic 107–149; BP diastolic 63–83; PULSE 74–94; RESP 11–18; TEMP 36.6–37.8; O2SAT 88–97; BMI 31.6
[2022-06-13 05:15] LABS: Glucose Point of Care 119 mg/dL (70-110)
[2022-06-13 05:30] LABS: Basophils # 0.2 10^3/uL (0.0-0.1); Basophils % 0.6 %; Eosinophils # 0.1 10^3/uL (0.0-0.8); Eosinophils % 0.3 %; Hematocrit 24.4 % (37.0-47.0); Lymphocytes # 0.9 10^3/uL (0.8-4.8); Lymphocytes % 3.7 %; Mean Corpuscular HGB Conc 32.8 g/dL (30.0-36.0); Mean Corpuscular Hemoglobin 30.9 pg (28.0-34.0); Mean Corpuscular Volume 94.2 fl (81-99); Mean Platelet Volume 10.3 fL (7.4-10.4); Monocytes # 1.4 10^3/uL (0.2-0.9); Monocytes % 5.5 %; Neutrophils # 22.15 10^3/uL (1.8-7.7); Neutrophils % 87.1 %; Nucleated Red Blood Cells % 0 %; Platelet Count 379 10^3/cmm (130-400); Red Blood Count 2.59 10^6/uL (4.1-5.3); Red Cell Distribution Width 15.5 % (12.1-15.1); White Blood Count 25.4 10^3/uL (4.0-10.0)
[2022-06-13 05:55] LABS: Anion Gap 12.7 (5-19); Blood Urea Nitrogen 31 mg/dL (8-23); Calcium 8.7 mg/dL (8.5-10.5); Carbon Dioxide 26 mmol/L (22-29); Chloride 97 mmol/L (98-107); Glucose 110 mg/dL (65-115); Osmolality Calculated 281 mOsm/kg (285-295); Potassium 3.7 mmol/L (3.5-5.1); Sodium 132 mmol/L (136-145)
[2022-06-13] MEDS: acetaminophen 325 mg Tablet 650 MG PO ×2 (07:34→18:46)
[2022-06-13] MEDS: pantoprazole DR 40 mg Tablet PO (08:45)
[2022-06-13] MEDS: folic acid 1 mg Tablet PO (08:45)
[2022-06-13] MEDS: sennosides-docusate Tablet 1 TAB PO (08:45)
--- NOTE | 2022-06-13 11:59 | PC.SOCIAL ---
IMM Update pg 2 of IMM updated and reviewed w/ patient. Copy provided and Copy in chart dated, and initialed.
--- NOTE | 2022-06-13 12:54 | PM.PN ---
Subjective Subjective: denies any complaints off O2 off pressoors Vitals/I&O/Wt Last Vital Signs Temp 100.1 F H 06/13/22 07:30 Pulse 85 06/13/22 10:00 Resp 13 06/13/22 10:00 BP 109/63 06/13/22 10:00 Pulse Ox 94 06/13/22 10:00 O2 Del Method 06/13/22 10:00 O2 Flow Rate 2 06/12/22 05:45 06/12/22 06/13/22 06/13/22 22:59 06:59 14:59 Intake Total 410 / 410 2000 / 2410 120 / 120 Output Total 1300 / 1300 450 / 1750 Balance -890 / -890 1550 / 660 120 / 120 Weight last 48 hrs Weight 80.966 kg Weight 78.471 kg Physical Exam Narrative: Patient awake alert, no acute distress Neck supple, pupils equal and reactive Clear to auscultation per report S1-S2, regular rate and rhythm per report 1+ lower extremity edema. Urinary Catheter Management: Martinez: Cath Placed During This Visit: yes Reason for Continuing Indwelling Catheter: Accurate Measurement of Urinary Output in Critically Ill Patients Urinary Catheter Date of Insertion: 06/01/22 Urinary Catheter Time of Insertion: 11:51 Data : 06/13/22 05:10 06/13/22 05:10 A&P Assessment and plan (1) ATN (acute tubular necrosis): 76 yr old female w/ left hip avascular necrosis and Q OM 1. JESSICA-? possible ATN from sepsis , Also pt has been on NSAID's for a while -no hydronephrosis on CT scan u/a turbid, 3+ blood, 3+ prot, 2+ leuk est, rbc and wbc too numerous to count- 4+ ur bact -concern for ATN, chronic interstial nephritis from chronic NSAID use, or iinfection related GN( unlikely ) - Hold off on HD today , re asess in AM, UOP improving 2. Leukocytosis from OM-? renal dose abx -Wound cultures has grown: E. coli, urine culture E. coli, blood culture no growth, 3. anemia- high b12, replace folate.? high iron sat -s/p prbc tx.? -use TRIXIE 4.? inc AG met acidosis-? normal lactate -likely from JESSICA, improved 5.? Hyponatremia- Na 132 today tsh 5.15- not causing hyponatremia - AM cortisol level = 13 Attestations Medical Necessity Statement*: Patient has osteomyelitis of the left hip requiring surgical intervention as well as IV antibiotics patient also has UTI, JESSICA and requiring dialysis. Coding Level of Care Code Acute Cyber Workforce Developer And Manager for [facility] Fwd Diagnoses ATN (acute tubular necrosis) N17.0
--- NOTE | 2022-06-13 13:06 | P.PN_ITS ---
Subjective Subjective: Patient was seen and examined this morning.No acute events overnight, doing better, WBC is trending down, afebrile, good urine output. Medications: Reviewed: Yes Medication Review Details: 3Generic Name Dose Route Start Last Admin Trade Name Freq PRN Reason Stop Dose Admin Acetaminophen 650 mg 06/01/22 00:06 06/13/22 07:34 Acetaminophen 32 5 Mg Tablet PO 650 mg Q6H PRN Administration Mild/Mod Pain Or Temp >/= 101 Epoetin Gunnar 10,000 unit 06/07/22 14:00 06/11/22 14:54 Epoetin Gunnar 10, 000 Unit/Ml Inj SUBCUT 10,000 unit QMWF ULYSSES Administration Folic Acid 1 mg 06/01/22 09:00 06/13/22 08:45 Folic Acid 1 Mg Tablet PO 1 mg DAILY ULYSSES Administration Norepinephrine Bit artrate 4 mg 254 mls @ 0 mls/h r 06/03/22 04:30 06/11/22 09:30 / Dextrose IV 0 mcg/min .Q0M ULYSSES 0 mls/hr Titration Protocol Per Protocol Albumin Human 12.5 gm in 50 mls @ 60 mls/hr 06/03/22 08:12 06/11/22 07:46 Albumin IV Infused PRN PRN Infusion Hypotension and/o r symptomatic Ceftriaxone Sodium 2,000 mg/ 50 mls @ 100 mls/ hr 06/12/22 15:30 06/12/22 19:02 Sodium Chloride IV Infused Q24H ULYSSES Infusion Protocol Oxycodone/Acetamin ophen 1 tab 06/11/22 17:07 06/12/22 09:57 Oxycodone-Apap 5 -325 Mg Tablet PO 1 tab Q6H PRN Administration MODERATE PAIN Pantoprazole Sodiu m 40 mg 06/01/22 09:00 06/13/22 08:[address] 40 Mg Tablet PO 40 mg DAILY ULYSSES Administration Senna/Docusate Sod ium 1 tab 06/05/22 09:00 06/13/22 08:45 Sennosides-Docus ate Tablet PO 1 tab DAILY ULYSSES Administration Thiamine HCl 100 mg 06/09/22 09:00 06/13/22 08:46 Thiamine 100 Mg/ Ml Sdv IVP 100 mg DAILY ULYSSES Administration Vitals/I&O/Wt Last Vital Signs Temp 100.1 F H 06/13/22 07:30 Pulse 85 06/13/22 10:00 Resp 13 06/13/22 10:00 BP 109/63 06/13/22 10:00 Pulse Ox 94 06/13/22 10:00 O2 Del Method 06/13/22 10:00 O2 Flow Rate 2 06/12/22 05:45 06/12/22 06/13/22 06/13/22 22:59 06:59 14:59 Intake Total 410 / 410 2000 / 2410 120 / 120 Output Total 1300 / 1300 450 / 1750 Balance -890 / -890 1550 / 660 120 / 120 Weight last 48 hrs Weight 80.966 kg Weight 78.471 kg Physical Exam Const: COMMON NORMALS: patient oriented x3 Resp: COMMON NORMALS: clear to auscultation bilaterally EFFORT & INSPECTION: Yes symmetric chest movement AUSCULTATION: clear to auscultation bilaterally Cardio: COMMON NORMALS: regular rate, regular rhythm, S1 normal heart sound present, S2 normal heart sound present, No gallops present (Cardio), No murmurs present (Cardio), No rub (Cardio) and Peripheral pulses 2+ throughout RATE: regular rate RHYTHM: regular rhythm HEART SOUNDS: S1 normal heart sound present and S2 normal heart sound present PERIPHERAL PULSES: Peripheral pulses 2+ throughout GI: COMMON NORMALS: Normal to inspection, nondistended, normoactive bowel sounds present, Soft to palpation, non-tender, No hepatosplenomegaly present and no masses AUSCULTATION: Yes normoactive bowel sounds PALPATION: Yes Soft to palpation and Yes No hepatosplenomegaly present RECTAL EXAM: deferred Extremity: COMMON NORMALS: no clubbing, cyanosis or edema and no pedal edema Neuro: COMMON NORMALS: patient oriented x3 Urinary Catheter Management: Martinez: Cath Placed During This Visit: yes Reason for Continuing Indwelling Catheter: Accurate Measurement of Urinary Output in Critically Ill Patients Urinary Catheter Date of Insertion: 06/01/22 Urinary Catheter Time of Insertion: 11:51 Data : 06/13/22 05:10 06/13/22 05:10 A&P Assessment and plan (1) ATN (acute tubular necrosis): (2) Avascular necrosis: (3) Hip osteomyelitis, left: (4) Dehydration: (5) Hyponatremia: (6) Sepsis: (7) Fall: (8) Hip pain, left: (9) Acute kidney injury: (10) Alcohol abuse: Plan Assessment: Septic shock: Secondary to UTI, left hip abscess osteomyelitis Renal failure: On Temporary hemodialysis Chronic alcohol abuse Anemia Significant leukocytosis with left shift 76-year-old female with past medical history of alcohol abuse was initially admitted with for the management of left hip pain, JESSICA versus JESSICA on CKD , hyponatremia sepsis secondary to UTI had a complicated hospital course, she went into septic shock secondary to UTI as well as left hip osteomyelitis, during the hospital stay she also ended into renal failure, secondary to sepsis triggered ATN, currently on hemodialysis, after placement on right femoral dialysis catheter. For her left hip AVN/osteomyelitis/abscess: She underwent Left hip irrigation and debridement with cultures, [place] left femoral neck, antibiotic cemented beads spacers, deep drain placement and incisional VAC placement. Orthopedic on board. Wound cultures so far has grown: E. coli, urine culture E. coli, blood culture on admission E. coli, repeat blood culture no growth, most recent blood culture drawn on 10/07: No growth :, C. difficile toxin PCR negative, MRI of left hip: Nondiagnostic as the patient was not able to lie still. CT abdomen pelvis wo con: No hydronephrosis no pyelonephritis. No nephrolithiasis. Repeat CT chest abdomen and pelvis with contrast: Very small LEFT pleural effusion with LEFT basilar atelectasis. Mild mucosal edema involving the antrum of the stomach and a small ulcer in the antrum measuring 8 mm.Numerous diverticula throughout the colon with no evidence for acute diverticulitis. Soft tissue edema in the pelvis. Additional more focal postoperative changes at the LEFT hip from the recent arthroplasty. No focal collection. These changes are probably appropriate.CT lumbar spine w con: No epidural abscess. CT thoracic spine w con: No epidural abscess 2D echo: Normal LV Size and Systolic Function, no RWMA, LVEF 70%, grade 1 diastolic dysfunction, no valvular vegetation. Patient has been on broad-spectrum antibiotics so far. She will need long-term antibiotic for her hip pathology, possibly 8 to 10 weeks.ID has been consulted. Multiple intraoperative cultures to be followed.For patient's septic shock initially she was on vasopressor support, currently she is off vasopressor support. She has been on broad spectrum abxs so far ( van, cepepime, meropenam,) currently abxs has been narrowed to ceftriaxone 2 gm daily she will need I.V Abxs for 6-8 weeks, I/D on board. For history of alcohol abuse she has been on high-dose thiamine IV initially as well as p.o. folic acid. During the hospital stay patient had also required 1 unit PRBC transfusion for anemia, FOBT is negative. Posttransfusion H&H has remained stable.Possible explanation of chronic anemia could be alcohol-related. Regarding her renal failure: Patient is currently making good urine, plan for now is to monitor kidney function for recovery. Leukemia lymphoma panel : No lymphoma/leukemia seen on flow cytometry. Social dynamics Patient is alcoholic, lives alone, recurrent falls at home, no other family, her friend is her DPOA who is in [place], she is a nurse her name is Elen. Lines and tubes: Right femoral dialysis catheter, left PICC line. DVT prophylaxis: On SCD Code status:DNR/DNI Attestations Medical Necessity Statement*: Patient needs to be in hospital for the management of sepsis. Time Spent in Patient Care: Greater than 35 minutes (>than 50% of time spent in counselling and/or direct pt care on unit) . 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
[2022-06-13] MEDS: oxyCODONE-APAP 5-325 mg Tablet 1 TAB PO ×2 (14:26→20:54)
[2022-06-13] MEDS: cefTRIAXone 2,000 MG in sodium chloride 0.9% (plus) 50 ML 100 MG IV (15:51)
[2022-06-14] VITALS (31 sets, daily range): BP systolic 93–144; BP diastolic 66–90; PULSE 75–105; RESP 10–25; TEMP 36.4–37.4; O2SAT 90–99
[2022-06-14 03:42] LABS: Basophils # 0.1 10^3/uL (0.0-0.1); Basophils % 0.6 %; Eosinophils # 0.1 10^3/uL (0.0-0.8); Eosinophils % 0.5 %; Hematocrit 24.9 % (37.0-47.0); Lymphocytes % 4.2 %; Mean Corpuscular HGB Conc 32.1 g/dL (30.0-36.0); Mean Corpuscular Hemoglobin 30.5 pg (28.0-34.0); Mean Platelet Volume 10.5 fL (7.4-10.4); Monocytes # 1.5 10^3/uL (0.2-0.9); Monocytes % 6.4 %; Neutrophils # 20.52 10^3/uL (1.8-7.7); Neutrophils % 85.5 %; Nucleated Red Blood Cells % 0 %; Platelet Count 322 10^3/cmm (130-400); Red Blood Count 2.62 10^6/uL (4.1-5.3); Red Cell Distribution Width 15.5 % (12.1-15.1)
[2022-06-14 04:10] LABS: Anion Gap 13.1 (5-19); Blood Urea Nitrogen 36 mg/dL (8-23); Calcium 9.2 mg/dL (8.5-10.5); Carbon Dioxide 28 mmol/L (22-29); Chloride 100 mmol/L (98-107); Glucose 105 mg/dL (65-115); Osmolality Calculated 293 mOsm/kg (285-295); Potassium 4.1 mmol/L (3.5-5.1); Sodium 137 mmol/L (136-145)
[2022-06-14 04:14] LABS: Creatinine Clr Calc Pharmacy 16.5771
--- NOTE | 2022-06-14 07:35 | XR_ITS ---
WS: [id number] Exam: XR chest 1V portable [id number] Date/Time of Exam: 06/14/2022 7:39 AM Reason For Exam: sepsis, Comparison 06/08/2022. There is increased density in the left retrocardiac region suspicious for left lower lobe infiltrate and/or atelectasis. Chronic blunting of the left costophrenic angle. Remaining lung magana are clear. No pneumothorax. Normal cardiomediastinal silhouette. A left PICC line is in place ending in the low er one third of the SVC in satisfactory position. Bony structures are intact. XR/XR chest 1V portable [id number] IMPRESSION: 1. Findings suspicious for a infiltrate and/or atelectasis in the left lower lo be. 2. Left-sided PICC line remaining in satisfactory position.
--- NOTE | 2022-06-14 07:37 | USCV_ITS ---
Breanna Andrew Age: 76 Gender: F : 1945 Exam Date: 06/14/2022 07:58 Ordering Phys: Deon Hawk MD Technologist: CT Exam Location: [facility] [place] Indication: edema PROCEDURES: Venous duplex imaging was performed in bilateral lower extremities. The venous duplex Doppler examination of both lower extremities was performed in the standard fashion. Bilaterally, the common femoral, superficial femoral, profunda femoral, popliteal, posterior tibial, greater saphenous veins, and the peroneal trunk were identified and interrogated in the standard fashion. These veins were found to be easily compressible with spontaneous blood flow. No evidence of insufficiency or thrombus noted. FINDINGS: limited exam in rt groin area due to pt with dialysis cathedar in place. compression manuevers not obtained there CONCLUSIONS No evidence of right lower extremity DVT. No evidence of left lower extremity DVT. Curt Ashby MD (Electronically Signed) Final Date: 14 June 2022 13:52 S
[2022-06-14] MEDS: oxyCODONE-APAP 5-325 mg Tablet 1 TAB PO ×2 (08:53→15:07)
[2022-06-14] MEDS: pantoprazole DR 40 mg Tablet PO (08:54)
[2022-06-14] MEDS: folic acid 1 mg Tablet PO (08:54)
[2022-06-14 09:05] LABS: Add Urine Culture? Yes; Bacteria Urine 3+ /hpf; Bilirubin Urine Neg (Negative); Blood Urine 2+ (Negative); Glucose Urine UA Norm (Normal); Ketones Urine Negative (Negative); Leukocyte Esterase Urine 2+ (Negative); Nitrate Urine Negative (Negative); Protein Urine 1+ (Negative); RBC Urine 0-4 /hpf (0-2); Specific Gravity, Urine 1.005 (1.005-1.030); Squamous Epithelial Cell Urine 0-4 /hpf (0-5); Urine Appearance Clear (CLEAR); Urine Color Yellow (Yellow); Urobilinogen Urine Norm (Negative); pH Urine 7 (5-7)
--- NOTE | 2022-06-14 09:59 | CT_ITS ---
WS: [id number] NONCONTRAST CT RIGHT WRIST TECHNIQUE: Noncontrast CT RIGHT wrist with coronal and sagittal reformatted images. CLINICAL INFORMATION: wrsit pain, possible fracture, carpeltunnel syndrome COMPARISON: None. DLP: 76.[address] scans at [facility] use at least one of these dose optimization techniques: automated e xposure control; mA and/or kV adjustment per patient size (includes targeted exams where dose is matc hed to clinical indication); or iterative reconstruction. FINDINGS: Tiny avulsion at the tip of the trapezoid appears well-corticated and likely chronic. Otherwise no ac jonathan fractures Osteopenia. Narrowing of the radiocarpal joint. Soft tissue edema. Scaphoid appears normal. Normal sc apholunate interval. 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 CT/CT wrist RT wo con* [id number] IMPRESSION: 1. Tiny avulsion at the tip of the trapezoid appears well-corticated and likel y chronic. Otherwise no acute fractures. 2. Diffuse soft tissue edema about the wrist. No drainable fluid collections. 3. 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
[2022-06-14] MEDS: sodium chloride 0.9% 1,000 ML 50 ML IV (10:20)
[2022-06-14 10:24] LABS: Alanine Aminotransferase 20 U/L (0-33); Alkaline Phosphatase 242 U/L (35-105); Aspartate Amino Transferase 51 U/L (0-32); Globulin 2.9 g/dL (1.3-4.6); Total Bilirubin 0.2 mg/dL (0.15-1.2); Total Protein 4.9 g/dL (6.6-8.7)
--- NOTE | 2022-06-14 11:46 | P.PN_ITS ---
Subjective Subjective: on RA Vitals/I&O/Wt Last Vital Signs Temp 97.5 F L 06/14/22 04:00 Pulse 97 06/14/22 10:00 Resp 16 06/14/22 10:00 BP 106/77 06/14/22 10:00 Pulse Ox 98 06/14/22 10:00 O2 Del Method 06/14/22 10:00 O2 Flow Rate 2 06/12/22 05:45 06/13/22 06/14/22 06/14/22 22:59 06:59 14:59 Intake Total 850 / 1090 200 / 200 Output Total 1700 / 1700 700 / 2400 Balance -850 / -610 -700 / -1310 200 / 200 Weight last 48 hrs Weight 80.966 kg Physical Exam Resp: COMMON NORMALS: normal respiratory effort and clear to auscultation bilaterally EFFORT & INSPECTION: Yes symmetric chest movement AUSCULTATION: clear to auscultation bilaterally and other (per report ) Urinary Catheter Management: Martinez: Cath Placed During This Visit: yes Reason for Continuing Indwelling Catheter: Accurate Measurement of Urinary Output in Critically Ill Patients Urinary Catheter Date of Insertion: 06/01/22 Urinary Catheter Time of Insertion: 11:51 Data : 06/14/22 02:56 06/14/22 02:56 Micro: Microbiology 06/14/22 08:01 Blood Culture - Preliminary Blood SPECIMEN COLLECTED 06/09/22 03:39 Blood Culture - Final Blood NO GROWTH AFTER 5 DAYS 06/09/22 02:47 Blood Culture - Final Blood NO GROWTH AFTER 5 DAYS A&P Assessment and plan (1) ATN (acute tubular necrosis): [place] [address] Progress Note Signed Patient: Isabela Lyons MR#: [id number] : 07/13/1959 Age/Sex: 62 / F ADM Date: 06/08/22 Loc: ICU? Room/Bed: [place] [address] Encounter Date: 06/13/[address]: Karen Jordan MD Report Number: [id number] Subjective Subjective:?? doing well on 4 L FIO2 Vitals/I&O/Wt Last Vital Signs Temp ?97.9 F ?06/13/22 08:00 Pulse ?64 ?06/13/22 12:15 Resp ?22 H ?06/13/22 12:15 BP ?105/51 ?06/13/22 12:15 Pulse Ox ?97 ?06/13/22 12:15 O2 Del Method ? ?06/13/22 08:04 O2 Flow Rate ?3 ?06/13/22 03:00 FiO2 ?35 ?06/13/22 11:47 ?C 06/12/22 06/13/22 06/13/22 ? 22:59 06:59 14:59 Intake Total 228.439 / 1088.880 219.38 / 1308.260 604.460 / 604.460 Output Total 0 / 100 0 / 100 ? Balance 228.439 / 988.880 219.38 / 1208.260 604.460 / 604.460 Weight last 48 hrs Weight? 92.125 kg ? Weight? 92.125 kg ? 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 Urinary Catheter Management:?? Martinez: Cath Placed During This Visit: yes, but has since been removed by the nurse Reason for Continuing Indwelling Catheter: Accurate Measurement of Urinary Output in Critically Ill Patients Urinary Catheter Date of Insertion: 06/08/22 Urinary Catheter Time of Insertion: 14:00 Date Urinary Catheter Removed: 06/11/22 Time Urinary Catheter Discontinued: 09:40 ? Data : 06/13/22 04:58? 06/13/22 04:58? Micro: Microbiology ?06/08/22 06:18 Blood Culture - Final ?Blood ?? NO GROWTH AFTER 5 DAYS ?06/08/22 06:16 Blood Culture - Final ?Blood ?? NO GROWTH AFTER 5 DAYS ?06/08/22 12:32 Gram Stain - Final ?Sputum - Expectorated Sputum Sputum Culture - Final ? ?? Serratia marcescens A&P Assessment and plan Plan [address] [address] Progress Note Signed Patient: Breanna Andrew MR#: [id number] : 1945 Age/Sex: 76 / F ADM Date: 05/31/22 Loc: ICU? Room/Bed: [place] [address] Encounter Date: 06/13/[address]: Reyes David MD Report Number: [id number] Subjective Subjective:?? denies any complaints off O2 off pressoors Vitals/I&O/Wt Last Vital Signs Temp ?100.1 F H ?06/13/22 07:30 Pulse ?85 ?06/13/22 10:00 Resp ?13 ?06/13/22 10:00 BP ?109/63 ?06/13/22 10:00 Pulse Ox ?94 ?06/13/22 10:00 O2 Del Method ? ?06/13/22 10:00 O2 Flow Rate ?2 ?06/12/22 05:45 ? 06/12/22 06/13/22 06/13/22 ? 22:59 06:59 14:59 Intake Total 410 / 410 2000 / 2410 120 / 120 Output Total 1300 / 1300 450 / 1750 ? Balance -890 / -890 1550 / 660 120 / 120 Weight last 48 hrs Weight? 80.966 kg ? Weight? 78.471 kg ? Physical Exam Narrative:?? Patient awake alert, no acute distress Neck supple, pupils equal and reactive Clear to auscultation per report S1-S2, regular rate and rhythm per report 1+ lower extremity edema. Urinary Catheter Management:?? Martinez: Cath Placed During This Visit: yes Reason for Continuing Indwelling Catheter: Accurate Measurement of Urinary Output in Critically Ill Patients Urinary Catheter Date of Insertion: 06/01/22 Urinary Catheter Time of Insertion: 11:51 ? Data : 06/13/22 05:10? 06/13/22 05:10? A&P Assessment and plan (1) ATN (acute tubular necrosis): 76 yr old female w/ left hip avascular necrosis and Q OM 1. JESSICA-? possible ATN from sepsis , Also? pt has been on NSAID's for a while -no hydronephrosis on CT? scan u/a turbid, 3+ blood, 3+ prot, 2+ leuk est, rbc and wbc too numerous to count- 4+ ur bact -concern for ATN, chronic interstial nephritis from chronic NSAID use, or iinfection related GN( unlikely ) - Hold off on HD 2. Leukocytosis from OM-? renal dose abx -Wound cultures? has grown: E. coli, urine culture E. coli, blood culture no growth, 3. anemia- high b12, replace folate.? high iron sat -s/p prbc tx.? -use TRIXIE 4.? inc AG met acidosis-? normal lactate -likely from JESSICA, improved Attestations Medical Necessity Statement*: Patient needs to be in hospital for the management of sepsis. Time Spent in Patient Care: Greater than 35 minutes (>than 50% of time spent in counselling and/or direct pt care on unit) . 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
--- NOTE | 2022-06-14 12:01 | PC.CHAP ---
Pastoral Care Encounter/Spiritual Assessment Type of Contact [] Declined slack cooper visit [] Patient/Family/Request visit [] Outpatient visit [] Follow-up visit [] Physician referral [] Code/Alert [x] Routine visit [] Staff referral [] Actively dying [] Patient sleeping [] Family support [] [] Out of room [] Palliative care [] [] Receiving care in room [] Pre-surgical visit [] Trauma [] Long length of stay [x] ICU visit [x] Other: very unhappy... Relational/Emotional Strength [] Patient feels connected with others/family/visitors/staff [] Distress [] Loneliness/isolation [] Abandonment Spirituality of Patient [] Person of [place] [] Attends Restorationism of their [place] [] Believes in Prayer [] Reads Bible or Methodist materials [] There are Spiritual issues to be addressed Subsystems Engineer Interventions [x] Prayer [] Active listening [] Non-anxious presence [] Spiritual/emotional support [] Crisis/trauma care [] Spiritual counseling [] Bereavement support [] Provided bereavement packet [] Provided Bible/devotional materials [] Provided toy/stuffed animal, coloring book to patient or family member [] Provided Communion [] Anointing/[place] [] Salvation [x] Completed spiritual assessment [] Other: Impact on Illness or Injury [] Angry [] Fearful [] Anxious [] Often cries [] Exhaustion [] Unable to work [] Unable to attend jewish [] Unable to walk/stand [] Unable to read [] Unable to drive [] Unable to eat/drink [] Unable to sleep [] Unable to be with family [] Patient intubated [] Other: Summary Time spent with patient
--- NOTE | 2022-06-14 13:08 | USCV_ITS ---
Breanna Andrew Age: 76 Gender: F : 1945 Exam Date: 06/14/2022 13:50 Ordering Phys: Deon Hawk MD Technologist: CT Exam Location: [facility] [place] Indication: rt arm pain Risk Factors: Previous Vascular Surgery: Right BP: 125.00 / 74.00 Left BP: 125.00 / 72.00 RIGHT LEFT PSV PSV (cm/s) (cm/s) Waveform Waveform Triphasic 53.0 Subclavian Proximal Triphasic 57.0 Subclavian Distal Triphasic 72.0 Axillary Triphasic 77.0 Brachial Mid Triphasic 66.0 Brachial at AC Triphasic 45.0 Radial Mid Triphasic 47.0 Radial at Wrist Triphasic 37.0 Ulnar Mid 1.0 Radial/Brachial Index 1.0 Ulnar/Brachial Index FINDINGS Normal Doppler flow velocities and Doppler waveforms in the right upper extremity arteries. Normal RBI and UBI on the right side CONCLUSIONS 1. Normal flow pattern in the right upper extremity arteries 2. Normal wrist indicis No Significant arterial obstruction in the right upper extremity arteries, based on the above findings Dr Pascual Murphy MD [facility] (Electronically Signed) Final Date: 17 June 2022 00:11 S
[2022-06-14] MEDS: epoetin alfa 10,000 unit/mL INJ 10000 UNIT SUBCUT (13:32)
[2022-06-14] MEDS: TRAMadol 50 mg Tablet PO (13:32)
[2022-06-14] MEDS: cefTRIAXone 2,000 MG in sodium chloride 0.9% (plus) 50 ML 100 MG IV (14:44)
[2022-06-14] MEDS: gabapentin 100 mg Capsule PO ×2 (15:07→23:06)
--- NOTE | 2022-06-14 16:40 | P.PN_ITS ---
Subjective Subjective: Hospital course, labs appreciated. On examination patient lying comfortably in bed. Patient is complaining of pain in her right wrist and arm. She states she is not able to move her fingers without any pain. Arm covered in wrap from some swelling. Patient otherwise denies any nausea, vomiting, headache. As per the nurse patient did work with physical therapy yesterday and sat in the chair. Patient saturating well on room air. Has remained hemodynamically stable and afebrile. Last fever 06/13 7:30 AM of 100 Fahrenheit. Documented urine output 2400 cc in last 24 hours. Wound VAC being removed yesterday. Vitals/I&O/Wt Last Vital Signs Temp 97.5 F L 06/14/22 04:00 Pulse 97 06/14/22 14:00 Resp 15 06/14/22 15:07 BP 116/82 06/14/22 14:00 Pulse Ox 98 06/14/22 15:07 O2 Del Method 06/14/22 10:00 O2 Flow Rate 2 06/12/22 05:45 06/14/22 06/14/22 06/14/22 06:59 14:59 22:59 Intake Total 400 / 400 Output Total 700 / 2400 400 / 400 Balance -700 / -1310 0 / 0 Weight last 48 hrs Weight 80.966 kg Physical Exam Narrative: In acute distress from right arm pain, Const: COMMON NORMALS: patient oriented x3 EXAM LIMITATIONS: behavioral limitations GENERAL APPEARANCE: well kempt, well developed and frail appearing Eye: COMMON NORMALS: Equal, round and reactive pupils present, EOMs intact bi laterally and no scleral icterus CONJUNCTIVA: Yes conjunctival abnormal p ositive bilateral pallor PUPIL: Yes Equal, round and reactive pupils present Resp: COMMON NORMALS: clear to auscultation bilaterally EFFORT & INSPECTION: Yes symmetric chest movement AUSCULTATION: clear to auscultation bilaterally Cardio: COMMON NORMALS: regular rate, regular rhythm, S1 normal heart sound present, S2 normal heart sound present, No gallops present (Cardio), No murmurs present (Cardio), No rub (Cardio) and Peripheral pulses 2+ throughout RATE: regular rate RHYTHM: regular rhythm HEART SOUNDS: S1 normal heart sound present and S2 normal heart sound present PERIPHERAL PULSES: Peripheral pulses 2+ throughout GI: COMMON NORMALS: Normal to inspection, nondistended, normoactive bowel sounds present, Soft to palpation, non-tender, No hepatosplenomegaly present and no masses AUSCULTATION: Yes normoactive bowel sounds PALPATION: Yes Soft to palpation and Yes No hepatosplenomegaly present RECTAL EXAM: deferred Extremity: COMMON NORMALS: no clubbing, cyanosis or edema and no pedal edema NARRATIVE EXTREMITY EXAM: Left hip wound VAC in present Neuro: COMMON NORMALS: patient oriented x3 Psych: APPEARANCE: Yes well kempt Urinary Catheter Management: Martinez: Cath Placed During This Visit: yes Reason for Continuing Indwelling Catheter: Accurate Measurement of Urinary Output in Critically Ill Patients Urinary Catheter Date of Insertion: 06/01/22 Urinary Catheter Time of Insertion: 11:51 Data : 06/14/22 02:56 06/14/22 02:56 Micro: Microbiology 06/14/22 08:01 Blood Culture - Preliminary Blood SPECIMEN COLLECTED 06/09/22 03:39 Blood Culture - Final Blood NO GROWTH AFTER 5 DAYS 06/09/22 02:47 Blood Culture - Final Blood NO GROWTH AFTER 5 DAYS A&P Assessment and plan (1) Sepsis: Present on admission. Secondary to left hip osteomyelitis and abscess collection and UTI. Post left hip irrigation and debridement on 06/09. Wound VAC and drain removed on 06/13. Wound VAC present. Appreciate orthopedic recommendations. Weightbearing as per orthopedic team. Wound cultures of blood cultures showing E. coli. Sensitivities noted. Repeat blood cultures from 06/09 so far negative. Patient continues to have extensive leukocytosis along with occasional fevers. Continued IV ceftriaxone 2 g daily. Plan to discharge on IV antibiotics and wound VAC to [facility] when ready. Will try to evaluate for persistent leukocytosis even though the getting better along with episodes of fever. Repeat blood culture, urinalysis, chest x-ray. Start of incentive spirometry. Leukemia lymphoma panel : No lymphoma/leukemia seen on flow cytometry. Patient still have Martinez catheter, right HD catheter and a PICC line. Plan discussed in detail with nephrology on board. Patient's last dialysis on 06/10. Good urine output. Wants to wait for 24 more hours before deciding about known dialysis going further. Plan for new dialysis going further we will remove dialysis catheter and Martinez catheter within next 24 hours. Complaining of right arm pain. Will do CT wrist to rule out any fracture and osteomyelitis. Does seem to have local swelling. We will also do right arterial duplex as could be secondary to ABG on admission. Physical therapy evaluation. Appreciate orthopedics, nephrology, ID recommendations. (2) Hip osteomyelitis, left: (3) ATN (acute tubular necrosis): Appreciate nephrology recommendations. Patient limited oral intake. We will start on IV fluid at 50 cc/h for 1 bag within next 24 hours. (4) Acute kidney injury: Last dialysis on 06/10. Creatinine slightly trending up to 3 today. No W. Yajaira. Good urine output. (5) Avascular necrosis: (6) Hyponatremia: (7) Fall: (8) Dehydration: (9) Hip pain, left: (10) Alcohol abuse: (11) Right wrist pain: Plan Wound cultures so far has grown: E. coli, urine culture E. coli, blood culture on admission E. coli, repeat blood culture on 06/09? C. difficile toxin PCR negative, MRI of left hip: Nondiagnostic as the patient was not able to lie still. CT abdomen pelvis wo con: No hydronephrosis no pyelonephritis. No nephrolithiasis. Repeat CT chest abdomen and pelvis with contrast: Very small LEFT pleural effusion with LEFT basilar atelectasis. Mild mucosal edema involving the antrum of the stomach and a small ulcer in the antrum measuring 8 mm.Numerous diverticula throughout the colon with no evidence for acute diverticulitis. Soft tissue edema in the pelvis. Additional more focal postoperative changes at the LEFT hip from the recent arthroplasty. No focal collection. These changes are probably appropriate. CT lumbar spine w con: No epidural abscess. CT thoracic spine w con: No epidural abscess 2D echo: Normal LV Size and Systolic Function, no RWMA, LVEF 70%, grade 1 diastolic dysfunction, no valvular vegetation. Lines and tubes: Right femoral dialysis catheter, left PICC line. Analgesia: Tylenol, [place] 5 mg PO Q6h PRN, Tramdol 50 mg PO Q8h PRN Glycemic control: NAD Nutrition: Regular diet CODE STATUS: AND PUD prophylaxis: Protonix DVT prophylaxis:Heparin 5000 SQ BID Discharge planning: Plan to SNF once medical stable on IV Abx, wound vac Continue with care at ICU level. Plan to transfer to [facility] if remains stable within next 24 hours. This documentation was created by [employer] leasing agent software. Every effort was made to ensure accuracy of leasing agent. Any obvious errors or omissions should be clarified with the author of the document. Attestations Medical Necessity Statement*: Requires further hospitalization for management of sepsis, E. coli bacteremia secondary to left hip osteomyelitis, persistent leukocytosis and fevers, JESSICA secondary to ATN Time Spent in Patient Care: Greater than 35 minutes Coding Level of Care Code Acute Finance Controller for g Fwd Diagnoses Sepsis A41.9 Hip osteomyelitis, left M86.9 ATN (acute tubular necrosis) N17.0 Acute kidney injury N17.9 Avascular necrosis M87.00 Hyponatremia E87.1 Fall W19.XXXA Dehydration E86.0 Hip pain, left M25.552 Alcohol abuse F10.10 Right wrist pain M25.531
--- NOTE | 2022-06-14 16:53 | PC.NURSE ---
[address] Hawk of patient's c/o pain in her rght arm and left leg. Orders for Tramdol received, administered per order. [address] Hawk that patient is yelling out in pain. Orders for gabapentin received and administered per order. 1645 Patient resting comfortably in bed.
[2022-06-14] MEDS: heparin 5,000 unit/mL INJ 1 mL 5000 UNIT SUBCUT (17:09)
[2022-06-15] VITALS (22 sets, daily range): BP systolic 105–138; BP diastolic 62–98; PULSE 71–108; RESP 12–20; TEMP 36.1–37.4; O2SAT 90–98
[2022-06-15 04:02] LABS: Basophils # 0.2 10^3/uL (0.0-0.1); Basophils % 0.7 %; Eosinophils # 0.1 10^3/uL (0.0-0.8); Eosinophils % 0.5 %; Hematocrit 25.1 % (37.0-47.0); Hemoglobin 7.8 g/dL (11.5-15.3); Lymphocytes # 0.9 10^3/uL (0.8-4.8); Lymphocytes % 4.3 %; Mean Corpuscular HGB Conc 31.1 g/dL (30.0-36.0); Mean Corpuscular Volume 96.5 fl (81-99); Mean Platelet Volume 10.3 fL (7.4-10.4); Monocytes # 1.6 10^3/uL (0.2-0.9); Monocytes % 7.4 %; Neutrophils # 18.34 10^3/uL (1.8-7.7); Neutrophils % 83.3 %; Nucleated Red Blood Cells % 0 %; Platelet Count 253 10^3/cmm (130-400); Red Cell Distribution Width 15.4 % (12.1-15.1)
[2022-06-15 04:42] LABS: Alanine Aminotransferase 15 U/L (0-33); Alkaline Phosphatase 257 U/L (35-105); Anion Gap 15.1 (5-19); Aspartate Amino Transferase 28 U/L (0-32); Blood Urea Nitrogen 40 mg/dL (8-23); Calcium 9.3 mg/dL (8.5-10.5); Carbon Dioxide 26 mmol/L (22-29); Chloride 101 mmol/L (98-107); Cholesterol 112 mg/dL (0-200); Globulin 2.9 g/dL (1.3-4.6); Glucose 100 mg/dL (65-115); HDL Cholesterol 28 mg/dL (60-100); LDL Cholesterol Calculated 60 mg/dL (50-129); Osmolality Calculated 296 mOsm/kg (285-295); Potassium 4.1 mmol/L (3.5-5.1); Sodium 138 mmol/L (136-145); Total Bilirubin 0.2 mg/dL (0.15-1.2); Total Protein 4.9 g/dL (6.6-8.7); Triglycerides 120 mg/dL (0-150); VLDL Cholestrol Calculation 24 mg/dL (0-30)
[2022-06-15] MEDS: heparin 5,000 unit/mL INJ 1 mL 5000 UNIT SUBCUT ×2 (04:52→15:43)
[2022-06-15 04:56] LABS: Creatinine Clr Calc Pharmacy 16.5771
[2022-06-15] MEDS: gabapentin 100 mg Capsule PO ×3 (06:07→23:56)
[2022-06-15] MEDS: levothyroxine 25 mcg Tablet PO (06:07)
[2022-06-15] MEDS: sodium chloride 0.9% 1,000 ML 50 ML IV (06:08)
--- NOTE | 2022-06-15 06:55 | PC.NURSE ---
Bedside report completed with YUAN Carlos
--- NOTE | 2022-06-15 10:32 | P.PN_ITS ---
Subjective Subjective: Infectious disease progress note. No new interval symptoms. Patient remains afebrile. Leukocytosis stable at 22,000. Blood culture thus far negative to date. Medications: Reviewed: Yes Vitals/I&O/Wt Last Vital Signs Temp 96.9 F L 06/15/22 08:00 Pulse 84 06/15/22 08:00 Resp 12 06/15/22 08:00 BP 114/75 06/15/22 08:00 Pulse Ox 95 06/15/22 08:00 O2 Del Method 06/15/22 08:00 O2 Flow Rate 2 06/12/22 05:45 06/14/22 06/15/22 06/15/22 22:59 06:59 14:59 Intake Total 430 / 830 1190 / 2020 Output Total 800 / 1200 1050 / 2250 Balance -370 / -370 140 / -230 Weight last 48 hrs Weight 76.7 kg Physical Exam Narrative: General: No acute distress, AO x3 HEENT: PERRLA, pupils bilaterally equal and reactive, pallors not present Chest: Normal vesicular breath sounds, no added sounds, equal good air entry bilaterally CVS: S1-S2 regular, no murmurs, no tachycardia, no gallops, no rubs Abdomen: Soft, nontender, no organomegaly, bowel sounds present Neuro: No focal deficits, no facial deformity, AO x3, power 5/5 in all limbs Extremities: Healthy surgical dressing present on the left hip, mild tenderness, soft no erythema. Interval removal of drain Urinary Catheter Management: Martinez: Cath Placed During This Visit: yes Reason for Continuing Indwelling Catheter: Accurate Measurement of Urinary Output in Critically Ill Patients Urinary Catheter Date of Insertion: 06/01/22 Urinary Catheter Time of Insertion: 11:51 Data 06/16/22 02:14 06/16/22 02:14 Micro: Microbiology 06/14/22 08:00 Urine Culture - Preliminary Urine,Clean Catch 06/14/22 08:01 Blood Culture - Preliminary Blood NEGATIVE TO DATE Other data: 06/01/22 07:55? Urine Culture - Final ?Urine Catheterized? ?? Gram Negative Rods- E. coli ? --------- ------ ?? ? * Amikacin? <=16? ? ? S ?? ? * Amoxicillin/Clavulanate? <=8/4? ? ? S ?? ? * Ampicillin ? <=8? ? ? S ?? ? * Ampicillin/Sulbactam ? <=8/4? ? ? S ?? ? * Aztreonam? <=4? ? ? S ?? ? * Cefepime ? <=8? ? ? S ?? ? * Ceftriaxone? <=1? ? ? S ?? ? * Cefuroxime ? <=4? ? ? S ?? ? * Ciprofloxacin? <=1? ? ? S ?? ? * Gentamicin ? <=2? ? ? S ?? ? * Imipenem ? <=1? ? ? S ?? ? * Levofloxacin ? <=2? ? ? S ?? ? * Nitrofurantoin? <=32? ? ? S ?? ? * Tetracycline ? <=4? ? ? S ?? ? * Trimethoprim/Sulfamethoxazole? ? ? >2/38? ? ? R ?? ? * Piperacillin/Tazobactam ? <=16? ? ? S ?06/04/22 14:51? Gram Stain - Final ?Other Source? Anaerobic Culture - Preliminary ?? Abscess Culture left hip - Final ? Escherichia coli ? E coli ? M.I.C. ? ? RX ? --------- ------ ?? ? * Amikacin? <=16? ? ? S ?? ? * Amoxicillin/Clavulanate? <=8/4? ? ? S ?? ? * Ampicillin ? <=8? ? ? S ?? ? * Ampicillin/Sulbactam ? <=8/4? ? ? S ?? ? * Aztreonam? <=4? ? ? S ?? ? * Cefepime ? <=8? ? ? S ?? ? * Ceftriaxone? <=1? ? ? S ?? ? * Cefuroxime ? <=4? ? ? S ?? ? * Ciprofloxacin? <=1? ? ? S ?? ? * Gentamicin ? <=2? ? ? S ?? ? * Imipenem ? <=1? ? ? S ?? ? * Levofloxacin ? <=2? ? ? S ?? ? * Tetracycline ? <=4? ? ? S ?? ? * Trimethoprim/Sulfamethoxazole? ? ? >2/38? ? ? R ?? ? * Piperacillin/Tazobactam ? <=16? ? ? S ?06/04/22 14:45? Anaerobic Culture - Preliminary ?Hip - #3? ? ?06/04/22? Gram Stain - Final ?? Anaerobic Culture - Preliminary left hip joint cx Intramedullary cx Labrum capsule culture acetabulum culture ?? ?- Final ?? Escherichia coli ? M.I.C. ? ? RX ? --------- ------ ?? ? * Amikacin? <=16? ? ? S ?? ? * Amoxicillin/Clavulanate? <=8/4? ? ? S ?? ? * Ampicillin ? <=8? ? ? S ?? ? * Ampicillin/Sulbactam ? <=8/4? ? ? S ?? ? * Aztreonam? <=4? ? ? S ?? ? * Cefepime ? <=8? ? ? S ?? ? * Ceftriaxone? <=1? ? ? S ?? ? * Cefuroxime ? <=4? ? ? S ?? ? * Ciprofloxacin? <=1? ? ? S ?? ? * Gentamicin ? <=2? ? ? S ?? ? * Imipenem ? <=1? ? ? S ?? ? * Levofloxacin ? <=2? ? ? S ?? ? * Tetracycline ? <=4? ? ? S ?? ? * Trimethoprim/Sulfamethoxazole? ? ? >2/38? ? ? R ?? ? * Piperacillin/Tazobactam ? <=16? ? ? S ? PBCX: 06/14: negtaive to date PBCX: 06/09: negative to date PBCX: 06/03: negative PBCX: 05/31: E. coli ? E coli ? M.I.C. ? ? RX ? --------- ------ ?? ? * Amikacin? <=16? ? ? S ?? ? * Amoxicillin/Clavulanate? <=8/4? ? ? S ?? ? * Ampicillin ? <=8? ? ? S ?? ? * Ampicillin/Sulbactam ? <=8/4? ? ? S ?? ? * Aztreonam? <=4? ? ? S ?? ? * Cefepime ? <=8? ? ? S ?? ? * Ceftriaxone? <=1? ? ? S ?? ? * Cefuroxime ? <=4? ? ? S ?? ? * Ciprofloxacin? <=1? ? ? S ?? ? * Gentamicin ? <=2? ? ? S ?? ? * Imipenem ? <=1? ? ? S ?? ? * Levofloxacin ? <=2? ? ? S ?? ? * Tetracycline ? <=4? ? ? S ?? ? * Trimethoprim/Sulfamethoxazole? ? ? >2/38? ? ? R ?? ? * Piperacillin/Tazobactam ? <=16? ? ? S 06/04: C diff PCR negative A&P Assessment and plan (1) Hip osteomyelitis, left: (2) Gram negative sepsis: (3) Acute kidney injury: Plan 76-year-old lady with no reported past medical history presenting with gram- negative septicemia, primarily source appears to be a septic left hip joint and osteomyelitis of the femur. Blood cultures and multiple OR cultures from I&D of the left hip have revealed E. coli, susceptible to ceftriaxone. Patient reports no trauma to the site, however history is pretty limited from her. She is status post I&D of the left hip on June 04, 2022 and again on 06/09. On 06/09 converted to abx impregnated articulating spacers. Planned for definitive joint replacement few weeks to months down the line. Current issues are persisting leukocytosis however now stabilized at ~20K from a peak of ~45K, fever is resolved . Clinically improving by all parameters. Recommend to obtain CT of the chest abdomen and pelvis, Ct thoracolumar spine, without any evident untreated sources such as abscess, septic emboli, osteomyeltis at other site, etc. TTE on 06/09 without gross vegetations. Repeat blood cx from 06/04 and 06/09 thus far negative to date. Plan: Continue Ceftriaxone 2g iv q24h in keeping with susceptibility results Deferred FARHANA for now as unlikely to change clinical management. Thus far she is clinically improving off pressors, Joseph resolving, Blood cx cleared quickly. though has persisting leukocytosis which will be trended over time. recommend to treat with 8 weeks of iv ceftriaxone 2g iv q24h directed therapy for osteomeyleitis and septic arthritis. (06/09-08/04/22) Patient is being discharged to SNF Picc line has been placed check weekly CBC, liver function and cr while on above abx treatment f/up ID clinic in 8 weeks Attestations Medical Necessity Statement*: per admitting Coding Level of Care Code Acute Manager Post for [facility] Bertin Diagnoses Hip osteomyelitis, left M86.9 Gram negative sepsis A41.50 Acute kidney injury N17.9
--- NOTE | 2022-06-15 11:25 | PC.NURSE ---
Report called to Ron and given to YUAN Hammonds
--- NOTE | 2022-06-15 11:30 | PC.NURSE ---
Dialysis ath removed intact, as ordered. Pressure held until hemostatis obtained. No redness, swelling , hematoma or bleeding noted. Pt tolerated well. PICC line dressing change, Sorbaview contour shield dressing applied. Statlock and cap also changed. Sterile techinue obserbed throughout.
--- NOTE | 2022-06-15 12:05 | PC.NURSE ---
Pt transferred to [place] [id number] via bed. All belongings with patient. Pt then transferred to chair at bedside using biju lift.
[2022-06-15] MEDS: folic acid 1 mg Tablet PO (12:14)
[2022-06-15] MEDS: pantoprazole DR 40 mg Tablet PO (12:15)
[2022-06-15] MEDS: sennosides-docusate Tablet 1 TAB PO (12:15)
--- NOTE | 2022-06-15 12:16 | PC.NURSE ---
MAR delay: Scanned am medications around 0830, admin to patient. Scan did not save appropriately. Just re-scanned administered meds at this time.
[2022-06-15] MEDS: TRAMadol 50 mg Tablet PO ×2 (12:33→20:47)
--- NOTE | 2022-06-15 12:34 | PC.SOCIAL ---
IMM Updated Updated pt on IMM. No questions voiced. Provided pt a copy. Initialed, dated, & timed copy in chart.
--- NOTE | 2022-06-15 12:38 | PC.CHAP ---
Pastoral Care Encounter/Spiritual Assessment Type of Contact [] Declined seismograph computer visit [] Patient/Family/Request visit [] Outpatient visit [] Follow-up visit [] Physician referral x [] Code/Alert [x] Routine visit [] Staff referral [] Actively dying [] Patient sleeping [] Family support [] [] Out of room [] Palliative care [] [] Receiving care in room [] Pre-surgical visit [] Trauma [] Long length of stay [x] ICU visit [] Other: Relational/Emotional Strength [] Patient feels connected with others/family/visitors/staff [] Distress [] Loneliness/isolation [] Abandonment Spirituality of Patient [] Person of [place] [] Attends Caodaism of their [place] [] Believes in Prayer [] Reads Bible or Yazidi materials [] There are Spiritual issues to be addressed Cam Maker Interventions [] Prayer [] Active listening [] Non-anxious presence [] Spiritual/emotional support [] Crisis/trauma care [] Spiritual counseling [] Bereavement support [] Provided bereavement packet [] Provided Bible/devotional materials [] Provided toy/stuffed animal, coloring book to patient or family member [] Provided Communion [] Anointing/[place] [] Salvation [] Completed spiritual assessment [] Other: Impact on Illness or Injury [] Angry [] Fearful [] Anxious [] Often cries [] Exhaustion [] Unable to work [] Unable to attend latter-day [] Unable to walk/stand [] Unable to read [] Unable to drive [] Unable to eat/drink [] Unable to sleep [] Unable to be with family [] Patient intubated [] Other: Summary Time spent with patient
--- NOTE | 2022-06-15 12:55 | P.PN_ITS ---
Subjective Subjective: no new complaints Medications: Reviewed: Yes Vitals/I&O/Wt Last Vital Signs Temp 96.9 F L 06/15/22 08:00 Pulse 84 06/15/22 08:00 Resp 12 06/15/22 08:00 BP 114/75 06/15/22 08:00 Pulse Ox 95 06/15/22 08:00 O2 Del Method 06/15/22 08:00 O2 Flow Rate 2 06/12/22 05:45 06/14/22 06/15/22 06/15/22 22:59 06:59 14:59 Intake Total 430 / 830 1190 / 2020 200 / 200 Output Total 800 / 1200 1050 / 2250 Balance -370 / -370 140 / -230 200 / 200 Weight last 48 hrs Weight 76.7 kg Physical Exam Narrative: awake , alert , no distress heent , peerla S1 s2 RRR per report 1+ edema Urinary Catheter Management: Martinez: Cath Placed During This Visit: yes Reason for Continuing Indwelling Catheter: Accurate Measurement of Urinary Output in Critically Ill Patients Urinary Catheter Date of Insertion: 06/01/22 Urinary Catheter Time of Insertion: 11:51 Data : 06/15/22 03:24 06/15/22 03:24 Micro: Microbiology 06/14/22 08:00 Urine Culture - Preliminary Urine,Clean Catch 06/14/22 08:01 Blood Culture - Preliminary Blood NEGATIVE TO DATE A&P Assessment and plan (1) ATN (acute tubular necrosis): 76 yr old female w/ left hip avascular necrosis and Q OM 1. JESSICA-? possible ATN from sepsis , Also? pt has been on NSAID's for a while -no hydronephrosis on CT? scan u/a turbid, 3+ blood, 3+ prot, 2+ leuk est, rbc and wbc too numerous to count- 4+ ur bact -concern for ATN, chronic interstial nephritis from chronic NSAID use, or iinfection related GN( unlikely ) - Holding off on HD, can DC dialysis catheter 2. Leukocytosis from OM-? renal dose abx -Wound cultures? has grown: E. coli, urine culture E. coli, blood culture no growth, 3. anemia- high b12, replace folate.? high iron sat -s/p prbc tx.? -use TRIXIE 4.? inc AG met acidosis-? normal lactate -likely from JESSICA, improved Attestations Medical Necessity Statement*: Requires further hospitalization for management of sepsis, E. coli bacteremia secondary to left hip osteomyelitis, persistent leukocytosis and fevers, JESSICA secondary to ATN Time Spent in Patient Care: Greater than 35 minutes Coding Level of Care Code Established Pt Acute Agent Ticketing Gate for Chg Fwd Patient Type Established History Problem Focused Exam Problem Focused Medical Decision Making Straight Forward Diagnoses ATN (acute tubular necrosis) N17.0
[2022-06-15] MEDS: cefTRIAXone 2,000 MG in sodium chloride 0.9% (plus) 50 ML 100 MG IV (15:43)
--- NOTE | 2022-06-15 16:52 | P.PN_ITS ---
Subjective Subjective: No acute events overnight. Patient has remained hemodynamically stable and afebrile. Has not had any more spikes of fever. Good urine output in last 24 hours. Seen in ICU today morning. Sleeping well examination. States feeling better but tired. Medications: Reviewed: Yes Medication Review Details: Generic Name Dose Route Start Last Admin Trade Name Freq PRN Reason Stop Dose Admin Acetaminophen 650 mg 06/01/22 00:06 06/13/22 07:34 Acetaminophen 32 5 Mg Tablet PO 650 mg Q6H PRN Administration Mild/Mod Pain Or Temp >/= 101 Epoetin Gunnar 10,000 unit 06/07/22 14:00 06/11/22 14:54 Epoetin Gunnar 10, 000 Unit/Ml Inj SUBCUT 10,000 unit QMWF ULYSSES Administration Folic Acid 1 mg 06/01/22 09:00 06/13/22 08:45 Folic Acid 1 Mg Tablet PO 1 mg DAILY ULYSSES Administration Norepinephrine Bit artrate 4 mg 254 mls @ 0 mls/h r 06/03/22 04:30 06/11/22 09:30 / Dextrose IV 0 mcg/min .Q0M ULYSSES 0 mls/hr Titration Protocol Per Protocol Albumin Human 12.5 gm in 50 mls @ 60 mls/hr 06/03/22 08:12 06/11/22 07:46 Albumin IV Infused PRN PRN Infusion Hypotension and/o r symptomatic Ceftriaxone Sodium 2,000 mg/ 50 mls @ 100 mls/ hr 06/12/22 15:30 06/12/22 19:02 Sodium Chloride IV Infused Q24H ULYSSES Infusion Protocol Oxycodone/Acetamin ophen 1 tab 06/11/22 17:07 06/12/22 09:57 Oxycodone-Apap 5 -325 Mg Tablet PO 1 tab Q6H PRN Administration MODERATE PAIN Pantoprazole Sodiu m 40 mg 06/01/22 09:00 06/13/22 08:[address] 40 Mg Tablet PO 40 mg DAILY ULYSSES Administration Senna/Docusate Sod ium 1 tab 06/05/22 09:00 06/13/22 08:45 Sennosides-Docus ate Tablet PO 1 tab DAILY ULYSSES Administration Thiamine HCl 100 mg 06/09/22 09:00 06/13/22 08:46 Thiamine 100 Mg/ Ml Sdv IVP 100 mg DAILY ULYSSES Administration Vitals/I&O/Wt Last Vital Signs Temp 98.3 F 06/15/22 15:53 Pulse 102 H 06/15/22 15:53 Resp 17 06/15/22 15:53 BP 111/76 06/15/22 15:53 Pulse Ox 93 06/15/22 15:53 O2 Del Method 06/15/22 15:53 O2 Flow Rate 2 06/12/22 05:45 06/15/22 06/15/22 06/15/22 06:59 14:59 22:59 Intake Total 1190 / 2020 200 / 200 50 / 250 Output Total 1050 / 2250 1000 / 1000 Balance 140 / -230 -800 / -800 50 / -750 Weight last 48 hrs Weight 76.7 kg Physical Exam Narrative: In acute distress from right arm pain, Const: COMMON NORMALS: patient oriented x3 EXAM LIMITATIONS: behavioral limitations GENERAL APPEARANCE: well kempt, well developed and frail appearing Eye: COMMON NORMALS: Equal, round and reactive pupils present, EOMs intact bilaterally and no scleral icterus CONJUNCTIVA: Yes conjunctival abnormal positive bilateral pallor PUPIL: Yes Equal, round and reactive pupils present Resp: COMMON NORMALS: clear to auscultation bilaterally EFFORT & INSPECTION: Yes symmetric chest movement AUSCULTATION: clear to auscultation bilaterally Cardio: COMMON NORMALS: regular rate, regular rhythm, S1 normal heart sound present, S2 normal heart sound present, No gallops present (Cardio), No murmurs present (Cardio), No rub (Cardio) and Peripheral pulses 2+ throughout RATE: regular rate RHYTHM: regular rhythm HEART SOUNDS: S1 normal heart sound present and S2 normal heart sound present PERIPHERAL PULSES: Peripheral pulses 2+ throughout GI: COMMON NORMALS: Normal to inspection, nondistended, normoactive bowel sounds present, Soft to palpation, non-tender, No hepatosplenomegaly present and no masses AUSCULTATION: Yes normoactive bowel sounds PALPATION: Yes Soft to palpation and Yes No hepatosplenomegaly present RECTAL EXAM: deferred Extremity: COMMON NORMALS: no clubbing, cyanosis or edema and no pedal edema NARRATIVE EXTREMITY EXAM: Left hip wound VAC in present Neuro: COMMON NORMALS: patient oriented x3 Psych: APPEARANCE: Yes well kempt Urinary Catheter Management: Martinez: Cath Placed During This Visit: yes Reason for Continuing Indwelling Catheter: Accurate Measurement of Urinary Output in Critically Ill Patients Urinary Catheter Date of Insertion: 06/01/22 Urinary Catheter Time of Insertion: 11:51 Data : 06/15/22 03:24 06/15/22 03:24 Micro: Microbiology 06/14/22 08:00 Urine Culture - Preliminary Urine,Clean Catch 06/14/22 08:01 Blood Culture - Preliminary Blood NEGATIVE TO DATE A&P Assessment and plan (1) Hip osteomyelitis, left: (2) Gram negative sepsis: (3) Acute kidney injury: Last dialysis on 06/10. Creatinine slightly trending up to 3 today. No W. Yajaira. Good urine output. (4) Sepsis: Present on admission. Secondary to left hip osteomyelitis and abscess collection and UTI. Post left hip irrigation and debridement on 06/09. Wound VAC and drain removed on 06/13. Wound VAC present. Appreciate orthopedic recommendations. Weightbearing as per orthopedic team. Wound cultures of blood cultures showing E. coli. Sensitivities noted. Repeat blood cultures from 06/09 so far negative. Patient continues to have extensive leukocytosis along with occasional fevers. Continued IV ceftriaxone 2 g daily. Plan to discharge on IV antibiotics and wound VAC to [facility] when ready. Will try to evaluate for persistent leukocytosis even though the getting better along with episodes of fever. Repeat blood culture, urinalysis, chest x-ray. Start of incentive spirometry. Leukemia lymphoma panel : No lymphoma/leukemia seen on flow cytometry. Patient still have Martinez catheter, right HD catheter and a PICC line. Plan discussed in detail with nephrology on board. Patient's last dialysis on 06/10. Good urine output. Wants to wait for 24 more hours before deciding about known dialysis going further. Plan for new dialysis going further we will remove dialysis catheter and Martinez catheter within next 24 hours. Complaining of right arm pain. Will do CT wrist to rule out any fracture and osteomyelitis. Does seem to have local swelling. We will also do right arterial duplex as could be secondary to ABG on admission. Physical therapy evaluation. Appreciate orthopedics, nephrology, ID recommendations. (5) ATN (acute tubular necrosis): Appreciate nephrology recommendations. Patient limited oral intake. We will start on IV fluid at 50 cc/h for 1 bag within next 24 hours. (6) Avascular necrosis: (7) Hyponatremia: (8) Fall: (9) Dehydration: (10) Hip pain, left: (11) Alcohol abuse: (12) Right wrist pain: Plan Wound cultures so far has grown: E. coli, urine culture E. coli, blood culture on admission E. coli, repeat blood culture on 06/09 have remained negative. C. difficile toxin PCR negative, MRI of left hip: Nondiagnostic as the patient was not able to lie still. CT abdomen pelvis wo con: No hydronephrosis no pyelonephritis. No nephrolithiasis. Repeat CT chest abdomen and pelvis with contrast: Very small LEFT pleural effusion with LEFT basilar atelectasis. Mild mucosal edema involving the antrum of the stomach and a small ulcer in the antrum measuring 8 mm.Numerous diverticula throughout the colon with no evidence for acute diverticulitis. Soft tissue edema in the pelvis. Additional more focal postoperative changes at the LEFT hip from the recent arthroplasty. No focal collection. These changes are probably appropriate. CT lumbar spine w con: No epidural abscess. CT thoracic spine w con: No epidural abscess 2D echo: Normal LV Size and Systolic Function, no RWMA, LVEF 70%, grade 1 diastolic dysfunction, no valvular vegetation. Lines and tubes: Right femoral dialysis catheter, left PICC line. Analgesia: Tylenol, [place] 5 mg PO Q6h PRN, Tramdol 50 mg PO Q8h PRN Glycemic control: NAD Nutrition: Regular diet CODE STATUS: AND PUD prophylaxis: Protonix DVT prophylaxis:Heparin 5000 SQ BID Discharge planning: Plan to SNF once medical stable on IV Abx, wound vac [facility] Plan for the day: Continue with IV ceftriaxone. PT. Out of bed to chair. Continue with IV hydration. Stop oxycodone. Continue with tramadol 50 mg every 6 hourly. Continue with oral [facility]othyroxine. [facility] Plan to discharge in next 24 hours if patient remains hemodynamically stable and afebrile to SNF for IV ceftriaxone course for next 7 weeks to finish 8-week course. Add metoprolol 12.5 mg twice daily. This documentation was created by [employer] family practice physician assistant software. Every effort was made to ensure accuracy of family practice physician assistant. Any obvious errors or omissions should be clarified with the author of the document. Attestations Medical Necessity Statement*: Requires further hospitalization for management of gram-negative sepsis secondary to osteomyelitis of avascular necrosis of hip joint, JESSICA secondary to ATN while safe discharge planning is sought. Coding Level of Care Code Acute Pit Hoist Operator for Chg Fwd Diagnoses Hip osteomyelitis, left M86.9 Gram negative sepsis A41.50 Acute kidney injury N17.9 Sepsis A41.9 ATN (acute tubular necrosis) N17.0 Avascular necrosis M87.00 Hyponatremia E87.1 Fall W19.XXXA Dehydration E86.0 Hip pain, left M25.552 Alcohol abuse F10.10 Right wrist pain M25.531
[2022-06-15] MEDS: metoprolol tartrate 25 mg Tablet 12.5 MG PO (20:46)
[2022-06-15] MEDS: ALPRAZolam 0.5 mg Tablet 0.25 MG PO (20:47)
[2022-06-15] MEDS: oxyCODONE-APAP 5-325 mg Tablet 1 TAB PO (21:31)
[2022-06-16] VITALS (12 sets, daily range): BP systolic 90–122; BP diastolic 58–78; PULSE 79–97; RESP 16–18; TEMP 36.6–37.1; O2SAT 94–99
[2022-06-16 03:06] LABS: Basophils # 0.2 10^3/uL (0.0-0.1); Basophils % 0.8 %; Eosinophils # 0.1 10^3/uL (0.0-0.8); Eosinophils % 0.6 %; Hematocrit 23.2 % (37.0-47.0); Lymphocytes # 1.4 10^3/uL (0.8-4.8); Lymphocytes % 7.3 %; Mean Corpuscular HGB Conc 30.2 g/dL (30.0-36.0); Mean Corpuscular Hemoglobin 29.9 pg (28.0-34.0); Mean Corpuscular Volume 99.1 fl (81-99); Mean Platelet Volume 10.6 fL (7.4-10.4); Monocytes # 1.6 10^3/uL (0.2-0.9); Monocytes % 8.3 %; Neutrophils # 14.95 10^3/uL (1.8-7.7); Nucleated Red Blood Cells % 0 %; Platelet Count 156 10^3/cmm (130-400); Red Blood Count 2.34 10^6/uL (4.1-5.3); Red Cell Distribution Width 15.3 % (12.1-15.1); White Blood Count 18.9 10^3/uL (4.0-10.0)
[2022-06-16 03:23] LABS: Alanine Aminotransferase 14 U/L (0-33); Albumin Level 1.8 g/dL (3.5-5.2); Alkaline Phosphatase 179 U/L (35-105); Anion Gap 13.2 (5-19); Aspartate Amino Transferase 34 U/L (0-32); Blood Urea Nitrogen 40 mg/dL (8-23); Carbon Dioxide 26 mmol/L (22-29); Chloride 101 mmol/L (98-107); Globulin 2.6 g/dL (1.3-4.6); Glucose 97 mg/dL (65-115); Osmolality Calculated 292 mOsm/kg (285-295); Potassium 4.2 mmol/L (3.5-5.1); Sodium 136 mmol/L (136-145); Total Bilirubin 0.2 mg/dL (0.15-1.2); Total Protein 4.4 g/dL (6.6-8.7)
[2022-06-16] MEDS: levothyroxine 25 mcg Tablet PO (06:05)
[2022-06-16] MEDS: sodium chloride 0.9% 1,000 ML 50 ML IV (06:06)
[2022-06-16] MEDS: heparin 5,000 unit/mL INJ 1 mL 5000 UNIT SUBCUT (06:06)
[2022-06-16] MEDS: gabapentin 100 mg Capsule PO ×2 (06:06→15:09)
--- NOTE | 2022-06-16 10:07 | P.PN_ITS ---
Subjective Subjective: on 2l O2 Medications: Reviewed: Yes Vitals/I&O/Wt Last Vital Signs Temp 98.1 F 06/16/22 08:00 Pulse 97 06/16/22 08:00 Resp 18 06/16/22 08:00 BP 103/67 06/16/22 08:00 Pulse Ox 96 06/16/22 08:00 O2 Del Method 06/16/22 08:00 O2 Flow Rate 2 06/15/22 23:54 06/15/22 06/16/22 06/16/22 22:59 06:59 14:59 Intake Total 50 / 250 1000 / 1250 166.667 / 166.667 Balance 50 / -750 1000 / 250 166.667 / 166.667 Weight last 48 hrs Weight 82.242 kg Weight 76.7 kg Physical Exam Narrative: In acute distress from right arm pain, Const: GENERAL APPEARANCE: frail appearing Eye: COMMON NORMALS: EOMs intact bilaterally and no scleral icterus Resp: EFFORT & INSPECTION: Yes able to speak in complete sentences and Yes symmetric chest movement GI: RECTAL EXAM: deferred Extremity: NARRATIVE EXTREMITY EXAM: Left hip wound VAC in present Urinary Catheter Management: Martinez: Cath Placed During This Visit: yes Reason for Continuing Indwelling Catheter: Accurate Measurement of Urinary Output in Critically Ill Patients Urinary Catheter Date of Insertion: 06/01/22 Urinary Catheter Time of Insertion: 11:51 Data 06/16/22 02:14 06/16/22 02:14 Micro: Microbiology 06/14/22 08:00 Urine Culture - Preliminary Urine,Clean Catch 06/14/22 08:01 Blood Culture - Preliminary Blood NEGATIVE TO DATE A&P Assessment and plan (1) Acute kidney injury: 76 yr old female w/ left hip avascular necrosis and Q OM 1. JESSICA-? possible ATN from sepsis , Also? pt has been on NSAID's for a while -no hydronephrosis on CT? scan -concern for ATN, chronic interstial nephritis from chronic NSAID use, or iinfection related GN( unlikely ) - Holding? off on HD, can DC dialysis catheter - will give IV lasix x 1 2. Leukocytosis from OM-? renal dose abx -Wound cultures? has grown: E. coli, urine culture E. coli, blood culture no growth, 3. anemia- high b12, replace folate.? high iron sat -plan for prbc tx.? 4.? inc AG met acidosis-? normal lactate -likely from JESSICA, improved Attestations Medical Necessity Statement*: Requires further hospitalization for management of gram-negative sepsis secondary to osteomyelitis of avascular necrosis of hip joint, JESSICA secondary to ATN while safe discharge planning is sought. Coding Level of Care Code Established Pt Acute Damage Inside Adjuster for Jean Fwanahi Patient Type Established History Expanded Problem Focused Exam Expanded Problem Focused Medical Decision Making Moderate Complexity Diagnoses Acute kidney injury N17.9
[2022-06-16] MEDS: metoprolol tartrate 25 mg Tablet 12.5 MG PO (10:29)
[2022-06-16] MEDS: folic acid 1 mg Tablet PO (10:29)
[2022-06-16] MEDS: sennosides-docusate Tablet 1 TAB PO (10:30)
[2022-06-16] MEDS: pantoprazole DR 40 mg Tablet PO (10:30)
--- NOTE | 2022-06-16 10:37 | P.DS_ITS ---
Discharge Providers Date of Admission: 05/31/22 23:23 Date of Discharge: June 16, 2022 Attending Provider at Admission: Ruth Orosco MD Attending Provider at Discharge: Deon Hawk MD Consults: Orthopedics: Dr. Neville Nephrology ID: Dr. Orosco Diagnoses at Discharge Discharge Diagnosis (1) Acute kidney injury: Status: Acute (2) Gram negative sepsis: Status: Acute (3) ATN (acute tubular necrosis): Status: Acute (4) Avascular necrosis: Status: Acute (5) Hip osteomyelitis, left: Status: Acute (6) Hyponatremia: Status: Acute (7) Sepsis: Status: Acute (8) Hyponatremia: Status: Acute Reason for Visit Reason for Visit: left hip pain/injury Hospital Course Hospital Course Patient had a prolonged hospitalization. She was admitted on 06/01 and been di scharged on 06/16. During hospitalization she was treated for E. coli bacteremia secondary to left hip osteomyelitis which is complicated by patient developing ATN/JESSICA requiring hemodialysis, septic shock requiring pressor requirement and long ICU stay. Breanna Andrew is a 76 year old female admitted on June 01, 2022 with chief complaints of sustaining a fall of 2 to 3 days prior to admission.? Very limited history was available from the patient, in part due to encephalopathy and sepsis upon admission and in part as she is a poor historian, does not really wish to contribute to her history, likely has underlying personality disorder however has no formal diagnosis of the same.? Upon evaluation during the course of admission she was found to have gram-negative sepsis.? Blood culture showed E. coli.? Additionally she had complained of pain to the left hip, CT of the pelvis was initially performed to evaluate for underlying fractures.? While the study was negative for the same it did show?Several pockets of air density seen in the left proximal femur medullary space measuring up to 13.8 mm with some poorly defined overlying edematous soft tissue with some punctate pockets of air and an apparent fluid collection in the soft tissue measuring up to 3.7 cm over the anterior aspect of the intertrochanteric region, concerning for an infectious process involving the soft tissues along with osteomyelitis.? There is no reported history of drug use.? No recent history of diarrhea.? No other injuries apart from the fall she sustained on Tuesday, however once again history is extremely limited from her.? Other issues during current admission have included acute kidney injury with a creatinine of 5 for which patient is currently on hemodialysis.? Unknown if she has a history of CKD.? She was taken to the operating room on June 04, 2022 where she underwent left hip irrigation and debridement with placement of antibiotic impregnated spacers, deep drain placement and VAC placement.? Multiple cultures were taken which revealed E. coli.? Antibiotics were finally changed as per culture sensitivities to IV ceftriaxone. During hospitalization patient also developed septic shock for which she was on pressor support. Patient had also developed ATN leading to acute kidney injury and requirement of hemodialysis with last hemodialysis on 06/10. Patient responded well to the treatment and has been off pressors and hemodialysis for more than a week now. Patient's hospital stay was prolonged due to recurrent episodes of fever and very slow to improve leukocytosis. Repeated cultures and further infectious work-up remained negative. During hospitalization patient has also been complaining of right arm and wrist pain. Multiple investigations including CT wrist, venous and arterial duplex came back negative for acute abnormality. She is to continue doing ice pack of the arm. Patient has been working slowly with physical therapy. Patient's care has been hindered by her personality disorder as well. Safe discharge planning were discussed in detail with the patient and she verbalized understanding and is agreeable to SNF placement. She has been discharged hemodynamically stable condition to SNF with plan for IV ceftriaxone 2 g daily for next 7 weeks. She is to follow-up with ID clinic and Dr. Neville. Wound VAC is in place which will be removed as per orthopedic team within next 1 week. Physical Exam Narrative: In acute distress from right arm pain, Const: COMMON NORMALS: patient oriented x3 EXAM LIMITATIONS: behavioral limitations GENERAL APPEARANCE: well kempt, well developed and frail appearing Eye: COMMON NORMALS: Equal, round and reactive pupils present, EOMs intact bilaterally and no scleral icterus CONJUNCTIVA: Yes conjunctival abnormal positive bilateral pallor PUPIL: Yes Equal, round and reactive pupils present Resp: COMMON NORMALS: clear to auscultation bilaterally EFFORT & INSPECTION: Yes symmetric chest movement AUSCULTATION: clear to auscultation bilaterally Cardio: COMMON NORMALS: regular rate, regular rhythm, S1 normal heart sound present, S2 normal heart sound present, No gallops present (Cardio), No murmurs present (Cardio), No rub (Cardio) and Peripheral pulses 2+ throughout RATE: regular rate RHYTHM: regular rhythm HEART SOUNDS: S1 normal heart sound present and S2 normal heart sound present PERIPHERAL PULSES: Peripheral pulses 2+ throughout GI: COMMON NORMALS: Normal to inspection, nondistended, normoactive bowel sounds present, Soft to palpation, non-tender, No hepatosplenomegaly present and no masses AUSCULTATION: Yes normoactive bowel sounds PALPATION: Yes Soft to palpation and Yes No hepatosplenomegaly present RECTAL EXAM: deferred Extremity: COMMON NORMALS: no clubbing, cyanosis or edema and no pedal edema NARRATIVE EXTREMITY EXAM: Left hip wound VAC in present Neuro: COMMON NORMALS: patient oriented x3 Psych: APPEARANCE: Yes well kempt Urinary Catheter Management: Martinez: Cath Placed During This Visit: yes Reason for Continuing Indwelling Catheter: Accurate Measurement of Urinary Output in Critically Ill Patients Urinary Catheter Date of Insertion: 06/01/22 Urinary Catheter Time of Insertion: 11:51 Discharge Data Studies Completed and Pending Completed Studies During Hospitalization Category Date Time Status CT abdomen pelvis wo con [id number] Stat Cat Scan 06/02/22 08:[address] chest abd pel w con* Routine Cat Scan 06/10/22 08:[address] head wo con* [id number] Routine Cat Scan 06/01/22 06:[address] hip LT wo con* [id number] Stat Cat Scan 05/31/22 20:[address] lumbar spine w con [id number] Routine Cat Scan 06/10/22 08:[address] thoracic spine w con [id number] Routine Cat Scan 06/10/22 08:[address] wrist RT wo con* [id number] Routine Cat Scan 06/14/22 09:59 Completed CXRP [XR chest 1V portable [id number]] Routine Exams 06/01/22 06:45 Completed XR chest 1V portable [id number] Routine Exams 06/08/22 12:19 Completed XR chest 1V portable [id number] Routine Exams 06/14/22 07:35 Completed XR hip LT 2-3V wo/w pel* [id number] Routine Exams 06/04/22 16:43 Completed XR hip LT 2-3V wo/w pel* [id number] Routine Exams 06/09/22 23:04 Completed XR hip LT 2-3V wo/w pel* [id number] Stat Exams 05/31/22 19:39 Completed XR wrist RT min 3V* [id number] Stat Exams 05/31/22 19:43 Completed MR hip LT wo con* [id number] Stat MRI 06/01/22 08:40 Completed Pathology: Surgical [PTH] Routine Pth 06/04/22 15:22 [place] [id number] Routine Ultrasound 06/14/22 07:37 Completed CV. echo complete* [id number] Routine Ultrasound 06/08/22 17:30 Completed US venous duplex upper extremity RT [CV venous duplex Ultrasound 06/04/22 10:13 [place] [id number]] Routine Pending at discharge Category Date Time Status ABO/Rh Type Routine Lab 06/01/22 06:50 Results Blood Culture Stat Lab 06/14/22 07:35 Results Complete Blood Count w/Auto AM LABS Lab 06/17/22 04:00 Ordered Complete Crossmatch Routine Lab 06/01/22 06:50 Results Comprehensive Metabolic Panel AM LABS Lab 06/17/22 04:00 Ordered Miscellaneous Test Routine Lab 06/04/22 07:38 Received Platelets Leuko-Reduced Routine Lab 06/02/22 09:46 Results Retype for Patiets ABO/Rh Routine Lab 06/01/22 06:50 Results SARS Covid-2 Antigen Routine Lab 06/16/22 10:15 Uncollected Urine Culture Routine Lab 06/14/22 08:00 Results US arterial duplex upper extremity RT [CV arterial Ultrasound 06/14/22 13:08 [place] [id number]] Routine Radiology Impressions Wrist X-Ray 05/31/22 19:43 IMPRESSION: [id number] 1st carpometacarpal joint and STT joint osteoarthritis. Hip CT 05/31/22 20:14 IMPRESSION: 1. Negative for fracture or dislocation. 2. Severe left hip osteoarthritis with bony remodeling of the femur and acetabulum. 3. Several pockets of air density seen in the left proximal femur medullary space measuring up to 13.8 mm with some poorly defined overlying edematous soft tissue with some punctate pockets of air and an apparent fluid collection in the soft tissue measuring up to 3.7 cm over the anterior aspect of the intertrochanteric region, concerning for an infectious process involving the soft tissues along with osteomyelitis. Head CT 06/01/22 06:45 IMPRESSION: 1. No evidence of intracranial hemorrhage or mass effect. 2. Moderate small vessel changes. Moderate parenchymal volume loss. 3. Chronic lacunar infarcts in the RIGHT caudate and basal ganglia. Chronic lacunar infarcts in the RIGHT cerebellum. 4. Intracranial vascular calcification. 5. No acute intracranial findings. Hip MRI 06/01/22 08:40 IMPRESSION: 1. Nearly nondiagnostic evaluation of the LEFT hip. Patient was unable to remain still for this examination. 2. Cannot exclude fracture or osteomyelitis. 3. There is severe soft tissue edema and synovial thickening surrounding the LEFT hip and involving the muscles surrounding the LEFT hip. Infectious process likely. Abdomen/Pelvis CT 06/02/22 08:21 IMPRESSION: 1. No hydronephrosis in either kidney. Martinez catheter in place. Suggestion of renal parenchymal edema however enhancement cannot be assessed without contrast. 2. No obstructing renal ureteral calculi. 3. Tiny bilateral pleural effusions with subsegmental atelectasis in the lung bases. 4. Small esophageal hiatal hernia. 5. Sigmoid diverticulosis. No evidence of acute diverticulitis. 6. Advanced degenerative or posttraumatic arthritis LEFT hip with avascular necrosis and flattening of the femoral head and subchondral cystic change.Soft tissue edema about the LEFT hip with joint effusion. Recommend correlation for infection. Hip/Pelvis X-Ray 06/09/22 23:04 IMPRESSION: Postsurgical changes of the left hip, as noted above. Chest/Abdomen/Pelvis CT 06/10/22 08:00 IMPRESSION: 1. Very small LEFT pleural effusion with LEFT basilar atelectasis. 2. Mild mucosal edema involving the antrum of the stomach and a small ulcer in the antrum measuring 8 mm. 3. Numerous diverticula throughout the colon with no evidence for acute diverticulitis. 4. Soft tissue edema in the pelvis. Additional more focal postoperative changes at the LEFT hip from the recent arthroplasty. No focal collection. These changes are probably appropriate. 5. Martinez catheter. 6. No renal obstruction. No pneumonia. Lumbar Spine CT 06/10/22 08:00 IMPRESSION: 1. No epidural abscess identified. No enhancing mass encroaching upon the thecal sac. This study lacks sensitivity for small abscesses. 2. Multilevel areas of foraminal and central stenosis as above. Thoracic Spine CT 06/10/22 08:00 IMPRESSION: 1. No epidural abscess or mass effect upon the thoracic cord identified. This study lacks sensitivity for small abscesses. 2. Small LEFT pleural effusion. Chest X-Ray 06/14/22 07:35 IMPRESSION: 1. Findings suspicious for a infiltrate and/or atelectasis in the left lower lobe. 2. Left-sided PICC line remaining in satisfactory position. Wrist CT 06/14/22 09:59 IMPRESSION: 1. Tiny avulsion at the tip of the trapezoid appears well-corticated and likely chronic. Otherwise no acute fractures. 2. Diffuse soft tissue edema about the wrist. No drainable fluid collections. 3. 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 Echocardiogram: ?CONCLUSIONS ?1. Normal left ventricular size, systolic function and upper ?normal wall thickness, with no regional wall motion?abnormalities. Left ventricular ejection fraction is estimated?at 70 %. Grade I diastolic dysfunction (abnormal relaxation ?filling pattern), normal to mildly elevated filling pressures. ?2. Normal right ventricular size and systolic function. ?3. Pulmonary artery pressure estimated at 32 mmHg. ?4. No evidence of valvular vegetation based on the study. ?5. No prior similar studies to compare. ?Trina Morfin MD ?(Electronically Signed) ?Final Date:? ? ? 09 June 2022 ? 08:20 S Laboratory Results WBC 18.9 10^3/uL (4.0-10.0) H 06/16/22 02:14 RBC 2.34 10^6/uL (4.1-5.3) L 06/16/22 02:14 Hgb 7.0 g/dL (11.5-15.3) L 06/16/22 02:14 Hct 23.2 % (37.0-47.0) L 06/16/22 02:14 MCV 99.1 fl (81-99) H 06/16/22 02:14 MCH 29.9 pg (28.0-34.0) 06/16/22 02:14 MCHC 30.2 g/dL (30.0-36.0) 06/16/22 02:14 RDW 15.3 % (12.1-15.1) H 06/16/22 02:14 Plt Count 156 10^3/cmm (130-400) D 06/16/22 02:14 MPV 10.6 fL (7.4-10.4) H 06/16/22 02:14 Neut % (Auto) 79.0 % 06/16/22 02:14 Lymph % (Auto) 7.3 % 06/16/22 02:14 [place] % (Auto) 8.3 % 06/16/22 02:14 Eos % (Auto) 0.6 % 06/16/22 02:14 Baso % (Auto) 0.8 % 06/16/22 02:14 Neut # (Auto) 14.95 10^3/uL (1.8-7.7) H 06/16/22 02:14 Lymph # (Auto) 1.4 10^3/uL (0.8-4.8) 06/16/22 02:14 [place] # (Auto) 1.6 10^3/uL (0.2-0.9) H 06/16/22 02:14 Eos # (Auto) 0.1 10^3/uL (0.0-0.8) 06/16/22 02:14 Baso # (Auto) 0.2 10^3/uL (0.0-0.1) H 06/16/22 02:14 Nucleated RBC % (auto) 0 % 06/16/22 02:14 Total Counted 100 (0-100) 06/07/22 02:45 Atypical Lymphs % 0.0 % (0-5) 06/07/22 02:45 Absolute Neutrophils 36.3 10^3/cmm (1.4-6.5) H 06/07/22 02:45 Segmented Neutrophils 78 % 06/07/22 02:45 Abs Segm Neuts (Man) 32.9 10/cmm (1.6-7.1) H 06/07/22 02:45 Band Neutrophils 8.0 % 06/07/22 02:45 Abs Band Neuts (Man) 3.4 10^3/cmm (0.0-1.2) H 06/07/22 02:45 Absolute Lymphocytes 1.3 10^3/cmm (1.2-3.4) 06/07/22 02:45 Lymphocytes (Manual) 3 % 06/07/22 02:45 Monocytes (Manual) 5.0 % 06/07/22 02:45 Absolute Monocytes 2.1 10^3/cmm (0.1-0.6) H 06/07/22 02:45 Eosinophils (Manual) 0 % 06/07/22 02:45 Absolute Eosinophils 0.0 10^3/cmm (0.0-0.7) 06/07/22 02:45 Basophils (Manual) 0.0 % 06/07/22 02:45 Absolute Basophils 0.0 10^3/cmm (0.0-0.2) 06/07/22 02:45 Metamyelocytes 1.0 % 06/07/22 02:45 Myelocytes 5.0 % 06/07/22 02:45 Nucleated RBCs # 0.0 /100WBC 06/16/22 02:14 Toxic Granulation 2+ H 06/07/22 02:45 Toxic Vacuolation 1+ H 06/07/22 02:45 Dohle Bodies 2+ H 06/07/22 02:45 Platelet Estimate Normal (Normal) 06/07/22 02:45 Poikilocytosis 1+ H 06/07/22 02:45 Anisocytosis 1+ H 06/07/22 02:45 Nadeem Cells 2+ H 06/07/22 02:45 ESR 92 mm/hr (0-15) H 05/31/22 22:07 Specimen Type Arterial 06/03/22 09:05 Sample Site Radial, left 06/03/22 09:05 ABG pH 7.25 (7.35-7.45) L 06/03/22 09:05 ABG pCO2 29.5 mmHg (35-45) L 06/03/22 09:05 ABG pO2 81.3 mmHg (80.0-100.0) 06/03/22 09:05 ABG HCO3 12.9 mmol/L (22-26) L 06/03/22 09:05 ABG O2 Saturation 96.3 06/03/22 09:05 ABG Base Excess -13.0 mmol/L (-2.0-2.0) L 06/03/22 09:05 Barrie Test Pos 06/03/22 09:05 A-a O2 Gradient 4.1 mmHg (5-10) L 06/03/22 09:05 Hematocrit 31.8 % (37-47) L 06/03/22 09:05 Hgb O2 Saturation 94.0 % (95-100) L 06/03/22 09:05 Carboxyhemoglobin 1.5 %THgb (0.4-20.1) 06/03/22 09:05 Methemoglobin 0.9 % (0.4-1.5) 06/03/22 09:05 Total Hemoglobin 10.4 g/dL (12-16) L 06/03/22 09:05 Sodium 124.0 mmol/L (131-143) L 06/03/22 09:05 Potassium 4.6 mmol/L (3.5-5.0) 06/03/22 09:05 Glucose 76.0 mg/dL (70-115) 06/03/22 09:05 Ionized Calcium 1.1 mmol/L (1.1-1.4) 06/03/22 09:05 O2 Delivery Device Room air 06/03/22 09:05 O2 Liters/Min 2.0 % 06/01/22 17:42 FiO2 28.0 % 06/01/22 17:42 Power Distribution Engineer ID [id number] 06/03/22 09:05 Sodium 136 mmol/L (136-145) 06/16/22 02:14 Potassium 4.2 mmol/L (3.5-5.1) 06/16/22 02:14 Chloride 101 mmol/L (98-107) 06/16/22 02:14 Carbon Dioxide 26 mmol/L (22-29) 06/16/22 02:14 Anion Gap 13.2 (5-19) 06/16/22 02:14 BUN 40 mg/dL (8-23) H 06/16/22 02:14 Creatinine 3.1 mg/dL (0.5-0.9) H 06/16/22 02:14 GFR Calculation Not Reportable 06/16/22 02:14 Glucose 97 mg/dL (65-115) 06/16/22 02:14 POC Glucose 119 mg/dL (70-110) H 06/13/22 05:11 Estimat Average Glucose 94 05/31/22 22:07 Hemoglobin A1c 4.9 % (4.0-6.0) 05/31/22 22:07 Calculated Osmolality 292 mOsm/kg (285-295) 06/16/22 02:14 Lactic Acid 0.9 mmol/L (0.5-2.2) 06/02/22 03:30 Lactate 1.0 mmol/L (0.5-2.2) 06/01/22 18:46 Uric Acid 11.9 mg/dL (2.4-5.7) H 06/03/22 03:43 Calcium 9.0 mg/dL (8.5-10.5) 06/16/22 02:14 Phosphorus 3.2 mg/dL (2.5-4.5) 06/12/22 02:54 Magnesium 1.8 mg/dL (1.7-2.3) 06/12/22 02:54 Iron 46 ug/dL (37-145) 06/03/22 03:43 TIBC 131 mcg/dl 06/03/22 03:43 % Saturation 35.1 % (20-50) 06/03/22 03:43 Unsat Iron Binding 85 ug/dL (112-347) L 06/03/22 03:43 Ferritin 1192 ng/mL (15-150) H 06/03/22 03:43 Total Bilirubin 0.2 mg/dL (0.15-1.2) 06/16/22 02:14 Direct Bilirubin 0.20 mg/dL (0.00-0.30) 06/14/22 02:56 AST 34 U/L (0-32) H 06/16/22 02:14 ALT 14 U/L (0-33) 06/16/22 02:14 Alkaline Phosphatase 179 U/L (35-105) H 06/16/22 02:14 Creatine Kinase 17 U/L (26-192) L 06/02/22 03:30 C-Reactive Protein 120.1 mg/L (0.0-4.9) H 05/31/22 22:36 Total Protein 4.4 g/dL (6.6-8.7) L 06/16/22 02:14 Albumin 1.8 g/dL (3.5-5.2) L 06/16/22 02:14 Globulin 2.6 g/dL (1.3-4.6) 06/16/22 02:14 Saxci-8-Xzzrqcwdj 0.6 g/dL (0.2-0.3) H 06/02/22 12:00 Midzq-5-Zbqvltxmk 0.6 g/dL (0.5-0.9) 06/02/22 12:00 Tirl-4-Fetqegqc 0.3 g/dL (0.4-0.6) L 06/02/22 12:00 Qbvb-4-Tyrtbsce 0.2 g/dL (0.2-0.5) 06/02/22 12:00 Gamma Globulins 0.5 g/dL (0.8-1.7) L 06/02/22 12:00 Abnorm Protein Band 1 Not Reportable 06/02/22 12:00 Triglycerides 120 mg/dL (0-150) 06/15/22 03:24 Cholesterol 112 mg/dL (0-200) 06/15/22 03:24 LDL Cholesterol, Calc 60 mg/dL (50-129) 06/15/22 03:24 Total VLDL Cholesterol 24 mg/dL (0-30) 06/15/22 03:24 HDL Cholesterol 28 mg/dL (60-100) L 06/15/22 03:24 Cholesterol/HDL Ratio 4.00 mg/dL (0.0-4.40) 06/15/22 03:24 Vitamin B12 > 2000 pg/mL (232-1245) H 06/02/22 12:00 25-OH Vitamin D Total 44 ng/mL (30-100) 06/03/22 03:43 Folate 4.6 ng/mL (4.8-37.3) L 06/02/22 12:00 TSH 5.15 uIU/mL (0.27-4.20) H 06/02/22 03:30 Free T4 0.17 ng/dL (0.82-1.77) L 06/03/22 03:43 PTH Intact 94.0 pg/mL (15-65) H 06/03/22 03:43 Calcium (PTH Intact) 7.8 mg/dL (8.5-10.5) L 06/03/22 03:43 Random Cortisol 13.13 ug/dL (2.47-19.5) 06/03/22 03:43 Urine Color Yellow (Yellow) 06/14/22 08:00 Urine Appearance Clear (CLEAR) 06/14/22 08:00 Urine pH 7 (5-7) 06/14/22 08:00 Ur Specific [place] 1.005 (1.005-1.030) 06/14/22 08:00 Urine Protein 1+ (Negative) H 06/14/22 08:00 Urine Glucose (UA) Norm (Normal) 06/14/22 08:00 Urine Ketones Negative (Negative) 06/14/22 08:00 Urine Blood 2+ (Negative) H 06/14/22 08:00 Urine Nitrate Negative (Negative) 06/14/22 08:00 Urine Bilirubin Neg (Negative) 06/14/22 08:00 Urine Urobilinogen Norm mg/dL (Negative) 06/14/22 08:00 Ur Leukocyte Esterase 2+ (Negative) H 06/14/22 08:00 Urine RBC 0-4 /hpf (0-2) H 06/14/22 08:00 Urine WBC 5-10 /hpf (0-5) H 06/14/22 08:00 Ur Eosinophil Smear 0 (0-0) 06/02/22 10:55 Ur Squamous Epith Cells 0-4 /hpf (0-5) H 06/14/22 08:00 Amorphous Sediment Not Reportable 06/14/22 08:00 Urine Bacteria 3+ /hpf (NONE) H 06/14/22 08:00 Urine Eosinophils No eosinophils seen 06/02/22 10:55 Ur Random Microalbumin 63 ug/dL (0-20) H 06/02/22 10:55 Ur Random Sodium 37 mmol/L 06/02/22 10:55 Ur Random Potassium 30 mmol/L 06/01/22 01:54 Ur Random Chloride 30 mmol/L 06/01/22 01:54 Urine Creatinine 24 mg/dL (28-217) L 06/02/22 10:55 Urine Creatinine 24 mg/dL (28-217) L 06/02/22 10:55 Microalb/Creat Ratio 2625 mg/dL (0-20) H 06/02/22 10:55 U Abnormal Prot Band 2 Not Reportable 06/02/22 12:00 U Abnormal Prot Band 3 Not Reportable 06/02/22 12:00 Random Tobramycin 1.5 ug/mL (6.0-10.0) L 06/11/22 04:04 Vancomycin Trough 11.9 ug/mL (10-15) 06/06/22 20:34 Random Vancomycin 15.2 ug/mL (20.0-40.0) L 06/11/22 04:04 Ethyl Alcohol < 10 mg/dL (0-10) 06/01/22 08:47 Pro Electrophoresis Int See note 06/02/22 12:00 Serum Immunofixation See note 06/02/22 12:00 AMRIT Screen Negative (NEGATIVE) 06/02/22 12:00 ANCA Screen Negative (NEGATIVE) 06/02/22 12:00 ANCA Titer Not Reportable 06/02/22 12:00 Anti-ds DNA IgG Ab <1 IU/mL 06/02/22 12:00 Complement C3 80 mg/dL (90-180) L 06/02/22 12:00 Complement C4 20 mg/dL (10-40) 06/02/22 12:00 Lymphoma Panel See report 06/04/22 07:38 Immunophenotype Interp See report 06/04/22 07:38 Coronavirus 229E (PCR) Not detected (NOT DETECT) 06/11/22 21:45 Hep Bs Antigen Non-reactive (Nonreactive) 06/03/22 10:15 Hep Bs Antibody 3.5 (11.5-1000) L 06/03/22 10:15 Hepatitis C Antibody Non-reactive (Nonreactive) 06/03/22 10:15 SARS-CoV-2 (PCR) Not detected (NOT DETECT) 06/11/22 21:45 SARS-CoV-2 Ag (Rapid) negative (Negative) 06/11/22 21:45 Anti-Streptolysin O Ab <50 IU/mL (<200) 06/02/22 12:00 Blood Type O Positive 06/16/22 08:07 Rho(D) Type Positive 06/16/22 08:07 Antibody Screen Negative 06/16/22 08:07 Crossmatch See Detail 06/16/22 08:07 Vitals Last Vital Signs Temp 97.9 F 06/16/22 10:14 Pulse 92 06/16/22 10:14 Resp 18 06/16/22 10:14 BP 106/65 06/16/22 10:14 Pulse Ox 96 06/16/22 10:14 O2 Del Method 06/16/22 08:00 O2 Flow Rate 2 06/15/22 23:54 Discharge Plan Discharge Patient Disposition: Xfer SNF Condition: Stable Prescriptions: New levothyroxine 25 mcg Tablet 25 mcg PO QAM 30 Days Qty: 30 0RF pantoprazole 40 mg Tablet,Delayed Release (Dr/Ec) 40 mg PO DAILY 30 Days Qty: 30 0RF folic acid 1 mg Tablet 1 mg PO DAILY 30 Days Qty: 30 0RF gabapentin 100 mg Capsule 100 mg PO Q8H 30 Days Qty: 90 0RF metoprolol tartrate 25 mg Tablet 12.5 mg PO BID@0900,2100 30 Days Qty: 30 0RF duloxetine [Cymbalta] 30 mg capsule,delayed release(DR/EC) 30 mg PO DAILY Qty: 30 0RF Continued aspirin 81 mg Tablet,Chewable 81 mg PO DAILY Discharge Orders: Discharge Order (Routine); Ordered 06/16/22 Ordered By: Deon Hawk Referrals: Ruth Orosco MD [Hospitalist] - 07/22/22 10:30 am (jul [id number]) Nikita Neville DO [Physician] - 06/29/22 10:45 am () Discharge Diet: Regular Discharge Activity: Resume usual activity and Increase activity as tolerated Patient Instructions: Opioid Safety Activity Restrictions/Additional Instructions: Renal diet. IV ceftriaxone 2 g daily for next 7 weeks. While on IV antibiotics please do CBC and CMP weekly. Please apply ice pack to bilateral hands twice daily. Please follow-up with Dr. Neville and ID clinic as directed. Discharge Attestations Time Spent in Discharge Care*: greater than 30 min Specific Discharge Activities: educating patient, discussing with pcp/other providers, discussing with window caser/social workers/dc planners, documenting/other paperwork and evaluating patient/reviewing data Status at Discharge: Cognitive status at discharge: cognitively intact , Behavioral status at discharge: cooperative , Functional status at discharge: other assisted ambulation , Overall status at discharge: patient is progressing back to baseline Quality Metrics Clinical Quality Measures [ No reported AMI, CVA or VTE this stay] Coding Level of Care Code Acute g DC note Exam Detailed Diagnoses Acute kidney injury N17.9 Gram negative sepsis A41.50 ATN (acute tubular necrosis) N17.0 Avascular necrosis M87.00 Hip osteomyelitis, left M86.9 Hyponatremia E87.1 Sepsis A41.9 Hyponatremia E87.1
--- NOTE | 2022-06-16 12:10 | PC.NURSE ---
dr staples notified of pts soft b/p will getting transfusion...order order ro dc current iv lasix order
[2022-06-16] MEDS: FUROsemide 10 mg/mL SDV 2mL 20 MG IVP ×2 (12:24→15:08)
[2022-06-16 14:22] LABS: SARS Covid-2 Antigen negative (Negative)
[2022-06-16] MEDS: cefTRIAXone 2,000 MG in sodium chloride 0.9% (plus) 50 ML 100 MG IV (15:09)
--- NOTE | 2022-06-16 15:19 | PC.OT ---
OT TREATMENT HELD DUE TO SCHEDULED PATIENT D/C
--- NOTE | 2022-06-16 16:00 | PM.MISC ---
Miscellaneous Note Purpose of Documentation: Orthopedic note update: Discharge summary/instructions was printed prior to my update in patient's chart. As result I contacted the facility and they were given appropriate dressing instructions of leaving incisional VAC on in place for 7 to 10 days postoperatively then they remove the incisional VAC dressing and replace with a dry dressing. [facility] staff verbalized understanding. Also confirmed the patient was placed on Lovenox 30 mg subcutaneous injections once daily for 35 days postoperatively for DVT prophylaxis. She was discharged on pain medication per primary team. She will follow-up with me in the office within the next 2 weeks. She will be toe-touch weightbearing to the left lower extremity.
== END 2022-06-16 17:05 | disposition skilled nursing facility (03) | DRG 853 ==
LOC: ER 23:23 → ICU 23:46 → MEDSURG 06-15 12:34
PROVIDERS: Internal Medicine; Internal Medicine Nephrology; Student in an Organized Health Care Education/Training Program; Admitting Provider Student in an Organized Health Care Education/Training Program; Emergency Provider Emergency Medicine; Visit Provider Student in an Organized Health Care Education/Training Program
PROC: 0QB70ZZ Excision of Left Upper Femur, Open Approach (ICD-10-PCS; CPT 27125; principal; 2022-06-04 10:55)
PROC: 0QB70ZZ Excision of Left Upper Femur, Open Approach (ICD-10-PCS; 2022-06-09 13:20)
DX: A41.51 Sepsis due to Escherichia coli [E. coli] (principal); G93.41 Metabolic encephalopathy; R65.21 Severe sepsis with septic shock; N17.0 Acute kidney failure with tubular necrosis; N39.0 Urinary tract infection, site not specified; M00.852 Arthritis due to other bacteria, left hip; M86.8X5 Other osteomyelitis, thigh; E87.1 Hypo-osmolality and hyponatremia; L02.416 Cutaneous abscess of left lower limb; E87.20 Acidosis, unspecified; N25.81 Secondary hyperparathyroidism of renal origin; M87.9 Osteonecrosis, unspecified; W19.XXXA Unspecified fall, initial encounter; M19.031 Primary osteoarthritis, right wrist; E86.0 Dehydration; E87.5 Hyperkalemia; F10.10 Alcohol abuse, uncomplicated; D63.8 Anemia in other chronic diseases classified elsewhere; D69.59 Other secondary thrombocytopenia; M48.061 Spinal stenosis, lumbar region without neurogenic claudication; M48.07 Spinal stenosis, lumbosacral region; F60.9 Personality disorder, unspecified; Z79.82 Long term (current) use of aspirin; T39.395A Adverse effect of other nonsteroidal anti-inflammatory drugs [NSAID], initial encounter; I95.9 Hypotension, unspecified; Z66 Do not resuscitate
CPT/HCPCS: 12345; 36415; 36416; 36430; 36569; 36592; 36600; 51702; 70450; 71045; 71260; 72129; 72132; 73110; 73200; 73502; 73700; 73721; 74176; 74177; 80048; 80051; 80053; 80061; 80076; 80200; 80202; 80307; 80503; 81001; 82044; 82274; 82306; 82310; 82330; 82436; 82533; 82550; 82570; 82607; 82728; 82746; 82803; 82805; 82962; 83036; 83540; 83550; 83605; 83735; 83970; 84100; 84133; 84155; 84165; 84300; 84439; 84443; 84550; 85007; 85025; 85651; 85999; 86036; 86038; 86060; 86140; 86160; 86225; 86334; 86706; 86803; 86850; 86900; 86920; 87040; 87070; 87075; 87077; 87086; 87150; 87176; 87186; 87205; 87340; 87426; 87493; 87635; 88184; 88185; 88304; 88311; 90935; 92523; 92526; 92610; 93005; 93306; 93931; 93970; 93971; 96365; 96372; 97110; 97161; 97167; 97530; 97535; 99285; C1776; J0131; J0330; J0692; J0696; J1170; J1644; J1940; J2060; J2185; J2270; J2405; J2543; J2560; J2704; J3010; J3260; J3370; J3411; J3490; J7030; J7040; J7042; J7050; J7060; J7070; P9016; P9040; P9047; Q3014; Q4081; Q9967; Q9968

== ENCOUNTER → 2022-07-02 11:01 | Outpatient (BNVA) | payer OTHER, SELFPAY | PROVIDERS: Visit Provider Student in an Organized Health Care Education/Training Program | DX: M86.9 Osteomyelitis, unspecified (principal) | CPT/HCPCS: 73502; 99024 ==

== ENCOUNTER → 2022-07-22 12:04 | Outpatient (BNVA) | payer OTHER, MEDICARE, SELFPAY | PROVIDERS: PCP Family Medicine; Visit Provider Student in an Organized Health Care Education/Training Program | DX: A41.50 Gram-negative sepsis, unspecified (principal); M86.9 Osteomyelitis, unspecified; Z09 Encounter for follow-up examination after completed treatment for conditions other than malignant neoplasm | CPT/HCPCS: 36415; 80053; 85025; 85651; 86140; 99203; 99205; 99213 ==

== ENCOUNTER → 2022-07-30 07:48 | Outpatient (BNVA) | payer OTHER, SELFPAY | PROVIDERS: PCP Family Medicine; Visit Provider Student in an Organized Health Care Education/Training Program | DX: M86.18 Other acute osteomyelitis, other site (principal); D64.9 Anemia, unspecified | CPT/HCPCS: 73502; 80048; 99024 ==

== ENCOUNTER 2022-07-30 13:57 | Outpatient (CLI) | payer MEDICARE, OTHER, SELFPAY ==
[2022-07-30 15:05] LABS: Anion Gap 16.7 (5-19); Blood Urea Nitrogen 55 mg/dL (8-23); Calcium 9.4 mg/dL (8.5-10.5); Carbon Dioxide 21 mmol/L (22-29); Chloride 92 mmol/L (98-107); Glucose 103 mg/dL (65-115); Osmolality Calculated 275 mOsm/kg (285-295); Potassium 4.7 mmol/L (3.5-5.1); Sodium 125 mmol/L (136-145)
== END 2022-07-30 13:58 | disposition home or self-care (01) ==
PROVIDERS: PCP Family Medicine; Visit Provider Family Medicine
DX: D64.9 Anemia, unspecified (principal)
CPT/HCPCS: 80048; 99024

== ENCOUNTER → 2022-09-03 07:26 | Outpatient (BNVA) | payer MEDICARE, OTHER, SELFPAY | PROVIDERS: PCP Family Medicine; Visit Provider Student in an Organized Health Care Education/Training Program | DX: M86.8X8 Other osteomyelitis, other site (principal) | CPT/HCPCS: 73502; 99214 ==

== ENCOUNTER → 2022-10-01 07:36 | Outpatient (BNVA) | payer MEDICARE, OTHER, SELFPAY | PROVIDERS: PCP Family Medicine; Visit Provider Student in an Organized Health Care Education/Training Program | DX: M86.152 Other acute osteomyelitis, left femur (principal) | CPT/HCPCS: 73502; 99214 ==

== ENCOUNTER 2022-11-08 17:51 | Outpatient (CLI) | payer MEDICARE, OTHER, SELFPAY ==
[2022-11-08 18:49] LABS: Add Urine Culture? Yes; Add Urine Microscopic? YES; Bacteria Urine 2+ /hpf; Bilirubin Urine Neg (Negative); Blood Urine Trace (Negative); Glucose Urine UA Norm (Normal); Ketones Urine Negative (Negative); Leukocyte Esterase Urine 2+ (Negative); Nitrate Urine Negative (Negative); Protein Urine Neg (Negative); RBC Urine 0-4 /hpf (0-2); Squamous Epithelial Cell Urine 0-4 /hpf (0-5); Urine Appearance Hazy (CLEAR); Urine Color Yellow (Yellow); Urobilinogen Urine Neg (Negative); WBC Urine >100 /hpf (0-5); pH Urine 6 (5-7)
[2022-11-08 19:33] LABS: Alanine Aminotransferase 7 U/L (0-33); Albumin Level 3.3 g/dL (3.5-5.2); Alkaline Phosphatase 117 U/L (35-105); Blood Urea Nitrogen 49 mg/dL (8-23); Calcium 9.2 mg/dL (8.5-10.5); Carbon Dioxide 20 mmol/L (22-29); Chloride 90 mmol/L (98-107); Globulin 2.6 g/dL (1.3-4.6); Glucose 90 mg/dL (65-115); Osmolality Calculated 269 mOsm/kg (285-295); Sodium 123 mmol/L (136-145); Total Bilirubin 0.2 mg/dL (0.15-1.2); Total Protein 5.9 g/dL (6.6-8.7)
[2022-11-08 19:45] LABS: Anion Gap 17.6 (5-19); Potassium 4.6 mmol/L (3.5-5.1)
[2022-11-08 19:46] LABS: Aspartate Amino Transferase 19 U/L (0-32)
== END 2022-11-08 17:52 | disposition home or self-care (01) ==
PROVIDERS: PCP Family Medicine; Visit Provider Family Medicine
DX: M62.81 Muscle weakness (generalized) (principal)
CPT/HCPCS: 80053; 81001; 85025; 87086

== ENCOUNTER 2022-11-09 09:46 | Outpatient (CLI) | payer MEDICARE, OTHER, SELFPAY ==
[2022-11-09 09:58] LABS: Basophils # 0.1 10^3/uL (0.0-0.1); Basophils % 0.8 %; Eosinophils # 0.5 10^3/uL (0.0-0.8); Eosinophils % 5.9 %; Hematocrit 33.7 % (37.0-47.0); Hemoglobin 10.2 g/dL (11.5-15.3); Lymphocytes # 1.5 10^3/uL (0.8-4.8); Lymphocytes % 17.5 %; Mean Corpuscular HGB Conc 30.3 g/dL (30.0-36.0); Mean Corpuscular Hemoglobin 27.3 pg (28.0-34.0); Mean Corpuscular Volume 90.1 fl (81-99); Mean Platelet Volume 9.1 fL (7.4-10.4); Monocytes % 12.4 %; Neutrophils # 5.25 10^3/uL (1.8-7.7); Neutrophils % 62.4 %; Nucleated Red Blood Cells % 0 %; Platelet Count 435 10^3/cmm (130-400); Red Blood Count 3.74 10^6/uL (4.1-5.3); Red Cell Distribution Width 16.4 % (12.1-15.1); White Blood Count 8.4 10^3/uL (4.0-10.0)
== END 2022-11-09 09:47 | disposition home or self-care (01) ==
LOC: LAB 09:46
PROVIDERS: PCP Family Medicine; Visit Provider Family Medicine
DX: M62.81 Muscle weakness (generalized) (principal)
CPT/HCPCS: 85025

== ENCOUNTER 2022-11-16 11:08 | Outpatient (CLI) | payer MEDICARE, OTHER, SELFPAY ==
[2022-11-16 12:06] LABS: Alanine Aminotransferase 6 U/L (0-33); Alkaline Phosphatase 86 U/L (35-105); Aspartate Amino Transferase 12 U/L (0-32); Blood Urea Nitrogen 54 mg/dL (8-23); Calcium 9.3 mg/dL (8.5-10.5); Carbon Dioxide 24 mmol/L (22-29); Chloride 98 mmol/L (98-107); Globulin 2.4 g/dL (1.3-4.6); Glucose 91 mg/dL (65-115); Osmolality Calculated 290 mOsm/kg (285-295); Sodium 133 mmol/L (136-145); Total Bilirubin 0.2 mg/dL (0.15-1.2); Total Protein 5.4 g/dL (6.6-8.7)
== END 2022-11-16 11:09 | disposition home or self-care (01) ==
LOC: LAB 11:11
PROVIDERS: PCP Family Medicine; Visit Provider Family Medicine
DX: D50.9 Iron deficiency anemia, unspecified (principal)
CPT/HCPCS: 80053

== ENCOUNTER → 2022-11-25 15:45 | Outpatient (BNVA) | payer MEDICARE, OTHER, SELFPAY | PROVIDERS: PCP Family Medicine; Visit Provider Student in an Organized Health Care Education/Training Program | DX: M86.8X8 Other osteomyelitis, other site (principal); M19.031 Primary osteoarthritis, right wrist; M25.559 Pain in unspecified hip | CPT/HCPCS: 73110; 73502 ==

== ENCOUNTER 2022-11-25 16:04 | Outpatient (CLI) | payer MEDICARE, OTHER, SELFPAY | END 2022-11-25 16:05 | disposition home or self-care (01) | LOC: SPT 16:05 | PROVIDERS: PCP Family Medicine; Visit Provider Student in an Organized Health Care Education/Training Program | DX: Z46.89 Encounter for fitting and adjustment of other specified devices (principal); M19.031 Primary osteoarthritis, right wrist; M86.8X8 Other osteomyelitis, other site; Z96.642 Presence of left artificial hip joint | CPT/HCPCS: 20605; 97760; 99214; J3301; J3490; L3908 ==

== ENCOUNTER → 2023-04-01 07:57 | Outpatient (BNVA) | payer MEDICARE, OTHER, SELFPAY | PROVIDERS: PCP Family Medicine; Visit Provider Student in an Organized Health Care Education/Training Program | DX: M86.152 Other acute osteomyelitis, left femur; M19.031 Primary osteoarthritis, right wrist | CPT/HCPCS: 20600; 73502; 99213; J3301; J3490 ==

== ENCOUNTER → 2023-07-14 08:24 | Outpatient (BNVA) | payer MEDICARE, OTHER, SELFPAY | PROVIDERS: PCP Family Medicine; Visit Provider Student in an Organized Health Care Education/Training Program | DX: Z09 Encounter for follow-up examination after completed treatment for conditions other than malignant neoplasm; M86.8X8 Other osteomyelitis, other site; M21.70 Unequal limb length (acquired), unspecified site | CPT/HCPCS: 73502; 99213 ==

== ENCOUNTER → 2023-10-25 13:14 | Outpatient (BNVA) | payer MEDICARE, OTHER, SELFPAY | PROVIDERS: PCP Family Medicine; Visit Provider Student in an Organized Health Care Education/Training Program | DX: M17.11 Unilateral primary osteoarthritis, right knee; M94.262 Chondromalacia, left knee; Z46.89 Encounter for fitting and adjustment of other specified devices | CPT/HCPCS: 20610; 73502; 73562; 97760; 99214; J3301; L1851 ==

== ENCOUNTER 2023-10-25 14:41 | Outpatient (CLI) | payer MEDICARE, OTHER, SELFPAY | END 2023-10-25 14:42 | disposition home or self-care (01) | LOC: SPT 14:41 | PROVIDERS: PCP Family Medicine; Visit Provider Student in an Organized Health Care Education/Training Program | DX: Z46.89 Encounter for fitting and adjustment of other specified devices (principal); M17.11 Unilateral primary osteoarthritis, right knee | CPT/HCPCS: 20610; 97760; 99214; J3301; L1851 ==

== ENCOUNTER → 2024-01-31 13:32 | Outpatient (BNVA) | payer MEDICARE, OTHER, SELFPAY | PROVIDERS: PCP Family Medicine; Visit Provider Student in an Organized Health Care Education/Training Program | DX: M17.11 Unilateral primary osteoarthritis, right knee | CPT/HCPCS: 20610; 99213; J3301 ==

== ENCOUNTER → 2024-05-15 15:03 | Outpatient (BNVA) | payer MEDICARE, OTHER, SELFPAY | PROVIDERS: PCP Family Medicine; Visit Provider Student in an Organized Health Care Education/Training Program | DX: M17.11 Unilateral primary osteoarthritis, right knee; R03.0 Elevated blood-pressure reading, without diagnosis of hypertension; M25.561 Pain in right knee | CPT/HCPCS: 20610; 99213; J3301 ==

== ENCOUNTER → 2024-08-14 15:19 | Outpatient (BNVA) | payer MEDICARE, OTHER, SELFPAY | PROVIDERS: PCP Family Medicine; Visit Provider Student in an Organized Health Care Education/Training Program | DX: M86.9 Osteomyelitis, unspecified (principal); M17.11 Unilateral primary osteoarthritis, right knee; Z48.89 Encounter for other specified surgical aftercare | CPT/HCPCS: 20610; 73502; J3301 ==

== ENCOUNTER → 2024-12-18 13:44 | Outpatient (BNVA) | payer MEDICARE, OTHER, SELFPAY | PROVIDERS: PCP Family Medicine; Visit Provider Physician Assistant | DX: M17.11 Unilateral primary osteoarthritis, right knee (principal) | CPT/HCPCS: 20610; 99213; J3301; J9999 ==

== ENCOUNTER → 2025-04-16 13:01 | Outpatient (BNVA) | payer MEDICARE, OTHER, SELFPAY | PROVIDERS: PCP Internal Medicine; Visit Provider Student in an Organized Health Care Education/Training Program | DX: M17.11 Unilateral primary osteoarthritis, right knee (principal) | CPT/HCPCS: 20610; 99213; J3301; J9999 ==